=== PATIENT | male | born 1935 | race Caucasian/White ===

== ENCOUNTER → 2016-06-09 | Outpatient (CLI) | payer BC ==
[~2016-06-09] MED LIST: AMPI500C9 PO; ATOR-24 PO; CALC-20 PO; CEPH500C PO; CHOL1000 PO; CHOL100010 PO; CLC/300 PO; CMD/3 PO; COLC1TAB25 PO; COLCPOW6 PO; CYAN10005 PO; CYM/30 PO; CYM60 PO; DTR5 PO; DTRSR/2 PO; INSDGI SC; INSDGIPEN SC; INSUINJ14 SC; KFL500 PO; LISI40TA PO; MELA3CAP PO; MELATAB2 PO; NVLG SQ; NVLGI/PEN SC; TAMS0.4C38 PO; TRAZ100T29 PO; WARF2TAB8 PO; ZTHM250 PO
== END | disposition home or self-care (01) ==
LOC: C.LABSPEC 17:16
PROVIDERS: ATTEND Nurse Practitioner Family
DX: R35.0 Frequency of micturition (principal); R39.15 Urgency of urination

== ENCOUNTER → 2016-06-27 | Outpatient (CLI) | payer BC ==
[~2016-06-27] VITALS: Ht 182.9 cm; Wt 126.7 kg
[2016-06-27 15:36] VITALS: BP 103/65; PULSE 108; Ht 182.9 cm; Wt 126.7 kg
== END | disposition home or self-care (01) ==
LOC: C.NEUR 15:07
PROVIDERS: ATTEND Internal Medicine Pulmonary Disease
DX: G47.33 Obstructive sleep apnea (adult) (pediatric) (principal)

== ENCOUNTER 2016-08-01 13:57 | Inpatient (IN) | payer BC, OTHER ==
[~2016-08-01] VITALS: Ht 182.9 cm; Wt 123.8 kg
[~2016-08-01 13:57] MED LIST changes: -AMPI500C9 PO; -ATOR-24 PO; -CALC-20 PO; -CEPH500C PO; -CHOL1000 PO; -CLC/300 PO; -COLC1TAB25 PO; -COLCPOW6 PO; -CYAN10005 PO; -CYM/30 PO; -CYM60 PO; -DTR5 PO; -DTRSR/2 PO; -INSDGIPEN SC; -KFL500 PO; -LISI40TA PO; -MELATAB2 PO; -NVLG SQ; -NVLGI/PEN SC; -TAMS0.4C38 PO; -TRAZ100T29 PO; -WARF2TAB8 PO
[2016-08-01] MEDS ORDERED: WARF2TAB8 PO (14:14)
[2016-08-01] MEDS ORDERED: NVLGI/PEN SC (14:14)
[2016-08-01] MEDS ORDERED: CEPHALEXIN MONOHYDRATE 250 MG CAP PO ONE (14:15)
[2016-08-01] MEDS ORDERED: CEFTRIAXONE SOD INJ 1 GM ADDVIAL IV STA (14:15)
[2016-08-01 14:42] LABS: BASO % 0.4 %; BASO ABS # 0.03 K/uL (0-0.2); COMPLETE YES; EOS % 0.7 %; HEMATOCRIT 38.9 % (42-52); IG% 0.3 %; LYMPH % 31.1 %; LYMPH ABS # 2.09 K/uL (1.2-3.4); MEAN CELL VOLUME 91.7 fL (80-100); MEAN CORPUSCULAR HEMOGLOBIN 30.4 pg (25-34); MEAN CORPUSCULAR HGB CONC 33.2 g/dl (32-36); MONO % 6.8 %; NEUT % 60.7 %; PLATELET COUNT 214 K/uL (130-400); RED BLOOD COUNT 4.24 M/uL (4.7-6.1); WHITE BLOOD COUNT 6.72 K/uL (4.8-10.8)
--- NOTE | 2016-08-01 15:49 | DIAGNOSTIC IMAGING REPORT ---
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 Infection. COMPARISON: None. DISCUSSION: Soft tissue disruption oriented obliquely anterior to the proximal tibia and medial and somewhat inferior to the knee. Possible radiopaque packing material within the soft tissue wound. Clinical cortical defect of the anterior and medial proximal tibia. Possibility of a trace amount of periosteal reaction is seen laterally is considered. IMPRESSION: Soft tissue disruption and a potential cortical defect proximal tibia at the level of the metaphysis. 2. Either 3 phase bone scan or MRI of this region is suggested to exclude osteomyelitis Electronically signed by: Rakesh Mckenzie M.D. 08/01/2016 3:48 PM Dictated Date/Time: 08/01/2016 3:44 PM
[2016-08-01] MEDS ORDERED: CIPROFLOXACIN 400MG / 200ML D5W IV STA (17:03)
[2016-08-01] MEDS ORDERED: MAGNESIUM HYDROXIDE SUSP 30 ML UDC PO PRN (17:15)
[2016-08-01] MEDS ORDERED: ACETAMINOPHEN 325 MG TAB PO PRN (17:15)
[2016-08-01] MEDS ORDERED: ONDANSETRON INJ 2 MG/ML 2 ML VIAL IV PRN (17:15)
[2016-08-01] MEDS ORDERED: ALUMINUM/MAGNESIUM/SIMETH (MAALOX MAX) 30 ML UDC PO PRN (17:15)
[2016-08-01] MEDS ORDERED: ZOLPIDEM TARTRATE 5 MG TAB PO PRN (17:15)
[2016-08-01] MEDS ORDERED: POLYETHYLENE (MIRALAX) 17 GM PACK PO PRN (17:15)
[2016-08-01 17:26] LABS: BUN/CREATININE RATIO 17.3 (10-20); CALCIUM 9.2 mg/dl (8.5-10.1); CREATININE 1.5 mg/dl (0.60-1.40); POTASSIUM 4.2 mmol/L (3.5-5.1)
--- NOTE | 2016-08-01 17:34 | History and Physical ---
History & Physical Date of Service Aug 01, 2016. History & Physical left anterior below knee possible osteomyelitis [id number]
[2016-08-01 17:35] LABS: INR 1.8 (0.9-1.1); PROTHROMBIN TIME (PATIENT) 20.1 SECONDS (9.0-12.0)
[2016-08-01] MEDS ORDERED: GLUCOSE 10 TABS/TUBE PO PRN (17:45)
[2016-08-01] MEDS ORDERED: GLUCAGON FOR INJ 1 MG VIAL SQ PRN (17:45)
[2016-08-01] MEDS ORDERED: GLUCOSE 40% GEL 15 GM TUBE PO PRN (17:45)
[2016-08-01] MEDS ORDERED: DEXTROSE 50% 50 ML SYR IV PRN (17:45)
[2016-08-01 18:00] VITALS: BP 147/80; PULSE 62; TEMP 36.7; O2SAT 94; BMI 37.0
[2016-08-01 19:24] VITALS: O2SAT 94
[2016-08-01] MEDS: TRAZODONE HCL 100 MG TAB PO SCH (21:12)
[2016-08-01] MEDS: INSULIN ASPART 100 UNITS/ML 3 ML PEN SC SCH (21:16)
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
[2016-08-01 23:11] VITALS: BP 106/68; PULSE 73; TEMP 36.8; O2SAT 93
[2016-08-02 07:16] VITALS: BP 113/68; PULSE 68; TEMP 36.8; O2SAT 97
[2016-08-02 08:47] LABS: BASO % 0.9 %; BASO ABS # 0.06 K/uL (0-0.2); COMPLETE YES; EOS % 0.7 %; IG% 0.1 %; LYMPH % 39.4 %; LYMPH ABS # 2.67 K/uL (1.2-3.4); MEAN CELL VOLUME 93.5 fL (80-100); MEAN CORPUSCULAR HEMOGLOBIN 31.7 pg (25-34); MEAN CORPUSCULAR HGB CONC 33.8 g/dl (32-36); MEAN PLATELET VOLUME 10.2 fL (7.4-10.4); MONO % 6.6 %; NEUT % 52.3 %; PLATELET COUNT 205 K/uL (130-400); RED BLOOD COUNT 4.17 M/uL (4.7-6.1); WHITE BLOOD COUNT 6.77 K/uL (4.8-10.8)
[2016-08-02 08:54] LABS: INR 1.9 (0.9-1.1); PROTHROMBIN TIME (PATIENT) 20.7 SECONDS (9.0-12.0)
[2016-08-02] MEDS: CEFTRIAXONE SOD INJ 1 GM in DEXTROSE 5% ADD-VANTAGE 50ML 50 ML IV SCH (09:04)
[2016-08-02] MEDS: CALCIUM 600MG + VIT D 400 IU TAB PO SCH (09:04)
[2016-08-02] MEDS: DULOXETINE (CYMBALTA) 30 MG CAP PO SCH (09:05)
[2016-08-02] MEDS: ATORVASTATIN 40 MG TAB PO SCH (09:05)
[2016-08-02] MEDS: DULOXETINE HCL 60 MG CAP PO SCH (09:05)
[2016-08-02] MEDS: PANTOprazole SOD 40 MG TAB PO SCH (09:06)
[2016-08-02] MEDS: CYANOCOBALAMIN 500 MCG TAB (VIT B-12) PO SCH (09:06)
[2016-08-02] MEDS: LISINOPRIL 40 MG TAB PO SCH (09:07)
[2016-08-02] MEDS: INSULIN ASPART 100 UNITS/ML 3 ML PEN SC SCH ×4 (09:14→21:00)
[2016-08-02] MEDS: INSULIN GLARGINE SOLOSTAR 100 UNITS/ML 3 ML PEN SC SCH (09:16)
[2016-08-02 09:26] LABS: BUN/CREATININE RATIO 14.5 (10-20); CALCIUM 9.1 mg/dl (8.5-10.1); CREATININE 1.5 mg/dl (0.60-1.40); MAGNESIUM 2.1 mg/dl (1.8-2.4); POTASSIUM 4.1 mmol/L (3.5-5.1)
[2016-08-02 10:00] LABS: ESTIMATED AVERAGE GLUCOSE 192 mg/dl; HA1C FLAG Normal (Normal)
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
[2016-08-02 13:28] VITALS: Ht 182.9 cm; Wt 123.8 kg
[2016-08-02 15:26] VITALS: BP 111/74; PULSE 67; TEMP 36.9; O2SAT 96
[2016-08-02] MEDS ORDERED: WARFARIN SOD 2 MG TAB PO SCH (16:00)
--- NOTE | 2016-08-02 18:16 | DIAGNOSTIC IMAGING REPORT ---
3 phase limited bone scan BONE SCAN 3PHASE WHOLE BODY CLINICAL HISTORY: left anterior below knee possible osteomyelitis tibia infection TECHNIQUE: 3 phase bone scan following the administration of 26.3 mCi technetium 99m MDP. Vascular flow images show subtle increased hyperemia to the left knee as compared to the right. Stable static and delayed images show no significant abnormality. There is mild scattered degenerative activity of the knees bilaterally as well as the thoracolumbar spine and sternoclavicular joints. No well-defined increased activity is seen in inferior to the left knee. COMPARISON STUDY: Routine films dated 07/31/2016 FINDINGS: As above IMPRESSION: No evidence for osteomyelitis based on bone scan criteria. Scattered degenerative activity. Electronically signed by: Rakesh Mckenzie M.D. 08/02/2016 6:15 PM Dictated Date/Time: 08/02/2016 6:10 PM
[2016-08-02] MEDS ORDERED: PSYLLIUM 58.6% PWD PACK S\\F PO ONE (19:14)
[2016-08-02] MEDS: TRAZODONE HCL 100 MG TAB PO SCH (21:15)
[2016-08-02 23:09] VITALS: BP 103/66; PULSE 75; TEMP 36.8; O2SAT 95
[2016-08-03 08:12] VITALS: BP_SYST 100; BP_SYST 122; BP_DIAS 52; BP_DIAS 76; PULSE 60; PULSE 72; TEMP 36.4; TEMP 36.8; O2SAT 96; O2SAT 98
[2016-08-03] MEDS: CEFTRIAXONE SOD INJ 1 GM in DEXTROSE 5% ADD-VANTAGE 50ML 50 ML IV SCH (08:32)
[2016-08-03] MEDS: LISINOPRIL 40 MG TAB PO SCH (08:33)
[2016-08-03] MEDS: CALCIUM 600MG + VIT D 400 IU TAB PO SCH (08:33)
[2016-08-03] MEDS: CYANOCOBALAMIN 500 MCG TAB (VIT B-12) PO SCH (08:33)
[2016-08-03] MEDS: DULOXETINE HCL 60 MG CAP PO SCH (08:33)
[2016-08-03] MEDS: ATORVASTATIN 40 MG TAB PO SCH (08:34)
[2016-08-03] MEDS: DULOXETINE (CYMBALTA) 30 MG CAP PO SCH (08:34)
[2016-08-03] MEDS: PANTOprazole SOD 40 MG TAB PO SCH (08:45)
[2016-08-03] MEDS: INSULIN ASPART 100 UNITS/ML 3 ML PEN SC SCH ×2 (08:52→12:50)
[2016-08-03] MEDS: INSULIN GLARGINE SOLOSTAR 100 UNITS/ML 3 ML PEN SC SCH (08:53)
[2016-08-03] MEDS ORDERED: PSYLLIUM 58.6% PWD PACK S\\F PO SCH (09:00)
[2016-08-03 09:10] VITALS: BP 113/50; PULSE 82
[2016-08-03 10:46] VITALS: O2SAT 96
[2016-08-03] MEDS ORDERED: AMPI500C9 PO (11:07)
--- NOTE | 2016-08-03 11:08 | Discharge Instructions ---
Discharge Instructions Date of Service Aug 03, 2016. Admission Reason for Admission: Left Anterior Below Knee Possible Osteomyelitis Discharge Discharge Diagnosis / Problem: left leg cellulitis Discharge Goals Goal(s): Decrease discomfort, Improve function, Increase independence, Improve disease control, Diagnostic testing, Therapeutic intervention Activity Recommendations Activity Limitations: resume your previous activity Exercise/Sports Limitations: none Shower/Bathe: no limitations . Instructions / Follow-Up Instructions / Follow-Up Patient to be discharged home Please take antibiotic ampicillin 4 times a day for 7 days If worsening fevers, chills, fevers, pain or rash please report to ER Current Hospital Diet Patient's current hospital diet: Diabetes Type 2 Diet Discharge Diet Recommended Diet: Diabetes Type 2 Diet Pending Studies Studies pending at discharge: no Laboratory Results Hemoglobin A1c Test 08/02/16 08:31 Range/Units Estimated Average Glucose 192 mg/dl Hemoglobin A1c 8.3 H 4.5-5.6 % Medical Emergencies . Who to Call and When: Medical Emergencies: If at any time you feel your situation is an emergency, please call 911 immediately. . Non-Emergent Contact Non-Emergency issues call your: Primary Care Provider Call Non-Emergent contact if: you have a fever, your pain is worsening . . "Provider Documentation" section prepared by Rubio Brown. VTE Core Measure Inpt VTE Proph given/why not?: Warfarin (Coumadin)
[2016-08-03] MEDS ORDERED: AMPICILLIN 250 MG CAP PO SCH (12:00)
[2016-08-03] MEDS ORDERED: CLINDAMYCIN HCL 150 MG CAP PO SCH (12:00)
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
[2016-08-03] MEDS ORDERED: CEPHALEXIN MONOHYDRATE 500 MG CAP PO SCH (13:00)
[2016-08-03] MEDS ORDERED: KFL500 PO (13:21)
[2016-08-03] MEDS ORDERED: WARFARIN SOD 3 MG TAB PO SCH (16:00)
[2016-08-03 16:18] VITALS: BP 114/74; PULSE 65; TEMP 36.5; O2SAT 94
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
[2016-10-21] MEDS ORDERED: COLCPOW6 PO (08:23)
[2016-10-21] MEDS ORDERED: DTRSR/2 PO (08:23)
[2016-10-21] MEDS ORDERED: CYAN10005 PO (08:23)
[2016-10-21] MEDS ORDERED: TAMS0.4C38 PO (08:23)
[2016-12-02] MEDS ORDERED: CYM60 PO (04:44)
[2016-12-02] MEDS ORDERED: CHOL1000 PO (08:23)
[2016-12-02] MEDS ORDERED: MELATAB2 PO (08:23)
[2016-12-02] MEDS ORDERED: CEPH500C PO (09:03)
[2016-12-02] MEDS ORDERED: CYM/30 PO (14:14)
[2016-12-02] MEDS ORDERED: INSDGIPEN SC (14:14)
[2016-12-02] MEDS ORDERED: TRAZ100T29 PO (14:22)
[2016-12-02] MEDS ORDERED: CALC-20 PO (14:28)
[2017-02-01] MEDS ORDERED: CLC/300 PO (11:21)
[2017-02-15] MEDS ORDERED: CEPH500C PO (11:05)
== END 2016-08-03 16:35 | disposition home or self-care (01) | DRG 603 ==
LOC: ENRESERVTM → ENRESERVDT → C.EDB 13:58 → C.MSN 17:20 → EDBEDREQSVC 17:33 → OBSVTOIN 08-02 12:17
PROVIDERS: ADMIT Hospitalist; ATTEND Hospitalist
DX: L03.114 Cellulitis of left upper limb (principal); Z79.01 Long term (current) use of anticoagulants; Z86.718 Personal history of other venous thrombosis and embolism; E78.5 Hyperlipidemia, unspecified; C61 Malignant neoplasm of prostate; E11.9 Type 2 diabetes mellitus without complications; I10 Essential (primary) hypertension; Z79.4 Long term (current) use of insulin; Z87.891 Personal history of nicotine dependence; R35.0 Frequency of micturition; Z83.3 Family history of diabetes mellitus; Z80.9 Family history of malignant neoplasm, unspecified; Z82.49 Family history of ischemic heart disease and other diseases of the circulatory system; Z88.0 Allergy status to penicillin; Z88.2 Allergy status to sulfonamides

== ENCOUNTER → 2016-09-05 | Outpatient (CLI) | payer BC ==
[~2016-09-05] MED LIST changes: +ATOR-24 PO; +CALC-20 PO; +CEFT1INJ57 IV; +CEPH500C PO; +CHOL1000 PO; -CHOL100010 PO; +CLC/300 PO; +COLC1TAB25 PO; +COLCPOW6 PO; +CYAN10005 PO; +CYM/30 PO; +CYM60 PO; +DTR5 PO; +DTRSR/2 PO; -INSDGI SC; +INSDGIPEN SC; -INSUINJ14 SC; +KFL500 PO; +LISI40TA PO; -MELA3CAP PO; +MELATAB2 PO; +NVLG SQ; +NVLGI/PEN SC; +TAMS0.4C38 PO; +TRAZ100T29 PO; +WARF2TAB8 PO; -ZTHM250 PO
[2016-09-05 13:26] LABS: BASO % 0.4 %; BASO ABS # 0.03 K/uL (0-0.2); COMPLETE YES; HEMATOCRIT 38.4 % (42-52); IG% 0.1 %; LYMPH % 38.2 %; LYMPH ABS # 2.71 K/uL (1.2-3.4); MEAN CELL VOLUME 92.3 fL (80-100); MEAN CORPUSCULAR HEMOGLOBIN 30.8 pg (25-34); MEAN CORPUSCULAR HGB CONC 33.3 g/dl (32-36); MEAN PLATELET VOLUME 10.2 fL (7.4-10.4); MONO % 5.4 %; NEUT % 54.9 %; PLATELET COUNT 209 K/uL (130-400); RED BLOOD COUNT 4.16 M/uL (4.7-6.1)
[2016-09-05 14:23] LABS: URINE PROTIEN/CREAT RATIO 0.2 (0-0.2)
[2016-09-05 14:25] LABS: ESTIMATED AVERAGE GLUCOSE 186 mg/dl; HA1C FLAG Normal (Normal)
[2016-09-05 14:47] LABS: BLOOD UREA NITROGEN 19 mg/dl (7-18); BUN/CREATININE RATIO 13.9 (10-20); CALCIUM 9.2 mg/dl (8.5-10.1); CARBON DIOXIDE 25 mmol/L (21-32); CHLORIDE 110 mmol/L (98-107); GLUCOSE 139 mg/dl (70-99); POTASSIUM 3.9 mmol/L (3.5-5.1); SODIUM 144 mmol/L (136-145)
== END | disposition home or self-care (01) ==
LOC: C.LABBC 10:16
PROVIDERS: ATTEND Internal Medicine Geriatric Medicine
DX: I10 Essential (primary) hypertension (principal); E11.9 Type 2 diabetes mellitus without complications; E53.8 Deficiency of other specified B group vitamins; R53.83 Other fatigue; D64.9 Anemia, unspecified; M85.80 Other specified disorders of bone density and structure, unspecified site; E55.9 Vitamin D deficiency, unspecified; L03.90 Cellulitis, unspecified

== ENCOUNTER → 2016-10-14 | Outpatient (CLI) | payer BC ==
--- NOTE | 2016-10-14 11:44 | DIAGNOSTIC IMAGING REPORT ---
CT OF THE LEFT LOWER LEG CT DOSE: HISTORY: Infection. Pain. CELLULITIS L03.9 TECHNIQUE: Multiaxial CT images of the left lower leg were performed and reformatted in the sagittal and coronal plane without the use of contrast. COMPARISON: None. FINDINGS: Findings of superficial soft tissue ulceration with radiopaque material within the wound extending from a region medial to the proximal tibia and to a region medially adjacent to and involving the inferior tibial tubercles. Transaxial image 61 as well as sagittal image 26 suggest potential early cortical destructive change and minimal periosteal reaction inferior to the tibial tubercles. Early osteomyelitis is not excluded. There is no evidence for drainable abscess or collection. Mild generalized soft tissue edematous change is present. No additional lytic or blastic process is appreciated. IMPRESSION: 1. A soft tissue ulcer medial to the proximal tibia extending to a position immediately inferior to the tibial tubercles. 2. Possible early osteomyelitis proximal tibia 3. No evidence for drainable abscess or collection. Electronically signed by: Rakesh Mckenzie M.D. 10/14/2016 11:43 AM Dictated Date/Time: 10/14/2016 11:32 AM
== END | disposition home or self-care (01) ==
LOC: C.CTS 11:01
PROVIDERS: ATTEND Physician Assistant Medical
DX: L03.90 Cellulitis, unspecified (principal); L97.229 Non-pressure chronic ulcer of left calf with unspecified severity

== ENCOUNTER 2016-12-02 15:57 | Emergency (ER) | payer OTHER, BC ==
[~2016-12-02 15:57] MED LIST changes: -ATOR-24 PO; -CEFT1INJ57 IV; -CLC/300 PO; -COLC1TAB25 PO; -DTR5 PO; -KFL500 PO; -LISI40TA PO; -NVLG SQ
[2016-12-02] MEDS ORDERED: CYAN10005 PO (16:01)
[2016-12-02] MEDS ORDERED: ATOR-24 PO (16:15)
[2016-12-02] MEDS ORDERED: SODIUM CHLORIDE 0.9% 500ML 500 ML IV STA (16:22)
[2016-12-02] MEDS ORDERED: ACETAMINOPHEN 325 MG TAB PO STA (16:22)
[2016-12-02] MEDS ORDERED: OPTIRAY 320 IV PRN (16:30)
[2016-12-02 16:50] LABS: HEMATOCRIT 37.5 % (42-52); MEAN CELL VOLUME 91.9 fL (80-100); MEAN CORPUSCULAR HEMOGLOBIN 30.9 pg (25-34); MEAN CORPUSCULAR HGB CONC 33.6 g/dl (32-36); MEAN PLATELET VOLUME 9.8 fL (7.4-10.4); PLATELET COUNT 188 K/uL (130-400); RED BLOOD COUNT 4.08 M/uL (4.7-6.1); WHITE BLOOD COUNT 9.01 K/uL (4.8-10.8)
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
[2016-12-02] MEDS ORDERED: COLC1TAB25 PO (17:01)
[2016-12-02] MEDS ORDERED: NVLG SQ (17:01)
[2016-12-02] MEDS ORDERED: DTR5 PO (17:01)
[2016-12-02 17:05] LABS: INR 2.1 (0.9-1.1); PARTIAL THROMBOPLASTIN RATIO 1.2; PROTHROMBIN TIME (PATIENT) 23.4 SECONDS (9.0-12.0)
[2016-12-02 17:06] LABS: ALT/SGPT 23 U/L (12-78); AST/SGOT 22 U/L (15-37); BLOOD UREA NITROGEN 23 mg/dl (7-18); CALCIUM 9.3 mg/dl (8.5-10.1); CARBON DIOXIDE 28 mmol/L (21-32); CHLORIDE 110 mmol/L (98-107); GLUCOSE 60 mg/dl (70-99); POTASSIUM 4.1 mmol/L (3.5-5.1); SODIUM 144 mmol/L (136-145)
[2016-12-02 17:09] LABS: ALB/GLOB RATIO 0.8 (0.9-2); ALKALINE PHOSPHATASE 86 U/L (45-117)
[2016-12-02] MEDS ORDERED: DEXTROSE 50% 50 ML SYR IV ONE (17:15)
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
[2016-12-02 18:43] LABS: URINE APPEARANCE CLEAR (CLEAR); URINE BILIRUBIN NEG (NEG); URINE COLOR YELLOW; URINE NITRITE NEG (NEG); URINE PH 5.5 (4.5-7.5); URINE SPECIFIC GRAVITY 1.022 (1.000-1.030); UROBILINOGEN NEG (NEG)
[2016-12-02 18:50] LABS: MANUAL MICROSCOPIC REQUIRED? NO; REVIEW REQ? NO
[2016-12-02 19:26] VITALS: BP 135/80; PULSE 84; O2SAT 96
[2016-12-02] MEDS ORDERED: LISI40TA PO (19:33)
[2017-02-01] MEDS ORDERED: CLC/300 PO (11:21)
[2017-02-15] MEDS ORDERED: CEPH500C PO (11:05)
== END 2016-12-02 19:37 | disposition home or self-care (01) ==
LOC: EDBD 15:57 → C.EDA 15:58
DX: S20.219A Contusion of unspecified front wall of thorax, initial encounter (principal); V49.40XA Driver injured in collision with unspecified motor vehicles in traffic accident, initial encounter; Y92.488 Other paved roadways as the place of occurrence of the external cause; Z79.01 Long term (current) use of anticoagulants; R91.1 Solitary pulmonary nodule; E11.9 Type 2 diabetes mellitus without complications; E78.5 Hyperlipidemia, unspecified; I10 Essential (primary) hypertension; C61 Malignant neoplasm of prostate; Z86.718 Personal history of other venous thrombosis and embolism; Z86.711 Personal history of pulmonary embolism; Z87.891 Personal history of nicotine dependence; Z83.3 Family history of diabetes mellitus; Z82.49 Family history of ischemic heart disease and other diseases of the circulatory system; Z79.4 Long term (current) use of insulin

== ENCOUNTER 2016-12-10 16:37 | Emergency (ER) | payer BC, OTHER ==
[~2016-12-10] VITALS: Ht 182.9 cm; Wt 128.0 kg
[~2016-12-10 16:37] MED LIST changes: +ATOR-24 PO; +COLC1TAB25 PO; -COLCPOW6 PO; +DTR5 PO; -DTRSR/2 PO; +LISI40TA PO; +NVLG SQ; -NVLGI/PEN SC; -TAMS0.4C38 PO
[2016-12-10 16:44] VITALS: TEMP 36.5; Ht 182.9 cm; Wt 128.0 kg
[2016-12-10] MEDS ORDERED: FAMOTIDINE 20 MG TAB PO STA (17:03)
[2016-12-10] MEDS ORDERED: SUCRALFATE 1 GM TAB PO STA (17:03)
[2016-12-10] MEDS ORDERED: GI COCKTAIL PO STA (17:03)
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
--- NOTE | 2016-12-10 17:27 | DIAGNOSTIC IMAGING REPORT ---
CHEST ONE VIEW PORTABLE CLINICAL HISTORY: CHEST PAIN pain COMPARISON STUDY: 06/09/2014 FINDINGS: Stable cardiomegaly. Under clear. Minimal chronic atelectatic change left base. IMPRESSION: Stable cardiomegaly. The above report was generated using voice recognition software. It may contain grammatical, syntax or spelling errors. Electronically signed by: Rakesh Mckenzie M.D. 12/10/2016 5:25 PM Dictated Date/Time: 12/10/2016 5:25 PM
[2016-12-10 17:54] LABS: BASO % 0.4 %; BASO ABS # 0.03 K/uL (0-0.2); COMPLETE YES; EOS % 1.7 %; HEMATOCRIT 38.8 % (42-52); IG% 0.1 %; LYMPH % 38.2 %; LYMPH ABS # 2.69 K/uL (1.2-3.4); MEAN CELL VOLUME 94.2 fL (80-100); MEAN CORPUSCULAR HEMOGLOBIN 30.8 pg (25-34); MEAN CORPUSCULAR HGB CONC 32.7 g/dl (32-36); MEAN PLATELET VOLUME 9.8 fL (7.4-10.4); MONO % 6.7 %; NEUT % 52.9 %; PLATELET COUNT 209 K/uL (130-400); RED BLOOD COUNT 4.12 M/uL (4.7-6.1); WHITE BLOOD COUNT 7.04 K/uL (4.8-10.8)
[2016-12-10 17:59] LABS: ISTAT CREATININE 1.2 mg/dl (0.6-1.3); ISTAT HEMOGLOBIN 12.9 g/dl (14.0-18.0); ISTAT IONIZED CALCIUM 1.25 mmol/l (1.12-1.32)
[2016-12-10 18:13] LABS: ALT/SGPT 25 U/L (12-78); BLOOD UREA NITROGEN 22 mg/dl (7-18); BUN/CREATININE RATIO 15.6 (10-20); CALCIUM 9.3 mg/dl (8.5-10.1); CARBON DIOXIDE 29 mmol/L (21-32); CHLORIDE 109 mmol/L (98-107); GLUCOSE 84 mg/dl (70-99); POTASSIUM 4.5 mmol/L (3.5-5.1); SODIUM 143 mmol/L (136-145)
[2016-12-10] MEDS ORDERED: OPTIRAY 320 IV PRN (18:15)
[2016-12-10 18:18] LABS: ALKALINE PHOSPHATASE 84 U/L (45-117); AST/SGOT 20 U/L (15-37); CKMB/CK RATIO 1.5 (0-3.0)
[2016-12-10] MEDS ORDERED: LIDOCAINE HCL 2% VISC SOLN 20 ML UDC ONE (18:25)
[2016-12-10] MEDS ORDERED: ALUMINUM/MAGNESIUM SUSP 30 ML UDC ONE (18:25)
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
[2016-12-10 19:58] VITALS: BP 120/71; PULSE 62; O2SAT 94
== END 2016-12-10 20:10 | disposition home or self-care (01) ==
LOC: C.EDB 16:39
DX: R07.9 Chest pain, unspecified (principal); I45.10 Unspecified right bundle-branch block; E11.9 Type 2 diabetes mellitus without complications; E78.5 Hyperlipidemia, unspecified; I10 Essential (primary) hypertension; Z85.46 Personal history of malignant neoplasm of prostate; Z86.718 Personal history of other venous thrombosis and embolism; Z79.01 Long term (current) use of anticoagulants; Z79.4 Long term (current) use of insulin; Z79.899 Other long term (current) drug therapy; Z88.0 Allergy status to penicillin; Z88.2 Allergy status to sulfonamides; Z88.8 Allergy status to other drugs, medicaments and biological substances; Z83.3 Family history of diabetes mellitus; Z80.9 Family history of malignant neoplasm, unspecified; Z82.49 Family history of ischemic heart disease and other diseases of the circulatory system

== ENCOUNTER → 2017-04-05 | Outpatient (CLI) | payer BC ==
[~2017-04-05] MED LIST changes: +CEFT1INJ57 IV; -CEPH500C PO; -COLC1TAB25 PO
[2017-04-05 17:45] LABS: BASO % 0.6 %; BASO ABS # 0.04 K/uL (0-0.2); COMPLETE YES; EOS % 1.4 %; HEMATOCRIT 36.2 % (42-52); IG% 0.2 %; LYMPH % 41.1 %; LYMPH ABS # 2.57 K/uL (1.2-3.4); MEAN CORPUSCULAR HEMOGLOBIN 31.2 pg (25-34); MEAN CORPUSCULAR HGB CONC 32.9 g/dl (32-36); MEAN PLATELET VOLUME 10.6 fL (7.4-10.4); MONO % 6.4 %; NEUT % 50.3 %; PLATELET COUNT 184 K/uL (130-400); RED BLOOD COUNT 3.81 M/uL (4.7-6.1); WHITE BLOOD COUNT 6.25 K/uL (4.8-10.8)
[2017-04-05 17:53] LABS: ALT/SGPT 19 U/L (12-78); BLOOD UREA NITROGEN 20 mg/dl (7-18); BUN/CREATININE RATIO 15.2 (10-20); CALCIUM 8.7 mg/dl (8.5-10.1); CARBON DIOXIDE 29 mmol/L (21-32); CHLORIDE 110 mmol/L (98-107); CREATININE 1.34 mg/dl (0.60-1.40); GLUCOSE 189 mg/dl (70-99); SODIUM 144 mmol/L (136-145)
[2017-04-05 17:56] LABS: ALB/GLOB RATIO 0.8 (0.9-2); ALKALINE PHOSPHATASE 90 U/L (45-117); AST/SGOT 18 U/L (15-37)
== END | disposition home or self-care (01) ==
LOC: C.LABSPEC 17:21
PROVIDERS: ATTEND Internal Medicine Infectious Disease
DX: M86.9 Osteomyelitis, unspecified (principal)

== ENCOUNTER → 2017-04-11 | Outpatient (CLI) | payer BC ==
[~2017-04-11] MED LIST changes: +CEPH-571 PO
[2017-04-11 11:25] LABS: BASO % 0.9 %; BASO ABS # 0.06 K/uL (0-0.2); EOS % 2.1 %; EOS ABS # 0.15 K/uL (0-0.5); HEMATOCRIT 38.7 % (42-52); HEMOGLOBIN 12.7 g/dL (14.0-18.0); IG# 0.02 K/uL (0.00-0.02); LYMPH % 40.4 %; LYMPH ABS # 2.82 K/uL (1.2-3.4); MEAN CELL VOLUME 94.6 fL (80-100); MEAN CORPUSCULAR HEMOGLOBIN 31.1 pg (25-34); MEAN CORPUSCULAR HGB CONC 32.8 g/dl (32-36); MEAN PLATELET VOLUME 10.3 fL (7.4-10.4); MONO % 4.4 %; MONO ABS # 0.31 K/uL (0.11-0.59); NEUT % 51.9 %; NEUT ABS # 3.62 K/uL (1.4-6.5); PLATELET COUNT 204 K/uL (130-400); RED CELL DISTRIBUTION WIDTH CV 13.7 % (11.5-14.5); RED CELL DISTRIBUTION WIDTH SD 47.2 fL (36.4-46.3); WHITE BLOOD COUNT 6.98 K/uL (4.8-10.8)
[2017-04-11 11:33] LABS: ALBUMIN 3.3 gm/dl (3.4-5.0); ALT/SGPT 21 U/L (12-78); AST/SGOT 18 U/L (15-37); BLOOD UREA NITROGEN 24 mg/dl (7-18); CALCIUM 8.8 mg/dl (8.5-10.1); CARBON DIOXIDE 25 mmol/L (21-32); CREATININE 1.33 mg/dl (0.60-1.40); GLUCOSE 154 mg/dl (70-99); SODIUM 143 mmol/L (136-145)
[2017-04-11 11:36] LABS: ALKALINE PHOSPHATASE 100 U/L (45-117); TOTAL PROTEIN 7.3 gm/dl (6.4-8.2)
== END | disposition home or self-care (01) ==
LOC: C.LABSPEC 11:14
PROVIDERS: ATTEND Internal Medicine Infectious Disease
DX: M86.9 Osteomyelitis, unspecified (principal)

== ENCOUNTER → 2017-04-17 | Outpatient (CLI) | payer BC ==
[~2017-04-17] MED LIST changes: -CEPH-571 PO
--- NOTE | 2017-04-17 12:42 | DIAGNOSTIC IMAGING REPORT ---
(CHEST) THORAX WITHOUT CT DOSE: 949.49 mGy.cm HISTORY: R91.1 Pulmonary nodule F/U from ER on 12/02/[id number] TECHNIQUE: Multiaxial CT images of the chest were performed without contrast. A dose lowering technique was utilized adhering to the principles of ALARA. COMPARISON: Chest CTA 12/10/[address] 12/02/2016. FINDINGS: A 3.4 x 2.0 cm cystic focus within the right middle lobe has slightly increased in size. In addition, the nodular component along the posterior aspect of the cystic focus appears also slightly progressed. This measures 1 cm but demonstrates increased solid component. Calcified right hilar lymph node and a calcified granuloma within the right lower lobe. Mild emphysema. There is a new 3 mm nodule within the lingula on image 149. There is a new 3 mm subpleural nodule within the left lower lobe on image 141. A new 3 mm subpleural nodule within the right lung apex on image 52. No pneumothorax. The central airways are patent. No pleural effusions. Increase versus edema around favors a healing fracture. No suspicious lytic or blastic osseous lesions. The right PICC terminates in the SVC. The liver is unremarkable. A few calcified splenic granulomas. The heart is normal in size. No mediastinal or hilar lymphadenopathy. IMPRESSION: 1. Slight progression of the right middle lobe cystic lesion demonstrating a 10 mm solid nodule. A chronic infectious process could result in this appearance. However, neoplasm remains the diagnosis of exclusion given the slight progression. Additional [address] follow-up and/or bronchoscopy is recommended for further evaluation. 2. A few new subcentimeter indeterminate pulmonary nodules measuring up to 3 mm. These also bear watching on future examinations. 3. Healing manubrial fracture. Electronically signed by: Akhil Amaro M.D. 04/17/2017 12:41 PM Dictated Date/Time: 04/17/2017 12:29 PM
== END | disposition home or self-care (01) ==
LOC: C.CTS 11:25
PROVIDERS: ATTEND Internal Medicine Geriatric Medicine
DX: R91.8 Other nonspecific abnormal finding of lung field (principal); S22.21XD Fracture of manubrium, subsequent encounter for fracture with routine healing; X58.XXXD Exposure to other specified factors, subsequent encounter

== ENCOUNTER → 2017-04-18 | Outpatient (CLI) | payer BC ==
[~2017-04-18] MED LIST changes: +CEPH-571 PO
[2017-04-18 17:52] LABS: BASO % 0.6 %; BASO ABS # 0.04 K/uL (0-0.2); EOS % 1.2 %; EOS ABS # 0.08 K/uL (0-0.5); HEMATOCRIT 38.3 % (42-52); HEMOGLOBIN 12.3 g/dL (14.0-18.0); IG# 0.01 K/uL (0.00-0.02); LYMPH % 45.1 %; LYMPH ABS # 2.93 K/uL (1.2-3.4); MEAN CELL VOLUME 93.9 fL (80-100); MEAN CORPUSCULAR HEMOGLOBIN 30.1 pg (25-34); MEAN CORPUSCULAR HGB CONC 32.1 g/dl (32-36); MEAN PLATELET VOLUME 10.3 fL (7.4-10.4); MONO % 7.2 %; MONO ABS # 0.47 K/uL (0.11-0.59); NEUT % 45.7 %; NEUT ABS # 2.97 K/uL (1.4-6.5); PLATELET COUNT 197 K/uL (130-400); RED CELL DISTRIBUTION WIDTH CV 13.5 % (11.5-14.5); RED CELL DISTRIBUTION WIDTH SD 46.5 fL (36.4-46.3)
[2017-04-18 18:02] LABS: ALBUMIN 3.2 gm/dl (3.4-5.0); ALT/SGPT 20 U/L (12-78); BLOOD UREA NITROGEN 23 mg/dl (7-18); CALCIUM 8.9 mg/dl (8.5-10.1); CARBON DIOXIDE 27 mmol/L (21-32); CREATININE 1.15 mg/dl (0.60-1.40); GLUCOSE 112 mg/dl (70-99); SODIUM 142 mmol/L (136-145)
[2017-04-18 18:05] LABS: ALKALINE PHOSPHATASE 90 U/L (45-117); AST/SGOT 18 U/L (15-37); TOTAL PROTEIN 6.8 gm/dl (6.4-8.2)
== END | disposition home or self-care (01) ==
LOC: C.LABSPEC 17:15
PROVIDERS: ATTEND Internal Medicine Infectious Disease
DX: M86.9 Osteomyelitis, unspecified (principal)

== ENCOUNTER → 2017-04-25 | Outpatient (CLI) | payer BC, OTHER ==
[~2017-04-25] MED LIST changes: -CEPH-571 PO
[2017-04-25 16:35] LABS: BASO % 0.5 %; BASO ABS # 0.03 K/uL (0-0.2); COMPLETE YES; EOS % 1.1 %; HEMATOCRIT 35.7 % (42-52); LYMPH % 40.4 %; LYMPH ABS # 2.57 K/uL (1.2-3.4); MEAN CELL VOLUME 94.7 fL (80-100); MEAN CORPUSCULAR HEMOGLOBIN 30.8 pg (25-34); MEAN CORPUSCULAR HGB CONC 32.5 g/dl (32-36); MEAN PLATELET VOLUME 10.6 fL (7.4-10.4); MONO % 5.2 %; NEUT % 52.8 %; PLATELET COUNT 176 K/uL (130-400); RED BLOOD COUNT 3.77 M/uL (4.7-6.1); WHITE BLOOD COUNT 6.36 K/uL (4.8-10.8)
[2017-04-25 16:46] LABS: ALT/SGPT 23 U/L (12-78); AST/SGOT 18 U/L (15-37); BLOOD UREA NITROGEN 24 mg/dl (7-18); BUN/CREATININE RATIO 15.6 (10-20); CALCIUM 8.5 mg/dl (8.5-10.1); CARBON DIOXIDE 28 mmol/L (21-32); CHLORIDE 106 mmol/L (98-107); CREATININE 1.54 mg/dl (0.60-1.40); GLUCOSE 268 mg/dl (70-99); POTASSIUM 3.9 mmol/L (3.5-5.1); SODIUM 139 mmol/L (136-145)
[2017-04-25 16:48] LABS: ALB/GLOB RATIO 0.8 (0.9-2); ALKALINE PHOSPHATASE 99 U/L (45-117)
== END | disposition home or self-care (01) ==
LOC: C.LABSPEC 16:44
PROVIDERS: ATTEND Internal Medicine Infectious Disease
DX: M86.9 Osteomyelitis, unspecified (principal)

== ENCOUNTER → 2017-05-02 | Outpatient (CLI) | payer BC ==
[2017-05-02 12:05] LABS: BASO % 0.9 %; BASO ABS # 0.05 K/uL (0-0.2); COMPLETE YES; EOS % 2.9 %; HEMATOCRIT 36.4 % (42-52); IG% 0.2 %; LYMPH % 36.6 %; MEAN CORPUSCULAR HEMOGLOBIN 30.5 pg (25-34); MEAN CORPUSCULAR HGB CONC 32.1 g/dl (32-36); MEAN PLATELET VOLUME 10.4 fL (7.4-10.4); MONO % 5.3 %; NEUT % 54.1 %; PLATELET COUNT 170 K/uL (130-400); RED BLOOD COUNT 3.83 M/uL (4.7-6.1); WHITE BLOOD COUNT 5.46 K/uL (4.8-10.8)
[2017-05-02 12:13] LABS: ALT/SGPT 21 U/L (12-78); BLOOD UREA NITROGEN 20 mg/dl (7-18); BUN/CREATININE RATIO 15.7 (10-20); CALCIUM 8.5 mg/dl (8.5-10.1); CARBON DIOXIDE 27 mmol/L (21-32); CHLORIDE 108 mmol/L (98-107); CREATININE 1.25 mg/dl (0.60-1.40); GLUCOSE 180 mg/dl (70-99); POTASSIUM 3.9 mmol/L (3.5-5.1); SODIUM 142 mmol/L (136-145)
[2017-05-02 12:16] LABS: ALB/GLOB RATIO 0.8 (0.9-2); ALKALINE PHOSPHATASE 100 U/L (45-117); AST/SGOT 18 U/L (15-37)
== END | disposition home or self-care (01) ==
LOC: C.LABSPEC 11:50
PROVIDERS: ATTEND Internal Medicine Infectious Disease
DX: M86.9 Osteomyelitis, unspecified (principal)

== ENCOUNTER → 2017-05-05 | Outpatient (CLI) | payer BC ==
[2017-05-05 16:53] LABS: BASO % 0.6 %; BASO ABS # 0.04 K/uL (0-0.2); COMPLETE YES; EOS % 1.3 %; HEMATOCRIT 39.1 % (42-52); LYMPH % 38.9 %; LYMPH ABS # 2.44 K/uL (1.2-3.4); MEAN CORPUSCULAR HEMOGLOBIN 30.8 pg (25-34); MEAN CORPUSCULAR HGB CONC 32.7 g/dl (32-36); MEAN PLATELET VOLUME 10.6 fL (7.4-10.4); MONO % 5.6 %; NEUT % 53.6 %; PLATELET COUNT 207 K/uL (130-400); RED BLOOD COUNT 4.16 M/uL (4.7-6.1); WHITE BLOOD COUNT 6.28 K/uL (4.8-10.8)
[2017-05-05 16:54] LABS: PARTIAL THROMBOPLASTIN RATIO 1.3; PROTHROMBIN TIME (PATIENT) 20.9 SECONDS (9.0-12.0)
[2017-05-05 17:18] LABS: ALT/SGPT 24 U/L (12-78); AST/SGOT 19 U/L (15-37); BLOOD UREA NITROGEN 17 mg/dl (7-18); BUN/CREATININE RATIO 14.4 (10-20); CALCIUM 8.8 mg/dl (8.5-10.1); CARBON DIOXIDE 26 mmol/L (21-32); CHLORIDE 109 mmol/L (98-107); CREATININE 1.18 mg/dl (0.60-1.40); GLUCOSE 133 mg/dl (70-99); SODIUM 139 mmol/L (136-145)
[2017-05-05 17:21] LABS: ALB/GLOB RATIO 0.8 (0.9-2); ALKALINE PHOSPHATASE 99 U/L (45-117)
[2017-05-06 06:58] LABS: ESTIMATED AVERAGE GLUCOSE 183 mg/dl; HA1C FLAG Normal (Normal)
== END | disposition home or self-care (01) ==
LOC: C.LABBC 12:45
PROVIDERS: ATTEND Internal Medicine Geriatric Medicine
DX: R06.02 Shortness of breath (principal); R91.1 Solitary pulmonary nodule; I10 Essential (primary) hypertension; D64.9 Anemia, unspecified; E11.65 Type 2 diabetes mellitus with hyperglycemia

== ENCOUNTER 2017-05-11 07:28 | Day surgery (SDC) | payer BC ==
[2017-05-11] VITALS (13 sets, daily range): BP systolic 101–158; BP diastolic 58–90; PULSE 57–86; TEMP 36.5–37.2; O2SAT 91–99; Ht 182.9 cm; Wt 124.7 kg
[~2017-05-11] VITALS: Ht 182.9 cm; Wt 124.7 kg
[~2017-05-11 07:28] MED LIST changes: -CEFT1INJ57 IV
[2017-05-11] MEDS ORDERED: FENTANYL CITRATE INJ 50 MCG/1 ML 2 ML VIAL IV ONE ×2 (07:29→10:15)
[2017-05-11] MEDS ORDERED: LIDOCAINE HCL 2% LOCAL 50ML VIAL INFIL ONE (07:29)
[2017-05-11] MEDS ORDERED: LIDOCAINE 4% W/AFRIN NASAL SOLN 4ML ONE (07:29)
[2017-05-11] MEDS ORDERED: MIDAZOLAM HCL 5 MG/ML 1 ML VIAL IV ONE ×2 (07:29→10:15)
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
[2017-05-11 09:04] LABS: INR 1.1 (0.9-1.1); PROTHROMBIN TIME (PATIENT) 11.6 SECONDS (9.0-12.0)
--- NOTE | 2017-05-11 09:06 | History & Physical Bridge Note ---
H&P Re-Evaluation Bridge Note: I have examined the patient, reviewed the History & Physical and in the interval since the performance of the History & Physical I have noted the following changes of clinical significance: No changes noted
--- NOTE | 2017-05-11 09:07 | Procedure Note ---
Pre-Mod Sedation Assessment General Date of Moderate Sedation: May 11, 2017. Review Cardiovascular: regular rate, rhythm, no edema, no gallop, no JVD Abdomen: normal bowel sounds, non tender, soft, no organomegaly, no pulsatile mass Lungs: chest non-tender, lungs clear, normal breath sounds, no respiratory distress Airway Class: III Pre-Sedation Airway Assessment Oral Cavity: WNL Able to Visualize Vocal Cords: Yes Short Thick Neck: Yes Hx of Sleep Apnea: Yes Smoking Status: Former Smoker Mallampati Classification: Class III ASA Classification: Class II Procedure Planning Contraindications-for Mod Sed: None Yes Notes The planned sedation has been discussed with the patient and consent obtained. I have identified the patient, determined the appropriateness of sedation and have assessed the patient immediately prior to the procedure. All medicine(s) and interventions are by my order.
[2017-05-11] MEDS ORDERED: NURSING VERBAL MED ORDER ONE ×2 (09:15→10:15)
[2017-05-11] MEDS ORDERED: SODIUM CHLORIDE 0.9% 1000ML 1,000 ML IV SCH (09:30)
--- NOTE | 2017-05-11 10:06 | Bronchoscopy Procedure Note ---
Bronchoscopy Procedure Note Procedure: Bronchoscopy, conscious sedation, bronchial lavage right middle lobe Consent: Obtained through the patient placed into the chart Pre-procedural diagnosis: Chronic bronchitis with right middle lobe cyst Post-procedural diagnosis: Chronic bronchitis with right middle lobe cyst, chronic rhinitis Start time: 944 End time: 955 Total time: minutes Analgesia: 2% liquid lidocaine: Via nebulizer 4% gel lidocaine: Via right naris 2% liquid lidocaine: Via bronchoscopy Sedation: Versed IV: 2mg Fentanyl IV: 25g Procedure: The Olympus video bronchoscope was used for this procedure and passed down through the right naris Right naris/posterior naris/posterior oropharynx: Diffuse erythema along the posterior naris as well as cobblestoning and erythema in the oral pharyngeal region Glottis: Notable erythema along the glottic region suggestive of chronic rhinitis Vocal cords: Proper abduction and abduction, anatomically within normal limits Subglottis/trachea/Stacey: Anatomically within normal limits Right bronchial tree: Right mainstem bronchus: Anatomically within normal limits Right upper lobe: Anatomically within normal limits Bronchus intermedius: Anatomically within normal limits Right middle lobe: Anatomically within normal limits, minimal mucous plugging Right lower lobe: Anatomically within normal limits Findings: No significant findings noted Left bronchial tree: Left mainstem bronchus: Anatomically within normal limits Left upper lobe: Anatomically within normal limits, minimal mucous plugging Lingula: Anatomically within normal limits Left lower lobe: Anatomically within normal limits Findings: No significant findings noted Bronchial alveolar lavage: Right middle lobe EBL: None Complications: None Follow-up: ASU
--- NOTE | 2017-05-11 10:07 | Procedure Note ---
Post-Moderate Sedation Plan General Date of Moderate Sedation May 11, 2017. Vital Signs: Vital Signs Past 12 Hours Date Time Temp Pulse Resp B/P (MAP) Pulse Ox O2 Delivery O2 Flow Rate FiO2 05/11/17 09:18 37.1 86 20 131/60 94 Room Air 05/11/17 08:38 37.1 86 20 131/60 (83) 94 Room Air Review - Discharge Plan Post Moderate Sedation Plan: On clinical assessment, the patient appears to have tolerated the conscious sedation without complications. Patient is recovering as anticipated. Patient will continue to be monitored by nursing and may be discharged when conscious sedation discharge criteria are met.
--- NOTE | 2017-05-11 10:09 | Discharge Instructions ---
Discharge Instructions Date of Service May 11, 2017. Admission Reason for Admission: Pulmonary Nodule, Shortness Of Breath Discharge Discharge Diagnosis / Problem: chronic rhinitis with right middle lobe cyst Discharge Goals Goal(s): Diagnostic testing Activity Recommendations Activity Limitations: resume your previous activity . Instructions / Follow-Up Instructions / Follow-Up Follow-up with the [facility] pulmonary division Current Hospital Diet Patient's current hospital diet: Discharge Diet Recommended Diet: Regular Diet Procedures Procedures Performed: Bronchoscopy, conscious sedation was bronchial lavage of the right middle lobe Pending Studies Studies pending at discharge: no Laboratory Results Hemoglobin A1c Test 05/05/17 12:50 Range/Units Estimated Average Glucose 183 mg/dl Hemoglobin A1c 8.0 H 4.5-5.6 % Lipid Panel Test 03/29/17 14:34 Range/Units Triglycerides Level 162 H 0-150 mg/dl Cholesterol Level 157 0-200 mg/dl HDL Cholesterol 38 mg/dl Cholesterol/HDL Ratio 4.1 LDL Cholesterol, Calculated 87 mg/dl Medical Emergencies . Who to Call and When: Medical Emergencies: If at any time you feel your situation is an emergency, please call 911 immediately. . Non-Emergent Contact Non-Emergency issues call your: Host Coordinator . . "Provider Documentation" section prepared by Wyatt Tidwell. . VTE Core Measure Inpt VTE Proph given/why not?: Warfarin (Coumadin)
== END 2017-05-11 12:15 | disposition home or self-care (01) ==
LOC: C.ACU 07:28
PROVIDERS: ATTEND Internal Medicine Critical Care Medicine
DX: J98.4 Other disorders of lung (principal); R91.1 Solitary pulmonary nodule; R06.02 Shortness of breath; J31.0 Chronic rhinitis

== ENCOUNTER 2017-06-15 12:20 | Emergency (ER) | payer BC ==
[~2017-06-15] VITALS: Ht 182.9 cm; Wt 115.0 kg
[~2017-06-15 12:20] MED LIST changes: -CYM/30 PO; -WARF2TAB8 PO
[2017-06-15 12:30] VITALS: Ht 182.9 cm; Wt 115.0 kg
--- NOTE | 2017-06-15 13:37 | EMERGENCY ROOM VISIT NOTE ---
History First contact with patient: 13:08 Chief Complaint: GROIN PAIN Stated Complaint: PAIN IN R GROIN History of Present Illness The patient is a 81 year old male who presents to the Emergency Room via private vehicle with complaints of "pain and right groin". The patient states that for the past 10-14 days he has had a reddened, moist region in the right groin. He believes this is a yeast infection. He's been treating it with over- the-counter jock itch. It has been improving. In the same region just distally in the right medial thigh he also notes pain that is worse with movements. He notes it is in the muscle region. There was no recent trauma. He states that he has a hx of DVT in the same leg. There is not abd pain, Cp, sob, fevers or chills. Review of Systems A complete 10-point Review of Systems was discussed with the patient, with pertinent positives and negatives listed in the History of Present Illness. All remaining Review of Systems questions can be considered negative unless otherwise specified. Past Medical/Surgical History Medical Problems: (1) Diabetes (2) DVT (deep venous thrombosis) (3) Hyperlipidemia (4) Hypertension (5) left anterior below knee possible osteomyelitis (6) Prostate cancer (7) Urinary frequency Family History Diabetes mellitus FHx: cancer FHx: heart disease Hypertension Social History Smoking Status: Former Smoker Alcohol Use: none Drug Use: none Marital Status: Housing Status: lives with family, lives with significant other Occupation Status: retired Current/Historical Medications Scheduled Atorvastatin (Lipitor), 40 MG PO DAILY Calcium Carbonate-Vitamin D (Calcium 600 + D), 1 TAB PO DAILY Cholecalciferol (Vitamin D3), 1 TAB PO DAILY Cyanocobalamin (Vitamin B-12), 1,000 MCG PO DAILY Duloxetine HCl (Duloxetine HCl), 90 MG PO DAILY Insulin Aspart (Novolog), SQ ACHS Insulin Glargine (Lantus Solostar), 50 UNITS SC DAILY Lisinopril (Zestril), 40 MG PO DAILY Melatonin (Melatonin Maximum Strengt), 1 TAB PO HS Oxybutynin Chloride (Oxybutynin Chloride), 5 MG PO TID Trazodone Hcl (Trazodone), 100 MG PO HS Warfarin Sod (Warfarin Sodium), 3 MG PO DAILY Physical Exam Vital Signs Date Time Temp Pulse Resp B/P (MAP) Pulse Ox O2 Delivery O2 Flow Rate FiO2 06/15/17 15:58 36.8 68 19 132/73 96 06/15/17 12:30 36.8 69 18 130/69 94 Room Air Physical Exam VITAL SIGNS - Vital signs and nursing notes were reviewed. Stable. GENERAL - 81-year-old male appearing his stated age who is in no acute distress. Communicates well with provider and answers questions appropriately. SKIN - in the right groin there is a moistened region with slightly erythematous hue. This is consistent with that of a yeast infection. HEAD - NC/AT. ABDOMEN - Abdominal contour normal without pulsations or visible masses. BS normoactive all four quadrants. No tenderness, palpable masses, hepatosplenomegaly, or ascites noted. EXTREMITIES - No clubbing or peripheral cyanosis. No pretibial edema present. +5 /5 strength noted in UE/LE bilaterally. Minimal tenderness in the R proximal thigh. Medical Decision & Procedures ER Provider Diagnostic Interpretation: PELVIS ONE VIEW, RIGHT HIP 2 VIEWS HISTORY: R groin pain COMPARISON: None. FINDINGS: No fracture or dislocation within the pelvis or hips. The sacrum is intact. Multiple brachytherapy seeds are noted within the prostate. Mild cartilage space narrowing within the bilateral hips and mild degenerative changes within the bilateral sacroiliac joints. There are also degenerative changes within the lower lumbar spine. IMPRESSION: Mild osteoarthritis within the bilateral hips. No fracture or dislocation within the pelvis or hips. Electronically signed by: Akhil Amaro M.D. 06/15/2017 2:17 PM Dictated Date/Time: 06/15/2017 2:13 PM R VENOUS DOPP LOWER EXT UNILAT HISTORY: 81 years-old Male R groing/inner thigh pain. Hx DVT acute right groin and inner thigh pain. COMPARISON: None available TECHNIQUE: Multiple real-time sonographic images of the deep pelvic structures within the right lower extremity were obtained assessing grayscale appearance, color and spectral flow. FINDINGS: Booth's cyst is noted, 6.4 x 1.1 x 3.2 cm which appears minimally complex. The common femoral vein is patent and unremarkable. Nonocclusive somewhat linear appearing thrombus is noted within the superficial femoral and popliteal arteries without occlusive thrombus identified. Areas of intermittent diminished flow noted within the peroneal vein. The posterior tibial and anterior tibial veins appear patent. IMPRESSION: 1. Chronic appearing nonocclusive thrombus involves the superficial femoral, popliteal and peroneal veins. 2. 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 The above report was generated using voice recognition software. It may contain grammatical, syntax or spelling errors. Electronically signed by: Fredy Andersen M.D. 06/15/2017 2:58 PM Dictated Date/Time: 06/15/2017 2:52 PM Medical Decision Patient was seen and evaluated as above. He presents to us today with right groin/medial anterior thigh pain. He is nontoxic on exam. He has stable vital signs. He is hemodynamically stable. X-ray was obtained of the hip without acute fracture or dislocation noted. Ultrasound was obtained and reveals a chronic thrombus. He is currently anticoagulant. INR here is 2.3. I suspect this could be muscle related and he is already treating himself at home for the tinea cruris noted in the right inguinal region. This does not appear to be a hernia. The thigh pain is not really reproducible on exam but he pinpoints it to the muscle region. This could also be radicular. He is to follow-up with family doctor, as well as Dr. brooks, his back specialist. I believe he is appropriate for outpatient management. His medication list was reviewed. His blood pressure was found be elevated here today. He is to follow-up with his family doctor. He was also seen by the attending physician. He was educated upon management, educated upon worrisome symptoms in which to return, had questions answered prior to discharge, and was discharged home in good condition. In evaluation treatment this patient the following differential diagnoses were entertained: Fracture, dislocation, muscle strain, among others. Impression Primary Impression: Pain in right thigh Additional Impression: Tinea corporis Departure Information Dispostion Home / Self-Care Condition GOOD Referrals Chris Epps M.D. (PCP) Patient Instructions My [facility] [place] Additional Instructions You have been treated in the Emergency Department for Thigh Pain. For pain control, you can use the following [id number] medicines (if >12 yo): - Regular strength (325mg/tab) Tylenol (acetaminophen) 2 tabs every 4-6 hours as needed. Do not exceed 12 tablets in a 24 hour period. Avoid taking more than 3 grams (3000 mg) of Tylenol per day. This includes any other sources of acetaminophen you may take on a regular basis. If this is a recent injury (<24 hrs), ice can be applied to the area of pain for the first 3 days to help decrease pain and inflammation. Ice massages can be performed by freezing water in a paper cup, peeling back the cup to expose the ice and then massaging over the affected area. Please call your family doctor and Dr. brooks for follow up. Cream for the yeast Return to the Emergency Department if your current symptoms worsen despite treatment course outlined above. Problem Qualifiers
--- NOTE | 2017-06-15 14:18 | DIAGNOSTIC IMAGING REPORT ---
PELVIS ONE VIEW, RIGHT HIP 2 VIEWS HISTORY: R groin pain COMPARISON: None. FINDINGS: No fracture or dislocation within the pelvis or hips. The sacrum is intact. Multiple brachytherapy seeds are noted within the prostate. Mild cartilage space narrowing within the bilateral hips and mild degenerative changes within the bilateral sacroiliac joints. There are also degenerative changes within the lower lumbar spine. IMPRESSION: Mild osteoarthritis within the bilateral hips. No fracture or dislocation within the pelvis or hips. Electronically signed by: Akhil Amaro M.D. 06/15/2017 2:17 PM Dictated Date/Time: 06/15/2017 2:13 PM
--- NOTE | 2017-06-15 15:00 | DIAGNOSTIC IMAGING REPORT ---
R VENOUS DOPP LOWER EXT UNILAT HISTORY: 81 years-old Male R groing/inner thigh pain. Hx DVT acute right groin and inner thigh pain. COMPARISON: None available TECHNIQUE: Multiple real-time sonographic images of the deep pelvic structures within the right lower extremity were obtained assessing grayscale appearance, color and spectral flow. FINDINGS: Booth's cyst is noted, 6.4 x 1.1 x 3.2 cm which appears minimally complex. The common femoral vein is patent and unremarkable. Nonocclusive somewhat linear appearing thrombus is noted within the superficial femoral and popliteal arteries without occlusive thrombus identified. Areas of intermittent diminished flow noted within the peroneal vein. The posterior tibial and anterior tibial veins appear patent. IMPRESSION: 1. Chronic appearing nonocclusive thrombus involves the superficial femoral, popliteal and peroneal veins. 2. 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 The above report was generated using voice recognition software. It may contain grammatical, syntax or spelling errors. Electronically signed by: Fredy Andersen M.D. 06/15/2017 2:58 PM Dictated Date/Time: 06/15/2017 2:52 PM
--- NOTE | 2017-06-15 15:28 | EMERGENCY ROOM VISIT NOTE ---
ED Visit Note First contact with patient: 13:08 The patient was seen and examined with Matt Francisco. I agree with the history, physical and findings. Please see the note for disposition and details.
[2017-06-15 15:58] VITALS: BP 132/73; PULSE 68; TEMP 36.8; O2SAT 96
== END 2017-06-15 15:59 | disposition home or self-care (01) ==
LOC: C.EDB 12:22 → C.EDD 15:59
DX: M79.651 Pain in right thigh (principal); B35.4 Tinea corporis; Z86.718 Personal history of other venous thrombosis and embolism; E11.9 Type 2 diabetes mellitus without complications; E78.5 Hyperlipidemia, unspecified; I10 Essential (primary) hypertension; Z85.46 Personal history of malignant neoplasm of prostate; Z83.3 Family history of diabetes mellitus; Z80.9 Family history of malignant neoplasm, unspecified; Z82.49 Family history of ischemic heart disease and other diseases of the circulatory system; Z87.891 Personal history of nicotine dependence; Z79.4 Long term (current) use of insulin; Z79.01 Long term (current) use of anticoagulants; Z79.899 Other long term (current) drug therapy

== ENCOUNTER → 2017-06-28 | Outpatient (CLI) | payer BC ==
--- NOTE | 2017-06-28 07:46 | DIAGNOSTIC IMAGING REPORT ---
(CHEST) THORAX WITHOUT CLINICAL HISTORY: PULMONARY NODULE COMPARISON STUDY: 04/17/2017 CT DOSE: TECHNIQUE: CT of the thorax was performed from the thoracic inlet to the lung bases. Images are reviewed in the axial, sagittal, and coronal planes. IV contrast was not administered for this examination. A dose lowering technique was utilized adhering to the principles of ALARA. FINDINGS: Thyroid: There is a 6 mm right lobe thyroid nodule. Thoracic aorta: The thoracic aorta is normal in course and caliber, noting standard 3 vessel arch anatomy. Heart: There are coronary artery calcifications. Lungs and pleural spaces: There are no pleural effusions. There is no focal pulmonary consolidation. There is a 29 mm right middle lobe lung cyst, with a stable 9 mm nodular focus abutting its medial wall. There is a stable 2.5 mm right apical pulmonary nodule. There is a calcified granuloma within the right lower lobe. There is a punctate left lower lobe granuloma. Mediastinum: There is no mediastinal lymphadenopathy. Saritha: Calcified right hilar lymph nodes, likely postinflammatory remain stable. Axilla: There is no evidence of pathologic axillary lymphadenopathy Upper abdomen: There is a partially visualized upper pole left renal cyst Skeletal structures: There are no lytic or blastic osseous lesions. IMPRESSION: Stable 29 mm right middle lobe lung cyst abutting a 9 mm pulmonary nodule. Electronically signed by: Mundo Justice M.D. 06/28/2017 7:45 AM Dictated Date/Time: 06/28/2017 7:37 AM
== END | disposition home or self-care (01) ==
LOC: C.CTS 07:01
PROVIDERS: ATTEND Internal Medicine Critical Care Medicine
DX: R91.1 Solitary pulmonary nodule (principal); J98.4 Other disorders of lung

== ENCOUNTER → 2017-06-28 | Outpatient (CLI) | payer BC ==
--- NOTE | 2017-06-28 07:53 | DIAGNOSTIC IMAGING REPORT ---
LUMBAR SPINE WITHOUT CLINICAL HISTORY: 81 years-old Male presenting with COMPRESSION FRACTURE L1. TECHNIQUE: Multidetector CT of the lumbar spine was performed without the use of intravenous contrast. IV contrast: None. A dose lowering technique was used consistent with the principles of ALARA (as low as reasonably achievable). COMPARISON: CT abdomen and pelvis from 12/02/2016. CT DOSE (mGy.cm): The estimated cumulative dose is 3057.86 mGy.cm. FINDINGS: Snowmaker topogram: Unremarkable. Focal kyphotic deformity at L1 secondary to compression fracture. There is no retropulsion of fracture fragments into the spinal canal. Over 40% anterior vertebral body height loss noted. These findings are unchanged since prior CT. No new compression deformity. Extensive multilevel degenerative changes. The remainder of vertebral body heights are preserved. Extensive intervertebral disc height loss with vacuum disc phenomenon and prominent osteophytosis including posterior bony spurring most prominently at L1-2 as well as L3-4. This results in osseous spinal canal narrowing greatest at L1-2. Mild facet arthropathy also evident. Neural foraminal narrowing greatest at L4-5 and L5-S1. No acute fracture or subluxation. Paraspinal soft tissues within normal limits with the exception of atherosclerosis. IMPRESSION: 1. No acute osseous injury lumbar spine. 2. Unchanged compression deformity of L1 with 40% anterior vertebral body height loss. This appearance is identical to 12/02/2016. 3. Multilevel degenerative changes with osseous spinal canal greatest at L1-2 and neural foraminal narrowing greatest in the lower lumbar spine. Electronically signed by: Elijah Alonzo M.D. 06/28/2017 7:52 AM Dictated Date/Time: 06/28/2017 7:46 AM
== END | disposition home or self-care (01) ==
LOC: C.CTS 07:04
PROVIDERS: ATTEND Pain Medicine Interventional Pain Medicine
DX: S32.010D Wedge compression fracture of first lumbar vertebra, subsequent encounter for fracture with routine healing (principal); X58.XXXD Exposure to other specified factors, subsequent encounter; M89.8X8 Other specified disorders of bone, other site

== ENCOUNTER → 2017-07-11 | Outpatient (CLI) | payer BC ==
[2017-07-11 10:28] LABS: INR 1.2 (0.9-1.1)
== END | disposition home or self-care (01) ==
LOC: C.LAB 09:56
PROVIDERS: ATTEND Pain Medicine Interventional Pain Medicine
DX: Z79.01 Long term (current) use of anticoagulants (principal)

== ENCOUNTER → 2017-12-25 | Outpatient (CLI) | payer BC ==
[2017-12-25 09:22] LABS: INR 1.1 (0.9-1.1)
== END | disposition home or self-care (01) ==
LOC: C.LAB 08:56
PROVIDERS: ATTEND Pain Medicine Interventional Pain Medicine
DX: Z79.01 Long term (current) use of anticoagulants (principal)

== ENCOUNTER 2018-08-26 23:44 | Inpatient (IN) ==
[2018-08-27 00:42] LABS: Basophils # (auto) 0.05 K/uL (0-0.2); Basophils % (auto) 0.5 %; Eosinophils # (auto) 0.43 K/uL (0-0.5); Eosinophils % (auto) 4.2 %; Hematocrit (blood only) 40.4 % (42-52); Hemoglobin 13.7 g/dL (14.0-18.0); Immature Granulocytes # (auto) 0.02 K/uL (0.00-0.02); Immature Granulocytes % (auto) 0.2 %; Lymphocytes # (auto) 2.81 K/uL (1.2-3.4); Lymphocytes % (auto) 27.7 %; Mean Corpuscular Hgb Conc 33.9 g/dL (32-36); Mean Corpuscular Volume 93.5 fL (80-100); Mean Platelet Volume 10.2 fL (7.4-10.4); Monocytes # (auto) 0.45 K/uL (0.11-0.59); Monocytes % (auto) 4.4 %; Platelet Count 242 K/uL (130-400); RDW Coefficient of Variation 13.1 % (11.5-14.5); RDW Standard Deviation 44.9 fL (36.4-46.3); Red Blood Count 4.32 M/uL (4.7-6.1); White Blood Count 10.16 K/uL (4.8-10.8)
[2018-08-27 01:02] LABS: INR 1.8 (0.9-1.1); Prothrombin Time 17.5 Seconds (9.0-12.0)
[2018-08-27 01:14] LABS: Alanine Aminotransferase 19 U/L (12-78); Albumin Level 2.9 gm/dl (3.4-5.0); Aspartate Aminotransferase 14 U/L (15-37); BUN Creatinine Ratio 13.5 (10-20); Bilirubin Direct 0.2 mg/dl (0-0.2); Blood Urea Nitrogen 19 mg/dl (7-18); Calcium 9.1 mg/dl (8.5-10.1); Carbon Dioxide 27 mmol/L (21-32); Chloride 103 mmol/L (98-107); Creatinine Clr Calc Pharmacy 55.7 ml/min; Est GFR (African American) 54.7; Est GFR (Non-African American) 47.2; Glucose 263 mg/dl (70-99); Magnesium 1.9 mg/dl (1.8-2.4); Potassium 4.1 mmol/L (3.5-5.1); Sodium 141 mmol/L (136-145)
[2018-08-27 01:25] LABS: Alkaline Phosphatase 111 U/L (45-117); Bilirubin,Total 0.9 mg/dl (0.2-1); Total Protein 7.5 gm/dl (6.4-8.2); Troponin I < 0.015 ng/ml (0-0.045)
[2018-08-27 01:28] LABS: Appearance Urine Cloudy (Clear); Bacteria Urine Automated 4+ (Negative); Bilirubin Urine Negative (Negative); Blood Urine Trace (Negative); Color Urine Yellow; Epithelial Cell Urine Auto 0-5 /lpf (0-5); Glucose Urine UA 3+ (Negative); Ketones Urine Trace (Negative); Leukocyte Esterase Urine 1+ (Negative); Nitrite Urine Negative (Negative); Protein Urine Trace (Negative); Specific Gravity Urine 1.023 (1.000-1.030); Urobilinogen Urine Negative (Negative); WBC Urine Automated >30 /hpf (0-5)
[2018-08-27] MEDS ORDERED: cefTRIAXone SODIUM 1,000 MG/50 ML BAG IV STA (01:53)
[2018-08-27 01:59] LABS: Amphetamines+Metham, Urine Neg (Neg); Barbiturates, Urine Neg (Neg); Benzodiazepine, Urine Neg (Neg); Cocaine, Urine Neg (Neg); MDMA (Ecstacy), Urine Neg (Neg); Methadone, Urine Neg (Neg); Opiate, Urine Neg (Neg); Phencyclidine, Urine Neg (Neg)
--- NOTE | 2018-08-27 03:13 | Emergency Department Note ---
Entered by Jesus Agosto acting as a scribe for Giovany Woodruff MD ED Provider Note CC: Mental Health Evaluation HPI: 82 y/o male arrives for evaluation of his constant suicidal thoughts beginning three months ago via EMS. EMS states they were called out by the patient's because he was refusing to get out of bed. They report the patient cannot sleep and wants to hill himself. EMS notes he had chronic back and knee pain. They state he was 89 on room air and uses 2L of O2 at night. EMS reports his SOB worsens with exertion, and its chronic. They note he may have been thrashing around angrily and may have hit his knee before their arrival. The patient states for the last three month, he thought about killing himself. He reports he has never tried to hurt himself, and he has no idea how he would hurt himself. The patient notes he has been intermittently using alcohol and medical marijuana. He states the wound on his left knee has been there for two years, and he sees wound care. The patient reports he developed redness to his knee this evening, and he has been having swelling of his legs. He notes he has seen a psychiatrist a few years ago. ROS: See above HPI for pertinent positives & negatives. A total of 10 systems reviewed and were otherwise negative. Past Medical History: DM, HTN, HLD, DVT Past Surgical History: none Family History: non-contributory Social History: Medical Marijuana and alcohol Home Medications: atorvastatin, calcium, d3, duloxetine, insulin, lisinopril, marijuana, oxybutynin, trazodone, warfarin Allergies: Sulfa, Penicillins, Metformin, Simvastatin, Doxycycline Physical: Vitals: BP 140/108, Pulse 106, Resp 16, Temp 97.9, O2 Sat 94 - NC Exam: GENERAL: Patient is ornery and disheveled appearing and in no acute distress. EYES: No scleral icterus, unremarkable pupils. ENT: Mucous membranes moist, no nasal congestion. NECK: No masses appreciated, no meningismus, trachea is midline. RESPIRATORY: No dyspnea. Clear to auscultation and equal bilaterally. No wheeze, no rhonchi. CARDIOVASCULAR: Regular rate and rhythm. No murmurs, rubs, gallops appreciated. GASTROINTESTINAL: Abdomen soft, non-tender, no peritonitis. Bowel sounds positive. No masses appreciated. BACK: No midline tenderness, no CVA tenderness EXTREMITIES: Normal motion all extremities, no cyanosis, no edema. Redness/abrasion to the left patella. NEUROLOGIC: Alert and oriented, no acute motor or sensory deficits, no focal weakness, cranial nerves grossly intact. SKIN: No jaundice, no diaphoresis. Chronic ulcer of the skin to the left upper smith. ED Course: Prior Medical Record, Triage/Nursing Notes, Medications reviewed by Me Labs reviewed and remarkable for +UTI, mild WBC elevation Vital Signs reviewed and remarkable for wnl 2349: The patient was evaluated in room A07, and a complete history and physical examination were performed. 0007: The patient is becoming belligerent to staff. I was able to verbally deescalate him. 0101: The patient is sleeping. 0150: I reevaluated the patient. He is agreeable to inpatient treatment. He still thinks about hurting himself. 0231: I reviewed the patient's case with Dr. Basurto, [facility] Hospitalist. He will evaluate the patient for further management. Imaging: X ray results are stated below per my interpretation: Chest: 1 view: No infiltrate, no effusion, normal cardiac border. [facility] Radiologist interpretation reviewed by me: CT HEAD negative for acute findings EKG: Per My interpretation: NSR 91 bpm with pac no ischemia. RBBB. QTC 563 Consults: Dr Basurto evaluated patient and will bring in for further management Blood pressure: Elevated - Monitored by hospitalist Differentials: differential includes toxic ingestions, self-mutilation, suicidal ideation, suicide attempt, depression. Medical Decision Makin yr old male brought in for aggressive behavior at home and suicidal threats without plan. Labile mood here, initially cooperative, then aggressive with me and staff, then calmed and nice, cooperative no issues. Admits depression and suicidal thoughts at times. He has evidence of UTI which given straight cath could be contaminant but with labile mood, mental status change and fact 4+ bacteria and he is diabetic with mild wbc bump from baseline will treat as real. He will not be able to be medically cleared at this time. Given 1 gm IV rocephin. Will bring in to hospitalist service for further management. Patient happy, no distress and comfortable with plan at time of hospitalization. Impression: Urinary Tract Infection Depression Change in Mental Status Suicidal Thoughts Giovany Woodruff MD The scribe's documentation has been prepared under my direction and personally reviewed by me in its entirety. I confirm that the note above accurately reflects all work, treatment, procedures, and medical decision making performed by me. Impression & Plan Urinary tract infection, Depression, Change in mental status, Suicidal thoughts Past Med/Surg History Medical History Prostate cancer (Chronic) Urinary frequency (Chronic) Hypertension (Chronic) Hyperlipidemia (Chronic) Diabetes (Chronic) DVT (deep venous thrombosis) (Resolved) Back pain (Chronic) Chest pain (Chronic) Confusion (Chronic) Depression (Chronic) Diabetes (Chronic) Dysuria (Chronic) HTN (hypertension) (Chronic) Hyperlipidemia (Chronic) Insomnia (Chronic) Left leg cellulitis (Chronic) Osteomyelitis of left knee region (Chronic) Prostate cancer (Chronic) Urinary frequency (Chronic) Surgical History No pertinent past surgical history Family History Other Family history non-contributory Social History Preferred Language: Luxembourgish Feels Safe at Home: Yes Smoking Status: Former smoker Hx Alcohol Use: Yes Hx Substance Use: Yes Results & Data Vital Signs Vital Signs - 24 hr 08/26/18 23:58 08/27/18 01:17 Temperature 36.6 C Temperature Source Oral Sepsis Recent Fever Within 48 Hours No Sepsis New/Unexplained Change in Mental Status No Sepsis Action Taken by Nursing No Action Required Pulse Rate 106 H Pulse Rate [Finger] 95 H Respiratory Rate 16 18 Respiratory Effort / Characteristics Non-Labored Spontaneous Non-Labored Spontaneous Respiratory Depth Normal Normal Blood Pressure 140/108 H Blood Pressure [Right Arm] 143/95 H Blood Pressure Mean 118 Blood Pressure Mean [Right Arm] 111 Pulse Oximetry 94 95 Oxygen Delivery Method Nasal Cannula Nasal Cannula Oxygen Flow Rate 3 3 Home Medications Current Medication List: was personally reviewed by me Laboratory Data Attestation: I reviewed the patient's lab results. Result diagrams: 08/27/18 00:27 08/27/18 00:27 Lab Results 04/01/19 04/01/19 04/01/19 Range/Units 00:27 00:27 00:27 WBC 10.16 (4.8-10.8) K/uL RBC 4.32 L (4.7-6.1) M/uL Hgb 13.7 L (14.0-18.0) g/dL Hct 40.4 L (42-52) % MCV 93.5 (80-100) fL MCH 31.7 (25-34) pg MCHC 33.9 (32-36) g/dL RDW Std Deviation 44.9 (36.4-46.3) fL RDW Coeff of Dante 13.1 (11.5-14.5) % Plt Count 242 (130-400) K/uL MPV 10.2 (7.4-10.4) fL Immature Gran % (Auto) 0.2 % Neut % (Auto) 63.0 % Lymph % (Auto) 27.7 % Henderson % (Auto) 4.4 % Eos % (Auto) 4.2 % Baso % (Auto) 0.5 % Immature Gran # (Auto) 0.02 (0.00-0.02) K/uL Neut # (Auto) 6.40 (1.4-6.5) K/uL Lymph # (Auto) 2.81 (1.2-3.4) K/uL Henderson # (Auto) 0.45 (0.11-0.59) K/uL Eos # (Auto) 0.43 (0-0.5) K/uL Baso # (Auto) 0.05 (0-0.2) K/uL PT (9.0-12.0) Seconds INR (0.9-1.1) Sodium 141 (136-145) mmol/L Potassium 4.1 (3.5-5.1) mmol/L Chloride 103 (98-107) mmol/L Carbon Dioxide 27 (21-32) mmol/L Anion Gap 11.0 (3-11) BUN 19 H (7-18) mg/dl Creatinine 1.39 (0.6-1.4) mg/dl Est Cr Clr Drug Dosing 55.7 ml/min Est GFR ( Amer) 54.7 Est GFR (Non-Af Amer) 47.2 BUN/Creatinine Ratio 13.5 (10-20) Glucose 263 H (70-99) mg/dl Calcium 9.1 (8.5-10.1) mg/dl Magnesium 1.9 (1.8-2.4) mg/dl Total Bilirubin 0.9 (0.2-1) mg/dl Direct Bilirubin 0.2 (0-0.2) mg/dl AST 14 L (15-37) U/L ALT 19 (12-78) U/L Alkaline Phosphatase 111 (45-117) U/L Troponin I < 0.015 (0-0.045) ng/ml Total Protein 7.5 (6.4-8.2) gm/dl Albumin 2.9 L (3.4-5.0) gm/dl TSH 2.470 (0.300-4.500) uIu/ml Urine Color Urine Appearance (Clear) Urine pH (4.5-7.5) Ur Specific [place] (1.000-1.030) Urine Protein (Negative) Urine Glucose (UA) (Negative) Urine Ketones (Negative) Urine Blood (Negative) Urine Nitrite (Negative) Urine Bilirubin (Negative) Urine Urobilinogen (Negative) Ur Leukocyte Esterase (Negative) Urine WBC (Auto) (0-5) /hpf Urine RBC (Auto) (0-4) /hpf U Hyaline Cast (Auto) (0-5) /lpf U Epithel Cells (Auto) (0-5) /lpf Urine Bacteria (Auto) (Negative) Urine Opiates Screen (Neg) Ur Methadone, Qual (Neg) Urine Barbiturates (Neg) Ur Phencyclidine (PCP) (Neg) U Amphetamin/Meth Scrn (Neg) MDMA (Ecstasy) Screen (Neg) U Benzodiazepines Scrn (Neg) Ur Cocaine Metabolite (Neg) U Marijuana (THC) Screen (Neg) Ethyl Alcohol mg/dL < 3.0 (0-3) mg/dl 08/27/18 08/27/18 08/27/18 Range/Units 00:27 01:15 01:15 WBC (4.8-10.8) K/uL RBC (4.7-6.1) M/uL Hgb (14.0-18.0) g/dL Hct (42-52) % MCV (80-100) fL MCH (25-34) pg MCHC (32-36) g/dL RDW Std Deviation (36.4-46.3) fL RDW Coeff of Dante (11.5-14.5) % Plt Count (130-400) K/uL MPV (7.4-10.4) fL Immature Gran % (Auto) % Neut % (Auto) % Lymph % (Auto) % Henderson % (Auto) % Eos % (Auto) % Baso % (Auto) % Immature Gran # (Auto) (0.00-0.02) K/uL Neut # (Auto) (1.4-6.5) K/uL Lymph # (Auto) (1.2-3.4) K/uL [place] # (Auto) (0.11-0.59) K/uL Eos # (Auto) (0-0.5) K/uL Baso # (Auto) (0-0.2) K/uL PT 17.5 H (9.0-12.0) Seconds INR 1.8 H (0.9-1.1) Sodium (136-145) mmol/L Potassium (3.5-5.1) mmol/L Chloride (98-107) mmol/L Carbon Dioxide (21-32) mmol/L Anion Gap (3-11) BUN (7-18) mg/dl Creatinine (0.6-1.4) mg/dl Est Cr Clr Drug Dosing ml/min Est GFR ( Amer) Est GFR (Non-Af Amer) BUN/Creatinine Ratio (10-20) Glucose (70-99) mg/dl Calcium (8.5-10.1) mg/dl Magnesium (1.8-2.4) mg/dl Total Bilirubin (0.2-1) mg/dl Direct Bilirubin (0-0.2) mg/dl AST (15-37) U/L ALT (12-78) U/L Alkaline Phosphatase (45-117) U/L Troponin I (0-0.045) ng/ml Total Protein (6.4-8.2) gm/dl Albumin (3.4-5.0) gm/dl TSH (0.300-4.500) uIu/ml Urine Color Yellow Urine Appearance Cloudy H (Clear) Urine pH 5.0 (4.5-7.5) Ur Specific [place] 1.023 (1.000-1.030) Urine Protein Trace H (Negative) Urine Glucose (UA) 3+ H (Negative) Urine Ketones Trace H (Negative) Urine Blood Trace H (Negative) Urine Nitrite Negative (Negative) Urine Bilirubin Negative (Negative) Urine Urobilinogen Negative (Negative) Ur Leukocyte Esterase 1+ H (Negative) Urine WBC (Auto) >30 H (0-5) /hpf Urine RBC (Auto) 5-10 H (0-4) /hpf U Hyaline Cast (Auto) 1-5 (0-5) /lpf U Epithel Cells (Auto) 0-5 (0-5) /lpf Urine Bacteria (Auto) 4+ H (Negative) Urine Opiates Screen Neg (Neg) Ur Methadone, Qual Neg (Neg) Urine Barbiturates Neg (Neg) Ur Phencyclidine (PCP) Neg (Neg) U Amphetamin/Meth Scrn Neg (Neg) MDMA (Ecstasy) Screen Neg (Neg) U Benzodiazepines Scrn Neg (Neg) Ur Cocaine Metabolite Neg (Neg) U Marijuana (THC) Screen Pos H (Neg) Ethyl Alcohol mg/dL (0-3) mg/dl Administered Medications Discontinued Medications Ceftriaxone Sodium (Rocephin) 1,000 mg in 50 mls @ 100 mls/hr IV NOW STA Stop: 08/27/18 02:22 Last Infusion: 08/27/18 02:37 Dose: 0 mls/hr Documented by: [id number] Admin: 08/27/18 02:02 Dose: 100 mls/hr Documented by: [id number] Blood Pressure Blood Pressure Findings: Elevated blood pressure Blood Pressure Disposition: further management by hospitalist Discharge Plan Visit Data Chief Complaint: Mental Health Evaluation Stated Complaint: SUICIDAL ED Provider: Giovany Woodruff Discharge Problem: Urinary tract infection, Depression, Change in mental status, Suicidal thoughts Patient Disposition: Being Evaluated by Hospitalist Forms Stand Alone Forms: [facility] [employer] Prescriptions Prescriptions: No Action duloxetine 30 mg capsule,delayed release(DR/EC) 30 mg PO DAILY RF: 0 cholecalciferol (vitamin D3) [Vitamin D3] 2,000 unit Tablet 2,000 unit PO DAILY RF: 0 Medical Marijuana 1 dose Inhalation UD RF: 0 Referrals Referrals: Joanne Baptiste PA-C [Primary Care Provider] - Discharge Problem: Urinary tract infection Qualifiers: Urinary tract infection type: catheter-associated UTI Indwelling urinary catheter type: unspecified Encounter type: initial encounter Qualified Code(s): T83.511A - Infection and inflammatory reaction due to indwelling urethral catheter, initial encounter Depression Qualifiers: Depression Type: major depressive disorder Major depression recurrence: recurrent Active/Remission status: currently active Major depression episode severity: severe Psychotic features: without psychotic features Qualified Code(s): F33.2 - Major depressive disorder, recurrent severe without psychotic features Change in mental status Qualifiers: Altered mental status type: delirium Qualified Code(s): R41.0 - Disorientation, unspecified The scribe's documentation has been prepared under my direction and personally reviewed by me in its entirety. I confirm that the note above accurately reflects all work, treatment, procedures, and medical decision making performed by me.
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
[2018-08-27] MEDS ORDERED: ACETAMINOPHEN 325 MG TAB ONE (04:04)
[2018-08-27 05:31] LABS: Salicylate 1.9 mg/dl (2.8-20)
[2018-08-27] MEDS ORDERED: ACETAMINOPHEN 325 MG TAB PO PRN (06:01)
[2018-08-27] MEDS ORDERED: MAGNESIUM HYDROXIDE SUSP 30 ML UDC PO PRN (06:01)
[2018-08-27] MEDS ORDERED: ONDANSETRON INJ 2 MG/ML 2 ML VIAL IV PRN (06:01)
[2018-08-27] MEDS ORDERED: ALUMINUM/MAGNESIUM SUSP 30 ML UDC PO PRN (06:01)
[2018-08-27] MEDS ORDERED: POLYETHYLENE (MIRALAX) 17 GM PACK PO PRN (06:01)
[2018-08-27] MEDS ORDERED: GLUCOSE 10 TABS/TUBE PO PRN (06:45)
[2018-08-27] MEDS ORDERED: GLUCAGON FOR INJ 1 MG VIAL IM PRN (06:45)
[2018-08-27] MEDS ORDERED: GLUCOSE 40% GEL 15 GM TUBE PO PRN (06:45)
[2018-08-27] MEDS ORDERED: CARBOHYDRATES FOR HYPOGLYCEMIA PO PRN (06:45)
[2018-08-27] MEDS ORDERED: DEXTROSE 50% 50 ML SYRINGE IV PRN (06:45)
--- NOTE | 2018-08-27 07:06 | CT Scan Report ---
HEAD CT NONCONTRAST CT DOSE: 614.27 mGy.cm HISTORY: worsening depression TECHNIQUE: Multiaxial CT images of the head were performed without the use of intravenous contrast. A utomated exposure control was utilized for this study. A dose lowering technique was utilized adheri ng to the principles of ALARA. Comparison: None. Findings: Hypoplastic right maxillary sinus with mild mucosal thickening. The mastoid air cells are c lear. The calvarium and skull base are intact. There is no mass, hematoma, midline shift, acute infar ct. White matter hypodensity is nonspecific but suggestive of microvascular ischemic change. The vent ricles and sulci demonstrate mild age-related involutional changes. Impression: No significant change compared to the prior study. No acute intracranial abnormality. Electronically signed by: Akhil Amaro M.D. 08/27/2018 7:04 AM
--- NOTE | 2018-08-27 07:13 | XRay Report ---
XR chest 1V portable HISTORY: depression COMPARISON: Chest 12/10/2016. FINDINGS: There appears to be slight increased density associated with the patient's known right midd le lobe cystic focus. The left lung is clear. The heart is mildly enlarged. No pleural effusions. No pneumothorax. Calcified granuloma within the right lung base. IMPRESSION: Increased density associated with the patient's known right middle lobe cystic focus. Recommend dedic ated chest CT for further evaluation and to exclude the possibility of a pulmonary lesion. This findi ng was called/faxed to the referring physician following dictation. Electronically signed by: Akhil Amaro M.D. 08/27/2018 7:12 AM
--- NOTE | 2018-08-27 07:15 | XRay Report ---
LEFT KNEE 2 VIEWS HISTORY: left knee abrasion COMPARISON: None. FINDINGS: There is no fracture or dislocation. Mild anterior soft tissue swelling. Trace knee effusio n. Severe cartilage space narrowing within the lateral compartment of the knee with [id number] minerva culation. There is also moderate osteoarthritis at the patellofemoral joint and mild osteoarthritis o f the medial compartment of the knee. Linear band of consolidation along the anteromedial soft tissue s of the knee. No radiopaque foreign bodies. IMPRESSION: No fracture or dislocation within the left knee. Trace knee effusion. Degenerative changes as describ ed above. Electronically signed by: Akhil Amaro M.D. 08/27/2018 7:14 AM
[2018-08-27] MEDS: DULOXETINE HCL 30 MG CAP PO SCH (08:06)
[2018-08-27] MEDS: CHOLECALCIFEROL 1,000 UNITS TAB PO SCH (08:07)
[2018-08-27] MEDS: OXYBUTYNIN CHLORIDE 5 MG TAB PO SCH ×3 (08:07→21:10)
[2018-08-27] MEDS: LISINOPRIL 40 MG TAB PO SCH (08:07)
[2018-08-27] MEDS: ATORVASTATIN 40 MG TAB PO SCH (08:07)
[2018-08-27] MEDS: DULOXETINE HCL 60 MG CAP PO SCH (08:07)
[2018-08-27] MEDS: CALCIUM 600MG + VIT D 400 IU TAB PO SCH (08:08)
[2018-08-27] MEDS ORDERED: CAPSAICIN CR 0.075% 60 GM TUBE EXT PRN (08:18)
[2018-08-27] MEDS: INSULIN ASPART 100 UNITS/ML 3 ML PEN SC SCH ×4 (08:32→21:08)
[2018-08-27] MEDS ORDERED: OXYBUTYNIN CHLORIDE 5 MG TAB PO SCH (09:00)
[2018-08-27] MEDS ORDERED: LANTUS PER UNIT CHARGE SQ SCH (09:00)
[2018-08-27] MEDS ORDERED: DULOXETINE HCL 30 MG CAP PO SCH (09:00)
[2018-08-27] MEDS ORDERED: ATORVASTATIN 40 MG TAB PO SCH (09:00)
[2018-08-27] MEDS ORDERED: LISINOPRIL 40 MG TAB PO SCH (09:00)
[2018-08-27] MEDS ORDERED: INSULIN GLARGINE SOLOSTAR 100 UNITS/ML 3 ML PEN SQ SCH (09:00)
[2018-08-27] MEDS ORDERED: PHARMACY GLYCEMIC MGMT CONSULT PRN (09:12)
--- NOTE | 2018-08-27 09:43 | CT Scan Report ---
CT chest wo con CT DOSE: 864.60 mGy.cm CLINICAL HISTORY: 82 years-old Male with r/o pulm lesion seen on cxr. Follow-up study to assess a qu estioned right lung base pulmonary nodule described on chest radiograph of same day TECHNIQUE: Multiaxial CT images of the chest were performed without contrast. A dose lowering techni que was utilized adhering to the principles of ALARA. COMPARISON: Chest radiograph of same day, chest CT 11/27/2017 FINDINGS: Subcentimeter thyroid nodules are noted bilaterally. There is no adenopathy by CT size criteria. Calc ified mediastinal and hilar lymph nodes compatible with prior granulomatous disease. Heart is normal in size without pericardial effusion. Coronary arterial, aortic and mitral annular with left ventricu lar papillary muscle calcifications are noted. There is no thoracic aortic aneurysm. The unopacified pulmonary artery appears unremarkable. No pneumothorax or pleural effusion. Mild emphysema. Mild bibasilar atelectasis/scarring. Mild bilate ral bronchial wall thickening. Indeterminate 3 mm solid nodule noted about the left upper lobe on ehsan ge 67 series 4 is new from comparison. Calcified granuloma of the right lower lobe. 3 mm solid nodule noted on the right upper lobe on image 91 series 4, also appears new from comparison. Cystic lesion of the right middle lobe measures 2.8 x 2.2 x 2.6 cm. There is increased size of the mural nodularity about the cystic lesion with adjacent soft tissue lobular and irregular mass measuring up to 3.6 x 2 .4 x 2.6 cm on prior study from 11/27/2017, areas of mural nodularity were noted measuring up to approx imately 10 mm. Central airways appear patent. Calcified granulomata noted about the spleen. No acute process of the imaged upper abdomen. Hepatic s teatosis. Soft tissues are within normal limits. Degenerative changes of the shoulders and spine. IMPRESSION: 1. Mixed cystic and solid mass of the right middle lobe has increased in size from prior study, notab ly the solid portion of the mass has markedly increased in size from 11/27/2017 now measuring up to 3.6 cm compatible with neoplasm, primary differential consideration would be along the adenocarcinoma sp ectrum. 2. Indeterminate new 3 mm left upper lobe and right upper lobe pulmonary nodules. Attention at follow -up recommended. 3. No adenopathy. 4. Emphysema. 5. Additional findings as above. Electronically signed by: Fredy Andersen M.D. 08/27/2018 9:42 AM
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
[2018-08-27] MEDS ORDERED: INSULIN HUMAN REGULAR PER UNIT 10 UNITS in SYRINGE 9.9 ML IV SCH (12:15)
[2018-08-27] MEDS ORDERED: INSULIN GLARGINE SOLOSTAR 100 UNITS/ML 3 ML PEN SQ ONE (12:15)
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
[2018-08-27] MEDS ORDERED: CEFAZOLIN 1000MG 1,000 MG/7.5 ML SYR IV SCH (13:00)
--- NOTE | 2018-08-27 13:17 | Consultation Report ---
DATE OF CONSULTATION: 08/27/2018 CHIEF COMPLAINT: Left knee pain. HISTORY OF PRESENT ILLNESS: The patient has had an ulceration in the medial aspect of his left knee for over a year. He has been seen at [facility] in [place] and has been treating it with local dressing changes only. Most recently, he noticed an increase in pain and redness about the prepatellar region distant from this ulceration. PHYSICAL EXAMINATION: Examination reveals no prepatellar effusion, warmth and redness exists. ASSESSMENT: Septic prepatellar bursitis. PLAN: We will begin on Keflex 500 p.o. q.i.d. and follow up.
[2018-08-27] MEDS ORDERED: TRAMADOL HCL 50 MG TABLET PO PRN (14:17)
[2018-08-27] MEDS ORDERED: WARFARIN SOD 3 MG TAB PO SCH ×2 (16:00)
[2018-08-27] MEDS: cephALEXin 500 MG CAP PO SCH (21:07)
[2018-08-27] MEDS: INSULIN GLARGINE SOLOSTAR 100 UNITS/ML 3 ML PEN SQ SCH (21:09)
[2018-08-27] MEDS: TRAZODONE HCL 100 MG TAB PO SCH ×2 (21:11→21:17)
[2018-08-27] MEDS ORDERED: cefTRIAXone SODIUM 1,000 MG in DEXTROSE 5% 50 ML IV SCH (22:00)
--- NOTE | 2018-08-27 22:38 | Consultation Report ---
DATE OF CONSULTATION: 08/27/2018 REASON FOR CONSULTATION: Right middle lobe mass. HISTORY OF PRESENT ILLNESS: This is an 82-year-old male who has been for 60 years who has had a tremendous amount of life stresses. He has a prepatellar bursitis, which is causing pain in his left leg and also has had apparent sciatica in his right buttock and leg, which are "killing me." He is also exhausted. He states from taking care of his who suffered in a car accident and had an infected right total knee prosthesis, which has required months of hospitalization and rehab. The patient had some labile mood and he was admitted as there was a concern about him possibly harming himself; however, he was evaluated by psychiatry today and was not deemed to be a danger to himself or any other. He is scheduled to home with his . I saw him because he has a right middle lobe mass that was present last November, but has gotten larger and more solid. There certainly appears to be a malignancy. SOCIAL HISTORY: The patient smoked from the age of 16 until he was about 51 and smoked up to 2 packs a day. He has not smoked in over in 30 years. 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 Lives at home with his . PAST MEDICAL HISTORY: 1. Marked deconditioning. 2. Hypertension. 3. Hyperlipidemia. 4. Urinary retention. 5. History of deep vein thrombosis with pulmonary embolism in 2000. 6. Diabetes mellitus. 7. Chronic nonhealing wound. 8. Questionable suicidal ideation. 9. Right middle lobe mass. 10. History of cigarette smoking. 11. Chronic osteomyelitis of knee. 12. History of prostate carcinoma. 13. Gout. 14. Sleep apnea. PAST SURGICAL HISTORY: 1. Amputation of toe. 2. Multiple debridements. MEDICATIONS: 1. Atorvastatin. 2. Coumadin. 3. Trazodone. 4. Duloxetine. 5. Insulin. 6. Lisinopril. 7. Medical marijuana. 8. Oxybutynin. ALLERGIES: 1. DOXYCYCLINE. 2. SULFA. 3. PENICILLIN. 4. METFORMIN. 5. SIMVASTATIN. SOCIAL HISTORY: The patient is originally from [place] and attended [employer]. 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 He lives with his in their own home here in [place]. He smoked cigarettes from age 16 to a bit over 51. He occasionally has alcoholic beverage. He also occasionally will smoke marijuana for medicinal reasons. FAMILY MEDICAL HISTORY: Father at 52 from coronary artery disease and mother in her 90s. He has 2 children that are healthy. REVIEW OF SYSTEMS: Please see history of present illness. The patient denies any visual or auditory changes. He does have a medial left genicular wound which is chronic over a year of age. He has urinary retention and self-caths. He denies any GI symptoms. He has been depressed, has been hospitalized for this in the past. He denies any focal neurologic problems. He denies chest pain or palpitations. He is complaining of severe back pain in his right buttock radiating to his leg as well as left knee pain. The rest of his systems reviewed and were unremarkable. PHYSICAL EXAMINATION: GENERAL: This is a 6 feet, 245 pound male who is awake, alert and oriented. He has a higginbotham. HEENT: Extraocular movements are intact. Pupils are equally round and reactive. They are a bit small. He is awake, alert and oriented and conversive. His tongue is midline. He has normal mucosal lesions. NECK: Supple. I do not hear carotid bruits. He has no lymphadenopathy or neck vein distention. He is actually moving air quite well. I do not hear any wheezing. He has no rhonchi. HEART: He has regular rate and rhythm of his heart. ABDOMEN: Obese but soft, nontender. He has good bowel sounds. I can palpate dorsalis pedis pulses in both feet. He has surgical absence of a toe. He has no joint effusions. He does have a dressing on his left knee and you can see that there is some erythema there. NEUROLOGIC: He has no obvious focal deficits. He does have trouble straightening his right leg. DATA: I reviewed CT scan and this mass certainly does appear to be a malignancy. It is in his right lung, but I see no evidence of any lymphadenopathy. I am not too concerned about the 3 mm nodules and they are extremely small. Additionally, he has no adenopathy at all. ASSESSMENT AND PLAN: Right middle lobe mass, which was most assuredly a carcinoma. It is unclear to me whether he would tolerate a right middle lobectomy; however, I think that tissue diagnosis is in order and I will schedule electromagnetic navigational bronchoscopy with an endobronchial ultrasound in the near future. He is on Coumadin that will have to be held.
[2018-08-28] MEDS: INSULIN ASPART 100 UNITS/ML 3 ML PEN SC SCH ×6 (00:03→20:52)
[2018-08-28] MEDS: TRAMADOL HCL 50 MG TABLET PO PRN ×2 (00:05→11:31)
[2018-08-28 05:52] LABS: Hematocrit (blood only) 36.4 % (42-52); Hemoglobin 12.5 g/dL (14.0-18.0); Mean Corpuscular Hgb Conc 34.3 g/dL (32-36); Mean Corpuscular Volume 92.2 fL (80-100); Mean Platelet Volume 9.8 fL (7.4-10.4); Platelet Count 219 K/uL (130-400); RDW Coefficient of Variation 13.1 % (11.5-14.5); RDW Standard Deviation 44.3 fL (36.4-46.3); Red Blood Count 3.95 M/uL (4.7-6.1); White Blood Count 9.51 K/uL (4.8-10.8)
[2018-08-28 06:04] LABS: INR 1.5 (0.9-1.1); Prothrombin Time 14.5 Seconds (9.0-12.0)
[2018-08-28 06:23] LABS: BUN Creatinine Ratio 20.4 (10-20); Calcium 9.2 mg/dl (8.5-10.1); Creatinine Clr Calc Pharmacy 45.5 ml/min; Est GFR (African American) 44.5; Est GFR (Non-African American) 38.4; Potassium 3.6 mmol/L (3.5-5.1)
[2018-08-28 06:52] LABS: Estimated Average Glucose 309 mg/dl; Hemoglobin A1C 12.4 % (4.5-5.6)
[2018-08-28] MEDS ORDERED: SODIUM CHLORIDE 0.9% 1000ML 1,000 ML IV SCH (08:45)
[2018-08-28] MEDS: cephALEXin 500 MG CAP PO SCH ×2 (09:04→20:54)
[2018-08-28] MEDS: DULOXETINE HCL 60 MG CAP PO SCH (09:04)
[2018-08-28] MEDS: CHOLECALCIFEROL 1,000 UNITS TAB PO SCH (09:04)
[2018-08-28] MEDS: CALCIUM 600MG + VIT D 400 IU TAB PO SCH (09:05)
[2018-08-28] MEDS: ATORVASTATIN 40 MG TAB PO SCH (09:05)
[2018-08-28] MEDS: LISINOPRIL 40 MG TAB PO SCH (09:05)
[2018-08-28] MEDS: OXYBUTYNIN CHLORIDE 5 MG TAB PO SCH ×3 (09:05→20:54)
[2018-08-28] MEDS: INSULIN GLARGINE SOLOSTAR 100 UNITS/ML 3 ML PEN SQ SCH ×2 (09:07→20:53)
[2018-08-28] MEDS: DULOXETINE HCL 30 MG CAP PO SCH (09:07)
[2018-08-28] MEDS: ENOXAPARIN INJ 120 MG/0.8 ML SYR SQ SCH (09:16)
--- NOTE | 2018-08-28 13:10 | Hospitalist Progress Note ---
Date of Service August 28, 2018 Assessment & Plan (1) Suicidal thoughts: No further thoughts of self harm - appears to have made an off the cuff comment in the ED that he did not really mean. As far as the aggressive behavior, this has resolved. There was some concern for aggression at home and he may have kicked his . I spoke with his by phone and she said she is concerned for his safety if he has not improved as far as his aggressive behaviors. CM will place referral to [facility]. Per psych, the did say she had no problem with him coming home and they will also have the psych liason follow up with her. - agitation may be aggravated by marijuana use - per psych, does not meet criteria for inpatient psychiatric care (2) Type II diabetes mellitus: Hyperglycemic, A1c 12.4. Patient reported to nursing that he hasn't been taking his novolog at home but does take his lantus. Consult pharmacy for glycemic management. clinical staff educator saw him today (3) Depression: continue duloxetine (4) Left knee pain: Prepatellar bursitis - keflex per ortho rec. Not improved today, if still not improving tomorrow, may need to pick broader spectrum abx. Left toe is also warm and swollen, will send for foot Xray. (5) Mass of middle lobe of right lung: CT chest showing: Mixed cystic and solid mass of the right middle lobe has increased in size from prior study, notably the solid portion of the mass has markedly increased in size from 11/27/2017 now measuring up to 3.6 cm compatible with neoplasm, primary differential consideration would be along the adenocarcinoma spectrum. Indeterminate new 3 mm left upper lobe and right upper lobe pulmonary nodules. - consulted thoracic surgery - will biopsy in the near future. Coumadin held, given dose of enoxaparin, will hold the evening dose for possible procedure tomorrow. (6) DVT prophylaxis: Enoxaparin (7) Bacteriuria: UA is equivocal and more likely represents bacteruria due to self cath. He is receiving keflex for his knee which may cover this if it is E.Coli (8) Hypertension: cont Lisinopril, Lipitor (9) History of DVT (deep vein thrombosis): Coumadin held, enoxaparin given this morning but evening dose will be held for possible procedure tomorrow - INR 1.5, repeat tomorrow. Subjective Mr. Yap continues to have back pain with radiculopathy in his right leg that he has chronically. He appears calm and composed, no further agitation today. I did speak with his last evening and she very strongly feels that he marijuana is the reason for his personality changes. Review of Systems All systems reviewed & are unremarkable except as noted in HPI & below Physical Exam Vital Signs (Past 24 Hours): Last Vital Signs Temp 37.0 C 08/28/18 07:39 Pulse 81 08/28/18 07:39 Resp 18 08/28/18 07:39 BP 119/87 08/28/18 07:39 Pulse Ox 91 08/28/18 07:39 Physical Exam: General: no distress Eyes: normal inspection, PERLL Respiratory: chest non tender, clear to auscultation, normal breath sounds, no respiratory distress, no accessory muscle use Cardiac: regular rate and rhythm, no rub or gallop, no murmur, no edema, no jvd GI/: active bowel sounds, no abd pain or tenderness, soft, non distended Extremities: normal range of motion, normal strength, non tender Neuro/Psych: alert and oriented x 3, normal mood and affect Skin: normal color, dry, left knee erythematous and warm, left toe erythematous and warm Results & Data Laboratory Results Abnormal lab results 08/27/18 08/27/18 08/27/18 Range/Units 14:25 16:31 20:10 RBC (4.7-6.1) M/uL Hgb (14.0-18.0) g/dL Hct (42-52) % PT (9.0-12.0) Seconds INR (0.9-1.1) BUN (7-18) mg/dl Creatinine (0.6-1.4) mg/dl BUN/Creatinine Ratio (10-20) Glucose (70-99) mg/dl POC Glucose 223 H 182 H 313 H (70-99) Hemoglobin A1c (4.5-5.6) % 08/27/18 08/28/18 08/28/18 Range/Units 23:57 03:49 05:34 RBC (4.7-6.1) M/uL Hgb (14.0-18.0) g/dL Hct (42-52) % PT 14.5 H (9.0-12.0) Seconds INR 1.5 H (0.9-1.1) BUN (7-18) mg/dl Creatinine (0.6-1.4) mg/dl BUN/Creatinine Ratio (10-20) Glucose (70-99) mg/dl POC Glucose 258 H 162 H (70-99) Hemoglobin A1c (4.5-5.6) % 08/28/18 08/28/18 08/28/18 Range/Units 05:34 05:34 05:34 RBC 3.95 L (4.7-6.1) M/uL Hgb 12.5 L (14.0-18.0) g/dL Hct 36.4 L (42-52) % PT (9.0-12.0) Seconds INR (0.9-1.1) BUN 34 H D (7-18) mg/dl Creatinine 1.65 H (0.6-1.4) mg/dl BUN/Creatinine Ratio 20.4 H (10-20) Glucose 158 H (70-99) mg/dl POC Glucose (70-99) Hemoglobin A1c 12.4 H (4.5-5.6) % 08/28/18 Range/Units 11:39 RBC (4.7-6.1) M/uL Hgb (14.0-18.0) g/dL Hct (42-52) % PT (9.0-12.0) Seconds INR (0.9-1.1) BUN (7-18) mg/dl Creatinine (0.6-1.4) mg/dl BUN/Creatinine Ratio (10-20) Glucose (70-99) mg/dl POC Glucose 347 H (70-99) Hemoglobin A1c (4.5-5.6) % (1) Depression Active/Remission status: currently active Depression Type: major depressive disorder Major depression episode severity: severe Major depression recurrence: recurrent Psychotic features: without psychotic features Qualified Code(s): F33.2 - Major depressive disorder, recurrent severe without psychotic features
[2018-08-28] MEDS: ACETAMINOPHEN 500 MG TAB PO SCH ×2 (13:13→20:53)
--- NOTE | 2018-08-28 14:13 | XRay Report ---
XR foot LT min 3V routine CLINICAL HISTORY: 82 years-old Male presenting with edematous left toe. TECHNIQUE: Frontal, oblique, and lateral views of the left foot were obtained. COMPARISON: 11/18/2009. FINDINGS: Unchanged appearance of postsurgical changes of amputation of the second and third toes and amputatio n of the middle and distal phalanges of the fourth toe. 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 Underlying osteopenia. Allowing for osteopenia, no displaced fracture or acute-appearing malalignment. Additionally, osteopenia limits evaluation for o steolysis aerated allowing for this, no periosteal reaction or osseous erosion. Enthesophyte at the i nsertion of the Achilles tendon. Soft tissue calcification along the medial hindfoot may represent ph leboliths. Atherosclerosis also suspected. IMPRESSION: Allowing for osteopenia, no acute osseous injury or radiographic evidence of osteomyelitis. Chronic p ostsurgical changes and chronic deformities as above. Electronically signed by: Elijah Alonzo M.D. 08/28/2018 2:12 PM
--- NOTE | 2018-08-28 14:33 | Pharmacy Report ---
Pharmacy Glycemic Short Note 2 - Date of Service August 28, 2018 - Glycemic Short BSG Results (Last 24 hours): 08/27/18 08/27/18 08/27/18 14:25 16:31 20:10 Glucose POC Glucose 223 H 182 H 313 H 08/27/18 08/28/18 08/28/18 23:57 03:49 05:34 Glucose 158 H POC Glucose 258 H 162 H 08/28/18 11:39 Glucose POC Glucose 347 H OUTPATIENT ANTIDIABETIC REGIMEN: * Lantus 50 units daily * Was also supposed to be taking Novolog 8 units w/ meals but hasn't taken in quite some time * A1c = 9.3 % 07/2017 -> increased to 12.4% on 08/28/18 ASSESSMENT: 08/28 * Mr. Yap's BSGs improved significantly as of this AM (158 mg/dL) but have since increased again * He received 121 units of SQ insulin (in addition to 10 units IV) yesterday * His fasting has decreased from 391 -> 158 mg/dL; therefore, I initially backed off slightly on the basal dose. Anticipating basal needs anywhere between 50- 60 units/day. * Postprandial BSGs have been elevated; will tighten CF/CR to align with a basal of 50 units, slightly more aggressive for the time being since BSG has jumped to 347 mg/dL at lunch (although I wonder if this was more due to 94 gm CHO at breakfast and Novolog administration given after 9 am) 08/27 * Mr. Yap was admitted last evening for suicidal ideation and aggressive behavior, thought to be secondary to medical marijuana. His type 2 diabetes history consists of non-compliance for quite some time, mainly taking just his Lantus and not checking his BSGs. [facility] like his [facility] providers have suggested working with endo but he was previously not aggreeable to this. Upon interview with him, he confirmed he has only been taking his Lantus and knows he should be taking better care of his diabetes. He was extremely cooperative and was happy to hear that we could help with formulating a plan for discharge. * Pharmacy received the glycemic consult this AM for severe hyperglycemia (AG and bicarb WNL, trace ketones in the urine). He did not have any prandial coverage with breakfast so will add one starting with lunch. Insulin dosing will be based upon insulin calculator estimates, instead of outpatient dosing, since patient was noncompliant and not well controlled. PLAN FOR INPATIENT GLYCEMIC CONTROL: * Basal insulin - adjust scale upwards slightly, will address tomorrow's AM dose since patient may be going for procedure * Lantus BID per the following scale * 15 units for BSG < 110 * 25 units for BSG 110-180 * 30 units for BSG > 180 * Bolus insulin - tighten CF/CR * NovoLog per scale ACHS or Q6hrs while NPO * Goal Range: Low 110 mg/dL - High 150 mg/dL * Correction Factor: 13 mg/dL/unit * Nutritional / Prandial insulin per carb ratio of 1 unit per 4 grams CHO consumed PLAN FOR DISCHARGE: * CDE discussed discharge plan with patient and myself today. Patient is NOT willing to do insulin injections > 1 time/day. Plan for discharge will be to increase Lantus dose (to be determined closer to discharge) and attempt to reinstitute metformin as long as renal function stable. Patient has this listed as an "allergy" - reaction listed as diarrhea, but patient does not recall having issues w/ this in the past and willing to try again. * In addition, patient would benefit from f/u with endocrinology ([facility]). He would be an ideal candidate to use a once weekly GLP-1 agonist.
[2018-08-28] MEDS: TRAZODONE HCL 100 MG TAB PO SCH (20:54)
[2018-08-29 05:38] LABS: Hemoglobin 10.9 g/dL (14.0-18.0); Mean Corpuscular Volume 93.5 fL (80-100); Mean Platelet Volume 9.9 fL (7.4-10.4); Platelet Count 195 K/uL (130-400); RDW Coefficient of Variation 13.2 % (11.5-14.5); RDW Standard Deviation 44.6 fL (36.4-46.3); Red Blood Count 3.53 M/uL (4.7-6.1); White Blood Count 7.46 K/uL (4.8-10.8)
[2018-08-29] MEDS: ACETAMINOPHEN 500 MG TAB PO SCH ×3 (05:41→20:37)
[2018-08-29 05:54] LABS: BUN Creatinine Ratio 24.2 (10-20); Calcium 8.3 mg/dl (8.5-10.1); Creatinine Clr Calc Pharmacy 47.9 ml/min; Est GFR (African American) 46.8; Est GFR (Non-African American) 40.4
[2018-08-29 06:08] LABS: INR 1.3 (0.9-1.1)
[2018-08-29] MEDS: DULOXETINE HCL 30 MG CAP PO SCH (08:12)
[2018-08-29] MEDS: OXYBUTYNIN CHLORIDE 5 MG TAB PO SCH ×3 (08:12→20:37)
[2018-08-29] MEDS: DULOXETINE HCL 60 MG CAP PO SCH (08:12)
[2018-08-29] MEDS: CALCIUM 600MG + VIT D 400 IU TAB PO SCH (08:12)
[2018-08-29] MEDS: LISINOPRIL 40 MG TAB PO SCH (08:13)
[2018-08-29] MEDS: cephALEXin 500 MG CAP PO SCH (08:13)
[2018-08-29] MEDS: ATORVASTATIN 40 MG TAB PO SCH (08:13)
[2018-08-29] MEDS: CHOLECALCIFEROL 1,000 UNITS TAB PO SCH (08:13)
[2018-08-29] MEDS: INSULIN GLARGINE SOLOSTAR 100 UNITS/ML 3 ML PEN SQ SCH ×2 (08:15→20:39)
[2018-08-29] MEDS: INSULIN ASPART 100 UNITS/ML 3 ML PEN SC SCH ×4 (08:16→20:41)
--- NOTE | 2018-08-29 09:32 | Pharmacy Report ---
Pharmacy Glycemic Short Note 2 - Date of Service August 29, 2018 - Glycemic Short BSG Results (Last 24 hours): 08/28/18 08/28/18 08/28/18 11:39 16:26 20:03 Glucose POC Glucose 347 H 142 H 197 H 08/29/18 08/29/18 05:26 07:37 Glucose 180 H POC Glucose 170 H OUTPATIENT ANTIDIABETIC REGIMEN: * Lantus 50 units daily * Was also supposed to be taking Novolog 8 units w/ meals but hasn't taken in quite some time * A1c = 9.3 % 07/2017 -> increased to 12.4% on 08/28/18 ASSESSMENT: 08/29 * Mr. Yap received 119 units of insulin yesterday (55 of this was basal) * BSGs have improved from the outlier of 347 mg/dL at lunch yesterday but still remain elevated * Fasting = 170 mg/dL; will increase basal (no imminent plans for NPO status that I see) * Postprandials improved with tightening of parameters yesterday * Estimated TDD ~ 130-140 units/day 08/28 * Mr. Yap's BSGs improved significantly as of this AM (158 mg/dL) but have since increased again * He received 121 units of SQ insulin (in addition to 10 units IV) yesterday * His fasting has decreased from 391 -> 158 mg/dL; therefore, I initially backed off slightly on the basal dose. Anticipating basal needs anywhere between 50- 60 units/day. * Postprandial BSGs have been elevated; will tighten CF/CR to align with a basal of 50 units, slightly more aggressive for the time being since BSG has jumped to 347 mg/dL at lunch (although I wonder if this was more due to 94 gm CHO at breakfast and Novolog administration given after 9 am) 08/27 * Mr. Yap was admitted last evening for suicidal ideation and aggressive behavior, thought to be secondary to medical marijuana. His type 2 diabetes history consists of non-compliance for quite some time, mainly taking just his Lantus and not checking his BSGs. [facility] and looks like his outpatient providers have suggested working with endo but he was previously not aggreeable to this. Upon interview with him, he confirmed he has only been taking his Lantus and knows he should be taking better care of his diabetes. He was extremely cooperative and was happy to hear that we could help with formulating a plan for discharge. * Pharmacy received the glycemic consult this AM for severe hyperglycemia (AG and bicarb WNL, trace ketones in the urine). He did not have any prandial coverage with breakfast so will add one starting with lunch. Insulin dosing will be based upon insulin calculator estimates, instead of outpatient dosing, since patient was noncompliant and not well controlled. PLAN FOR INPATIENT GLYCEMIC CONTROL: * Basal insulin - adjust scale upwards slightly again * Lantus BID per the following scale * 25 units for BSG < 110 * 30 units for BSG 110-180 * 35 units for BSG > 180 * Bolus insulin - no change * NovoLog per scale ACHS or Q6hrs while NPO * Goal Range: Low 110 mg/dL - High 150 mg/dL * Correction Factor: 13 mg/dL/unit * Nutritional / Prandial insulin per carb ratio of 1 unit per 4 grams CHO consumed PLAN FOR DISCHARGE: * CDE discussed discharge plan with patient and myself today. Patient is NOT w illing to do insulin injections > 1 time/day. Plan for discharge will be to increase Lantus dose (to be determined closer to discharge) and attempt to reinstitute metformin as long as renal function stable. Patient has this listed as an "allergy" - reaction listed as diarrhea, but patient does not recall having issues w/ this in the past and willing to try again. * In addition, patient would benefit from f/u with endocrinology (currently follows w/ the [facility]). He would be an ideal candidate to use a once weekly GLP-1 agonist.
[2018-08-29] MEDS: LACTATED RINGER'S 1,000 ML IV SCH ×2 (10:07→20:35)
[2018-08-29] MEDS: LIDOCAINE 5% 1 PATCH TD SCH (11:21)
[2018-08-29] MEDS: TRAMADOL HCL 50 MG TABLET PO PRN ×2 (13:38→21:13)
--- NOTE | 2018-08-29 15:22 | Hospitalist Progress Note ---
Date of Service August 29, 2018 Assessment & Plan (1) Suicidal thoughts: No further thoughts of self harm - appears to have made an off the cuff comment in the ED that he did not really mean. As far as the aggressive behavior, this has resolved. There was some concern for aggression at home and he may have kicked his . I spoke with his by phone and she said she is concerned for his safety if he has not improved as far as his aggressive behaviors. CM will place referral to [facility]. Per psych, the did say she had no problem with him coming home and they will also have the psych liason follow up with her. - agitation may be aggravated by marijuana use - per psych, does not meet criteria for inpatient psychiatric care (2) Type II diabetes mellitus: Hyperglycemic, A1c 12.4. Patient reported to nursing that he hasn't been taking his novolog at home but does take his lantus. Consult pharmacy for glycemic management. cosmetology educator consult (3) Depression: continue duloxetine (4) Left knee pain: Prepatellar bursitis - will change antibiotic from Keflex to Dapto as below. (5) Mass of middle lobe of right lung: CT chest showing: Mixed cystic and solid mass of the right middle lobe has increased in size from prior study, notably the solid portion of the mass has markedly increased in siz e from 11/27/2017 now measuring up to 3.6 cm compatible with neoplasm, primary differential consideration would be along the adenocarcinoma spectrum. Indeterminate new 3 mm left upper lobe and right upper lobe pulmonary nodules. - consulted thoracic surgery - will biopsy in the near future. Coumadin held, given dose of enoxaparin, will hold the evening dose for possible procedure tomorrow. (6) Ingrown toenail of left foot: Not improving with Keflex - dc keflex and start IV daptomycin for MRSA coverage as patient is allergic to both sulfa and doxycycline. Hold statin while receiving dapto. Foot xray without osteo or fracture Consult podiatry (7) DVT prophylaxis: Enoxaparin (8) Bacteriuria: UA is equivocal and more likely represents bacteruria due to self cath. His culture did grow out E.Coli but given his lack of symptoms, will hold off on treating specifically (9) Hypertension: cont Lisinopril, Lipitor (10) Chronic back pain: with radiation to right leg. Patient has had work up for this in the past and was told he is not a surgical candidate. He had been using marijuana for this pain both inhaled and topical. Will give tramadol prn, scheduled tylenol and lidocaine patches. PT/OT. (11) History of DVT (deep vein thrombosis): Coumadin held, enoxaparin given this morning but evening dose will be held for possible procedure tomorrow - INR 1.5, repeat tomorrow. Subjective Mr. Yap reports that his right great toe continues to be very painful. Right knee, back pain and right leg pain have improved. Review of Systems All systems reviewed & are unremarkable except as noted in HPI & below Physical Exam Vital Signs (Past 24 Hours): Last Vital Signs Temp 36.8 C 08/29/18 07:20 Pulse 87 08/29/18 07:20 Resp 16 08/29/18 07:20 BP 136/84 08/29/18 07:20 Pulse Ox 93 08/29/18 07:20 Physical Exam: General: no distress Eyes: normal inspection, PERLL Respiratory: chest non tender, clear to auscultation, normal breath sounds, no respiratory distress, no accessory muscle use Cardiac: regular rate and rhythm, no rub or gallop, no murmur, no edema, no jvd GI/: active bowel sounds, no abd pain or tenderness, soft, non distended Extremities: normal range of motion, normal strength, non tender Neuro/Psych: alert and oriented x 3, normal mood and affect Skin: normal color, dry, left knee erythema improving, left great toe edematous and erythematous Results & Data Laboratory Results Abnormal lab results 08/27/18 08/28/18 08/28/18 Range/Units 01:15 16:26 20:03 RBC (4.7-6.1) M/uL Hgb (14.0-18.0) g/dL Hct (42-52) % PT (9.0-12.0) Seconds INR (0.9-1.1) BUN (7-18) mg/dl Creatinine (0.6-1.4) mg/dl BUN/Creatinine Ratio (10-20) Glucose (70-99) mg/dl POC Glucose 142 H 197 H (70-99) Calcium (8.5-10.1) mg/dl U Marijuana THC Carboxy 38 A (CUTOFF=5) NG/ML 08/29/18 08/29/18 08/29/18 Range/Units 05:26 05:26 05:26 RBC 3.53 L (4.7-6.1) M/uL Hgb 10.9 L (14.0-18.0) g/dL Hct 33.0 L (42-52) % PT 13.0 H (9.0-12.0) Seconds INR 1.3 H (0.9-1.1) BUN 38 H (7-18) mg/dl Creatinine 1.58 H (0.6-1.4) mg/dl BUN/Creatinine Ratio 24.2 H (10-20) Glucose 180 H (70-99) mg/dl POC Glucose (70-99) Calcium 8.3 L (8.5-10.1) mg/dl U Marijuana THC Carboxy (CUTOFF=5) NG/ML 08/29/18 08/29/18 Range/Units 07:37 11:26 RBC (4.7-6.1) M/uL Hgb (14.0-18.0) g/dL Hct (42-52) % PT (9.0-12.0) Seconds INR (0.9-1.1) BUN (7-18) mg/dl Creatinine (0.6-1.4) mg/dl BUN/Creatinine Ratio (10-20) Glucose (70-99) mg/dl POC Glucose 170 H 178 H (70-99) Calcium (8.5-10.1) mg/dl U Marijuana THC Carboxy (CUTOFF=5) NG/ML (1) Depression Active/Remission status: currently active Depression Type: major depressive disorder Major depression episode severity: severe Major depression recurrence: recurrent Psychotic features: without psychotic features Qualified Code(s): F33.2 - Major depressive disorder, recurrent severe without psychotic features
[2018-08-29] MEDS ORDERED: DAPTOmycin 300 MG in SYRINGE 0 ML IV SCH (16:00)
--- NOTE | 2018-08-29 19:19 | Progress Note ---
DATE: 08/29/2018 I am unable to get Mr. Yap on the schedule this week for an endobronchial ultrasound and navigational bronchoscopy. We are going to get this set up in the future. I have spoken to Kiki Epps who is following him from a hospitalist standpoint. We are going to resume his Coumadin and allow him to be discharged. I will see him back in the office and we will get this set up in the near future. I had a long discussion with the patient. His lungs do not sound bad. He is not really complaining of any breathing problems, but he still has some erythema around his left knee. He has a chronic nonhealing wound and also is complaining of sciatic type pain in the right buttock and leg.
[2018-08-29] MEDS: TRAZODONE HCL 100 MG TAB PO SCH (20:37)
[2018-08-29] MEDS: ENOXAPARIN INJ 120 MG/0.8 ML SYR SQ SCH (20:38)
[2018-08-30] MEDS: ACETAMINOPHEN 500 MG TAB PO SCH ×3 (05:58→21:21)
[2018-08-30 06:10] LABS: Hematocrit (blood only) 32.8 % (42-52); Hemoglobin 10.8 g/dL (14.0-18.0); Mean Corpuscular Hgb Conc 32.9 g/dL (32-36); Mean Corpuscular Volume 93.4 fL (80-100); Mean Platelet Volume 9.7 fL (7.4-10.4); Platelet Count 193 K/uL (130-400); RDW Coefficient of Variation 13.4 % (11.5-14.5); RDW Standard Deviation 45.9 fL (36.4-46.3); Red Blood Count 3.51 M/uL (4.7-6.1); White Blood Count 7.69 K/uL (4.8-10.8)
[2018-08-30 06:19] LABS: INR 1.1 (0.9-1.1); Prothrombin Time 11.6 Seconds (9.0-12.0)
[2018-08-30 06:26] LABS: BUN Creatinine Ratio 22.2 (10-20); Calcium 8.9 mg/dl (8.5-10.1); Est GFR (African American) 54.2; Est GFR (Non-African American) 46.8; Potassium 4.1 mmol/L (3.5-5.1)
[2018-08-30] MEDS: LACTATED RINGER'S 1,000 ML IV SCH ×2 (06:26→15:59)
[2018-08-30] MEDS: INSULIN GLARGINE SOLOSTAR 100 UNITS/ML 3 ML PEN SQ SCH ×2 (09:01→21:24)
[2018-08-30] MEDS: INSULIN ASPART 100 UNITS/ML 3 ML PEN SC SCH ×4 (09:02→21:25)
[2018-08-30] MEDS: OXYBUTYNIN CHLORIDE 5 MG TAB PO SCH ×3 (09:06→21:22)
[2018-08-30] MEDS: CHOLECALCIFEROL 1,000 UNITS TAB PO SCH (09:06)
[2018-08-30] MEDS: CALCIUM 600MG + VIT D 400 IU TAB PO SCH (09:06)
[2018-08-30] MEDS: DULOXETINE HCL 30 MG CAP PO SCH (09:06)
[2018-08-30] MEDS: DULOXETINE HCL 60 MG CAP PO SCH (09:07)
[2018-08-30] MEDS: LIDOCAINE 5% 1 PATCH TD SCH (09:07)
[2018-08-30] MEDS: ENOXAPARIN INJ 120 MG/0.8 ML SYR SQ SCH ×2 (09:09→21:20)
--- NOTE | 2018-08-30 09:17 | Pharmacy Report ---
Pharmacy Glycemic Short Note 2 - Date of Service August 30, 2018 - Glycemic Short BSG Results (Last 24 hours): 08/29/18 08/29/18 08/29/18 11:26 16:50 20:13 Glucose POC Glucose 178 H 140 H 223 H 08/30/18 08/30/18 05:56 07:19 Glucose 112 H POC Glucose 118 H OUTPATIENT ANTIDIABETIC REGIMEN: * Lantus 50 units daily * Was also supposed to be taking Novolog 8 units w/ meals but hasn't taken in quite some time * A1c = 9.3 % 07/2017 -> increased to 12.4% on 08/28/18 ASSESSMENT: 08/30 * Mr. Yap received 122 units of insulin yesterday (65 of this was basal) * Other than a single outlier (223 mg/dL at HS last night), BSGs are significantly improved * SCr improving daily. Keflex has been changed to daptomycin. Otherwise, no significant changes to affect glucose control. * Looks like patient's TDD ~ 120 units daily so I will continue basal scale to provide 30 units BID when in goal range 08/29 * Mr. Yap received 119 units of insulin yesterday (55 of this was basal) * BSGs have improved from the outlier of 347 mg/dL at lunch yesterday but still remain elevated * Fasting = 170 mg/dL; will increase basal (no imminent plans for NPO status that I see) * Postprandials improved with tightening of parameters yesterday * Estimated TDD ~ 130-140 units/day 08/28 * Mr. Yap's BSGs improved significantly as of this AM (158 mg/dL) but have since increased again * He received 121 units of SQ insulin (in addition to 10 units IV) yesterday * His fasting has decreased from 391 -> 158 mg/dL; therefore, I initially backed off slightly on the basal dose. Anticipating basal needs anywhere between 50- 60 units/day. * Postprandial BSGs have been elevated; will tighten CF/CR to align with a basal of 50 units, slightly more aggressive for the time being since BSG has jumped to 347 mg/dL at lunch (although I wonder if this was more due to 94 gm CHO at breakfast and Novolog administration given after 9 am) 08/27 * Mr. Yap was admitted last evening for suicidal ideation and aggressive behavior, thought to be secondary to medical marijuana. His type 2 diabetes history consists of non-compliance for quite some time, mainly taking just his Lantus and not checking his BSGs. [facility] looks like his [facility] providers have suggested working with endo but he was previously not aggreeable to this. Upon interview with him, he confirmed he has only been taking his Lantus and knows he should be taking better care of his diabetes. He was extremely cooperative and was happy to hear that we could help with formulating a plan for discharge. * Pharmacy received the glycemic consult this AM for severe hyperglycemia (AG and bicarb WNL, trace ketones in the urine). He did not have any prandial coverage with breakfast so will add one starting with lunch. Insulin dosing will be based upon insulin calculator estimates, instead of outpatient dosing, since patient was noncompliant and not well controlled. PLAN FOR INPATIENT GLYCEMIC CONTROL: * Basal insulin - no change * Lantus BID per the following scale * 25 units for BSG < 110 * 30 units for BSG 110-180 * 35 units for BSG > 180 * Bolus insulin - no change * NovoLog per scale ACHS or Q6hrs while NPO * Goal Range: Low 110 mg/dL - High 150 mg/dL * Correction Factor: 13 mg/dL/unit * Nutritional / Prandial insulin per carb ratio of 1 unit per 4 grams CHO consumed * Consider initiating metformin closer to discharge (as long as patient meets criteria) to aid in transition of care PLAN FOR DISCHARGE: * CDE discussed discharge plan with patient and myself today. Patient is NOT willing to do insulin injections > 1 time/day and prefers to use vials as this is what he's comfortable with. Plan for discharge will be to increase Lantus dose (to be determined closer to discharge) and attempt to reinstitute metformin as long as renal function stable. Patient has this listed as an "allergy" - reaction listed as diarrhea, but patient does not recall having issues w/ this in the past and willing to try again. * In addition, patient would benefit from f/u with endocrinology ([facility] He would be an ideal candidate to use a once weekly GLP-1 agonist. * Updated discharge recs based upon current insulin requirements: * Lantus VIAL 75 units daily * Metformin ER 500 mg daily (then titrated upwards as tolerated, per outpatient provider) * If metformin will NOT be initiated on discharge: * Lantus VIAL 120 units daily (give 1/2 of dose if po intake less than 50%)
[2018-08-30] MEDS ORDERED: PSYLLIUM 58.6% POWDER PACKET PO SCH (11:00)
[2018-08-30] MEDS ORDERED: LOVENOX TEACHING KIT ONE (12:53)
--- NOTE | 2018-08-30 13:02 | Podiatry Consultation ---
Date of Consultation August 30, 2018 Patient seen at bedside today, he is stating that he is having knee pain and foot pain - patient stated he has a history of gout Patient stated he has wanted his toenail removed for a long time, stating that thinks it is thick and causing discomfort Patient also has a knee with erythema and swelling at the lateral aspect - con cern for acute gout Patient presented to ED due to suicidal thoughts, also was having knee and foot pain at that time, upon presentation WBC was 10 and since that time it has decreased to 7 while on keflex that was then changed to dapto, unsure if cultures were obtained, patient is a somewhat good historian and stated that he was electrocuted about 50 years ago - the hallux toenail is painful with palpation and patient - concern about patient's knee and possible gout - recommend consult for [facility] for knee aspiration - stat order for uric acid placed History of Present Illness Attending Physician: Wyatt Corral MD Allergies Allergy/AdvReac Type Severity Reaction Status Date / Time doxycycline Allergy Intermediate hives Verified 08/27/18 02:34 Sulfa (Sulfonamide Allergy Intermediate lip Verified 08/27/18 02:34 Antibiotics) swelling Penicillins Allergy Unknown HIVES Verified 08/27/18 02:34 metformin AdvReac Intermediate diarrhea Verified 08/27/18 02:34 simvastatin AdvReac Intermediate myalgia Verified 08/27/18 02:34 Home Medications Home Medications Medication Instructions Recorded Confirmed Type atorvastatin 40 mg tablet 40 mg PO DAILY 01/24/18 08/27/18 History calcium carbonate 600 mg (1,500 1 tab PO DAILY 01/24/18 08/27/18 History mg)-vitamin D3 200 unit tablet duloxetine 60 mg capsule,delayed 60 mg PO DAILY cap 01/24/18 08/27/18 History release insulin glargine (U- 100) 100 50 units SQ DAILY ml 01/24/18 08/27/18 History unit/mL subcutaneous solution lisinopril 40 mg tablet 40 mg PO DAILY 01/24/18 08/27/18 History oxybutynin chloride 5 mg tablet 5 mg PO TID 01/24/18 08/27/18 History trazodone 100 mg tablet 25 mg PO .q hs tab 01/24/18 08/27/18 History warfarin 3 mg tablet 3 mg PO DAILY 01/24/18 08/27/18 History Medical Marijuana 1 dose INHALATION UD 08/27/18 08/27/18 History cholecalciferol (vitamin D3) 2,000 unit PO DAILY 08/27/18 08/27/18 History [Vitamin D3] duloxetine 30 mg PO DAILY 08/27/18 08/27/18 History enoxaparin [Lovenox] 120 mg SUBCUT Q12 #14 ml 08/30/18 Rx Patient History Medical History Prostate cancer (Chronic) Urinary frequency (Chronic) Hypertension (Chronic) Hyperlipidemia (Chronic) Diabetes (Chronic) DVT (deep venous thrombosis) (Resolved) Back pain (Chronic) Chest pain (Chronic) Confusion (Chronic) Depression (Chronic) Diabetes (Chronic) Dysuria (Chronic) HTN (hypertension) (Chronic) Hyperlipidemia (Chronic) Insomnia (Chronic) Left leg cellulitis (Chronic) Osteomyelitis of left knee region (Chronic) Prostate cancer (Chronic) Urinary frequency (Chronic) Surgical History No pertinent past surgical history Family History Other Family history non-contributory Social History Communication Ability: Effective Beliefs That Will Affect Care: None Current Living Situation: Spouse Feels Safe at Home: Yes Safety Concerns: Feels Safe At This Time Smoking Status: Former smoker Hx Alcohol Use: No Hx Substance Use: No Physical Exam Vital Signs (Past 24 Hours): Last Vital Signs Temp 36.9 C 08/30/18 07:30 Pulse 88 08/30/18 09:27 Resp 18 08/30/18 07:30 BP 102/65 08/30/18 09:27 Pulse Ox 94 08/30/18 09:49 Skin: left hallux toenail pain with incurvation noted along the medial and lateral nail border no acute inflammation - tenderness is noted with direct palpation swelling and erythema noted proximal to toenail possibly related to gout
[2018-08-30] MEDS ORDERED: VANCOMYCIN CONSULT ACTIVE PRN (15:06)
--- NOTE | 2018-08-30 15:19 | Pharmacy Report ---
Pharmacy Abx Initial Consult - Date of Service August 30, 2018 - Pharmacy Dosing Scope Date of Consult: 08/30 Consultation requested by: Yelitza Epps Pharmacy is consulted to initiate vancomycin IV dosing therapy, order appropriate labs and adjust drug dose/frequency. - Subjective The patient is a 82 year old M admitted on 08/28/18 13:10. - Objective Height: 6 ft Weight: 114.4 kg Vital Signs (Past 12hrs): Vital Signs Temp Pulse Pulse Resp BP BP Pulse Ox 08/30/18 14:12 36.6 C 78 20 106/63 97 08/30/18 09:49 08/30/18 09:27 88 102/65 08/30/18 07:30 36.9 C 76 18 83/59 L 94 Pulse Ox Pulse Ox 08/30/18 14:12 08/30/18 09:49 94 94 08/30/18 09:27 08/30/18 07:30 Lab Results (24hrs): Laboratory Tests (24 Hours) 08/30/18 08/30/18 05:56 05:56 WBC 7.69 Creatinine 1.40 Est Cr Clr Drug Dosing 54.0 Micro Results: 08/27/18 01:15 Urine Culture - Final Urine,Clean Catch Escherichia coli - Assessment & Plan Assessment 82 year old M admitted on 08/27 for suicidal ideation. Was initiated on Keflex for ingrown toenail on left foot, not improving after a few days of antibiotics and now with left knee pain for which he is being treated for prepatellar bursitis. Keflex was switched to daptomycin last evening for worsening infection and concern for MRSA. Of note, patient has allergies to doxycycline and sulfa. After discussion on rounds today, daptomycin is now being switched to vancomycin in light of improved kidney function and not necessitating an ID consult. SCr has improved over the past few days and is nearing baseline (appears to be ~1.3) but will still need to be cautious with vancomycin dosing, especially in light of obesity. Plan Vancomycin IV * Estimated PK Parameters: Vd 0.61 L/kg, Hector 0.049 hr-1, t1/2 14 hr * Loading dose: 2750 mg (24 mg/kg) - to start at 1800 tonight (when next dose of daptomycin would have been due) * Maintenance dose: 1500 mg IV (13 mg/kg) every 16 hours * Goal trough level : ~15 mcg/mL * Trough level ordered for 09/01/18 prior to the 3rd dose. NOTE: this is prior to steady state but want to follow closely in light of above risk factors for accumulation * A less than traditional dose has been selected due to likelihood of drug accumulation in obese patient Pharmacy will continue to follow and will adjust dose/frequency as necessary. Dena goetz.
--- NOTE | 2018-08-30 15:56 | Hospitalist Progress Note ---
Date of Service August 30, 2018 Assessment & Plan (1) Suicidal thoughts: No further thoughts of self harm - appears to have made an off the cuff comment in the ED that he did not really mean. As far as the aggressive behavior, this has resolved. There was some concern for aggression at home and he may have kicked his . I spoke with his by phone and she said she is concerned for his safety if he has not improved as far as his aggressive behaviors. CM will place referral to [facility]. Per psych, the did say she had no problem with him coming home and they will also have the psych liason follow up with her. - agitation may be aggravated by marijuana use - per psych, does not meet criteria for inpatient psychiatric care (2) Type II diabetes mellitus: Hyperglycemic, A1c 12.4. Patient reported to nursing that he hasn't been taking his novolog at home but does take his lantus. Consult pharmacy for glycemic management. planning assistant consult. - patient agreed to try metformin in addition to Lantus for home. He does not want to do novolog (3) Depression: continue duloxetine (4) Left knee pain: Prepatellar bursitis - will change dapto to vanco as kidney function as improved. Concern for gout per podiatry - will give cholchicine 1.2 mg x 1 and then 0.6 mg one hour following uric acid normal (5) Mass of middle lobe of right lung: CT chest showing: Mixed cystic and solid mass of the right middle lobe has increased in size from prior study, notably the solid portion of the mass has markedly increased in size from 11/27/2017 now measuring up to 3.6 cm compatible with neoplasm, primary differential consideration would be along the adenocarcinoma spectrum. Indeterminate new 3 mm left upper lobe and right upper lobe pulmonary nodules. - consulted thoracic surgery - will biopsy in the near future outpatient. Coumadin held, continue enoxaparin (6) Ingrown toenail of left foot: Not improving with Keflex - dc keflex and start IV vannc for MRSA coverage as patient is allergic to both sulfa and doxycycline. Foot xray without osteo or fracture Consulted podiatry - Concern for gout - will give cholchicine 1.2 mg x 1 and then 0.6 mg one hour following uric acid normal (7) DVT prophylaxis: Enoxaparin (8) Bacteriuria: UA is equivocal and more likely represents bacteruria due to self cath. His culture did grow out E.Coli but given his lack of symptoms, will hold off on treating specifically (9) Hypertension: cont Lisinopril, Lipitor (10) Chronic back pain: with radiation to right leg. Patient has had work up for this in the past and was told he is not a surgical candidate. He had been using marijuana for this pain both inhaled and topical. Will give tramadol prn, scheduled tylenol and lidocaine patches. PT/OT. (11) History of DVT (deep vein thrombosis): Coumadin held, given enoxaparin Subjective Mr. Yap continues to have erythema around knee and left toe which is painful. Review of Systems All systems reviewed & are unremarkable except as noted in HPI & below Physical Exam Vital Signs (Past 24 Hours): Last Vital Signs Temp 36.6 C 08/30/18 14:12 Pulse 78 08/30/18 14:12 Resp 20 08/30/18 14:12 BP 106/63 08/30/18 14:12 Pulse Ox 97 08/30/18 14:12 Physical Exam: General: no distress Eyes: normal inspection, PERLL Respiratory: chest non tender, clear to auscultation, normal breath sounds, no respiratory distress, no accessory muscle use Cardiac: regular rate and rhythm, no rub or gallop, systolic murmur, no edema, no jvd GI/: active bowel sounds, no abd pain or tenderness, soft, non distended Extremities: normal range of motion, normal strength, non tender Neuro/Psych: alert and oriented x 3, normal mood and affect Skin: normal color, dry, right knee erythema, right great toe erythema Results & Data Laboratory Results Abnormal lab results 08/29/18 08/29/18 08/30/18 Range/Units 16:50 20:13 05:56 RBC 3.51 L (4.7-6.1) M/uL Hgb 10.8 L (14.0-18.0) g/dL Hct 32.8 L (42-52) % Chloride (98-107) mmol/L BUN (7-18) mg/dl BUN/Creatinine Ratio (10-20) Glucose (70-99) mg/dl POC Glucose 140 H 223 H (70-99) 08/30/18 08/30/18 08/30/18 Range/Units 05:56 07:19 11:29 RBC (4.7-6.1) M/uL Hgb (14.0-18.0) g/dL Hct (42-52) % Chloride 111 H (98-107) mmol/L BUN 31 H (7-18) mg/dl BUN/Creatinine Ratio 22.2 H (10-20) Glucose 112 H (70-99) mg/dl POC Glucose 118 H 287 H (70-99) (1) Depression Active/Remission status: currently active Depression Type: major depressive disorder Major depression episode severity: severe Major depression recurrence: recurrent Psychotic features: without psychotic features Qualified Code(s): F33.2 - Major depressive disorder, recurrent severe without psychotic features
[2018-08-30] MEDS ORDERED: WARFARIN SOD 5 MG TAB PO ONE (16:00)
[2018-08-30] MEDS ORDERED: COLCHICINE 0.6 MG TAB PO ONE ×2 (17:45→18:45)
[2018-08-30] MEDS ORDERED: VANCOMYCIN HCL 2,750 MG in SODIUM CHLORIDE 0.9% 500 ML IV ONE (18:00)
[2018-08-30] MEDS: PSYLLIUM 58.6% POWDER PACKET PO SCH (21:20)
[2018-08-30] MEDS: TRAZODONE HCL 100 MG TAB PO SCH (21:22)
[2018-08-30] MEDS: TRAMADOL HCL 50 MG TABLET PO PRN (21:31)
[2018-08-31] MEDS: ACETAMINOPHEN 500 MG TAB PO SCH ×3 (05:38→20:45)
[2018-08-31 06:10] LABS: Hematocrit (blood only) 33.5 % (42-52); Mean Corpuscular Hgb Conc 32.8 g/dL (32-36); Mean Corpuscular Volume 93.8 fL (80-100); Mean Platelet Volume 9.9 fL (7.4-10.4); Platelet Count 191 K/uL (130-400); RDW Coefficient of Variation 13.6 % (11.5-14.5); RDW Standard Deviation 46.7 fL (36.4-46.3); Red Blood Count 3.57 M/uL (4.7-6.1); White Blood Count 8.59 K/uL (4.8-10.8)
[2018-08-31 06:44] LABS: Calcium 8.2 mg/dl (8.5-10.1); Est GFR (African American) 61.6; Est GFR (Non-African American) 53.1; Potassium 4.3 mmol/L (3.5-5.1)
[2018-08-31] MEDS: INSULIN ASPART 100 UNITS/ML 3 ML PEN SC SCH ×4 (09:02→20:47)
[2018-08-31] MEDS: INSULIN GLARGINE SOLOSTAR 100 UNITS/ML 3 ML PEN SQ SCH ×2 (09:03→20:48)
[2018-08-31] MEDS: CHOLECALCIFEROL 1,000 UNITS TAB PO SCH (09:04)
[2018-08-31] MEDS: CALCIUM 600MG + VIT D 400 IU TAB PO SCH (09:04)
[2018-08-31] MEDS: DULOXETINE HCL 30 MG CAP PO SCH (09:05)
[2018-08-31] MEDS: DULOXETINE HCL 60 MG CAP PO SCH (09:05)
[2018-08-31] MEDS: OXYBUTYNIN CHLORIDE 5 MG TAB PO SCH ×3 (09:05→20:45)
[2018-08-31] MEDS: ENOXAPARIN INJ 120 MG/0.8 ML SYR SQ SCH ×2 (09:06→20:46)
[2018-08-31] MEDS: LIDOCAINE 5% 1 PATCH TD SCH (09:10)
[2018-08-31] MEDS: LISINOPRIL 40 MG TAB PO SCH (09:10)
[2018-08-31] MEDS: VANCOMYCIN HCL 1,500 MG in SODIUM CHLORIDE 0.9% 500 ML IV SCH (10:26)
[2018-08-31] MEDS: ATORVASTATIN 40 MG TAB PO SCH (10:28)
[2018-08-31] MEDS ORDERED: ETHYL CHLORIDE AER SPR 100 ML CAN EXT ONE (13:28)
--- NOTE | 2018-08-31 13:45 | XRay Report ---
XR chest 2V routine HISTORY: 82 years-old Male sob acute shortness of breath COMPARISON: Chest CT an chest radiograph 08/27/2018 TECHNIQUE: PA and lateral views of the chest FINDINGS: Cardiac silhouette is enlarged, unchanged. No overt pulmonary edema, pneumothorax or pleural effusion . Subsegmental bibasilar opacities have slightly progressed from comparison. Mixed cystic and solid m ass of the right middle lobe redemonstrated measuring up to 4.1 x 3.3 cm. Calcified hilar lymph nodes with calcified right lung base granuloma. Emphysema. Degenerative changes of the shoulders and spine . IMPRESSION: 1. Cardiomegaly without overt pulmonary edema. 2. Mild subsegmental bibasilar opacities suggest atelectasis versus pneumonitis. 3. Cystic and solid mass of the right middle lobe redemonstrated. Please refer to chest CT 08/27/2018 f or further details. 4. Emphysema. The above report was generated using voice recognition software. It may contain grammatical, syntax o r spelling errors. Electronically signed by: Fredy Andersen M.D. 08/31/2018 1:44 PM
--- NOTE | 2018-08-31 14:02 | Pharmacy Report ---
Pharmacy Glycemic Short Note 2 - Date of Service August 31, 2018 - Glycemic Short BSG Results (Last 24 hours): 08/30/18 08/30/18 08/31/18 17:05 20:27 05:56 Glucose 153 H POC Glucose 105 H 120 H 08/31/18 08/31/18 07:39 11:40 Glucose POC Glucose 136 H 194 H OUTPATIENT ANTIDIABETIC REGIMEN: * Lantus 50 units daily * Was also supposed to be taking Novolog 8 units w/ meals but hasn't taken in quite some time * A1c = 9.3 % 07/2017 -> increased to 12.4% on 08/28/18 ASSESSMENT: 08/31 * Pt received 124 units of insulin yesterday. BSGs look good today: 239-320-937ms/dL. Lunchtime 194 likely attributable to carb-heavy breakfast. Renal fxn continues to improve. Vanco continues. Minimal other risk factors that could affect his insulin resistance. 08/30 * Mr. Yap received 122 units of insulin yesterday (65 of this was basal) * Other than a single outlier (223 mg/dL at HS last night), BSGs are significantly improved * SCr improving daily. Keflex has been changed to daptomycin. Otherwise, no significant changes to affect glucose control. * Looks like patient's TDD ~ 120 units daily so I will continue basal scale to provide 30 units BID when in goal range 08/29 * Mr. Yap received 119 units of insulin yesterday (55 of this was basal) * BSGs have improved from the outlier of 347 mg/dL at lunch yesterday but still remain elevated * Fasting = 170 mg/dL; will increase basal (no imminent plans for NPO status that I see) * Postprandials improved with tightening of parameters yesterday * Estimated TDD ~ 130-140 units/day 08/28 * Mr. Yap's BSGs improved significantly as of this AM (158 mg/dL) but have since increased again * He received 121 units of SQ insulin (in addition to 10 units IV) yesterday * His fasting has decreased from 391 -> 158 mg/dL; therefore, I initially backed off slightly on the basal dose. Anticipating basal needs anywhere between 50- 60 units/day. * Postprandial BSGs have been elevated; will tighten CF/CR to align with a basal of 50 units, slightly more aggressive for the time being since BSG has jumped to 347 mg/dL at lunch (although I wonder if this was more due to 94 gm CHO at breakfast and Novolog administration given after 9 am) 08/27 * Mr. Yap was admitted last evening for suicidal ideation and aggressive behavior, thought to be secondary to medical marijuana. His type 2 diabetes history consists of non-compliance for quite some time, mainly taking just his Lantus and not checking his BSGs. [facility] looks like his outpatient providers have suggested working with endo but he was previously not aggreeable to this. Upon interview with him, he confirmed he has only been taking his Lantus and knows he should be taking better care of his diabetes. He was extremely cooperative and was happy to hear that we could help with formulating a plan for discharge. * Pharmacy received the glycemic consult this AM for severe hyperglycemia (AG and bicarb WNL, trace ketones in the urine). He did not have any prandial coverage with breakfast so will add one starting with lunch. Insulin dosing will be based upon insulin calculator estimates, instead of outpatient dosing, since patient was noncompliant and not well controlled. PLAN FOR INPATIENT GLYCEMIC CONTROL: * Basal insulin - no change * Lantus BID per the following scale * 25 units for BSG < 110 * 30 units for BSG 110-180 * 35 units for BSG > 180 * Bolus insulin - no change * NovoLog per scale ACHS or Q6hrs while NPO * Goal Range: Low 110 mg/dL - High 150 mg/dL * Correction Factor: 13 mg/dL/unit * Nutritional / Prandial insulin per carb ratio of 1 unit per 4 grams CHO consumed * Consider initiating metformin closer to discharge (as long as patient meets criteria) to aid in transition of care PLAN FOR DISCHARGE: * CDE discussed discharge plan with patient and myself today. Patient is NOT willing to do insulin injections > 1 time/day and prefers to use vials as this is what he's comfortable with. Plan for discharge will be to increase Lantus dose (to be determined closer to discharge) and attempt to reinstitute metformin as long as renal function stable. Patient has this listed as an "allergy" - reaction listed as diarrhea, but patient does not recall having issues w/ this in the past and willing to try again. * In addition, patient would benefit from f/u with endocrinology (currently follows w/ the [place]). He would be an ideal candidate to use a once weekly GLP-1 agonist. * Updated discharge recs based upon current insulin requirements: * Lantus VIAL 75 units daily * Metformin ER 500 mg daily (then titrated upwards as tolerated, per outpatient provider) * If metformin will NOT be initiated on discharge: * Lantus VIAL 120 units daily (give 1/2 of dose if po intake less than 50%)
--- NOTE | 2018-08-31 14:34 | Hospitalist Progress Note ---
Date of Service August 31, 2018 Assessment & Plan (1) Suicidal thoughts: No further thoughts of self harm - appears to have made an off the cuff comment in the ED that he did not really mean. As far as the aggressive behavior, this has resolved. There was some concern for aggression at home and he may have kicked his . I spoke with his by phone and she said she is concerned for his safety if he has not improved as far as his aggressive behaviors. CM will place referral to [facility]. Per psych, the did say she had no problem with him coming home and they will also have the psych liason follow up with her. - agitation may be aggravated by marijuana use - per psych, does not meet criteria for inpatient psychiatric care (2) Type II diabetes mellitus: Hyperglycemic, A1c 12.4. Patient reported to nursing that he hasn't been taking his novolog at home but does take his lantus. Consult pharmacy for glycemic management. groundsman consult. - patient agreed to try metformin in addition to Lantus for home. He does not want to do novolog (3) Depression: continue duloxetine (4) Left knee pain: Prepatellar bursitis - worsening - will ask ortho to see patient again for possible tap for culture. Will also add coverage for gram negatives with cefepime Concern for gout per podiatry - cholchicine 1.2 mg x 1 and then 0.6 mg 4/5 - some improvement in pain but not in erythema uric acid normal (5) Mass of middle lobe of right lung: CT chest showing: Mixed cystic and solid mass of the right middle lobe has increased in size from prior study, notably the solid portion of the mass has markedly increased in size from 11/27/2017 now measuring up to 3.6 cm compatible with neoplasm, primary differential consideration would be along the adenocarcinoma spectrum. Indeterminate new 3 mm left upper lobe and right upper lobe pulmonary nodules. - consulted thoracic surgery - will biopsy in the near future outpatient. Coumadin held, continue enoxaparin -repeated CXR for sob - atelectasis vs pneumonitis - encourage I.S. (6) Ingrown toenail of left foot: Not improving IV vanc. Foot xray without osteo or fracture Consulted podiatry - Concern for gout - gave cholchicine 1.2 mg x 1 and then 0.6 mg one hour following 4/4 - some improvement in pain - toes still very warm and erythematous uric acid normal (7) DVT prophylaxis: Enoxaparin (8) Bacteriuria: UA is equivocal and more likely represents bacteruria due to self cath. His culture did grow out E.Coli but given his lack of symptoms, will hold off on treating specifically (9) Hypertension: cont Lisinopril, Lipitor (10) Chronic back pain: with radiation to right leg. Patient has had work up for this in the past and was told he is not a surgical candidate. He had been using marijuana for this pain both inhaled and topical. Continue tramadol prn, scheduled tylenol and lidocaine patches. PT/OT. (11) History of DVT (deep vein thrombosis): Coumadin held, given enoxaparin Subjective Mr. Yap feels his pain is somewhat better today however the redness around his knee has worsened. He generally feels very worn out, unwell, and sob. Physical Exam Vital Signs (Past 24 Hours): Last Vital Signs Temp 37 C 08/31/18 13:11 Pulse 76 08/31/18 13:11 Resp 20 08/31/18 07:11 BP 106/69 08/31/18 13:11 Pulse Ox 96 08/31/18 13:11 (1) Depression Active/Remission status: currently active Depression Type: major depressive disorder Major depression episode severity: severe Major depression recurrence: recurrent Psychotic features: without psychotic features Qualified Code(s): F33.2 - Major depressive disorder, recurrent severe without psychotic features
[2018-08-31] MEDS ORDERED: CEFEPIME CONSULT ACTIVE PRN (14:48)
[2018-08-31] MEDS: TRAMADOL HCL 50 MG TABLET PO PRN (15:37)
--- NOTE | 2018-08-31 17:22 | Podiatry Consultation ---
Date of Consultation August 31, 2018 patient seen at bedside today for left hallux total nail avulsion consent obtained and in chart for hallux toenail avulsion toe was cleaned with betadine, 6 cc of 1% lidocaine plain was injected into the toe, toenail was removed and sent to pathology for specimen, c and s obtained from nail bed, dressings applied consisting of adaptic gauze and bandaid - leave in place for one day then remove and apply bandaid over toe daily - patient will need follow up with me in office in 1-2 weeks after is d/c - uric acid was 6 likley swelling and erythema of toe related to gout vs infection, patient on colchicine - patient stated he felt better having toenail removed - patient tolerated procedure well History of Present Illness Attending Physician: Wyatt Corral MD Allergies Allergy/AdvReac Type Severity Reaction Status Date / Time doxycycline Allergy Intermediate hives Verified 08/27/18 02:34 Sulfa (Sulfonamide Allergy Intermediate lip Verified 08/27/18 02:34 Antibiotics) swelling Penicillins Allergy Unknown HIVES Verified 08/27/18 02:34 metformin AdvReac Intermediate diarrhea Verified 08/27/18 02:34 simvastatin AdvReac Intermediate myalgia Verified 08/27/18 02:34 Home Medications Home Medications Medication Instructions Recorded Confirmed Type atorvastatin 40 mg tablet 40 mg PO DAILY 01/24/18 08/27/18 History calcium carbonate 600 mg (1,500 1 tab PO DAILY 01/24/18 08/27/18 History mg)-vitamin D3 200 unit tablet duloxetine 60 mg capsule,delayed 60 mg PO DAILY cap 01/24/18 08/27/18 History release insulin glargine (U- 100) 100 50 units SQ DAILY ml 01/24/18 08/27/18 History unit/mL subcutaneous solution lisinopril 40 mg tablet 40 mg PO DAILY 01/24/18 08/27/18 History oxybutynin chloride 5 mg tablet 5 mg PO TID 01/24/18 08/27/18 History trazodone 100 mg tablet 25 mg PO .q hs tab 01/24/18 08/27/18 History warfarin 3 mg tablet 3 mg PO DAILY 01/24/18 08/27/18 History Medical Marijuana 1 dose INHALATION UD 08/27/18 08/27/18 History cholecalciferol (vitamin D3) 2,000 unit PO DAILY 08/27/18 08/27/18 History [Vitamin D3] duloxetine 30 mg PO DAILY 08/27/18 08/27/18 History enoxaparin [Lovenox] 120 mg SUBCUT Q12 #14 ml 08/30/18 Rx Patient History Medical History Prostate cancer (Chronic) Urinary frequency (Chronic) Hypertension (Chronic) Hyperlipidemia (Chronic) Diabetes (Chronic) DVT (deep venous thrombosis) (Resolved) Back pain (Chronic) Chest pain (Chronic) Confusion (Chronic) Depression (Chronic) Diabetes (Chronic) Dysuria (Chronic) HTN (hypertension) (Chronic) Hyperlipidemia (Chronic) Insomnia (Chronic) Left leg cellulitis (Chronic) Osteomyelitis of left knee region (Chronic) Prostate cancer (Chronic) Urinary frequency (Chronic) Surgical History No pertinent past surgical history Family History Other Family history non-contributory Social History Communication Ability: Effective Beliefs That Will Affect Care: None Current Living Situation: Spouse Feels Safe at Home: Yes Smoking Status: Former smoker Hx Alcohol Use: No Hx Substance Use: No Physical Exam Vital Signs (Past 24 Hours): Last Vital Signs Temp 36.7 C 08/31/18 14:46 Pulse 69 08/31/18 14:46 Resp 18 08/31/18 14:46 BP 121/69 08/31/18 14:46 Pulse Ox 97 08/31/18 14:46 Physical Exam: left hallux toenail with incurvation medially and laterally, nail removed with freer elevator and hemostat, underlying nail bed intact without cellulitis - c and s obtained - toenail sent for pathology
[2018-08-31] MEDS: CEFEPIME 2,000 MG in SYRINGE 7.5 ML IV SCH (18:04)
[2018-08-31] MEDS: TRAZODONE HCL 100 MG TAB PO SCH ×2 (20:45→20:55)
[2018-08-31] MEDS: PSYLLIUM 58.6% POWDER PACKET PO SCH (20:46)
--- NOTE | 2018-08-31 23:11 | Progress Note ---
DATE: 08/31/2018 Mr. Yap is an 82-year-old male who was admitted for multiple reasons, but has a longstanding mass in his right chest, which was large. This is probably a malignancy. I have offered him an endobronchial ultrasound and navigational bronchoscopy to get a diagnosis. He is agreeable. However, the schedule would not permit me to do it this week. I discussed this with the hospitalist service and stated I would put him back on his Coumadin until we can get this done. I assumed he was going to be discharged; however, he is still in the hospital. If he stays through this weekend, and I will try to get him on the schedule Monday. I will check on him tomorrow to see how things look with this pending discharge. SAY
[2018-09-01] MEDS ORDERED: VANCOMYCIN TROUGH ONE (01:30)
[2018-09-01] MEDS: VANCOMYCIN HCL 1,500 MG in SODIUM CHLORIDE 0.9% 500 ML IV SCH ×2 (01:38→18:05)
[2018-09-01] MEDS: TRAMADOL HCL 50 MG TABLET PO PRN ×3 (04:35→20:06)
[2018-09-01] MEDS: ACETAMINOPHEN 500 MG TAB PO SCH ×3 (05:45→21:41)
[2018-09-01] MEDS: CEFEPIME 2,000 MG in SYRINGE 7.5 ML IV SCH ×2 (05:45→17:59)
[2018-09-01 06:32] LABS: BUN Creatinine Ratio 16.7 (10-20); Calcium 8.5 mg/dl (8.5-10.1); Creatinine Clr Calc Pharmacy 66.4 ml/min; Est GFR (African American) 69.5; Potassium 3.8 mmol/L (3.5-5.1)
[2018-09-01] MEDS: CALCIUM 600MG + VIT D 400 IU TAB PO SCH (08:25)
[2018-09-01] MEDS: CHOLECALCIFEROL 1,000 UNITS TAB PO SCH (08:25)
[2018-09-01] MEDS: DULOXETINE HCL 60 MG CAP PO SCH (08:26)
[2018-09-01] MEDS: ATORVASTATIN 40 MG TAB PO SCH (08:26)
[2018-09-01] MEDS: DULOXETINE HCL 30 MG CAP PO SCH (08:26)
[2018-09-01] MEDS: LISINOPRIL 40 MG TAB PO SCH (08:26)
[2018-09-01] MEDS: OXYBUTYNIN CHLORIDE 5 MG TAB PO SCH ×3 (08:26→20:54)
[2018-09-01] MEDS: LIDOCAINE 5% 1 PATCH TD SCH (08:26)
[2018-09-01] MEDS: ENOXAPARIN INJ 120 MG/0.8 ML SYR SQ SCH ×2 (08:27→20:51)
[2018-09-01] MEDS: INSULIN GLARGINE SOLOSTAR 100 UNITS/ML 3 ML PEN SQ SCH ×2 (08:40→20:51)
--- NOTE | 2018-09-01 08:41 | Pharmacy Report ---
Pharmacy Abx Dose Short Note - Date of Service September 01, 2018 - Assessment & Plan Assessment 82 year old M receiving Vancomycin 1500mg IV Q16H for treatment of worsening ingrown toenail infection. Day # 3 of antimicrobial therapy. Podiatry removed the toenail yesterday and sent for pathology and cultures. Negative to date. Cefepime added for gram- coverage yesterday. Pt may possibly be discharged today or tomorrow depending on surgery schedule. Laboratory Tests 09/01/18 01:25 Vancomycin Trough 13.7 Plan Vancomycin * Trough level of 13.7 mcg/mL is therapeutic for SSTI, however this level was drawn prior to steady state to rule out drug accumulation in the setting of obesity. * Continue dose of 1500 mg IV every 16 hours * Goal trough level ~15 mcg/mL * Trough level ordered for: 09/02/18 before 1000 dose. Pharmacy will continue to follow and will adjust dose/frequency as necessary. Thank you.
[2018-09-01] MEDS: INSULIN ASPART 100 UNITS/ML 3 ML PEN SC SCH ×4 (08:42→20:51)
[2018-09-01 08:50] LABS: Basophils # (auto) 0.02 K/uL (0-0.2); Basophils % (auto) 0.3 %; Eosinophils # (auto) 0.34 K/uL (0-0.5); Eosinophils % (auto) 5.2 %; Immature Granulocytes # (auto) 0.03 K/uL (0.00-0.02); Immature Granulocytes % (auto) 0.5 %; Lymphocytes # (auto) 1.59 K/uL (1.2-3.4); Lymphocytes % (auto) 24.4 %; Mean Corpuscular Hgb Conc 32.3 g/dL (32-36); Mean Corpuscular Volume 94.5 fL (80-100); Mean Platelet Volume 10.2 fL (7.4-10.4); Monocytes # (auto) 0.38 K/uL (0.11-0.59); Monocytes % (auto) 5.8 %; Neutrophils # (auto) 4.15 K/uL (1.4-6.5); Neutrophils % (auto) 63.8 %; Platelet Count 214 K/uL (130-400); RDW Coefficient of Variation 13.9 % (11.5-14.5); RDW Standard Deviation 48.2 fL (36.4-46.3); Red Blood Count 3.28 M/uL (4.7-6.1); White Blood Count 6.51 K/uL (4.8-10.8)
--- NOTE | 2018-09-01 11:32 | Pharmacy Report ---
Glycemic Control Progress Note - Date of Service September 01, 2018 - Scope Glycemic Pharmacist consulted for glycemic control to write orders per [facility] inpatient glycemic control protocol. - Objective Accuchecks BSG(last 24 hours):: 08/31/18 08/31/18 08/31/18 11:40 16:30 20:22 Glucose POC Glucose 194 H 74 158 H 09/01/18 09/01/18 09/01/18 05:31 06:36 07:23 Glucose 69 L POC Glucose 75 77 HbA1c:: Hemoglobin A1c 12.4 % (4.5-5.6) H 08/28/18 05:34 - Recent Pertinent Medications The patient is currently receiving: * Basal insulin: Lantus 25-35 units every 12 hours (typically 30 units twice daily) * Correctional Insulin: Novolog Correction per scale ACHS Goal Range: Low 110 mg/dL - High 150 mg/dL Correction Factor: 13 mg/dL/unit * Prandial insulin: Per carb ratio of 1 unit per 4 grams CHO consumed - Outpatient Anti-Diabetic Meds Lantus 50 units daily plus Novolog with meals (not taking Novolog) - Assessment & Plan ASSESSMENT: * See progress note from 08/27/18 for more background info, in short: * Pt receiving SQ basal bolus insulin regimen for hyperglycemia secondary to baseline DM (outpatient regimen on hold),stress/infection (on vancomycin and Zosyn). * Patient is currently receiving an average of 103 units of insulin per day * 60 units of basal insulin * 43 units of prandial/correctional insulin * BSGs ranging 74 - 158 mg/dl over the past 24hrs * Changes needed to insulin regimen: * AM Fasting BSG = 77 mg/dl. This is below goal range for patient based on inpatient targets and co-morbidities. Therefore Basal insulin will be reduced. Adjusted scale slightly to produce decrease of about 10 units/day or 20%. * Post-prandial BSGs are in range therefore no changes needed to CF/CR. * Total daily dose = ~100 units. Readjusting insulin regimen so that patient is not as basal heavy as previously. PLAN FOR INPATIENT GLYCEMIC CONTROL: * Decreasing Lantus to 20-30 units SQ BID * Lantus 20 units if BSG less than 110 mg/dL * Lantus 25 units if BSG 110-180 mg/dL * Lantus 30 units if BSG over 180 mg/dL * Continuing correction factor of 13 mg/dl/unit * Continuing carb ratio of 1 unit per 4 grams CHO consumed * Continuing goal range of Low 110 mg/dL - High 140 mg/dL RECOMMENDATIONS FOR DISCHARGE: * Patient's HbA1C indicates very uncontrolled T2DM. [facility]. * Please note that the plan above was derived based on current level of insulin resistance and hospital stress. These recommendations are appropriate for inpatient admission only. Plan of care upon discharge will need to be reassessed to avoid potential outpatient hypo/hyperglycemia. Thank you.
--- NOTE | 2018-09-01 11:57 | Progress Note ---
DATE: 09/01/2018 The patient is seen today. He is on room air. He looks quite good today, actually is in very good spirits. He still has multiple complaints. I had a very long discussion with him today. His lungs sound pretty good. He still has redness in his left knee. This was a nonhealing wound. He is still complaining of sciatica, but he has a regular rate and rhythm of his heart. He has no lymphadenopathy. He has no focal deficits. We had a long talk about this mass and about an endobronchial ultrasound with a navigational bronchoscopy. I have also discussed this with Kiki Epps, who is following him from the hospitalist standpoint. I am going to offer him an endobronchial ultrasound with biopsy and a navigational bronchoscopy on 09/03/2018. He is off of his Coumadin, so we should hold that until Monday. We discussed risks and benefits including pneumothorax, bleeding, etc. He understands. We will proceed on Monday.
--- NOTE | 2018-09-01 13:42 | Consultation Report ---
DATE OF CONSULTATION: 09/01/2018 CONSULT AND PROCEDURE NOTE HISTORY OF PRESENT ILLNESS: This 82-year-old gentleman seen in followup after yesterday's visit regarding his left knee prepatellar bursa and his great toe. He had been on IV antibiotics and has had some slight improvement in the symptoms; however, he continued to have redness, swelling and pain over the anterolateral aspect of the left knee prepatellar bursal region. PHYSICAL EXAMINATION: Left knee demonstrates approximately 3.5 cm diameter area of induration, swelling and fluctuance over the prepatellar bursal region, left knee. There is no proximal or distal phlebitis or cellulitis noted. There is a well-circumscribed area of fluctuance. Dorsalis pedis and posterior pulses are 2/4. Great toe irritation is noted previously, it is consistent; however, slightly improved compared to prior exam. Scant hair growth, bilateral lower extremities. No irritability with flexion, extension of the left knee, both passive or active with the exception of slight discomfort at the anterolateral aspect of the left knee. He has a chronic lesion of the proximal medial tibia, stable, unchanged compared to previous examination. IMPRESSION: Prepatellar bursal fluid collection with surrounding erythema, left knee. RECOMMENDATION: Aspiration of the prepatellar bursa with aerobic, anaerobic, Gram stain analysis and continue IV antibiotics. Weightbearing as tolerated. Regarding the toe, continue ambulation as tolerated. Continue IV antibiotics, nonoperative care for the foot at this time. PROCEDURE NOTE: After obtaining verbal consent from the patient, the left anterior prepatellar bursal region was then sterilely prepped with Betadine and alcohol and allowed to dry. Next, an 18-gauge needle was inserted into the area of fluctuance, anterolateral aspect of the left knee after spraying with ethyl chloride for local pain control. Approximately 1 mL of purulent thickened white material was aspirated from the left anterior knee. There is also appearance of possible crystals within the sample. This decompressed the area of fluctuance without difficulty. The specimen was then sent for aerobic, anaerobic, Gram stain analysis to the laboratory. A sterile Band-Aid was applied over the site. The patient tolerated the procedure well. Will follow with you. Thank you for the opportunity to consult in the care of this patient.
--- NOTE | 2018-09-01 14:34 | Hospitalist Progress Note ---
Date of Service September 01, 2018 Assessment & Plan (1) Suicidal thoughts: No further thoughts of self harm - appears to have made an off the cuff comment in the ED that he did not really mean. As far as the aggressive behavior, this has resolved. There was some concern for aggression at home and he may have kicked his . I spoke with his by phone and she said she is concerned for his safety if he has not improved as far as his aggressive behaviors. CM will place referral to [facility]. Per psych, the did say she had no problem with him coming home and they will also have the psych liason follow up with her. - agitation may be aggravated by marijuana use - per psych, does not meet criteria for inpatient psychiatric care (2) Type II diabetes mellitus: Hyperglycemic, A1c 12.4. Patient reported to nursing that he hasn't been taking his novolog at home but does take his lantus. Consult pharmacy for glycemic management. clinical trial educator consult. - patient agreed to try metformin in addition to Lantus for home. He does not want to do novolog (3) Depression: continue duloxetine (4) Left knee pain: Prepatellar bursitis - still quite erythematous with edema over the patella. Aspirated by ortho 09/01, cultures and gram stain pending. Started cefepime 08/31 and patient's overall condition significantly improved. BC pending Concern for gout per podiatry - cholchicine 1.2 mg x 1 and then 0.6 mg 4/5 - some improvement in pain but not in erythema uric acid normal (5) Mass of middle lobe of right lung: CT chest showing: Mixed cystic and solid mass of the right middle lobe has increased in size from prior study, notably the solid portion of the mass has markedly increased in size from 11/27/2017 now measuring up to 3.6 cm compatible with neoplasm, primary differential consideration would be along the adenocarcinoma spectrum. Indeterminate new 3 mm left upper lobe and right upper lobe pulmonary nodules. - consulted thoracic surgery - will biopsy Monday. Coumadin held, continue enoxaparin -repeated CXR for sob - atelectasis vs pneumonitis - encourage I.S. (6) Ingrown toenail of left foot: Not improving on IV vanc. Foot xray without osteo or fracture Consulted podiatry - Concern for gout - gave cholchicine 1.2 mg x 1 and then 0.6 mg one hour following 08/30 - some improvement in pain - toes still very warm and erythematous uric acid normal Podiatry removed ingrown toenail 08/31, wound culture pending (7) DVT prophylaxis: Enoxaparin (8) Bacteriuria: UA is equivocal and more likely represents bacteruria due to self cath. His culture did grow out E.Coli but given his lack of symptoms, will hold off on treating specifically (9) Hypertension: cont Lisinopril, Lipitor (10) Chronic back pain: with radiation to right leg. Patient has had work up for this in the past and was told he is not a surgical candidate. He had been using marijuana for this pain both inhaled and topical. Continue tramadol prn, scheduled tylenol and lidocaine patches. PT/OT. (11) History of DVT (deep vein thrombosis): Coumadin held, continue enoxaparin Subjective Mr. Yap is feeling much better today than yesterday. He continues to feel a bit sob. His pain is better controlled Review of Systems All systems reviewed & are unremarkable except as noted in HPI & below Physical Exam Vital Signs (Past 24 Hours): Last Vital Signs Temp 36.6 C 09/01/18 11:25 Pulse 64 09/01/18 11:25 Resp 19 09/01/18 11:25 BP 120/74 09/01/18 11:25 Pulse Ox 96 09/01/18 11:25 Physical Exam: General: no distress Eyes: normal inspection, PERLL Respiratory: chest non tender, clear to auscultation, normal breath sounds, no respiratory distress, no accessory muscle use Cardiac: regular rate and rhythm, no rub or gallop, no murmur, no edema, no jvd GI/: active bowel sounds, no abd pain or tenderness, soft, non distended Extremities: normal range of motion, normal strength, non tender Neuro/Psych: alert and oriented x 3, normal mood and affect Skin: normal color, dry, left knee erythema, bloody drainage left toe Results & Data Laboratory Results Abnormal lab results 08/31/18 09/01/18 09/01/18 Range/Units 20:22 05:31 05:35 RBC 3.28 L (4.7-6.1) M/uL Hgb 10.0 L (14.0-18.0) g/dL Hct 31.0 L (42-52) % RDW Std Deviation 48.2 H (36.4-46.3) fL Immature Gran # (Auto) 0.03 H (0.00-0.02) K/uL Chloride 112 H (98-107) mmol/L BUN 19 H (7-18) mg/dl Glucose 69 L (70-99) mg/dl POC Glucose 158 H (70-99) 09/01/18 Range/Units 11:48 RBC (4.7-6.1) M/uL Hgb (14.0-18.0) g/dL Hct (42-52) % RDW Std Deviation (36.4-46.3) fL Immature Gran # (Auto) (0.00-0.02) K/uL Chloride (98-107) mmol/L BUN (7-18) mg/dl Glucose (70-99) mg/dl POC Glucose 159 H (70-99) (1) Depression Active/Remission status: currently active Depression Type: major depressive disorder Major depression episode severity: severe Major depression recurrence: recurrent Psychotic features: without psychotic features Qualified Code(s): F33.2 - Major depressive disorder, recurrent severe without psychotic features
[2018-09-01] MEDS: TRAZODONE HCL 100 MG TAB PO SCH (20:52)
[2018-09-01] MEDS: PSYLLIUM 58.6% POWDER PACKET PO SCH (20:54)
[2018-09-02] MEDS: TRAMADOL HCL 50 MG TABLET PO PRN ×3 (03:18→22:56)
[2018-09-02] MEDS: CEFEPIME 2,000 MG in SYRINGE 7.5 ML IV SCH ×2 (05:13→18:12)
[2018-09-02] MEDS: ACETAMINOPHEN 500 MG TAB PO SCH ×3 (05:13→21:20)
[2018-09-02 06:28] LABS: BUN Creatinine Ratio 14.6 (10-20); Calcium 8.6 mg/dl (8.5-10.1); Creatinine Clr Calc Pharmacy 59.6 ml/min; Est GFR (Non-African American) 52.6
[2018-09-02 07:01] LABS: INR 1.1 (0.9-1.1); Prothrombin Time 11.4 Seconds (9.0-12.0)
[2018-09-02] MEDS: ATORVASTATIN 40 MG TAB PO SCH (08:00)
[2018-09-02] MEDS: CHOLECALCIFEROL 1,000 UNITS TAB PO SCH (08:00)
[2018-09-02] MEDS: DULOXETINE HCL 60 MG CAP PO SCH (08:01)
[2018-09-02] MEDS: DULOXETINE HCL 30 MG CAP PO SCH (08:01)
[2018-09-02] MEDS: CALCIUM 600MG + VIT D 400 IU TAB PO SCH (08:01)
[2018-09-02] MEDS: ENOXAPARIN INJ 120 MG/0.8 ML SYR SQ SCH ×2 (08:02→21:19)
[2018-09-02] MEDS: LIDOCAINE 5% 1 PATCH TD SCH (08:02)
[2018-09-02] MEDS: OXYBUTYNIN CHLORIDE 5 MG TAB PO SCH ×3 (08:03→21:16)
[2018-09-02] MEDS: LISINOPRIL 40 MG TAB PO SCH (08:03)
[2018-09-02] MEDS: INSULIN ASPART 100 UNITS/ML 3 ML PEN SC SCH ×4 (09:12→21:17)
[2018-09-02] MEDS: INSULIN GLARGINE SOLOSTAR 100 UNITS/ML 3 ML PEN SQ SCH ×2 (09:13→21:19)
--- NOTE | 2018-09-02 09:26 | Pharmacy Report ---
Glycemic Control Progress Note - Date of Service September 02, 2018 - Scope Glycemic Pharmacist consulted for glycemic control to write orders per [facility] inpatient glycemic control protocol. - Objective Accuchecks BSG(last 24 hours):: 09/01/18 09/01/18 09/01/18 11:48 16:52 20:16 Glucose POC Glucose 159 H 152 H 167 H 09/02/18 09/02/18 05:38 07:57 Glucose 97 POC Glucose 110 H HbA1c:: Hemoglobin A1c 12.4 % (4.5-5.6) H 08/28/18 05:34 - Recent Pertinent Medications The patient is currently receiving: * Basal insulin: Lantus 20-30 units every 12 hours * Correctional Insulin: Novolog Correction per scale ACHS Goal Range: Low 110 mg/dL - High 150 mg/dL Correction Factor: 13 mg/dL/unit * Prandial insulin: Per carb ratio of 1 unit per 4 grams CHO consumed * Oral Agents: - Outpatient Anti-Diabetic Meds Lantus 50 units daily - Assessment & Plan ASSESSMENT: * See progress note from 08/27/18 for more background info, in short: * Pt receiving SQ basal bolus insulin regimen for hyperglycemia secondary to baseline DM (outpatient regimen on hold) and possible infection (currently on cefepime and vancomycin) * Patient is currently receiving an average of 86 units of insulin per day * 45 units of basal insulin * 41 units of prandial/correctional insulin * BSGs ranging 77 - 167 mg/dl over the past 24hrs * Changes needed to insulin regimen: * AM Fasting BSG = 110 mg/dl. This is in goal range for patient based on inpatient targets and co-morbidities. Therefore Basal insulin will be continued. Scheduled 22 units of Lantus twice daily instead of scale. * Post-prandial BSGs are in range therefore no changes needed to CF/CR. Will start metformin XR now since patient may go home at some point. He is agreeable to this per notes. * Total daily dose = ~80-90 units. PLAN FOR INPATIENT GLYCEMIC CONTROL: * Start Lantus 22 units SQ BID * Continuing correction factor of 13 mg/dl/unit * Continuing carb ratio of 1 unit per 4 grams CHO consumed * Continuing goal range of Low 110 mg/dL - High 140 mg/dL RECOMMENDATIONS FOR DISCHARGE: * Patient's HbA1C indicates very uncontrolled T2DM. [facility]. Thank you.
[2018-09-02] MEDS ORDERED: VANCOMYCIN TROUGH ONE (09:30)
[2018-09-02] MEDS: VANCOMYCIN HCL 1,500 MG in SODIUM CHLORIDE 0.9% 500 ML IV SCH (11:10)
--- NOTE | 2018-09-02 12:01 | Pharmacy Report ---
Pharmacy Abx Dose Short Note - Date of Service September 02, 2018 - Assessment & Plan Assessment 82 year old M receiving Vancomycin 1500mg q18 IV for treatment of SSTI of left toe, and possible knee joint infection. Day # 4 of antimicrobial therapy. Culture from removed toenail growing Coag negative staph. Culture pending for synovial fluid from knee - no growth as of 1130 09/02. Can hopefully de-escalate therapy in next 1-2 days if culture remains negative? Laboratory Tests 09/02/18 09:34 Vancomycin Trough 18.9 Plan Vancomycin * Trough level of 18.9 mcg/mL is therapeutic - however, given patient's last trough was 13.7 only two doses prior and patient's BMI is ~34, it is possible there is some drug accumulation. Do not need to be as aggressive given source and no compelling risk factors for MRSA. * Change to 1500 mg IV every 18 hours * Goal trough level : 10 to 15 mcg/mL * Trough or random level ordered for: 09/04/18 before 1600 dose. Pharmacy will continue to follow and will adjust dose/frequency as necessary. Thank you.
--- NOTE | 2018-09-02 13:53 | Hospitalist Progress Note ---
Date of Service September 02, 2018 Assessment & Plan (1) Suicidal thoughts: No further thoughts of self harm - appears to have made an off the cuff comment in the ED that he did not really mean. As far as the aggressive behavior, this has resolved. There was some concern for aggression at home and he may have kicked his . I spoke with his by phone and she said she is concerned for his safety if he has not improved as far as his aggressive behaviors. CM will place referral to [facility]. Per psych, the did say she had no problem with him coming home and they will also have the psych liason follow up with her. - agitation may be aggravated by marijuana use - per psych, does not meet criteria for inpatient psychiatric care (2) Type II diabetes mellitus: Hyperglycemic, A1c 12.4. Patient reported to nursing that he hasn't been taking his novolog at home but does take his lantus. Consult pharmacy for glycemic management. inclusion paraeducator consult. - patient agreed to try metformin in addition to Lantus for home. He does not want to do novolog (3) Depression: continue duloxetine (4) Left knee pain: Prepatellar bursitis - still quite erythematous with edema over the patella. Aspirated by ortho 09/01, cultures and gram stain pending. Started cefepime /5 and patient's overall condition improved. BC pending Concern for gout per podiatry - cholchicine 1.2 mg x 1 and then 0.6 mg 4/5 - some improvement in pain but not in erythema uric acid normal (5) Mass of middle lobe of right lung: CT chest showing: Mixed cystic and solid mass of the right middle lobe has increased in size from prior study, notably the solid portion of the mass has markedly increased in size from 11/27/2017 now measuring up to 3.6 cm compatible with neoplasm, primary differential consideration would be along the adenocarcinoma spectrum. Indeterminate new 3 mm left upper lobe and right upper lobe pulmonary nodules. - consulted thoracic surgery - will biopsy Monday. Coumadin held, continue enoxaparin but hold Monday morning per thoracic surgery -repeated CXR for sob - atelectasis vs pneumonitis - encourage I.S. (6) Ingrown toenail of left foot: On vancomycin and cefepime as above. Foot xray without osteo or fracture Consulted podiatry - Concern for gout - gave cholchicine 1.2 mg x 1 and then 0.6 mg one hour following 08/30 - some improvement in pain - toes still very warm and erythematous uric acid normal Podiatry removed ingrown toenail 08/31, wound culture growing coag neg staph (7) DVT prophylaxis: Enoxaparin (8) Bacteriuria: UA is equivocal and more likely represents bacteruria due to self cath. His culture did grow out E.Coli but given his lack of symptoms, will hold off on treating specifically (9) Hypertension: cont Lisinopril, Lipitor (10) Chronic back pain: with radiation to right leg. Patient has had work up for this in the past and was told he is not a surgical candidate. He had been using marijuana for this pain both inhaled and topical. Continue tramadol prn, scheduled tylenol and lidocaine patches. PT/OT. (11) History of DVT (deep vein thrombosis): Coumadin held, continue enoxaparin Subjective Mr. Yap is feeling run down again today. Pain in his left leg is bothering him. His right knee is improving. Review of Systems All systems reviewed & are unremarkable except as noted in HPI & below Physical Exam Vital Signs (Past 24 Hours): Last Vital Signs Temp 36.5 C 09/02/18 11:04 Pulse 99 H 09/02/18 11:04 Resp 20 09/02/18 11:04 BP 157/89 H 09/02/18 11:04 Pulse Ox 95 09/02/18 11:04 Physical Exam: General: no distress Eyes: normal inspection, PERLL Respiratory: chest non tender, clear to auscultation, normal breath sounds, no respiratory distress, no accessory muscle use Cardiac: regular rate and rhythm, no rub or gallop, no murmur, no edema, no jvd GI/: active bowel sounds, no abd pain or tenderness, soft, non distended Extremities: normal range of motion, normal strength, non tender Neuro/Psych: alert and oriented x 3, normal mood and affect Skin: normal color, dry, left knee erythema improving, raised non erythematous lesion behind ear. Results & Data Laboratory Results Abnormal lab results 09/01/18 09/01/18 09/02/18 Range/Units 16:52 20:16 05:38 Chloride 109 H (98-107) mmol/L BUN 19 H (7-18) mg/dl POC Glucose 152 H 167 H (70-99) 09/02/18 09/02/18 Range/Units 07:57 11:40 Chloride (98-107) mmol/L BUN (7-18) mg/dl POC Glucose 110 H 185 H (70-99) (1) Depression Active/Remission status: currently active Depression Type: major depressive disorder Major depression episode severity: severe Major depression recurrence: recurrent Psychotic features: without psychotic features Qualified Code(s): F33.2 - Major depressive disorder, recurrent severe without psychotic features
[2018-09-02] MEDS: METFORMIN HCL ER 500 MG TABCR PO SCH (18:04)
[2018-09-02] MEDS: TRAZODONE HCL 100 MG TAB PO SCH (21:17)
[2018-09-02] MEDS: DOCUSATE SODIUM 100 MG CAP PO SCH (21:18)
[2018-09-02] MEDS: PSYLLIUM 58.6% POWDER PACKET PO SCH (21:20)
--- NOTE | 2018-09-02 21:23 | Consultation Report ---
DATE OF CONSULTATION: 09/02/2018 HISTORY OF PRESENT ILLNESS: The patient is seen and examined today in his hospital room bed. No new complaints. Left knee and left great toe feeling similar to yesterday, certainly no worse, possibly slightly somewhat better. No fevers or chills. Examination of the left knee demonstrates Band-Aid present from aspiration of prepatellar bursal fluid. Band-Aid was removed. Local circumscribed area of erythema present, unchanged. Slightly less tender to palpation. No discharge or drainage. No proximal or distal extension or erythema proximal or distal. Great toe unchanged compared to prior. Local redness and swelling. No tracking. The range of motion is unchanged compared to prior. Dorsalis pedis and posterior tibial pulses are palpable. No calf tenderness. Neurosensory exam is unchanged compared to prior. Gram stain negative. Aerobic and anaerobic cultures no growth to date. Sodium urate crystal analysis was not entered, however, will be entered today. IMPRESSION: Left knee prepatellar bursitis, status post aspiration on 09/01/2018. Left great toe presumable gouty inflammation. Local infection. Stabilized with IV antibiotics. Somewhat improved. RECOMMENDATIONS: Nonoperative care to continue at this time with IV antibiotics. We will follow with you for final culture analysis. Will recommend sodium urate crystal analysis from the specimen I obtained yesterday; however, the order apparently did not get entered yesterday. Will enter today. Discussed case and care with Dr. Corral. Thank you for the opportunity to consult in the care of this patient.
[2018-09-03] MEDS: VANCOMYCIN HCL 1,500 MG in SODIUM CHLORIDE 0.9% 500 ML IV SCH (01:57)
[2018-09-03] MEDS: ACETAMINOPHEN 500 MG TAB PO SCH ×3 (05:58→21:06)
[2018-09-03] MEDS: CEFEPIME 2,000 MG in SYRINGE 7.5 ML IV SCH (05:58)
[2018-09-03 06:43] LABS: Creatinine Clr Calc Pharmacy 68.2 ml/min; Est GFR (African American) 71.8; Est GFR (Non-African American) 61.9
[2018-09-03] MEDS: TRAMADOL HCL 50 MG TABLET PO PRN ×3 (06:53→21:05)
--- NOTE | 2018-09-03 07:46 | Anesthesiology Consultation ---
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 History Surgery Operation Date: 09/03/18 14:00 Proposed Procedures p Endobronchial Ultrasound - Eleuterio Toro MD, FACS s Navigayional Bronchoscopy - Eleuterio Toro MD, FACS Height/Weight Height: 6 ft Weight: 119 kg Allergies Allergy/AdvReac Type Severity Reaction Status Date / Time doxycycline Allergy Intermediate hives Verified 08/27/18 02:34 Sulfa (Sulfonamide Allergy Intermediate lip Verified 08/27/18 02:34 Antibiotics) swelling Penicillins Allergy Unknown HIVES Verified 08/27/18 02:34 metformin AdvReac Intermediate diarrhea Verified 08/27/18 02:34 simvastatin AdvReac Intermediate myalgia Verified 08/27/18 02:34 Medications Home Medications Medication Instructions Recorded Confirmed Last Taken atorvastatin 40 mg tablet 40 mg PO DAILY 01/24/18 08/27/18 08/26/18 calcium carbonate 600 mg (1,500 1 tab PO DAILY 01/24/18 08/27/18 08/26/18 mg)-vitamin D3 200 unit tablet duloxetine 60 mg capsule,delayed 60 mg PO DAILY cap 01/24/18 08/27/18 08/26/18 release insulin glargine (U- 100) 100 50 units SQ DAILY ml 01/24/18 08/27/18 08/26/18 unit/mL subcutaneous solution lisinopril 40 mg tablet 40 mg PO DAILY 01/24/18 08/27/18 08/26/18 oxybutynin chloride 5 mg tablet 5 mg PO TID 01/24/18 08/27/18 08/26/18 trazodone 100 mg tablet 25 mg PO .q hs tab 01/24/18 08/27/18 08/26/18 warfarin 3 mg tablet 3 mg PO DAILY 01/24/18 08/27/18 08/26/18 Medical Marijuana 1 dose INHALATION UD 08/27/18 08/27/18 Unknown cholecalciferol (vitamin D3) 2,000 unit PO DAILY 08/27/18 08/27/18 08/26/18 [Vitamin D3] duloxetine 30 mg PO DAILY 08/27/18 08/27/18 08/26/18 enoxaparin [Lovenox] 120 mg SUBCUT Q12 #14 ml 08/30/18 Unknown Active Medications Generic Name Dose Route Start Last Admin Trade Name Kelsey PRN Reason Stop Dose Admin Acetaminophen 1,000 mg 08/28/18 12:00 09/03/18 05:58 Tylenol PO 09/27/18 11:59 Not Given Q8 ELBA Atorvastatin Calcium 40 mg 08/27/18 09:00 09/03/18 08:15 Lipitor PO 09/26/18 08:59 40 mg QAM ELBA Administration Docusate Sodium 100 mg 09/02/18 21:00 09/03/18 08:15 Colace PO 10/02/18 20:59 100 mg BID ELBA Administration Duloxetine HCl 60 mg 08/27/18 09:00 09/03/18 08:15 Cymbalta PO 09/26/18 08:59 60 mg QAM ELBA Administration Duloxetine HCl 30 mg 08/27/18 09:00 09/03/18 08:15 Cymbalta PO 09/26/18 08:59 30 mg QAM ELBA Administration Enoxaparin Sodium 111 mg 08/28/18 09:00 09/02/18 21:19 Lovenox SQ 09/27/18 08:59 111 mg Q12 ELBA Administration Insulin Aspart 0 units 08/27/18 07:30 09/03/18 12:31 Novolog Flexpen SC 09/26/18 07:29 Not Given ACHS [facility] Protocol Insulin Glargine 22 units 09/02/18 09:00 09/02/18 21:19 Lantus Solostar Pen SQ 10/02/18 08:59 22 units BID [facility] Administration Protocol Lidocaine 1 patch 08/29/18 10:00 09/03/18 08:16 Lidoderm 5% TD 09/28/18 09:59 1 patch QAM [facility] Administration Lisinopril 40 mg 08/27/18 09:00 09/03/18 08:15 Zestril PO 09/26/18 08:59 40 mg QAM ELBA Administration Metformin HCl 500 mg 09/02/18 17:00 09/03/18 08:15 Glucophage Er PO 10/02/18 16:59 500 mg BIDM [facility] Administration Miscellaneous 1 ea 08/29/18 21:00 09/02/18 21:17 Remove Lidoderm Patch N/A 09/28/18 20:59 1 ea DAILY@2100 ELBA Administration Multivitamins/Minerals 1 tab 08/27/18 09:00 09/03/18 08:15 Caltrate Plus PO 09/26/18 08:59 1 tab DAILY ELBA Administration Oxybutynin Chloride 5 mg 08/27/18 09:00 09/03/18 08:15 Ditropan PO 09/26/18 08:59 5 mg TID ELBA Administration Psyllium Hydrophilic Mucilloid 1 pkt 08/30/18 21:00 09/02/18 21:20 Metamucil PO 09/29/18 20:59 1 pkt HS ELBA Administration Tramadol HCl 50 mg 09/01/18 13:01 09/03/18 12:35 Ultram PO 09/26/18 21:56 50 mg Q6H PRN Administration Pain Trazodone HCl 100 mg 08/27/18 21:00 09/02/18 21:17 Desyrel PO 09/26/18 20:59 50 mg HS ELBA Administration Vitamin D 2,000 units 08/27/18 09:00 09/03/18 08:15 Vitamin D3 PO 09/26/18 08:59 2,000 units DAILY ELBA Administration Past Medical History Medical History Prostate cancer (Chronic) Urinary frequency (Chronic) Hypertension (Chronic) Hyperlipidemia (Chronic) Diabetes (Chronic) DVT (deep venous thrombosis) (Resolved) Back pain (Chronic) Chest pain (Chronic) Confusion (Chronic) Depression (Chronic) Diabetes (Chronic) Dysuria (Chronic) HTN (hypertension) (Chronic) Hyperlipidemia (Chronic) Insomnia (Chronic) Left leg cellulitis (Chronic) Osteomyelitis of left knee region (Chronic) Prostate cancer (Chronic) Urinary frequency (Chronic) Past Family History Family History Other Family history non-contributory Past Surgical History Surgical History No pertinent past surgical history Social History Smoking Status: Former smoker Hx Alcohol Use: No Hx Substance Use: No Physical Exam Vital Signs Last Vital Signs Temp 97.5 F L 09/03/18 10:59 Pulse 84 09/03/18 10:59 Resp 20 09/03/18 10:59 BP 147/74 H 09/03/18 10:59 Pulse Ox 93 09/03/18 10:59 Testing Electrocardiogram Date: 08/27/18 Sinus rhythm with Premature atrial complexes, rate 91 bpm Right bundle branch block Laboratory Results 09/01/18 05:35 09/03/18 05:47 PT 11.4 Seconds (9.0-12.0) 09/02/18 05:38 INR 1.1 (0.9-1.1) 09/02/18 05:38 Hemoglobin A1c 12.4 % (4.5-5.6) H 08/28/18 05:34 Urine Color Yellow 08/27/18 01:15 Urine Appearance Cloudy (Clear) H 08/27/18 01:15 Urine pH 5.0 (4.5-7.5) 08/27/18 01:15 Ur Specific [place] 1.023 (1.000-1.030) 08/27/18 01:15 Urine Protein Trace (Negative) H 08/27/18 01:15 Urine Glucose (UA) 3+ (Negative) H 08/27/18 01:15 Urine Ketones Trace (Negative) H 08/27/18 01:15 Urine Nitrite Negative (Negative) 08/27/18 01:15 Ur Leukocyte Esterase 1+ (Negative) H 08/27/18 01:15 Urine WBC (Auto) >30 /hpf (0-5) H 08/27/18 01:15 Urine RBC (Auto) 5-10 /hpf (0-4) H 08/27/18 01:15 U Hyaline Cast (Auto) 1-5 /lpf (0-5) 08/27/18 01:15 U Epithel Cells (Auto) 0-5 /lpf (0-5) 08/27/18 01:15 Urine Bacteria (Auto) 4+ (Negative) H 08/27/18 01:15 09/01/18 13:10 Gram Stain - Final Joint Fluid,Knee Aerobic and Anaerobic Culture - Preliminary No growth to date. 08/31/18 Unknown Gram Stain - Final Toe,Left Great Aerobic and Anaerobic Culture - Preliminary Coag negative Staphylococcus 08/31/18 12:15 Blood Culture - Preliminary Blood No growth to date. 08/31/18 12:09 Blood Culture - Preliminary Blood No growth to date. 08/27/18 01:15 Urine Culture - Final Urine,Clean Catch Escherichia coli 09/03/18 09/03/18 11:29 07:41 POC Glucose 105 H 93
[2018-09-03] MEDS: DULOXETINE HCL 60 MG CAP PO SCH (08:15)
[2018-09-03] MEDS: CHOLECALCIFEROL 1,000 UNITS TAB PO SCH (08:15)
[2018-09-03] MEDS: ATORVASTATIN 40 MG TAB PO SCH (08:15)
[2018-09-03] MEDS: DULOXETINE HCL 30 MG CAP PO SCH (08:15)
[2018-09-03] MEDS: LISINOPRIL 40 MG TAB PO SCH (08:15)
[2018-09-03] MEDS: CALCIUM 600MG + VIT D 400 IU TAB PO SCH (08:15)
[2018-09-03] MEDS: OXYBUTYNIN CHLORIDE 5 MG TAB PO SCH ×3 (08:15→21:07)
[2018-09-03] MEDS: DOCUSATE SODIUM 100 MG CAP PO SCH ×2 (08:15→21:07)
[2018-09-03] MEDS: METFORMIN HCL ER 500 MG TABCR PO SCH ×2 (08:15→17:00)
[2018-09-03] MEDS: LIDOCAINE 5% 1 PATCH TD SCH (08:16)
[2018-09-03] MEDS: INSULIN ASPART 100 UNITS/ML 3 ML PEN SC SCH ×4 (08:16→21:09)
[2018-09-03] MEDS ORDERED: INSULIN GLARGINE SOLOSTAR 100 UNITS/ML 3 ML PEN SQ ONE (09:00)
--- NOTE | 2018-09-03 10:49 | Pharmacy Report ---
Pharmacy Glycemic Short Note 2 - Date of Service September 03, 2018 - Glycemic Short BSG Results (Last 24 hours): 09/02/18 09/02/18 09/02/18 11:40 16:45 20:20 POC Glucose 185 H 108 H 147 H 09/03/18 07:41 POC Glucose 93 OUTPATIENT ANTIDIABETIC REGIMEN: * Lantus 50 units daily * Was also supposed to be taking Novolog 8 units w/ meals but hasn't taken in quite some time * A1c = 12.4% on 08/28/18 ASSESSMENT: * Mikel received 57 units of insulin yesterday * 44 units basal insulin * 13 units of bolus insulin * BSGs ranged from 97-180 mg/dL * Daily insulin needs have decreased over the past 4 days; 124 units, 103 units, 86 units, 57 units * Metformin was added to regimen yesterday at dinnertime * Fasting BSG of 93 mg/dL is at goal. Patient is NPO for endobronchial ultrasound and biopsy, therefore AM Lantus dose was decreased 30%. Will attempt to transition to once daily Lantus dosing over the next 2 days. * Post prandial BSGs are at goal. I will loosen Novolog parameters since metform in has been added and daily insulin dose is trending downward. PLAN FOR INPATIENT GLYCEMIC CONTROL: * Metformin ER 500 mg PO BIDM * Basal insulin - decrease * Lantus 15 units this AM for NPO status, then per scale: * 15 units for NPO status or BSG < 140 mg/dL * 22 units for BSG 140 mg/dL or more * Bolus insulin - loosen * NovoLog per scale ACHS or Q6hrs while NPO * Goal Range: Low 110 mg/dL - High 150 mg/dL * Correction Factor: 15 mg/dL/unit * Nutritional / Prandial insulin per carb ratio of 1 unit per 5 grams CHO consumed PLAN FOR DISCHARGE: From 08/28/18: * CDE discussed discharge plan with patient and myself today. Patient is NOT willing to do insulin injections > 1 time/day and prefers to use vials as this is what he's comfortable with. Plan for discharge will be to increase Lantus dose (to be determined closer to discharge) and attempt to reinstitute metformin as long as renal function stable. Patient has this listed as an "allergy" - reaction listed as diarrhea, but patient does not recall having issues w/ this in the past and willing to try again. * In addition, patient would benefit from f/u with [facility]inology ([facility] He would be an ideal candidate to use a once weekly GLP-1 agonist. Updated discharge recs based upon current insulin requirements: * Lantus VIAL 60 units SQ once daily * Metformin ER 500 mg twice daily with meals (then titrated upwards as tolerated, per outpatient provider) * F/u with [facility] - consider addition of once weekly GLP-1 agonist Thank you.
[2018-09-03] MEDS: cephALEXin 500 MG CAP PO SCH ×3 (13:59→21:06)
[2018-09-03] MEDS ORDERED: fentaNYL citrate 100 MCG/2 ML VIAL ONE (15:02)
[2018-09-03] MEDS ORDERED: PROPOFOL IV EMULSION 10 MG/ML 20 ML VIAL IV ONE (15:02)
[2018-09-03] MEDS ORDERED: ROCURONIUM BROMIDE 10 MG/ML 5 ML VIAL ONE (15:02)
[2018-09-03] MEDS ORDERED: DEXAMETHASONE SOD INJ 4 MG/ML VIAL ONE (15:02)
[2018-09-03] MEDS ORDERED: LIDOCAINE HCL 2% 2 ML VIAL/AMP(20MG/ML) INFIL ONE (15:02)
[2018-09-03] MEDS ORDERED: ONDANSETRON INJ 2 MG/ML 2 ML VIAL ONE (15:02)
[2018-09-03] MEDS ORDERED: ONDANSETRON INJ 2 MG/ML 2 ML VIAL IV PRN ×2 (15:31→16:29)
[2018-09-03] MEDS ORDERED: ATROPINE SULFATE 0.1 MG/ML 10ML SYR IV PRN ×2 (15:31→16:29)
[2018-09-03] MEDS ORDERED: ePHEDrine sulfate 50 MG/ML AMP IV PRN ×2 (15:31→16:29)
[2018-09-03] MEDS ORDERED: fentaNYL citrate 100 MCG/2 ML VIAL IV PRN ×2 (15:31→16:29)
--- NOTE | 2018-09-03 15:39 | History & Physical Bridge Note ---
Date of Service September 03, 2018 History & Physical Bridge Note I have examined the patient, reviewed the History & Physical and in the interval since the performance of the History & Physical I have noted the following changes of clinical significance: no changes noted
[2018-09-03] MEDS ORDERED: CLINDAMYCIN 900 MG in DEXTROSE 5% 100 ML IV SCH (16:00)
[2018-09-03] MEDS ORDERED: PHENYLEPHRINE 100MCG/ML 5ML SYR IV PRN (16:29)
[2018-09-03] MEDS ORDERED: HYDROmorphone INJ 1 MG/ML SYRINGE IV PRN (16:29)
[2018-09-03] MEDS ORDERED: PHENYLEPHRINE HCL 10 MG/ML VIAL ONE (16:35)
[2018-09-03] MEDS ORDERED: ePHEDrine sulfate 50 MG/ML AMP ONE (16:35)
[2018-09-03] MEDS ORDERED: GLYCOPYRROLATE 0.2 MG/ML VIAL ONE (16:47)
[2018-09-03] MEDS ORDERED: NEOSTIGMINE METHYLSULFATE 5 MG/5 ML SYR ONE (16:47)
--- NOTE | 2018-09-03 17:02 | Post Operative Brief Note ---
Immediate Post Op Note v1 Date of Surgery September 03, 2018 Pre & Post Diagnosis Operation Date: 09/03/18 14:00 Pre-Op Diagnosis: Lung mass, right lower lobe Post-Op Diagnosis: Lung mass, right lower lobe Procedure Operation Date: 09/03/18 14:00 Actual Procedures p Endobronchial Ultrasound with biopsies(Right) - Eleuterio Toro MD, FACS s Navigational Bronchoscopy with biopsies(Right) - Eleuterio Toro MD, FACS Surgeon Eleuterio Toro MD, FACS Chemical Plant Operator Supervisor Manisha Estimated Blood Loss 5 Findings Consistent with Post-Op Diagnosis
--- NOTE | 2018-09-03 17:20 | Hospitalist Progress Note ---
Date of Service September 03, 2018 Assessment & Plan (1) History of DVT (deep vein thrombosis): Coumadin held, continue enoxaparin (2) Suicidal thoughts: No further thoughts of self harm appears to have made an off the cuff comment in the ED that he did not really mean. As far as the aggressive behavior, this has resolved. There was some concern for aggression at home and he may have kicked his . Dr. Wiley spoke with his by phone and she said she is concerned for his safety if he has not improved as far as his aggressive behaviors. CM will place referral to [facility]. Per psych, the did say she had no problem with him coming home and they will also have the psych liason follow up with her. agitation may be aggravated by marijuana use , resolved , not currently active per psych, does not meet criteria for inpatient psychiatric care (3) Left knee pain: Prepatellar bursitis was erythematous with edema over the patella. Has significantly improved, Aspirated by ortho 09/01, cultures and gram stain pending. has been Started cefepime 4/5 and patient's overall condition improved. Blood culture has no close, Change to Keflex after discussed with pharmacist Concern for gout per podiatry, cholchicine 1.2 mg x 1 and then 0.6 mg /5 , improvement in pain uric acid normal (4) Mass of middle lobe of right lung: Today we will have bronchoscope and biopsy per chest surgeon CT chest showing: Mixed cystic and solid mass of the right middle lobe has increased in size from prior study, notably the solid portion of the mass has markedly increased in size from 11/27/2017 now measuring up to 3.6 cm compatible with neoplasm, primary differential consideration would be along the adenocarcinoma spectrum. Indeterminate new 3 mm left upper lobe and right upper lobe pulmonary nodules. Coumadin held, continue enoxaparin but hold Monday morning per thoracic surgery Restart Coumadin with bridging as soon as possible if agreeable by chest surgeon (5) Ingrown toenail of left foot: Was on vancomycin and cefepime as above. Foot xray without osteo or fracture Consulted podiatry - Concern for gout - gave cholchicine 1.2 mg x 1 and then 0.6 mg one hour following 4/ Today's exam, local toenail no obvious drainage, no red no pain, No culture is changed per instruction from podiatry, will follow up with podiatry as instructed, Podiatry removed ingrown toenail 4/5, wound culture growing coag neg staph , Change Antibiotic to Kfelx (6) Type II diabetes mellitus: Uncontrolled diabetic with hyperglycemic, A1c 12.4. Patient reported to nursing that he hasn't been taking his novolog at home but does take his lantus. Consult pharmacy for glycemic management. consumer educator consult. patient agreed to try metformin in addition to Lantus for home. He does not want to do novolog (7) Depression: continue duloxetine (8) DVT prophylaxis: Enoxaparin (9) Bacteriuria: UA is equivocal and more likely represents bacteruria due to self cath. His culture did grow out E.Coli but given his lack of symptoms, Is covered by Keflex (10) Hypertension: cont Lisinopril, Lipitor (11) Chronic back pain: with radiation to right leg. Patient has had work up for this in the past and was told he is not a surgical candidate. He had been using marijuana for this pain both inhaled and topical. Continue tramadol prn, scheduled tylenol and lidocaine patches. PT/OT. pack worker for discharge plan Subjective Generally doing good, has been having good rest, no complaint, denies fever and chills, Review of Systems Constitutional: Positive weakness, or fatigue Respiratory: no cough, sputum, wheezing, or dyspnea on exertion Cardiac: No chest pain, No orthopnea, Abdomen: No pain, No nausea, No vomiting, No diarrhea, Musculoskeletal: No joint pain, No muscle pain, No swelling, : No dysuria, No urinary frequency, No incontinence, No hematuria Neurologic: No paralysis, No weakness, No numbness/tingling, Psychiatric: No depression symptoms, Heme: No abnormal bleeding/bruising, No clotting problems, Skin: No rash, No itch, No new/changing skin lesions, No color change, No bleeding Physical Exam Vital Signs (Past 24 Hours): Last Vital Signs Temp 36.8 C 09/03/18 15:25 Pulse 73 09/03/18 15:25 Resp 18 09/03/18 15:25 BP 136/68 09/03/18 15:25 Pulse Ox 93 09/03/18 15:25 Physical Exam: General: Awake alert orientated, obesity, no distress Eyes: normal inspection, PERLL Respiratory: chest non tender, decreased breath sounds, no respiratory distress, no accessory muscle use Cardiac: regular rate and rhythm, no rub or gallop, no murmur, no edema, no jvd GI/: active bowel sounds, no abd pain or tenderness, soft, non distended Extremities: normal range of motion, normal strength, non tender Neuro/Psych: alert and oriented x 3, normal mood and affect Skin: normal color, dry, left knee erythema, bloody drainage left toe Results & Data Laboratory Results Laboratory Results - last 24 hr 09/01/18 09/02/18 09/03/18 13:10 20:20 05:47 Creatinine 1.11 Est Cr Clr Drug Dosing 68.2 Est GFR ( Amer) 71.8 Est GFR (Non-Af Amer) 61.9 POC Glucose 147 H Fluid Crystals 09/03/18 09/03/18 09/03/18 07:41 11:29 14:20 Creatinine Est Cr Clr Drug Dosing Est GFR ( Amer) Est GFR (Non-Af Amer) POC Glucose 93 105 H 117 H Fluid Crystals 09/03/18 09/03/18 15:25 17:21 Creatinine Est Cr Clr Drug Dosing Est GFR ( Amer) Est GFR (Non-Af Amer) POC Glucose 122 H 114 H Fluid Crystals (1) Depression Active/Remission status: currently active Depression Type: major depressive disorder Major depression episode severity: severe Major depression recurrence: recurrent Psychotic features: without psychotic features Qualified Code(s): F33.2 - Major depressive disorder, recurrent severe without psychotic features
--- NOTE | 2018-09-03 17:25 | XRay Report ---
SINGLE VIEW CHEST CLINICAL HISTORY: Status post bronchoscopy. FINDINGS: An AP, portable, upright chest radiograph is compared to study dated 08/31/2018 and correlate d with chest CT dated 08/27/2018. The examination is degraded by portable technique and patient rotatio n. The heart is enlarged and there is atherosclerotic calcification of the thoracic aorta. There is mild pulmonary vascular congestion. There are low lung lungs with bibasilar atelectasis. A mass lesio n is again seen in the right middle lobe. There is increased opacities are evident mass lesion, likel y representing post procedure hemorrhage. No pneumothorax is identified. The skeletal structures are osteopenic. The bony thorax is grossly intact. IMPRESSION: 1. No pneumothorax is identified post procedure. 2. A right middle lobe mass lesion is again noted. There is increased surrounding consolidation, like ly representing post procedure hemorrhage. 3. Cardiomegaly with mild pulmonary vascular congestion Electronically signed by: Hayden Arreola M.D. 09/03/2018 5:24 PM
--- NOTE | 2018-09-03 17:27 | Fluoroscopy Report ---
INTRAOPERATIVE RADIOGRAPH CLINICAL HISTORY: Navigational bronchoscopy. Right middle lobe mass. Fluoroscopy time: 2 minutes. FINDINGS: A single spot fluoroscopic view of the lower chest is presented. [facility]. The bronchoscope projects over the right middle lobe and a mass lesion is not ed. IMPRESSION: Intraoperative bronchoscopic image as above. See operative report for detailed findings. Electronically signed by: Hayden Arreola M.D. 09/03/2018 5:25 PM
--- NOTE | 2018-09-03 17:27 | Fluoroscopy Report ---
INTRAOPERATIVE RADIOGRAPH CLINICAL HISTORY: Navigational bronchoscopy. Right middle lobe mass. Fluoroscopy time: 2 minutes. FINDINGS: A single spot fluoroscopic view of the lower chest is presented. Correlation is made [facility] dated 08/27/2018. The bronchoscope projects over the right middle lobe and a mass lesion is not ed. IMPRESSION: Intraoperative bronchoscopic image as above. See operative report for detailed findings. Electronically signed by: Hayden Arreola M.D. 09/03/2018 5:25 PM
--- NOTE | 2018-09-03 17:52 | Anesthesiology Progress Note ---
Date of Service September 03, 2018 Anesthesia Post Procedure Vital Signs Vital Signs: Temp Pulse Pulse Pulse Resp BP BP 09/03/18 17:45 75 21 121/60 09/03/18 17:35 74 19 117/62 09/03/18 17:25 78 20 136/65 09/03/18 17:18 36.1 C L 90 15 121/70 09/03/18 15:25 36.8 C 73 18 136/68 09/03/18 10:59 36.4 C L 84 20 147/74 H 09/03/18 07:14 36.8 C 65 18 129/73 09/03/18 03:12 36.8 C 76 18 115/72 09/02/18 23:52 36.6 C 84 20 135/74 09/02/18 19:42 36.7 C 80 18 117/71 Pulse Ox 09/03/18 17:45 100 09/03/18 17:35 92 09/03/18 17:25 93 09/03/18 17:18 92 09/03/18 15:25 93 09/03/18 10:59 93 09/03/18 07:14 96 09/03/18 03:12 93 09/02/18 23:52 95 09/02/18 19:42 92 Pain Intensity Left Knee: Pain Intensity: 4 Right Lower Buttock: Pain Intensity: 4 Notes Mental Status: alert / awake / arousable and participated in evaluation Patient Amnestic to Procedure: Yes Nausea / Vomiting: adequately controlled Pain: adequately controlled Airway Patency, RR, SpO2: stable & adequate BP & HR: stable & adequate Hydration State: stable & adequate Anesthetic Complications: no major complications apparent and Pt Satisfied with anesthetic care Notes: Doing well. Will keep pt on O2 via NC with continuous pulse ox.
[2018-09-03] MEDS ORDERED: INSULIN GLARGINE SOLOSTAR 100 UNITS/ML 3 ML PEN SQ SCH (21:00)
[2018-09-03] MEDS: TRAZODONE HCL 100 MG TAB PO SCH (21:07)
[2018-09-03] MEDS: PSYLLIUM 58.6% POWDER PACKET PO SCH (21:11)
--- NOTE | 2018-09-04 01:04 | Operative Report ---
DATE OF OPERATION: 09/03/2018 PREOPERATIVE DIAGNOSIS: Right middle lobe mass. POSTOPERATIVE DIAGNOSIS: Same. PROCEDURE: 1. Endobronchial ultrasound with biopsy. 2. Navigational bronchoscopy. SURGEON: Eleuterio Toro MD OPEN SOURCE DEVELOPER: Brody Dyer. ANESTHESIA: General anesthesia with endotracheal intubation. INDICATION FOR PROCEDURE AND FINDINGS: Mr. Yap is an 82-year-old male with a history of cigarette smoking, who was found to have a mass in his right middle lobe which continues to grow. It is cystic. He is not sick from this at all. CT scan does not show much in the way of mediastinal adenopathy; however, I offered him an endobronchial ultrasound with biopsy as well as a navigational bronchoscopy in an attempt to not only stage his lymph nodes, but also to attempt to get a diagnosis. On 09/03/2018, the patient was brought to the operating room and underwent an uncomplicated endobronchial ultrasound with multiple biopsies of 5 different lymph node stations. We got lymph node tissue in each. In addition, we did a navigational bronchoscopy and with a radial ultrasound probe found we were right in the middle of this mass. We did brushings, fine needle aspirations, forceps biopsies with touch preps, and washings. He tolerated it well. DESCRIPTION O FPROCEDURE: The patient was brought to the operating room and laid in the supine position. General anesthesia induced and endotracheal intubation was performed. After appropriate timeout had been called and prophylactic antibiotics given, the endobronchial ultrasound probe was inserted through the endotracheal tube through an adapter. There was a scant amount of yellowish sputum which was suctioned out quite quickly. He had no endobronchial lesions. Starting off on the left side, I biopsied the left level 10, left level 4, level 7, right level 10, and right level 4. We got lymph nodes back on each and really did not see any evidence of metastatic disease. We did multiple biopsies. It should be noted we did fine needle biopsies instead of fine needle aspirations. We had plenty of tissue on these. We had gotten very little in the way of bleeding as we used a 25-gauge needle. We then switched the scope over to a fiberoptic scope and suctioned out both airways and closely inspected each. Really did not see any abnormalities. He was in the superdimensional navigational bronchoscopy system and went out to the right middle lobe which took us directly to this mass which was rather large. Radial ultrasound probe showed we were in the middle of this. I then did brushings, fine needle aspirations, forceps with touch preps and washings. We did multiple sampling with each one of these modalities. We had very little in the way of any bleeding. Rapid onsite evaluation showed there to be plenty of tissue. I did not see evidence of cancer. We also sent this off for cultures, particularly fungal. We irrigated out the airways. Did not see any further bleeding. The scope was then slowly removed from the patient's endotracheal tube and he was awakened in the operating room and transported to the postanesthesia care unit in stable condition. I attest to the content of the Intraoperative Record and any orders documented therein. Any exception s are noted below.
[2018-09-04] MEDS ORDERED: CLINDAMYCIN PHOS 300 MG/2 ML VIAL IV SCH (06:00)
[2018-09-04] MEDS: ACETAMINOPHEN 500 MG TAB PO SCH ×3 (06:05→21:22)
[2018-09-04 08:12] LABS: INR 1.1 (0.9-1.1); Prothrombin Time 11.2 Seconds (9.0-12.0)
[2018-09-04] MEDS: CHOLECALCIFEROL 1,000 UNITS TAB PO SCH (08:21)
[2018-09-04] MEDS: DULOXETINE HCL 30 MG CAP PO SCH (08:21)
[2018-09-04] MEDS: OXYBUTYNIN CHLORIDE 5 MG TAB PO SCH ×3 (08:21→21:25)
[2018-09-04] MEDS: DULOXETINE HCL 60 MG CAP PO SCH (08:21)
[2018-09-04] MEDS: CALCIUM 600MG + VIT D 400 IU TAB PO SCH (08:21)
[2018-09-04] MEDS: METFORMIN HCL ER 500 MG TABCR PO SCH ×2 (08:21→17:45)
[2018-09-04] MEDS: ATORVASTATIN 40 MG TAB PO SCH (08:21)
[2018-09-04] MEDS: DOCUSATE SODIUM 100 MG CAP PO SCH ×2 (08:21→21:24)
[2018-09-04] MEDS: LISINOPRIL 40 MG TAB PO SCH (08:21)
[2018-09-04] MEDS: LIDOCAINE 5% 1 PATCH TD SCH (08:22)
[2018-09-04] MEDS: cephALEXin 500 MG CAP PO SCH ×4 (08:22→21:23)
[2018-09-04] MEDS: INSULIN ASPART 100 UNITS/ML 3 ML PEN SC SCH ×4 (08:43→21:14)
[2018-09-04] MEDS ORDERED: INSULIN GLARGINE SOLOSTAR 100 UNITS/ML 3 ML PEN SQ ONE (09:00)
[2018-09-04 09:27] LABS: Creatinine Clr Calc Pharmacy 65.8 ml/min; Est GFR (African American) 67.4; Est GFR (Non-African American) 58.1
[2018-09-04] MEDS ORDERED: WARFARIN SOD 5 MG TAB PO ONE (09:30)
--- NOTE | 2018-09-04 09:32 | Pharmacy Report ---
Pharmacy Glycemic Short Note 2 - Date of Service September 04, 2018 - Glycemic Short BSG Results (Last 24 hours): 09/03/18 09/03/18 09/03/18 11:29 14:20 15:25 POC Glucose 105 H 117 H 122 H 09/03/18 09/03/18 09/04/18 17:21 20:27 07:31 POC Glucose 114 H 133 H 122 H OUTPATIENT ANTIDIABETIC REGIMEN: * Lantus 50 units daily * Was also supposed to be taking Novolog 8 units w/ meals but hasn't taken in quite some time * A1c = 12.4% on 08/28/18 ASSESSMENT: * Mikel received 30 units of insulin yesterday (NPO during this time) * 30 units basal insulin * 0 units of bolus insulin * BSGs ranged from 93 - 114 mg/dL * Fasting BSG of 122 mg/dL is at goal. Patient has resumed an oral diet. I will start transitioning his Lantus dose from BID to once daily. * Post prandial BSGs are at goal. Novolog parameters were loosened yesterday - effect of change not seen at this time since patient was NPO yesterday. PLAN FOR INPATIENT GLYCEMIC CONTROL: * Metformin ER 500 mg PO BIDM * Basal insulin * 09/04: Lantus 8 units SQ this AM, Lantus 22-25 units SQ with dinner * 09/05: Full 24 hour dose will be given with dinner (dose to be determined) * Bolus insulin * NovoLog per scale ACHS or Q6hrs while NPO * Goal Range: Low 110 mg/dL - High 150 mg/dL * Correction Factor: 15 mg/dL/unit * Nutritional / Prandial insulin per carb ratio of 1 unit per 5 grams CHO consumed PLAN FOR DISCHARGE: From 08/28/18: * CDE discussed discharge plan with patient and myself today. Patient is NOT willing to do insulin injections > 1 time/day and prefers to use vials as this is what he's comfortable with. Plan for discharge will be to increase Lantus dose (to be determined closer to discharge) and attempt to reinstitute metformin as long as renal function stable. Patient has this listed as an "allergy" - reaction listed as diarrhea, but patient does not recall having issues w/ this in the past and willing to try again. * In addition, patient would benefit from f/u with [facility] ([facility] He would be an ideal candidate to use a once weekly GLP-1 agonist. Updated discharge recs based upon current insulin requirements: * Lantus VIAL 60 units SQ once daily * Metformin ER 500 mg twice daily with meals (then titrated upwards as tolerated, per outpatient provider) * F/u with [facility] -> consider addition of once weekly GLP-1 agonist Thank you.
[2018-09-04] MEDS: ENOXAPARIN INJ 120 MG/0.8 ML SYR SC SCH ×2 (10:11→21:23)
[2018-09-04] MEDS: TRAMADOL HCL 50 MG TABLET PO PRN ×2 (14:44→21:55)
[2018-09-04] MEDS ORDERED: VANCOMYCIN TROUGH ONE (15:30)
[2018-09-04] MEDS ORDERED: INSULIN GLARGINE SOLOSTAR 100 UNITS/ML 3 ML PEN SQ SCH (16:30)
--- NOTE | 2018-09-04 17:43 | Hospitalist Progress Note ---
Date of Service September 04, 2018 Assessment & Plan (1) History of DVT (deep vein thrombosis): Has restarted Coumadin with Lovenox to bridge (2) Suicidal thoughts: No further thoughts of self harm appears to have made an off the cuff comment in the ED that he did not really mean. As far as the aggressive behavior, this has resolved. There was some concern for aggression at home and he may have kicked his . Dr. Wiley spoke with his by phone and she said she is concerned for his safety if he has not improved as far as his aggressive behaviors. CM will place referral to [facility]. Per psych, the did say she had no problem with him coming home and they will also have the psych liason follow up with her. agitation may be aggravated by marijuana use , resolved , not currently active per psych, does not meet criteria for inpatient psychiatric care (3) Left knee pain: Prepatellar bursitis likely from gout, because fluid aspiration which shows" MONOSODIUM URATE CRYSTALS IDENTIFIED." was erythematous with edema over the patella. Has significantly improved, Medial side of left anterior knee has chronic wound has some drainage, has advised patient to follow-up with PCP Aspirated by ortho 09/01, neg has been Started cefepime 4/5 and patient's overall condition improved. Blood culture has no close, Change to Keflex after discussed with pharmacist Concern for gout per podiatry, cholchicine 1.2 mg x 1 and then 0.6 mg /5 , improvement in pain uric acid normal (4) Mass of middle lobe of right lung: had bronchoscope and biopsy per chest surgeon yesterday CT chest showing: Mixed cystic and solid mass of the right middle lobe has increased in size from prior study, notably the solid portion of the mass has markedly increased in size from 11/27/2017 now measuring up to 3.6 cm compatible with neoplasm, primary differential consideration would be along the adenocarcinoma spectrum. Indeterminate new 3 mm left upper lobe and right upper lobe pulmonary nodules. Patient has chest surgeon to follow-up (5) Ingrown toenail of left foot: Was on vancomycin and cefepime as above. Foot xray without osteo or fracture Consulted podiatry - Concern for gout - gave cholchicine 1.2 mg x 1 and then 0.6 mg one hour following 4/4 local toenail no obvious drainage, no red no pain, No culture is changed per instruction from podiatry, will follow up with podiatry as instructed, Podiatry removed ingrown toenail /5, wound culture growing coag neg staph , Change Antibiotic to Klexx (6) Type II diabetes mellitus: Uncontrolled diabetic with hyperglycemic, A1c 12.4. Patient reported to nursing that he hasn't been taking his novolog at home but does take his lantus. Consult pharmacy for glycemic management. school vocational educator consult. patient agreed to try metformin in addition to Lantus for home. He does not want to do novolog (7) Depression: continue duloxetine (8) DVT prophylaxis: Enoxaparin (9) Bacteriuria: UA is equivocal and more likely represents bacteruria due to self cath. His culture did grow out E.Coli but given his lack of symptoms, Is covered by Keflex (10) Hypertension: cont Lisinopril, Lipitor (11) Chronic back pain: with radiation to right leg. Patient has had work up for this in the past and was told he is not a surgical candidate. He had been using marijuana for this pain both inhaled and topical. Continue tramadol prn, scheduled tylenol and lidocaine patches. PT/OT. set up worker for discharge plan Discharge plan will be need to have Lovenox bridging for Coumadin arranged, co- pay for Lovenox for 1 week will be $50, and need to have follow-up with PCP for skin tag, especially no one in post left posterior ear , encourage patient out of bed, possible can be discharged tomorrow Subjective Generally doing good, has bronc and biopsy yesterday, no complaint, denies fever and chills, Review of Systems Constitutional: Positive weakness, or fatigue Respiratory: no cough, sputum, wheezing, or dyspnea on exertion Cardiac: No chest pain, No orthopnea, Abdomen: No pain, No nausea, No vomiting, No diarrhea, Musculoskeletal: No joint pain, No muscle pain, No swelling, : No dysuria, No urinary frequency, No incontinence, No hematuria Neurologic: No paralysis, No weakness, No numbness/tingling, Psychiatric: No depression symptoms, Heme: No abnormal bleeding/bruising, No clotting problems, Skin: No rash, No itch, No color change, No bleeding Physical Exam Vital Signs (Past 24 Hours): Last Vital Signs Temp 36.6 C 09/04/18 15:37 Pulse 72 09/04/18 15:37 Resp 18 09/04/18 15:37 BP 109/71 09/04/18 15:37 Pulse Ox 91 09/04/18 15:37 Physical Exam: General: Awake alert orientated, obesity, no distress Eyes: normal inspection, PERLL Respiratory: chest non tender, decreased breath sounds, no respiratory distress, no accessory muscle use Cardiac: regular rate and rhythm, no rub or gallop, no murmur, no edema, no jvd GI/: active bowel sounds, no abd pain or tenderness, soft, non distended Extremities: normal range of motion, normal strength, non tender Neuro/Psych: alert and oriented x 3, normal mood and affect Skin: Multiple skin tag and skin lesions, likely [place], the 1 in left posterior ear, there was no obvious pigmentation or irregularities in the border, normal color, dry, left knee erythema, bloody drainage left toe Results & Data Laboratory Results Laboratory Results - last 24 hr 09/03/18 09/04/18 09/04/18 20:27 07:31 07:42 PT 11.2 INR 1.1 Creatinine Est Cr Clr Drug Dosing Est GFR ( Amer) Est GFR (Non-Af Amer) POC Glucose 133 H 122 H 09/04/18 09/04/18 09/04/18 07:42 11:56 16:40 PT INR Creatinine 1.17 Est Cr Clr Drug Dosing 65.8 Est GFR ( Amer) 67.4 Est GFR (Non-Af Amer) 58.1 POC Glucose 143 H 114 H Microbiology 09/03/18 Unknown Lung,Right Middle Lobe Gram Stain - Final 09/03/18 Unknown Lung,Right Middle Lobe Aerobic and Anaerobic Culture - Preliminary No growth to date. 09/03/18 Unknown Lymph Node Gram Stain - Final 09/03/18 Unknown Lymph Node Aerobic and Anaerobic Culture - Preliminary No growth to date. 09/03/18 Unknown Bronch Wash,Right Middle Lobe Gram Stain - Final 09/03/18 Unknown Bronch Wash,Right Middle Lobe Bronchoalveolar Lavage Culture - Preliminary No growth 09/03/18 Unknown Bronch [place],Right Middle Lobe Gram Stain - Final 09/03/18 Unknown Bronch [place],Right Middle Lobe Bronchoalveolar Lavage Culture - Preliminary No growth 09/01/18 13:10 Joint Fluid,Knee Gram Stain - Final 09/01/18 13:10 Joint Fluid,Knee Aerobic and Anaerobic Culture - Preliminary No growth to date. 08/31/18 Unknown Toe,Left Great Gram Stain - Final 08/31/18 Unknown Toe,Left Great Aerobic and Anaerobic Culture - Preliminary Coag negative Staphylococcus 09/03/18 Unknown Bronch [place],Right Middle Lobe Fungal Smear - Final 09/03/18 Unknown Lymph Node Fungal Smear - Final 09/03/18 Unknown Lung,Right Middle Lobe Fungal Smear - Final 09/03/18 Unknown Bronch Wash,Right Middle Lobe Fungal Smear - Final (1) Depression Active/Remission status: currently active Depression Type: major depressive disorder Major depression episode severity: severe Major depression recurrence: recurrent Psychotic features: without psychotic features Qualified Code(s): F33.2 - Major depressive disorder, recurrent severe without psychotic features
--- NOTE | 2018-09-04 18:51 | Progress Note ---
DATE: 09/04/2018 Mr. Yap was seen today on 09/04/2018. I performed an endobronchial ultrasound and navigational bronchoscopy on him yesterday. We had good lymph node samples with no evidence of malignancy. However, I discussed this with pathology and apparently there is evidence of possible malignancy in his cell wash. We will see what that turns up when the permanent slides are out.
[2018-09-04] MEDS: PSYLLIUM 58.6% POWDER PACKET PO SCH (21:22)
[2018-09-04] MEDS: TRAZODONE HCL 100 MG TAB PO SCH (21:25)
[2018-09-05] MEDS: ACETAMINOPHEN 500 MG TAB PO SCH (05:22)
[2018-09-05] MEDS: TRAMADOL HCL 50 MG TABLET PO PRN (05:26)
[2018-09-05 05:44] LABS: Hematocrit (blood only) 34.3 % (42-52); Hemoglobin 11.1 g/dL (14.0-18.0); Mean Corpuscular Hgb Conc 32.4 g/dL (32-36); Mean Corpuscular Volume 96.9 fL (80-100); Mean Platelet Volume 9.6 fL (7.4-10.4); Platelet Count 238 K/uL (130-400); RDW Coefficient of Variation 13.8 % (11.5-14.5); RDW Standard Deviation 48.5 fL (36.4-46.3); Red Blood Count 3.54 M/uL (4.7-6.1); White Blood Count 10.13 K/uL (4.8-10.8)
[2018-09-05 05:59] LABS: Creatinine Clr Calc Pharmacy 62.1 ml/min; Est GFR (African American) 62.8; Est GFR (Non-African American) 54.2
[2018-09-05 06:16] LABS: INR 1.2 (0.9-1.1); Prothrombin Time 12.3 Seconds (9.0-12.0)
[2018-09-05] MEDS: CALCIUM 600MG + VIT D 400 IU TAB PO SCH (08:38)
[2018-09-05] MEDS: LIDOCAINE 5% 1 PATCH TD SCH (08:38)
[2018-09-05] MEDS: CHOLECALCIFEROL 1,000 UNITS TAB PO SCH (08:38)
[2018-09-05] MEDS: ATORVASTATIN 40 MG TAB PO SCH (08:38)
[2018-09-05] MEDS: cephALEXin 500 MG CAP PO SCH (08:38)
[2018-09-05] MEDS: DULOXETINE HCL 30 MG CAP PO SCH (08:39)
[2018-09-05] MEDS: LISINOPRIL 40 MG TAB PO SCH (08:39)
[2018-09-05] MEDS: METFORMIN HCL ER 500 MG TABCR PO SCH (08:39)
[2018-09-05] MEDS: DULOXETINE HCL 60 MG CAP PO SCH (08:39)
[2018-09-05] MEDS: ENOXAPARIN INJ 120 MG/0.8 ML SYR SC SCH (08:39)
[2018-09-05] MEDS: OXYBUTYNIN CHLORIDE 5 MG TAB PO SCH (08:40)
[2018-09-05] MEDS: DOCUSATE SODIUM 100 MG CAP PO SCH (08:40)
[2018-09-05] MEDS: INSULIN ASPART 100 UNITS/ML 3 ML PEN SC SCH (08:41)
--- NOTE | 2018-09-05 10:51 | Pharmacy Report ---
Pharmacy Glycemic Short Note 2 - Date of Service September 05, 2018 - Glycemic Short BSG Results (Last 24 hours): 09/04/18 09/04/18 09/04/18 11:56 16:40 19:50 POC Glucose 143 H 114 H 117 H 09/05/18 08:17 POC Glucose 135 H OUTPATIENT ANTIDIABETIC REGIMEN: * Lantus 50 units daily * Was also supposed to be taking Novolog 8 units w/ meals but hasn't taken in quite some time * A1c = 12.4% on 08/28/18 ASSESSMENT: * Mikel received 56 units of insulin yesterday with excellent glycemic control * 30 units basal insulin * 26 units of bolus insulin * BSGs ranged from 89-122mg/dL * Fasting BSG of 135 mg/dL is near goal. Lantus dosing is being transitioned to once daily. Suspect patient to need between 35 - 45 units per day. * Post prandial BSGs are at goal. No changes to Novolog today. PLAN FOR INPATIENT GLYCEMIC CONTROL: * Metformin ER 500 mg PO BIDM * Basal insulin * 09/05: Lantus 37 units SQ - give at dinnertime * 09/06: Lantus 37 units SQ - give at HS * Bolus insulin * NovoLog per scale ACHS or Q6hrs while NPO * Goal Range: Low 110 mg/dL - High 150 mg/dL * Correction Factor: 15 mg/dL/unit * Nutritional / Prandial insulin per carb ratio of 1 unit per 5 grams CHO consumed PLAN FOR DISCHARGE: From 08/28/18: * CDE discussed discharge plan with patient and myself today. Patient is NOT willing to do insulin injections > 1 time/day and prefers to use vials as this is what he's comfortable with. Plan for discharge will be to increase Lantus dose (to be determined closer to discharge) and attempt to reinstitute metformin as long as renal function stable. Patient has this listed as an "allergy" - reaction listed as diarrhea, but patient does not recall having issues w/ this in the past and willing to try again. * In addition, patient would benefit from f/u with [facility]inology ([facility] He would be an ideal candidate to use a once weekly GLP-1 agonist. Updated discharge recs based upon current insulin requirements: * Lantus VIAL 50 units SQ once daily * Metformin ER 500 mg twice daily with meals (then titrated upwards as tolerated, per outpatient provider) * [facility]u [facility] -> consider addition of once weekly GLP-1 agonist since patient is not agreeable to short acting insulin Thank you.
--- NOTE | 2018-09-05 14:39 | Progress Note ---
DATE: 09/05/2018 Mr. Yap was seen today. I went over his slides with Dr. Kiki Tobin from pathology. 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 However, we had good samples from his mediastinal lymph nodes and we see no evidence of metastatic disease. We are going to check pulmonary function studies as well as a PET scan; however, I believe that Mr. Yap is a candidate for a minimally invasive right middle lobectomy. I do not believe this is going to affect his breathing very much. It is a fairly small lobe. We will see what his pulmonary function studies show but I told him today as he was leaving that I am leaning towards offering him a right middle lobectomy. He understands and seemed a bit heartened by that. SAY
[2018-09-05] MEDS ORDERED: WARFARIN SOD 3 MG TAB PO SCH (16:00)
[2018-09-05] MEDS ORDERED: INSULIN GLARGINE SOLOSTAR 100 UNITS/ML 3 ML PEN SQ SCH (16:30)
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
== END 2018-09-05 12:50 | disposition home or self-care (01) | DRG 876 ==
LOC: ED 23:44 → 4E 23:44 → SUATTDRO 08-27 03:26 → 4E 08-27 04:05 → SUATTDRO 08-28 13:10

== ENCOUNTER 2018-09-12 14:20 | Inpatient (IN) ==
[2018-09-12] MEDS ORDERED: ONDANSETRON INJ 2 MG/ML 2 ML VIAL IV STA (15:45)
[2018-09-12] MEDS ORDERED: HYDROmorphone INJ 0.5 MG/0.5 ML SYR IV STA (15:45)
[2018-09-12 16:44] LABS: Basophils # (auto) 0.01 K/uL (0-0.2); Basophils % (auto) 0.1 %; Eosinophils # (auto) 0.02 K/uL (0-0.5); Eosinophils % (auto) 0.1 %; Hematocrit (blood only) 34.2 % (42-52); Hemoglobin 11.1 g/dL (14.0-18.0); Immature Granulocytes # (auto) 0.06 K/uL (0.00-0.02); Immature Granulocytes % (auto) 0.4 %; Lymphocytes # (auto) 2.03 K/uL (1.2-3.4); Lymphocytes % (auto) 12.6 %; Mean Corpuscular Hgb Conc 32.5 g/dL (32-36); Mean Corpuscular Volume 96.6 fL (80-100); Mean Platelet Volume 9.9 fL (7.4-10.4); Monocytes # (auto) 0.67 K/uL (0.11-0.59); Monocytes % (auto) 4.2 %; Neutrophils # (auto) 13.35 K/uL (1.4-6.5); Neutrophils % (auto) 82.6 %; Platelet Count 329 K/uL (130-400); RDW Standard Deviation 49.3 fL (36.4-46.3); Red Blood Count 3.54 M/uL (4.7-6.1); White Blood Count 16.14 K/uL (4.8-10.8)
--- NOTE | 2018-09-12 16:55 | XRay Report ---
XR lumbar spine 2-3V CLINICAL HISTORY: fall eval for injury COMPARISON STUDY: No previous studies for comparison. FINDINGS: Severe degenerative change at the entire lumbar region. No evidence for an acute compressio n deformity. Slight wedge deformity L1 considerable old. Considerable reactive osteophytic change thr oughout. IMPRESSION: No acute process. Significant degenerative change. The above report was generated using voice recognition software. It may contain grammatical, syntax or spelling errors. Electronically signed by: Rakesh Mckenzie M.D. 09/12/2018 4:54 PM
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
[2018-09-12 16:59] LABS: Albumin Level 2.5 gm/dl (3.4-5.0); BUN Creatinine Ratio 21.2 (10-20); Calcium 8.5 mg/dl (8.5-10.1); Creatinine Clr Calc Pharmacy 64.6 ml/min; Est GFR (African American) 66.7; Est GFR (Non-African American) 57.5; Potassium 4.2 mmol/L (3.5-5.1)
[2018-09-12 17:01] LABS: Albumin Globulin Ratio 0.6 (0.9-2); Bilirubin,Total 0.2 mg/dl (0.2-1); Globulin 4.1 gm/dl (2.5-4.0); Total Protein 6.6 gm/dl (6.4-8.2)
[2018-09-12 17:39] LABS: INR 1.3 (0.9-1.1); Partial Thromboplastin Ratio 0.9; Partial Thromboplastin Time 23.7 Seconds (21.0-31.0); Prothrombin Time 13.1 Seconds (9.0-12.0)
--- NOTE | 2018-09-12 18:01 | History & Physical Report ---
Date of Service September 12, 2018 Assessment & Plan (1) Back pain: Patient's back pain is oncological he related. The patient will be on parenteral hydromorphone, oral oxycodone, scheduled Tylenol we may consider topical pain treatment. Will avoid nonsteroidals with his anticoagulation unless we absolutely cannot. We will have consultation with radiation therapy and oncology (2) Cancer, metastatic to bone: Patient unfortunately his pain is related to large bony metastasis seen on PET scan further CT imaging of his pelvis and sacrum be undertaken to delineate if there is any concern for structural instability (3) Anticoagulated on Coumadin: Patient was sent out on Lovenox and warfarin due to his history of DVT PE and recent cancer diagnosis. The patient's INR subtherapeutic on presentation and he will be put on Lovenox therapy until we evaluate his bony metastasis further in case a procedure would be required (4) Type II diabetes mellitus: On basal bolus insulin really high insulin requirements, last hemoglobin A1c earlier in August was 12.4 (5) Depression: Patient will continue duloxetine 90 mg a day History of Present Illness Primary Care Provider: Joanne Baptiste PA-C Patient was recently discharged from our facility on 05 September. At that time was known he had a focal right middle lobe adenocarcinoma. He did fine for 1 day and then he developed significant discomfort in his right buttocks with associated numbness. As part of the workup for his adenocarcinoma he had an outpatient PET scan to shows multiple areas of metastasis but does also have confirming 5 cm sacral bony destructive lesion as well as intra-abdominal adrenal and muscular metastasis in the arm as well as a contralateral lung suspicious mass. Patient's primary here for oncological pain control and numbness in his buttocks area Allergies Allergy/AdvReac Type Severity Reaction Status Date / Time doxycycline Allergy Intermediate hives Verified 08/27/18 02:34 Sulfa (Sulfonamide Allergy Intermediate lip Verified 08/27/18 02:34 Antibiotics) swelling Penicillins Allergy Unknown HIVES Verified 08/27/18 02:34 metformin AdvReac Intermediate diarrhea Verified 08/27/18 02:34 simvastatin AdvReac Intermediate myalgia Verified 08/27/18 02:34 Home Medications Home Medications Medication Instructions Recorded Confirmed Type atorvastatin 40 mg tablet 40 mg PO QAM 01/24/18 09/12/18 History calcium carbonate 600 mg (1,500 1 tab PO QAM 01/24/18 09/12/18 History mg)-vitamin D3 200 unit tablet duloxetine 60 mg capsule,delayed 60 mg PO DAILY cap 01/24/18 09/12/18 History release lisinopril 40 mg tablet 40 mg PO QAM 01/24/18 09/12/18 History oxybutynin chloride 5 mg tablet 5 mg PO TID 01/24/18 09/12/18 History trazodone 100 mg tablet 25 - 50 mg PO HS tab 01/24/18 09/12/18 History warfarin 3 mg tablet 3 mg PO QAM 01/24/18 09/12/18 History duloxetine 30 mg PO QAM 08/27/18 09/12/18 History colchicine 0.6 mg PO BID PRN 09/12/18 09/12/18 History fentanyl 12 mcg TOPICAL [id number] 09/12/18 09/12/18 History hydrocodone-acetaminophen [[place]] 1 tab PO Q4H PRN 09/12/18 09/12/18 History insulin aspart U-100 [Novolog See Rx Instructions .ROUTE .COMPLEX 09/12/18 09/12/18 History U-100 Insulin aspart] insulin glargine [Lantus U-100 30 units SUBCUT QPM 09/12/18 09/12/18 History Insulin] insulin glargine [Lantus U-100 35 units SUBCUT QAM 09/12/18 09/12/18 History Insulin] methyl salicylate-menthol 1 patch TOPICAL Q12H 09/12/18 09/12/18 History [Salonpas] Past Med/Surg History Medical History Prostate cancer (Chronic) Urinary frequency (Chronic) Hyperlipidemia (Chronic) Diabetes (Chronic) DVT (deep venous thrombosis) (Resolved) Back pain (Chronic) Chest pain (Chronic) Confusion (Chronic) Depression (Chronic) Diabetes (Chronic) Dysuria (Chronic) HTN (hypertension) (Chronic) Hyperlipidemia (Chronic) Insomnia (Chronic) Left leg cellulitis (Chronic) Osteomyelitis of left knee region (Chronic) Prostate cancer (Chronic) Urinary frequency (Chronic) Surgical History No pertinent past surgical history Family History Other Family history non-contributory Social History Preferred Language: [place] Citizen Communication Ability: Effective Beliefs That Will Affect Care: None Current Living Situation: Spouse Feels Safe at Home: Yes Smoking Status: Former smoker Tobacco Type: cigarettes Cigarettes Per Day: 40 Second Hand Exposure: No Hx Alcohol Use: No Hx Substance Use: No Review of Systems Review of Systems: ROS: well nourished well developed. Slightly obese No double vision blurry vision No problems with speech or swallowing No palpitations, chest pain or pressure Baseline breathing and wheezing issues No abdominal pain nausea vomiting diarrhea changes in appetite or weight Patient has typical urinary retention and self caths Patient is mostly buttocks pain No skin rashes or oral lesions No unusual bruising or bleeding Focused right buttocks pain with numbness in his buttocks no radicular symptoms No changes in memory or confusion Physical Exam Vital Signs (Past 24 Hours): Last Vital Signs Temp 36.5 C 09/12/18 14:31 Pulse 70 09/12/18 16:38 Resp 20 09/12/18 16:38 BP 129/75 09/12/18 16:38 Pulse Ox 95 09/12/18 16:38 The patient appeared well nourished and normally developed. Vital signs as documented. Head exam is unremarkable. normocephalic, atraumatic Neck is without jugular venous distension, thyromegaly, or lymphademopathy Lungs are clear poor air movement no wheezes Cardiac exam reveals Rhythm is regular. Systolic ejection murmur first and second heart sounds normal. Abdominal exam reveals protuberant and distended normal bowel sounds, no masses, no organomegaly Extremities are mildly edematous and both pedal pulses are present he is missing toes on the right foot the exception of the fourth and fifth in his left great toe is partially amputated with a recently removed nail Neurologic exam is A&Ox3, no reflexes at the patella bilaterally sensation intact grossly bilaterally lower extremities strength in the right side is limited by pain in his buttocks area where he can barely lift his leg off the bed left is able to be moved which much more ease. He does have good dorsi plantar flexion bilaterally Psychologically seems neither anxious or depressed Skin is warm Dry without bruises or lesions Results & Data Diagnostic Findings Pt scan done 09/11/19 ----1. Findings are consistent with multifocal metastatic disease. 2. There is approximately 5.5 cm mass lesion seen in the right middle lobe with a cystic component and a small satellite nodule. 3. There is a 9 mm nodule at the anterior left apex which is FDG avid and has increased in size from 08/27/2018. 4. There are least 2 peritoneal metastases identified. 5. Left adrenal metastasis. 5. There is a large, measures approximately 5 cm, destructive metastatic focus centered in the right sacrum. 6. Suspect an intramuscular metastasis within the right upper extremity, and possibly a smaller one deep to the right scapula. 7. Emphysema. 8. Advanced colonic diverticulosis without CT evidence of acute diverticulitis. (1) Back pain Back pain laterality: right Back pain location: low back pain Chronicity: acute Sciatica laterality: sciatica of right side Sciatica presence: with sciatica Qualified Code(s): M54.41 - Lumbago with sciatica, right side (2) Depression Active/Remission status: currently active Depression Type: major depressive disorder Major depression episode severity: severe Major depression recurrence: recurrent Psychotic features: without psychotic features Qualified Code(s): F33.2 - Major depressive disorder, recurrent severe without psychotic features
[2018-09-12] MEDS ORDERED: ONDANSETRON INJ 2 MG/ML 2 ML VIAL IV PRN (19:32)
[2018-09-12] MEDS ORDERED: GLUCOSE 40% GEL 15 GM TUBE PO PRN (19:32)
[2018-09-12] MEDS ORDERED: GLUCOSE 10 TABS/TUBE PO PRN (19:32)
[2018-09-12] MEDS ORDERED: DEXTROSE 50% 50 ML SYRINGE IV PRN (19:32)
[2018-09-12] MEDS ORDERED: GLUCAGON FOR INJ 1 MG VIAL SQ PRN (19:32)
[2018-09-12] MEDS ORDERED: CARBOHYDRATES FOR HYPOGLYCEMIA PO PRN (19:32)
[2018-09-12] MEDS ORDERED: ENOXAPARIN INJ 120 MG/0.8 ML SYR SQ SCH (21:00)
[2018-09-12] MEDS: ACETAMINOPHEN 500 MG TAB PO SCH (21:19)
[2018-09-12] MEDS: INSULIN ASPART 100 UNITS/ML 3 ML PEN SC SCH (21:23)
[2018-09-12] MEDS: INSULIN GLARGINE SOLOSTAR 100 UNITS/ML 3 ML PEN SC SCH (21:23)
[2018-09-12] MEDS: DEXAMETHASONE SOD PHOSPHATE 4 MG in SYRINGE 0 ML IV SCH (22:32)
[2018-09-13] MEDS: CHECK FENTANYL PATCH PLACEMENT SCH ×3 (00:13→16:39)
[2018-09-13] MEDS: DEXAMETHASONE SOD PHOSPHATE 4 MG in SYRINGE 0 ML IV SCH ×3 (05:43→21:37)
[2018-09-13 06:45] LABS: BUN Creatinine Ratio 23.2 (10-20); Creatinine Clr Calc Pharmacy 71.2 ml/min; Est GFR (African American) 75.1; Est GFR (Non-African American) 64.8; Potassium 4.7 mmol/L (3.5-5.1)
[2018-09-13 06:53] LABS: INR 1.4 (0.9-1.1); Prothrombin Time 13.8 Seconds (9.0-12.0)
[2018-09-13] MEDS: DULOXETINE HCL 30 MG CAP PO SCH (08:45)
[2018-09-13] MEDS: ACETAMINOPHEN 500 MG TAB PO SCH ×3 (08:45→20:55)
--- NOTE | 2018-09-13 08:51 | Radiation OncologyConsultation ---
Date of Consultation September 13, 2018 Assessment & Plan (1) Cancer, metastatic to bone: Assessment: Mr. 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 The patient recently had a PET/CT scan completed on 09/10/2018 which revealed metastatic disease involving the right sacrum. The patient was admitted to the hospital for pain control. We have been asked to evaluate the patient for consideration of radiation therapy. Of note, I have spoken with Dr. Chaves from medical oncology who is recommended a biopsy of the right sacral mass to determine whether the patient has metastatic disease from prostate cancer or lung. Recommendation: 1. Completion of the staging workup including a biopsy of the right sacral metastasis to determine whether metastatic disease is from lung cancer or prostate cancer. 2. Radiation Therapy Plan: After a tissue biopsy has been obtained, palliative external beam radiation therapy to the right sacral metastasis. My current plan is to utilize IMRT/IGRT given the fact that there is a high likelihood of significant overlap from his previous course of radiation therapy where his pelvic lymph nodes were also treated as well. If there is no significant or minimal overlap after reviewing the previous radiation therapy dosimetry, a complex or 3DCRT radiation therapy plan may be more appropriate. We will attempt to treat him in 10 fractions at 300 cGy per fraction unless the overlap so significant to the bowel that we may need to reduce the dose per fraction to reduce potential late side effects of radiation therapy. Plan: 1. CT simulation today for treatment planning for radiation therapy. 2. Patient will obtain CT-guided biopsy of right sacral metastasis. 3. Medical oncology consultation recommendations will be appreciated. 4. Continue pain medication management as per primary team. 5. Recommend primary team obtain PSA. Rationale/Explanation of Treatment: We did explain the indications, alternatives, benefits, risks and side effects of external beam radiation therapy. We did explain the most common side effects including, but not limited to, skin erythema, skin breakdown, hyperpigmentation, telangiectasia, wound complications, perianal fistula development, fistula formation, bowel obstruction, bowel perforation, dysuria, increased urinary frequency, urgency, diarrhea, constipation, melena, hematochezia, hematuria, radiation cystitis, radiation proctitis, fatigue, decreased blood counts, wound complications from surgery, rectal incontinence, secondary malignancy development. We did explain the procedures and daily process of radiation therapy. The patient understands and would be willing to consent to treatment. We have explained to the patient that there is an increased risk of overlap from the previous course of radiation therapy and the current course of radiation therapy which can increase the risk of all acute and late side effects of radiation therapy. The patient had multiple questions which were answered to their full satisfaction. Thank you for allowing us to participate in the care of this patient. This chart was completed in part utilizing [employer]. Attempts were made to minimize the grammatical errors, random word insertions, pronoun errors and incomplete sentences. Any formal questions or concerns about the content, text or information contained within the body of this dictation should be directly addressed to the provider for clarification. Zeb Chowdary MD Department of Radiation Oncology [facility] Present on Admission?: Yes History of Present Illness Reason for Consultation: Metastasis to Sacrum History of Present Illness 12/19/2006. Prostate LDR brachytherapy, cesium 131 for high risk prostate cancer. [address] Padilla. Patient also received androgen deprivation. 11/06/2006 to 03/20/2007. Pelvic external beam radiation therapy for high risk prostate cancer. [address] Padilla. Patient also received androgen deprivation. 08/27/2018. CT Chest. IMPRESSION: 1. Mixed cystic and solid mass of the right middle lobe has increased in size from prior study, notably the solid portion of the mass has markedly increased in size from 11/27/2017 now measuring up to 3.6 cm compatible with neoplasm, primary differential consideration would be along the adenocarcinoma spectrum. 2. Indeterminate new 3 mm left upper lobe and right upper lobe pulmonary nodules. Attention at follow-up recommended. 3. No adenopathy. 4. Emphysema. 5. Additional findings as above. 09/03/2018. Bronchoscopy by Dr. Toro with multiple biopsies including right lung mass, LN stations 4R, 7, 10L, 11R, 10R. Pathology Results: All biopsies were negative. RML washings positive for adenocarcinoma. 09/06/2018. IMPRESSION: 1. There is no evidence of fracture or malalignment involving the lumbar spine. 2. Osteopenia with multilevel spondylosis and multilevel acquired compromise of the central canal. This is similar in appearance to the 06/28/2017 examination. 3. There is a 3.0 cm left adrenal nodule which is new from 06/28/2017. This does not meet criteria for a benign adenoma and is highly concerning for metastatic disease. Correlation with the patient's clinical and oncological history will be required. 4. Question a right sacral metastasis. 09/10/2018. PET/CT. IMPRESSION: 1. Findings are consistent with multifocal metastatic disease. 2. There is approximately 5.5 cm mass lesion seen in the right middle lobe with a cystic component and a small satellite nodule. 3. There is a 9 mm nodule at the anterior left apex which is FDG avid and has increased in size from 08/27/2018. 4. There are least 2 peritoneal metastases identified. 5. Left adrenal metastasis. 5. There is a large destructive metastatic focus centered in the right sacrum. 6. Suspect an intramuscular metastasis within the right upper extremity, and possibly a smaller one deep to the right scapula. 7. Emphysema. 8. Advanced colonic diverticulosis without CT evidence of acute diverticulitis. 9. Additional findings as above. 09/12/2018. Patient admitted to hospital for further workup due to significant pain involving the right buttock with associated numbness in the right buttock. Currently, the patient's pain has been more well controlled since he was started on pain medications including oxycodone and Dilaudid. Allergies Allergy/AdvReac Type Severity Reaction Status Date / Time doxycycline Allergy Intermediate hives Verified 08/27/18 02:34 Sulfa (Sulfonamide Allergy Intermediate lip Verified 08/27/18 02:34 Antibiotics) swelling Penicillins Allergy Unknown HIVES Verified 08/27/18 02:34 metformin AdvReac Intermediate diarrhea Verified 08/27/18 02:34 simvastatin AdvReac Intermediate myalgia Verified 08/27/18 02:34 Home Medications Home Medications Medication Instructions Recorded Confirmed Type atorvastatin 40 mg tablet 40 mg PO QAM 01/24/18 09/12/18 History calcium carbonate 600 mg (1,500 1 tab PO QAM 01/24/18 09/12/18 History mg)-vitamin D3 200 unit tablet duloxetine 60 mg capsule,delayed 60 mg PO DAILY cap 01/24/18 09/12/18 History release lisinopril 40 mg tablet 40 mg PO QAM 01/24/18 09/12/18 History oxybutynin chloride 5 mg tablet 5 mg PO TID 01/24/18 09/12/18 History trazodone 100 mg tablet 25 - 50 mg PO HS tab 01/24/18 09/12/18 History warfarin 3 mg tablet 3 mg PO QAM 01/24/18 09/12/18 History duloxetine 30 mg PO QAM 08/27/18 09/12/18 History colchicine 0.6 mg PO BID PRN 09/12/18 09/12/18 History fentanyl 12 mcg TOPICAL [id number] 09/12/18 09/12/18 History hydrocodone-acetaminophen [[place]] 1 tab PO Q4H PRN 09/12/18 09/12/18 History insulin aspart U-100 [Novolog See Rx Instructions .ROUTE .COMPLEX 09/12/18 09/12/18 History U-100 Insulin aspart] insulin glargine [Lantus U-100 30 units SUBCUT QPM 09/12/18 09/12/18 History Insulin] insulin glargine [Lantus U-100 35 units SUBCUT QAM 09/12/18 09/12/18 History Insulin] methyl salicylate-menthol 1 patch TOPICAL Q12H 09/12/18 09/12/18 History [Salonpas] Patient History Medical History Prostate cancer (Chronic) Urinary frequency (Chronic) Hyperlipidemia (Chronic) Diabetes (Chronic) DVT (deep venous thrombosis) (Resolved) Back pain (Chronic) Chest pain (Chronic) Confusion (Chronic) Depression (Chronic) Diabetes (Chronic) Dysuria (Chronic) HTN (hypertension) (Chronic) Hyperlipidemia (Chronic) Insomnia (Chronic) Left leg cellulitis (Chronic) Osteomyelitis of left knee region (Chronic) Prostate cancer (Chronic) Urinary frequency (Chronic) Surgical History No pertinent past surgical history Family History Other Family history non-contributory Social History Preferred Language: Swedish Communication Ability: Effective Database Manager Required: No Beliefs That Will Affect Care: None Current Living Situation: Spouse Other Information That Helps Us Care for You: No Feels Safe at Home: Yes Safety Concerns: Feels Safe At This Time Smoking Status: Former smoker Tobacco Type: cigarettes Cigarettes Per Day: 40 Do You Dip or Chew Tobacco: No Smoking End Date: 1983 Second Hand Exposure: No Tobacco Cessation Education Requested by Patient: No Hx Alcohol Use: No Hx Substance Use: No Physical Exam Vital Signs (Past 24 Hours): Last Vital Signs Temp 36.7 C 09/13/18 08:06 Pulse 68 09/13/18 08:06 Resp 18 09/13/18 08:06 BP 169/90 H 09/13/18 08:06 Pulse Ox 97 09/13/18 08:06 Constitutional: WD/WN, vitals as above well developed and well nourished Eyes: PERRL, conjunctivae normal, anicteric sclerae ENMT: external ear and nose normal, oropharynx normal Neck: trachea midline, no thyromegaly Respiratory: normal respiratory effort, lungs clear to auscultation Cardiovascular: RRR, no murmur, no edema Gastrointestinal (Abdomen): normal bowel sounds, soft, nontender, no hepatosplenomegaly Musculoskeletal: no cyanosis or clubbing, extremities motor strength 5/5 Skin: no rashes, warm and dry Neurologic: patellar DTR's 2+ bilat, sensation intact and PERRL, EOMI, accommodation nl, no face palsy, no dysarthria Psychiatric: A+Ox3, euthymic affect Results Additional Studies 09/12/18 15:45 XR lumbar spine 2-3V Stat XR pelvis 1-2V routine Stat Time Spent Attending I spent 40 minutes for this consultation, which included obtaining clinical i nformation, performing a physical exam, recommending a plan of action and answering questions. Greater than 50% of the time spent was direct face to face interaction with the patient.
[2018-09-13] MEDS: INSULIN ASPART 100 UNITS/ML 3 ML PEN SC SCH ×4 (08:55→20:54)
[2018-09-13] MEDS: INSULIN GLARGINE SOLOSTAR 100 UNITS/ML 3 ML PEN SC SCH ×2 (08:57→20:53)
--- NOTE | 2018-09-13 08:58 | Orthopedic Consultation ---
Date of Consultation September 13, 2018 Assessment & Plan (1) Central spinal stenosis: Patient has lumbar spine did demonstrate severe multilevel spondylosis with spinal stenosis. I do not appreciate a fracture. There is some concern regarding metastatic lesion in the sacrum. It is difficult for me to comment. Unfortunately he is not able to have an MRI of the lumbar spine and sacrum. He has an ear implant prohibiting from having an MRI. I discussed these findings with the patient. We both agree there is no surgical indication at this point. Pain medications seem to be adequate at this time. Present on Admission?: Yes History of Present Illness Reason for Consultation: Right buttocks and leg pain Attending Physician: Wyatt Corral MD History of Present Illness This is a very pleasant 82-year-old male that unfortunately is at the hospital today with evidence of metastatic adenocarcinoma and new onset of right buttock and leg pain. Patient states she has had a history of bilateral leg pain and numbness and has been managed on outpatient basis with epidural injections. The last injection was not effective. He states over the past week he has noted worsening symptoms involving the right buttock posterior thigh with extension down the leg. He states at this time with pain management pain is not limiting in nature. He states that if he would have would be up and ambulating for any length of time his symptoms would worsen. He does have a history of what sounds like peripheral neuropathy with numbness in the bilateral feet. Allergies Allergy/AdvReac Type Severity Reaction Status Date / Time doxycycline Allergy Intermediate hives Verified 08/27/18 02:34 Sulfa (Sulfonamide Allergy Intermediate lip Verified 08/27/18 02:34 Antibiotics) swelling Penicillins Allergy Unknown HIVES Verified 08/27/18 02:34 metformin AdvReac Intermediate diarrhea Verified 08/27/18 02:34 simvastatin AdvReac Intermediate myalgia Verified 08/27/18 02:34 Home Medications Home Medications Medication Instructions Recorded Confirmed Type atorvastatin 40 mg tablet 40 mg PO QAM 01/24/18 09/12/18 History calcium carbonate 600 mg (1,500 1 tab PO QAM 01/24/18 09/12/18 History mg)-vitamin D3 200 unit tablet duloxetine 60 mg capsule,delayed 60 mg PO DAILY cap 01/24/18 09/12/18 History release lisinopril 40 mg tablet 40 mg PO QAM 01/24/18 09/12/18 History oxybutynin chloride 5 mg tablet 5 mg PO TID 01/24/18 09/12/18 History trazodone 100 mg tablet 25 - 50 mg PO HS tab 01/24/18 09/12/18 History warfarin 3 mg tablet 3 mg PO QAM 01/24/18 09/12/18 History duloxetine 30 mg PO QAM 08/27/18 09/12/18 History colchicine 0.6 mg PO BID PRN 09/12/18 09/12/18 History fentanyl 12 mcg TOPICAL [id number] 09/12/18 09/12/18 History hydrocodone-acetaminophen [[place]] 1 tab PO Q4H PRN 09/12/18 09/12/18 History insulin aspart U-100 [Novolog See Rx Instructions .ROUTE .COMPLEX 09/12/18 09/12/18 History U-100 Insulin aspart] insulin glargine [Lantus U-100 30 units SUBCUT QPM 09/12/18 09/12/18 History Insulin] insulin glargine [Lantus U-100 35 units SUBCUT QAM 09/12/18 09/12/18 History Insulin] methyl salicylate-menthol 1 patch TOPICAL Q12H 09/12/18 09/12/18 History [Salonpas] Patient History Medical History Prostate cancer (Chronic) Urinary frequency (Chronic) Hyperlipidemia (Chronic) Diabetes (Chronic) DVT (deep venous thrombosis) (Resolved) Back pain (Chronic) Chest pain (Chronic) Confusion (Chronic) Depression (Chronic) Diabetes (Chronic) Dysuria (Chronic) HTN (hypertension) (Chronic) Hyperlipidemia (Chronic) Insomnia (Chronic) Left leg cellulitis (Chronic) Osteomyelitis of left knee region (Chronic) Prostate cancer (Chronic) Urinary frequency (Chronic) Surgical History No pertinent past surgical history Family History Other Family history non-contributory Social History Preferred Language: Albanian Communication Ability: Effective Tax Compliance Agent Required: No Beliefs That Will Affect Care: None Current Living Situation: Spouse Other Information That Helps Us Care for You: No Feels Safe at Home: Yes Safety Concerns: Feels Safe At This Time Smoking Status: Former smoker Tobacco Type: cigarettes Cigarettes Per Day: 40 Do You Dip or Chew Tobacco: No Smoking End Date: 1983 Second Hand Exposure: No Tobacco Cessation Education Requested by Patient: No Hx Alcohol Use: No Hx Substance Use: No Physical Exam Physical Exam: On exam patient is sitting up at the bedside. He is eating breakfast. Appears comfortable. He has no tension signs with straight leg raising regional strength testing. Negative logroll. No abnormal skin markings to inspection of the lumbar spine. Results & Data Vital Signs (Past 12 Hours) Vital Signs Temp Pulse Resp BP Pulse Ox 09/13/18 08:06 36.7 C 68 18 169/90 H 97 09/13/18 03:39 36.5 C 57 L 18 134/77 96 09/12/18 23:28 36.7 C 62 16 124/63 91
--- NOTE | 2018-09-13 09:33 | Emergency Department Note ---
Entered by Monica Neal acting as a scribe for History of Present Illness General Chief complaint: Pain (Generalized) Stated complaint: SEVERE PAIN IN BACK AND DOWN LEGS Source: patient and family History of Present Illness Provider complaint: back pain Onset (ago): week(s) 1 Location: back Pain Consistency: + constant Maximum Pain Intensity: 10 Quality: + other (pain) Associated symptoms: + other (numbness in buttocks); no fever/chills The patient is an 82 year old male who presents to the Emergency Room with complaints of constant worsening back pain beginning 1 week ago. He rates his pain at a 10/10. The patient states that he has spinal stenosis and reports that he has had pain in his back and numbness in his right leg for years. The patient states that he recently had a PET scan which showed metastatic cancer. He also reports having numbness in his buttocks. He denies falling. Per family, the patient has a Fentanyl patch and Hydrocodone. He states that he is unsure where the primary source of the cancer is and is unsure if he will be getting chemotherapy. His family states that the patient started to develop severe pain and was referred for IV pain medication by his PCPs office. The patient denies being febrile. He denies any chest pain, shortness of breath or abdominal pain. Home Medications Home Medications Medication Instructions Recorded Confirmed Type atorvastatin 40 mg tablet 40 mg PO QAM 01/24/18 09/12/18 History calcium carbonate 600 mg (1,500 1 tab PO QAM 01/24/18 09/12/18 History mg)-vitamin D3 200 unit tablet duloxetine 60 mg capsule,delayed 60 mg PO DAILY cap 01/24/18 09/12/18 History release lisinopril 40 mg tablet 40 mg PO QAM 01/24/18 09/12/18 History oxybutynin chloride 5 mg tablet 5 mg PO TID 01/24/18 09/12/18 History trazodone 100 mg tablet 25 - 50 mg PO HS tab 01/24/18 09/12/18 History warfarin 3 mg tablet 3 mg PO QAM 01/24/18 09/12/18 History duloxetine 30 mg PO QAM 08/27/18 09/12/18 History colchicine 0.6 mg PO BID PRN 09/12/18 09/12/18 History fentanyl 12 mcg TOPICAL [id number] 09/12/18 09/12/18 History hydrocodone-acetaminophen [[place]] 1 tab PO Q4H PRN 09/12/18 09/12/18 History insulin aspart U-100 [Novolog See Rx Instructions .ROUTE .COMPLEX 09/12/18 09/12/18 History U-100 Insulin aspart] insulin glargine [Lantus U-100 30 units SUBCUT QPM 09/12/18 09/12/18 History Insulin] insulin glargine [Lantus U-100 35 units SUBCUT QAM 09/12/18 09/12/18 History Insulin] methyl salicylate-menthol 1 patch TOPICAL Q12H 09/12/18 09/12/18 History [Salonpas] Allergies Allergy/AdvReac Type Severity Reaction Status Date / Time doxycycline Allergy Intermediate hives Verified 08/27/18 02:34 Sulfa (Sulfonamide Allergy Intermediate lip Verified 08/27/18 02:34 Antibiotics) swelling Penicillins Allergy Unknown HIVES Verified 08/27/18 02:34 metformin AdvReac Intermediate diarrhea Verified 08/27/18 02:34 simvastatin AdvReac Intermediate myalgia Verified 08/27/18 02:34 Past Med/Surg History Medical History Prostate cancer (Chronic) Urinary frequency (Chronic) Hyperlipidemia (Chronic) Diabetes (Chronic) DVT (deep venous thrombosis) (Resolved) Back pain (Chronic) Chest pain (Chronic) Confusion (Chronic) Depression (Chronic) Diabetes (Chronic) Dysuria (Chronic) HTN (hypertension) (Chronic) Hyperlipidemia (Chronic) Insomnia (Chronic) Left leg cellulitis (Chronic) Osteomyelitis of left knee region (Chronic) Prostate cancer (Chronic) Urinary frequency (Chronic) Surgical History No pertinent past surgical history Family History Other Family history non-contributory Social History Preferred Language: [place]anian Communication Ability: Effective Operating Room Orderly Required: No Beliefs That Will Affect Care: None Current Living Situation: Spouse Other Information That Helps Us Care for You: No Feels Safe at Home: Yes Safety Concerns: Feels Safe At This Time Smoking Status: Former smoker Tobacco Type: cigarettes Cigarettes Per Day: 40 Do You Dip or Chew Tobacco: No Smoking End Date: 1983 Second Hand Exposure: No Tobacco Cessation Education Requested by Patient: No Hx Alcohol Use: No Hx Substance Use: No Review of Systems See HPI for pertinent positives & negatives. and A total of 10 systems reviewed and were otherwise negative Physical Exam Vital Signs Vital Signs - 24 hr 09/12/18 14:31 09/12/18 16:34 09/12/18 16:38 Temperature 36.5 C Temperature Source Oral Sepsis Recent Fever Within 48 Hours No Sepsis New/Unexplained Change in Mental Status No Sepsis Action Taken by Nursing No Action Required Pulse Rate 103 H 64 Pulse Rate [Right Finger] 70 Pulse Rate from SpO2 Sensor Respiratory Rate 20 18 20 Respiratory Effort / Characteristics Blood Pressure 117/80 129/75 Blood Pressure [Left Arm] 129/75 Blood Pressure [Right Arm] Blood Pressure Mean 92 93 Blood Pressure Mean [Left Arm] 93 Blood Pressure Mean [Right Arm] Blood Pressure Position [Right Arm] Pulse Oximetry 92 95 Oxygen Delivery Method Room Air Room Air 09/12/18 18:05 09/12/18 18:31 09/12/18 19:01 Temperature Temperature Source Sepsis Recent Fever Within 48 Hours Sepsis New/Unexplained Change in Mental Status Sepsis Action Taken by Nursing Pulse Rate 63 68 65 Pulse Rate [Right Finger] Pulse Rate from SpO2 Sensor 65 67 Respiratory Rate 17 19 15 Respiratory Effort / Characteristics Blood Pressure 116/80 158/77 H 152/71 H Blood Pressure [Left Arm] Blood Pressure [Right Arm] Blood Pressure Mean 92 104 98 Blood Pressure Mean [Left Arm] Blood Pressure Mean [Right Arm] Blood Pressure Position [Right Arm] Pulse Oximetry 96 94 92 Oxygen Delivery Method Room Air 09/12/18 19:25 09/12/18 19:40 09/12/18 20:51 Temperature 36.5 C Temperature Source Oral Sepsis Recent Fever Within 48 Hours Sepsis New/Unexplained Change in Mental Status Sepsis Action Taken by Nursing Pulse Rate Pulse Rate [Right Finger] 77 Pulse Rate from SpO2 Sensor Respiratory Rate 24 Respiratory Effort / Characteristics SOB on Exertion SOB on Exertion Blood Pressure Blood Pressure [Left Arm] Blood Pressure [Right Arm] 140/73 Blood Pressure Mean Blood Pressure Mean [Left Arm] Blood Pressure Mean [Right Arm] 95 Blood Pressure Position [Right Arm] Pulse Oximetry 94 Oxygen Delivery Method Room Air Room Air 09/12/18 23:28 09/13/18 01:46 09/13/18 03:39 Temperature 36.7 C 36.5 C Temperature Source Oral Oral Sepsis Recent Fever Within 48 Hours Sepsis New/Unexplained Change in Mental Status Sepsis Action Taken by Nursing Pulse Rate Pulse Rate [Right Finger] 62 57 L Pulse Rate from SpO2 Sensor Respiratory Rate 16 18 Respiratory Effort / Characteristics Non-Labored Spontaneous Blood Pressure Blood Pressure [Left Arm] Blood Pressure [Right Arm] 124/63 134/77 Blood Pressure Mean Blood Pressure Mean [Left Arm] Blood Pressure Mean [Right Arm] 83 96 Blood Pressure Position [Right Arm] Lying Lying Pulse Oximetry 91 96 Oxygen Delivery Method Room Air Room Air Room Air 09/13/18 08:06 Temperature 36.7 C Temperature Source Oral Sepsis Recent Fever Within 48 Hours Sepsis New/Unexplained Change in Mental Status Sepsis Action Taken by Nursing Pulse Rate Pulse Rate [Right Finger] 68 Pulse Rate from SpO2 Sensor Respiratory Rate 18 Respiratory Effort / Characteristics Blood Pressure Blood Pressure [Left Arm] Blood Pressure [Right Arm] 169/90 H Blood Pressure Mean Blood Pressure Mean [Left Arm] Blood Pressure Mean [Right Arm] 116 Blood Pressure Position [Right Arm] Lying Pulse Oximetry 97 Oxygen Delivery Method Room Air Constitutional: Vital signs reviewed. Eyes: Pupils are equal round reactive to light. Conjunctiva are noninjected. ENT: Pharynx is clear without erythema or exudate. Mucous membranes are moist. Neck supple without meningeal signs. Respiratory: Clear to auscultation bilaterally. Breath sounds are equal bilaterally. Cardiovascular: Regular rate and rhythm. No rubs or gallops. GI: Soft, nondistended and nontender. Bowel sounds are present. Musculoskeletal: No peripheral edema. No lower extremity tenderness. Integumentary: No cyanosis. Neurological: The patient is awake and alert. No focal deficits. Motor and sensation intact throughout the lower extremities. Psychiatric: Normal affect. Course 1537: The patient was evaluated in room A4, and a complete history and physical examination were performed. 1705: I updated the patient. He states that he just finished a Prednisone prescription. He denies having any fevers. He verbalized agreement and understanding of the treatment plan. 1711: I discussed the patient's case with Dr. Demetria Haro who will evaluate the patient for further management. Consultations Consultation #1: Dr. Demetria Haro Time: 17:11 Administered Medications Acetaminophen (Tylenol) 1,000 mg PO TID [facility] Stop: 10/12/18 20:59 Last Admin: 09/13/18 08:45 Dose: 1,000 mg Documented by: [id number] Admin: 09/12/18 21:19 Dose: 1,000 mg Documented by: [id number] Duloxetine HCl (Cymbalta) 90 mg PO QAM [facility] Stop: 10/13/18 08:59 Last Admin: 09/13/18 08:45 Dose: 90 mg Documented by: [id number] Enoxaparin Sodium (Lovenox) 120 mg SQ Q24H [facility] Stop: 10/12/18 20:59 Last Admin: 09/12/18 21:19 Dose: 120 mg Documented by: [id number] Dexamethasone Sodium Phosphate (4 mg/ Syringe) 1 mls @ 1 mls/min IV Q8 [facility] Stop: 10/12/18 21:59 Last Admin: 09/13/18 05:43 Dose: 1 mls/min Documented by: [id number] Admin: 09/12/18 22:32 Dose: 1 mls/min Documented by: [id number] Insulin Aspart (Novolog Flexpen) 0 units SC ACHS [facility] Stop: 10/12/18 20:59 Last Admin: 09/13/18 08:55 Dose: 10 units Documented by: [id number] Cosigned by: [id number] Admin: 09/12/18 21:23 Dose: 5 units Documented by: [id number] Cosigned by: [id number] Insulin Glargine (Lantus Solostar Pen) 30 units SC PM [facility] Stop: 10/12/18 20:59 Last Admin: 09/12/18 21:23 Dose: 30 units Documented by: [id number] Cosigned by: [id number] Insulin Glargine (Lantus Solostar Pen) 35 units SC QAM [facility] Stop: 10/13/18 08:59 Last Admin: 09/13/18 08:57 Dose: 35 units Documented by: [id number] Cosigned by: [id number] Miscellaneous (Fentanyl Patch Check Placement) 1 ea N/A QS [facility] Stop: 10/13/18 00:00 Last Admin: 09/13/18 08:45 Dose: 1 ea Documented by: [id number] Admin: 09/13/18 00:13 Dose: 1 ea Documented by: [id number] Miscellaneous (Order Awaiting Action) 1 ea N/A QS [facility] Stop: 10/13/18 00:00 Last Admin: 09/13/18 07:35 Dose: Not Given Documented by: [id number] Admin: 09/13/18 00:13 Dose: Not Given Documented by: [id number] Discontinued Medications Hydromorphone HCl (Dilaudid) 0.5 mg IV NOW STA Stop: 09/12/18 15:46 Last Admin: 09/12/18 16:25 Dose: 0.5 mg Documented by: [id number] Ondansetron HCl (Zofran) 4 mg IV NOW STA Stop: 09/12/18 15:46 Last Admin: 09/12/18 16:25 Dose: 4 mg Documented by: [id number] Medical Decision Making Differential Diagnosis The patient is an 82 year old male who presents to the ED with back pain. Differential diagnosis includes pathologic fracture, metastatic bone disease, spinal stenosis, compression fracture, and intracranial pain. Medical Records Attestation: I reviewed the patient's medical records. I did perform a limited focused review of portions of the patient's old chart on the electronic medical record. The patient had a PET scan on 09/08 which showed multifocal metastatic disease including destructive mets in the right sacrum. He had a CT of the lumbar spine which showed central canal stenosis. Home Medications Current Medication List: was personally reviewed by me Laboratory Data Attestation: I reviewed the patient's lab results. Result diagrams: 09/12/18 16:18 09/13/18 05:48 Lab Results 09/12/18 09/12/18 09/12/18 Range/Units 16:18 16:18 17:14 WBC 16.14 H (4.8-10.8) K/uL RBC 3.54 L (4.7-6.1) M/uL Hgb 11.1 L (14.0-18.0) g/dL Hct 34.2 L (42-52) % MCV 96.6 (80-100) fL MCH 31.4 (25-34) pg MCHC 32.5 (32-36) g/dL RDW Std Deviation 49.3 H (36.4-46.3) fL RDW Coeff of Dante 14.0 (11.5-14.5) % Plt Count 329 (130-400) K/uL MPV 9.9 (7.4-10.4) fL Immature Gran % (Auto) 0.4 % Neut % (Auto) 82.6 % Lymph % (Auto) 12.6 % [place] % (Auto) 4.2 % Eos % (Auto) 0.1 % Baso % (Auto) 0.1 % Immature Gran # (Auto) 0.06 H (0.00-0.02) K/uL Neut # (Auto) 13.35 H (1.4-6.5) K/uL Lymph # (Auto) 2.03 (1.2-3.4) K/uL [place] # (Auto) 0.67 H (0.11-0.59) K/uL Eos # (Auto) 0.02 (0-0.5) K/uL Baso # (Auto) 0.01 (0-0.2) K/uL PT 13.1 H (9.0-12.0) Seconds INR 1.3 H (0.9-1.1) APTT 23.7 (21.0-31.0) Seconds PTT Ratio 0.9 Sodium 140 (136-145) mmol/L Potassium 4.2 (3.5-5.1) mmol/L Chloride 111 H (98-107) mmol/L Carbon Dioxide 27 (21-32) mmol/L Anion Gap 2.0 L (3-11) BUN 25 H (7-18) mg/dl Creatinine 1.18 (0.6-1.4) mg/dl Est Cr Clr Drug Dosing 64.6 ml/min Est GFR ( Amer) 66.7 Est GFR (Non-Af Amer) 57.5 BUN/Creatinine Ratio 21.2 H (10-20) Glucose 170 H (70-99) mg/dl POC Glucose (70-99) Calcium 8.5 (8.5-10.1) mg/dl Total Bilirubin 0.2 (0.2-1) mg/dl AST 20 (15-37) U/L ALT 48 (12-78) U/L Alkaline Phosphatase 93 (45-117) U/L Total Protein 6.6 (6.4-8.2) gm/dl Albumin 2.5 L (3.4-5.0) gm/dl Globulin 4.1 H (2.5-4.0) gm/dl Albumin/Globulin Ratio 0.6 L (0.9-2) 09/12/18 09/13/18 09/13/18 Range/Units 20:27 05:48 05:48 WBC (4.8-10.8) K/uL RBC (4.7-6.1) M/uL Hgb (14.0-18.0) g/dL Hct (42-52) % MCV (80-100) fL MCH (25-34) pg MCHC (32-36) g/dL RDW Std Deviation (36.4-46.3) fL RDW Coeff of Dante (11.5-14.5) % Plt Count (130-400) K/uL MPV (7.4-10.4) fL Immature Gran % (Auto) % Neut % (Auto) % Lymph % (Auto) % [place] % (Auto) % Eos % (Auto) % Baso % (Auto) % Immature Gran # (Auto) (0.00-0.02) K/uL Neut # (Auto) (1.4-6.5) K/uL Lymph # (Auto) (1.2-3.4) K/uL [place] # (Auto) (0.11-0.59) K/uL Eos # (Auto) (0-0.5) K/uL Baso # (Auto) (0-0.2) K/uL PT 13.8 H (9.0-12.0) Seconds INR 1.4 H (0.9-1.1) APTT (21.0-31.0) Seconds PTT Ratio Sodium 142 (136-145) mmol/L Potassium 4.7 (3.5-5.1) mmol/L Chloride 109 H (98-107) mmol/L Carbon Dioxide 29 (21-32) mmol/L Anion Gap 5.0 (3-11) BUN 25 H (7-18) mg/dl Creatinine 1.07 (0.6-1.4) mg/dl Est Cr Clr Drug Dosing 71.2 ml/min Est GFR ( Amer) 75.1 Est GFR (Non-Af Amer) 64.8 BUN/Creatinine Ratio 23.2 H (10-20) Glucose 165 H (70-99) mg/dl POC Glucose 132 H (70-99) Calcium 9.0 (8.5-10.1) mg/dl Total Bilirubin (0.2-1) mg/dl AST (15-37) U/L ALT (12-78) U/L Alkaline Phosphatase (45-117) U/L Total Protein (6.4-8.2) gm/dl Albumin (3.4-5.0) gm/dl Globulin (2.5-4.0) gm/dl Albumin/Globulin Ratio (0.9-2) 09/13/18 Range/Units 07:51 WBC (4.8-10.8) K/uL RBC (4.7-6.1) M/uL Hgb (14.0-18.0) g/dL Hct (42-52) % MCV (80-100) fL MCH (25-34) pg MCHC (32-36) g/dL RDW Std Deviation (36.4-46.3) fL RDW Coeff of Dante (11.5-14.5) % Plt Count (130-400) K/uL MPV (7.4-10.4) fL Immature Gran % (Auto) % Neut % (Auto) % Lymph % (Auto) % [place] % (Auto) % Eos % (Auto) % Baso % (Auto) % Immature Gran # (Auto) (0.00-0.02) K/uL Neut # (Auto) (1.4-6.5) K/uL Lymph # (Auto) (1.2-3.4) K/uL [place] # (Auto) (0.11-0.59) K/uL Eos # (Auto) (0-0.5) K/uL Baso # (Auto) (0-0.2) K/uL PT (9.0-12.0) Seconds INR (0.9-1.1) APTT (21.0-31.0) Seconds PTT Ratio Sodium (136-145) mmol/L Potassium (3.5-5.1) mmol/L Chloride (98-107) mmol/L Carbon Dioxide (21-32) mmol/L Anion Gap (3-11) BUN (7-18) mg/dl Creatinine (0.6-1.4) mg/dl Est Cr Clr Drug Dosing ml/min Est GFR ( Amer) Est GFR (Non-Af Amer) BUN/Creatinine Ratio (10-20) Glucose (70-99) mg/dl POC Glucose 197 H (70-99) Calcium (8.5-10.1) mg/dl Total Bilirubin (0.2-1) mg/dl AST (15-37) U/L ALT (12-78) U/L Alkaline Phosphatase (45-117) U/L Total Protein (6.4-8.2) gm/dl Albumin (3.4-5.0) gm/dl Globulin (2.5-4.0) gm/dl Albumin/Globulin Ratio (0.9-2) Imaging Data Radiologist's Impression: Radiology results as stated below per my review and the radiologist's interpretation: XR pelvis 1-2V routine CLINICAL HISTORY: pain eval for fx trauma. Pain. COMPARISON: 06/15/2017 DISCUSSION: Severe degenerative change lower lumbar spine. Prosthetic radioactive seeds are in position. Heart mild degenerative change of all remaining bony structures. No acute process. There is no evidence for soft tissue swelling. IMPRESSION: Degenerative change. No acute process. The above report was generated using voice recognition software. It may contain grammatical, syntax or spelling errors. Electronically signed by: Rakesh Mckenzie M.D. 09/12/2018 4:55 PM XR lumbar spine 2-3V CLINICAL HISTORY: fall eval for injury COMPARISON STUDY: No previous studies for comparison. FINDINGS: Severe degenerative change at the entire lumbar region. No evidence for an acute compression deformity. Slight wedge deformity L1 considerable old. Considerable reactive osteophytic change throughout. IMPRESSION: No acute process. Significant degenerative change. The above report was generated using voice recognition software. It may contain grammatical, syntax or spelling errors. Electronically signed by: Rakesh Mckenzie M.D. 09/12/2018 4:54 PM Blood Pressure Blood Pressure Findings: Normal blood pressure MDM Narrative I did evaluate the patient as noted above. The patient has a history of spinal stenosis with chronic back pain but it has been exacerbated over the past week with movement into his right buttock. He did have a PET scan recently which shows a destructive metastatic lesion in the sacrum which is likely causing the increased pain and radiation to a new location. He is on a fentanyl patch as well as hydrocodone and cannot control his pain at home. IV access was established. The patient was placed on a continuous registered nurse cardiac. I did treat the patient with IV Dilaudid and Zofran. I did order and personally reviewed the images of the patient's pelvis and lumbar spine x-rays as described above. There is no evidence of acute fracture or dislocation. I did order and review the patient's blood work as noted in the electronic medical record. The patient has a elevated white count at 16,000 but he just finished a course of prednisone for his back pain. He is anemic. INR is subtherapeutic. I did reas sess the patient. He states that he did not have any significant relief of his pain. He was given additional Dilaudid IV. On reassessment he is still having pain. I did therefore recommend hospitalization for further management. I did discuss the case with the hospitalist and case operator. Impression & Plan Cancer, metastatic to bone, Intractable back pain, Subtherapeutic international normalized ratio (INR) Discharge Plan Visit Data *Final* Discharge Date/Time: 09/12/18 18:50 Chief Complaint: Pain (Generalized) Stated Complaint: SEVERE PAIN IN BACK AND DOWN LEGS ED Provider: Wyatt Valadez Discharge Problem: Cancer, metastatic to bone, Intractable back pain, Subtherapeutic international normalized ratio (INR) Patient Disposition: Admitted As Inpatient Discharge Instructions Interventions: ED Discharge Assessment Last Done: 09/12/18 18:50 The lillieibe's documentation has been prepared under my direction and personally reviewed by me in its entirety. I confirm that the note above accurately reflects all work, treatment, procedures, and medical decision making performed by me.
[2018-09-13] MEDS ORDERED: POLYETHYLENE (MIRALAX) 17 GM PACK ONE (14:45)
--- NOTE | 2018-09-13 18:21 | Hospitalist Progress Note ---
Date of Service September 13, 2018 Assessment & Plan (1) Back pain: Patient's back pain is oncological he related. The patient is maintained on on parenteral hydromorphone, oral oxycodone, scheduled Tylenol with good pain control will avoid nonsteroidals with his anticoagulation unless we absolutely cannot. Radiation therapy will simulate him oncology requesting additional tissue samples to determine if the adenocarcinoma could be prostate in origin. We are holding his Lovenox therapy at this time and scheduling a CT-guided biopsy of his sacral mass (2) Cancer, metastatic to bone: Patient unfortunately his pain is related to large bony metastasis seen on PET scan further CT imaging of his pelvis and sacrum be undertaken to delineate if there is any concern for structural instability (3) Anticoagulated on Coumadin: Patient was sent out on Lovenox and warfarin due to his history of DVT PE and recent cancer diagnosis. The patient's INR subtherapeutic on presentation he was initially put on Lovenox is held until we get a repeat biopsy (4) Type II diabetes mellitus: Remains on basal bolus insulin really high insulin requirements, last hemoglobin A1c earlier in August was 12.4 (5) Depression: Patient will continue duloxetine 90 mg a day Subjective Patient states his pain is improved he had a reasonable night sleep he is wearing parenteral opiate therapy. After orthopedic evaluation no surgical intervention is planned Review of Systems Review of Systems: ROS: This is chronically ill No double vision blurry vision No problems with speech or swallowing No palpitations, chest pain or pressure No Wheezing or breathing issues No abdominal pain nausea vomiting diarrhea No burning urine urine frequency or changes in color Continue mild right buttock pain No skin rashes or oral lesions No unusual bruising or bleeding The numbness to his buttocks No changes in memory or confusion Physical Exam Physical Exam: The patient appeared chronically ill and mildly debilitated Vital signs as documented. Head exam is unremarkable. normocephalic, atraumatic Neck is without jugular venous distension, thyromegaly, or lymphademopathy Lungs are clear decreased air movement bilaterally Cardiac exam reveals Rhythm is regular. Systolic ejection murmur first and second heart sounds normal. Abdominal exam reveals normal bowel sounds, no masses, no organomegaly Extremities are mildly edematous and both pedal pulses are present Neurologic exam is A&Ox3, subjective paresthesias or amnesia to his right buttocks Psychologically seems depressed Skin is warm Dry Results & Data Vital Signs (Past 12 Hours) Vital Signs Temp Pulse Resp BP Pulse Ox 09/13/18 11:09 36.9 C 69 20 151/79 H 94 09/13/18 08:06 36.7 C 68 18 169/90 H 97 (1) Back pain Back pain laterality: right Back pain location: low back pain Chronicity: acute Sciatica laterality: sciatica of right side Sciatica presence: with sciatica Qualified Code(s): M54.41 - Lumbago with sciatica, right side (2) Depression Active/Remission status: currently active Depression Type: major depressive disorder Major depression episode severity: severe Major depression recurrence: recurrent Psychotic features: without psychotic features Qualified Code(s): F33.2 - Major depressive disorder, recurrent severe without psychotic features
[2018-09-13] MEDS: HYDROmorphone INJ 0.5 MG/0.5 ML SYR IV PRN (20:51)
[2018-09-13] MEDS ORDERED: POLYETHYLENE (MIRALAX) 17 GM PACK PO PRN (21:00)
[2018-09-13] MEDS: PSYLLIUM 58.6% POWDER PACKET PO SCH (21:49)
[2018-09-14] MEDS: CHECK FENTANYL PATCH PLACEMENT SCH ×3 (01:09→17:18)
[2018-09-14] MEDS: DEXAMETHASONE SOD PHOSPHATE 4 MG in SYRINGE 0 ML IV SCH ×3 (05:31→22:02)
[2018-09-14 07:43] LABS: Hemoglobin 12.2 g/dL (14.0-18.0); Mean Corpuscular Volume 95.4 fL (80-100); Mean Platelet Volume 10.3 fL (7.4-10.4); Platelet Count 322 K/uL (130-400); RDW Coefficient of Variation 14.4 % (11.5-14.5); RDW Standard Deviation 49.6 fL (36.4-46.3); Red Blood Count 3.88 M/uL (4.7-6.1); White Blood Count 19.08 K/uL (4.8-10.8)
[2018-09-14 07:52] LABS: INR 1.2 (0.9-1.1); Prothrombin Time 12.1 Seconds (9.0-12.0)
[2018-09-14] MEDS: OXYCODONE HCL IR 5 MG TAB (IMMEDIATE RELEASE) PO PRN ×2 (08:02→18:13)
[2018-09-14 08:11] LABS: BUN Creatinine Ratio 27.9 (10-20); Calcium 9.4 mg/dl (8.5-10.1); Creatinine Clr Calc Pharmacy 72.5 ml/min; Est GFR (African American) 76.8; Est GFR (Non-African American) 66.3; Potassium 4.6 mmol/L (3.5-5.1)
--- NOTE | 2018-09-14 08:14 | Oncology Consultation ---
Date of Consultation September 14, 2018 Assessment & Plan (1) Cancer, metastatic to bone: Mr. Yap's scans are obviously very concerning for a metastatic malignancy. His lung biopsy did reveal an adenocarcinoma, but without sufficient tissue to order additional necessary studies. Also, given his history of high- risk prostate cancer 10 years ago, we need to consider the possibility of recurrent prostate cancer. Radiation oncology have been consulted for palliative RT and I think that is appropriate. However, his sacral mass is probably the easiest site of disease to biopsy. I spoke with Dr. Duran from radiology and he thinks he could get a CT-guided biopsy tomorrow. We need to hold his evening dose of Lovenox. Once we have the biopsy, he can proceed with RT. The management of his disease will depend upon the findings on the biopsy. Present on Admission?: Yes History of Present Illness Reason for Consultation: New consult for lung, bone, and liver masses Attending Physician: Wyatt Corral MD History of Present Illness Mr. Yap is an 82 year old man with a history of DM, DVTs, depression, and prostate cancer. The prostate cancer was diagnosed in 2006. It was stage [id number] and his pre-treatment PSA was 5.99. His highest [place] stage was 4+4=8. He was treated with IMRT and brachytherapy along with 1 year of adjuvant ADT. His PSA nadired at undetectable and remained there the last time his level was checked, though that was a few years ago. He is a former smoker with a ~30 pk-yr history, though he quit in the 1980s. He has had a right middle lobe lung nodule since November of [address] Toro was observing. It had grown considerably by scans earlier this year, so Dr. Toro was planning a diagnostic procedure. In the meantime, he presented to the ER in early August with suicidal ideation and worsening right hip/buttock pain. He has been feeling generally, though vaguely, unwell for about 1-2 months, losing around 20 lb in that time. He had slowly worsening pain in his right buttock area that suddenly got worse. He underwent bronchoscopy with EBUS on 09/03/18. Numerous biopsies were negative, but one transbronchial aspirate was positive for adenocarcinoma. He returns on this admission due to sudden worsening of his hip pain. Scans reveal a large, destructive lesion in his right sacrum. He also has evidence of a peritoneal nodule and possible adrenal metastases. His pain is better today on more optimal pain control. He denies any pain elsewhere. He denies any cough, shortness of breath, hemoptysis, headaches, nausea, diarrhea, hematuria, or urinary obstructive symptoms. Allergies Allergy/AdvReac Type Severity Reaction Status Date / Time doxycycline Allergy Intermediate hives Verified 08/27/18 02:34 Sulfa (Sulfonamide Allergy Intermediate lip Verified 08/27/18 02:34 Antibiotics) swelling Penicillins Allergy Unknown HIVES Verified 08/27/18 02:34 metformin AdvReac Intermediate diarrhea Verified 08/27/18 02:34 simvastatin AdvReac Intermediate myalgia Verified 08/27/18 02:34 Home Medications Home Medications Medication Instructions Recorded Confirmed Type atorvastatin 40 mg tablet 40 mg PO QAM 01/24/18 09/12/18 History calcium carbonate 600 mg (1,500 1 tab PO QAM 01/24/18 09/12/18 History mg)-vitamin D3 200 unit tablet duloxetine 60 mg capsule,delayed 60 mg PO DAILY cap 01/24/18 09/12/18 History release lisinopril 40 mg tablet 40 mg PO QAM 01/24/18 09/12/18 History oxybutynin chloride 5 mg tablet 5 mg PO TID 01/24/18 09/12/18 History trazodone 100 mg tablet 25 - 50 mg PO HS tab 01/24/18 09/12/18 History warfarin 3 mg tablet 3 mg PO QAM 01/24/18 09/12/18 History duloxetine 30 mg PO QAM 08/27/18 09/12/18 History colchicine 0.6 mg PO BID PRN 09/12/18 09/12/18 History fentanyl 12 mcg TOPICAL [id number] 09/12/18 09/12/18 History hydrocodone-acetaminophen [[place]] 1 tab PO Q4H PRN 09/12/18 09/12/18 History insulin aspart U-100 [Novolog See Rx Instructions .ROUTE .COMPLEX 09/12/18 09/12/18 History U-100 Insulin aspart] insulin glargine [Lantus U-100 30 units SUBCUT QPM 09/12/18 09/12/18 History Insulin] insulin glargine [Lantus U-100 35 units SUBCUT QAM 09/12/18 09/12/18 History Insulin] methyl salicylate-menthol 1 patch TOPICAL Q12H 09/12/18 09/12/18 History [Salonpas] Patient History Medical History Prostate cancer (Chronic) Urinary frequency (Chronic) Hyperlipidemia (Chronic) Diabetes (Chronic) DVT (deep venous thrombosis) (Resolved) Back pain (Chronic) Chest pain (Chronic) Confusion (Chronic) Depression (Chronic) Diabetes (Chronic) Dysuria (Chronic) HTN (hypertension) (Chronic) Hyperlipidemia (Chronic) Insomnia (Chronic) Left leg cellulitis (Chronic) Osteomyelitis of left knee region (Chronic) Prostate cancer (Chronic) Urinary frequency (Chronic) Surgical History No pertinent past surgical history Family History Other Family history non-contributory Social History Preferred Language: German Communication Ability: Effective Beliefs That Will Affect Care: None Current Living Situation: Spouse Feels Safe at Home: Yes Smoking Status: Former smoker Tobacco Type: cigarettes Cigarettes Per Day: 40 Second Hand Exposure: No Hx Alcohol Use: No Hx Substance Use: No Review of Systems Constitutional: + fatigue, + malaise and + weight loss; no fever Eyes: no worsening vision Respiratory: no cough, no dyspnea and no hemoptysis Cardiovascular: no chest pain and no edema Gastrointestinal: no abdominal pain, no nausea and no diarrhea/loose stools Genitourinary: no dysuria and no difficulty urinating Musculoskeletal: as per Subjective / HPI Neurologic: no localized weakness and no headache(s) Hematologic / Lymphatic: no easy bleeding and no lymphadenopathy Physical Exam Constitutional: + obese and comfortable; no acute distress Eyes: + anicteric sclerae and EOM intact bilaterally Respiratory: normal respiratory effort, lungs clear to auscultation Cardiovascular: RRR, no murmur, no edema Gastrointestinal (Abdomen): normal bowel sounds, soft, nontender, no hepatosplenomegaly Psychiatric: A+Ox3, euthymic affect Lymphatic: no cervical or axillary lymphadenopathy Results & Data Vital Signs (Past 12 Hours) Vital Signs Temp Pulse Resp BP Pulse Ox 09/14/18 07:23 36.6 C 76 18 170/79 H 96 09/14/18 04:14 36.4 C L 52 L 18 122/68 95 09/13/18 23:36 36.5 C 72 16 119/69 95 Laboratory Results Abnormal lab results 09/12/18 09/13/18 09/13/18 Range/Units 20:27 07:51 11:33 WBC (4.8-10.8) K/uL RBC (4.7-6.1) M/uL Hgb (14.0-18.0) g/dL Hct (42-52) % RDW Std Deviation (36.4-46.3) fL PT (9.0-12.0) Seconds INR (0.9-1.1) BUN (7-18) mg/dl BUN/Creatinine Ratio (10-20) Glucose (70-99) mg/dl POC Glucose 132 H 197 H 249 H (70-99) 09/13/18 09/13/18 09/13/18 Range/Units 16:43 20:30 20:31 WBC (4.8-10.8) K/uL RBC (4.7-6.1) M/uL Hgb (14.0-18.0) g/dL Hct (42-52) % RDW Std Deviation (36.4-46.3) fL PT (9.0-12.0) Seconds INR (0.9-1.1) BUN (7-18) mg/dl BUN/Creatinine Ratio (10-20) Glucose (70-99) mg/dl POC Glucose 198 H 432 H* 385 H* (70-99) 09/14/18 09/14/18 09/14/18 Range/Units 02:02 07:06 07:06 WBC 19.08 H (4.8-10.8) K/uL RBC 3.88 L (4.7-6.1) M/uL Hgb 12.2 L (14.0-18.0) g/dL Hct 37.0 L (42-52) % RDW Std Deviation 49.6 H (36.4-46.3) fL PT 12.1 H (9.0-12.0) Seconds INR 1.2 H (0.9-1.1) BUN (7-18) mg/dl BUN/Creatinine Ratio (10-20) Glucose (70-99) mg/dl POC Glucose 113 H (70-99) 09/14/18 09/14/18 Range/Units 07:06 07:42 WBC (4.8-10.8) K/uL RBC (4.7-6.1) M/uL Hgb (14.0-18.0) g/dL Hct (42-52) % RDW Std Deviation (36.4-46.3) fL PT (9.0-12.0) Seconds INR (0.9-1.1) BUN 29 H (7-18) mg/dl BUN/Creatinine Ratio 27.9 H (10-20) Glucose 156 H (70-99) mg/dl POC Glucose 170 H (70-99)
[2018-09-14] MEDS: DULOXETINE HCL 30 MG CAP PO SCH (08:21)
[2018-09-14] MEDS: INSULIN ASPART 100 UNITS/ML 3 ML PEN SC SCH ×4 (08:23→21:15)
[2018-09-14] MEDS: INSULIN GLARGINE SOLOSTAR 100 UNITS/ML 3 ML PEN SC SCH ×2 (08:23→21:14)
[2018-09-14] MEDS: ACETAMINOPHEN 500 MG TAB PO SCH ×3 (08:28→21:08)
--- NOTE | 2018-09-14 10:53 | CT Scan Report ---
CT-GUIDED CORE BIOPSY AND FINE-NEEDLE ASPIRATION OF RIGHT SACRAL LESION CLINICAL HISTORY: Sacral mass. COMPARISON STUDY: PET/CT September 10, 2018. PROCEDURE: The procedure, risks and benefits were discussed with the patient in the risk of bleeding, infection and injury to adjacent structures. The patient agreed to the procedure and informed writte n consent was obtained. The procedure was performed by Dr. Duran following a timeout. Axial unenh anced images through the pelvis and sacrum were obtained in the prone position. The right sacral mass was targeted. Skin was prepped and draped in sterile fashion and local anesthesia was achieved with 1% lidocaine. Under intermittent CT guidance, 2 22-gauge fine needle aspirations were performed. No m alignant cells were noted. Therefore, 2 18-gauge core biopsy samples were obtained which demonstrated malignant cells. These core samples were deemed preliminarily adequate. The patient tolerated the pr ocedure well and no immediate complications were evident. IMPRESSION: Successful CT-guided core biopsy and fine needle aspiration of a right sacral lesion. Electronically signed by: Checo Duran M.D. 09/14/2018 10:51 AM
[2018-09-14] MEDS ORDERED: fentaNYL 12 MCG/HR TDSY TD SCH (17:00)
--- NOTE | 2018-09-14 17:16 | Hospitalist Progress Note ---
Date of Service September 14, 2018 Assessment & Plan (1) Back pain: Patient's back pain is oncological related. Patient is controlled with parenteral hydromorphone, oral oxycodone, scheduled Tylenol will avoid nonsteroidals with his anticoagulation unless we absolutely cannot. Radiation therapy will simulate him oncology requesting additional tissue samples to determine if the adenocarcinoma could be prostate in origin. We are holding his Lovenox therapy at this time and scheduling a CT-guided biopsy of his sacral mass Surgery does not feel surgical intervention would help his pain or symptoms (2) Cancer, metastatic to bone: Patient unfortunately his pain is related to large bony metastasis seen on PET scan Oncology service request further tissue diagnosis to determine if this could be prostatic in origin (3) Anticoagulated on Coumadin: Patient was sent out on Lovenox and warfarin due to his history of DVT PE and recent cancer diagnosis. The patient's INR subtherapeutic on presentation he was initially put on Lovenox will resume Lovenox in the morning of 09/15 (4) Type II diabetes mellitus: Controlled with basal bolus insulin really high insulin requirements, last hemoglobin A1c earlier in August was 12.4 (5) Depression: Patient will continue duloxetine 90 mg a day Subjective Patient is a has good improvement of his pain symptoms however his pain is somewhat flared up after his CT scan. Appreciate input from specialty services Review of Systems Review of Systems: ROS: Patient is weak and tired No double vision blurry vision No problems with speech or swallowing No palpitations, chest pain or pressure No Wheezing or breathing issues No abdominal pain nausea vomiting diarrhea No burning urine urine frequency focal focal back and buttocks pain No skin rashes or oral lesions Left knee has healing lesion No focused back pain or numbness or loss of strength No changes in memory or confusion Physical Exam Physical Exam: The patient appeared chronically ill Vital signs as documented. Head exam is unremarkable. normocephalic, atraumatic Neck is without jugular venous distension, thyromegaly, or lymphademopathy Lungs are clear to the bases but no focal air loss or wheeze Cardiac exam reveals Rhythm is regular. First and second heart sounds normal. Abdominal exam reveals normal bowel sounds, no masses, no organomegaly Extremities are nonedematous there is a healing open area of his left knee where he had prepatellar bursitis last admission Neurologic exam is A&Ox3, no focal deficits, strength is equal bilateral Psychologically seems to be less anxious Skin is warm Dry Results & Data Vital Signs (Past 12 Hours) Vital Signs Temp Pulse Resp BP Pulse Ox 09/14/18 14:58 36.7 C 69 18 143/73 H 94 09/14/18 11:54 36.7 C 84 18 135/79 09/14/18 07:23 36.6 C 76 18 170/79 H 96 (1) Back pain Back pain laterality: right Back pain location: low back pain Chronicity: acute Sciatica laterality: sciatica of right side Sciatica presence: with sciatica Qualified Code(s): M54.41 - Lumbago with sciatica, right side (2) Depression Active/Remission status: currently active Depression Type: major depressive disorder Major depression episode severity: severe Major depression recurrence: recurrent Psychotic features: without psychotic features Qualified Code(s): F33.2 - Major depressive disorder, recurrent severe without psychotic features
[2018-09-14] MEDS: PSYLLIUM 58.6% POWDER PACKET PO SCH (21:07)
[2018-09-15] MEDS: CHECK FENTANYL PATCH PLACEMENT SCH ×3 (00:55→15:32)
[2018-09-15] MEDS: OXYCODONE HCL IR 5 MG TAB (IMMEDIATE RELEASE) PO PRN (03:58)
[2018-09-15] MEDS: DEXAMETHASONE SOD PHOSPHATE 4 MG in SYRINGE 0 ML IV SCH ×3 (05:44→21:16)
[2018-09-15] MEDS: INSULIN ASPART 100 UNITS/ML 3 ML PEN SC SCH ×4 (08:20→21:14)
[2018-09-15] MEDS: ACETAMINOPHEN 500 MG TAB PO SCH ×3 (08:42→21:15)
[2018-09-15] MEDS: INSULIN GLARGINE SOLOSTAR 100 UNITS/ML 3 ML PEN SC SCH ×2 (08:51→21:12)
[2018-09-15] MEDS: DULOXETINE HCL 30 MG CAP PO SCH (08:59)
[2018-09-15] MEDS: ENOXAPARIN INJ 120 MG/0.8 ML SYR SQ SCH ×2 (09:04→21:13)
[2018-09-15 09:05] LABS: INR 1.1 (0.9-1.1); Prothrombin Time 11.3 Seconds (9.0-12.0)
[2018-09-15 09:14] LABS: BUN Creatinine Ratio 27.1 (10-20); Blood Urea Nitrogen 29 mg/dl (7-18); Calcium 8.9 mg/dl (8.5-10.1); Carbon Dioxide 28 mmol/L (21-32); Chloride 105 mmol/L (98-107); Creatinine Clr Calc Pharmacy 71.5 ml/min; Est GFR (African American) 75.1; Est GFR (Non-African American) 64.8; Glucose 215 mg/dl (70-99); Potassium 4.4 mmol/L (3.5-5.1); Sodium 138 mmol/L (136-145)
[2018-09-15 09:18] LABS: Prostate Specific Antigen < 0.010 ng/ml (0-4)
[2018-09-15] MEDS: HYDROmorphone INJ 0.5 MG/0.5 ML SYR IV PRN (09:37)
--- NOTE | 2018-09-15 15:47 | Hospitalist Progress Note ---
Date of Service September 15, 2018 Assessment & Plan (1) Back pain: Patient's back pain is oncological related. Patient is controlled with parenteral hydromorphone, will add scheduled OxyContin continue oral immediate release oxycodone, scheduled Tylenol will avoid nonsteroidals with his anticoagulation unless we absolutely cannot. Radiation therapy will simulate him oncology requesting additional tissue samples to determine if the adenocarcinoma could be prostate in origin. Resume Lovenox therapy at this time Surgery does not feel surgical intervention would help his pain or symptoms (2) Cancer, metastatic to bone: Patient unfortunately his pain is related to large bony metastasis seen on PET scan Oncology service request further tissue diagnosis to determine if this could be prostatic in origin (3) Anticoagulated on Coumadin: Patient was sent out on Lovenox and warfarin due to his history of DVT PE and recent cancer diagnosis. The patient's INR subtherapeutic on presentation he was initially put on Lovenox will resume Lovenox 09/15 (4) Type II diabetes mellitus: Controlled with basal bolus insulin really high insulin requirements, last hemoglobin A1c earlier in August was 12.4 (5) Depression: Patient will continue duloxetine 90 mg a day Subjective Patient said his pain is well controlled but he still using parenteral hydromorphone he did tolerate biopsy of his sacral mass without much discomfort. The overall game plan is being held up slightly by additional tissue typing as requested by oncology. He is going to be proceed with radiation treatment as we know the base of cell types adenocarcinoma his constipation has been resolved Review of Systems Review of Systems: ROS: Patient appears chronically ill No double vision blurry vision No problems with speech or swallowing No palpitations, chest pain or pressure No Wheezing or breathing issues No abdominal pain nausea vomiting diarrhea No burning urine urine frequency or changes in color Persistent right hip and back pain No skin rashes or oral lesions No unusual bruising or bleeding Is focused right back pain radiates to his gluteus area but not distally to down his leg No changes in memory or confusion Physical Exam Physical Exam: The patient appeared chronically ill Vital signs as documented. Head exam is unremarkable. normocephalic, atraumatic Neck is without jugular venous distension, thyromegaly, or lymphademopathy Lungs are clear to auscultation and percussion. Cardiac exam reveals Rhythm is regular. First and second heart sounds normal. Abdominal exam reveals normal bowel sounds, no masses, no organomegaly Extremities are mildly edematous and both pedal pulses are present Neurologic exam is A&Ox3, he does limit his right leg due to his back discomfort Psychologically seems neither anxious or depressed Skin is warm Dry Results & Data Vital Signs (Past 12 Hours) Vital Signs Temp Pulse Pulse Resp BP Pulse Ox 09/15/18 15:21 36.6 C 65 14 138/80 94 09/15/18 12:07 36.6 C 75 14 138/86 96 09/15/18 07:54 36.4 C L 59 L 14 140/82 99 09/15/18 04:09 36.5 C 60 18 143/73 H 95 (1) Back pain Back pain laterality: right Back pain location: low back pain Chronicity: acute Sciatica laterality: sciatica of right side Sciatica presence: with sciatica Qualified Code(s): M54.41 - Lumbago with sciatica, right side (2) Depression Active/Remission status: currently active Depression Type: major depressive disorder Major depression episode severity: severe Major depression recurrence: recurrent Psychotic features: without psychotic features Qualified Code(s): F33.2 - Major depressive disorder, recurrent severe without psychotic features
[2018-09-15] MEDS: ALUMINUM/MAGNESIUM SUSP 30 ML UDC PO PRN (17:28)
[2018-09-15] MEDS: PSYLLIUM 58.6% POWDER PACKET PO SCH (21:13)
[2018-09-15] MEDS: OXYCODONE HCL 15 MG TABCR (OXYCONTIN) PO SCH (21:17)
[2018-09-16 05:45] LABS: Hemoglobin 11.8 g/dL (14.0-18.0); Mean Corpuscular Hgb Conc 32.8 g/dL (32-36); Mean Corpuscular Volume 95.2 fL (80-100); Mean Platelet Volume 10.3 fL (7.4-10.4); Platelet Count 315 K/uL (130-400); RDW Coefficient of Variation 14.3 % (11.5-14.5); RDW Standard Deviation 48.7 fL (36.4-46.3); Red Blood Count 3.78 M/uL (4.7-6.1)
[2018-09-16] MEDS: DEXAMETHASONE SOD PHOSPHATE 4 MG in SYRINGE 0 ML IV SCH ×3 (05:50→20:31)
[2018-09-16 06:11] LABS: BUN Creatinine Ratio 28.9 (10-20); Calcium 8.6 mg/dl (8.5-10.1); Est GFR (African American) 68.1; Est GFR (Non-African American) 58.7; Potassium 4.6 mmol/L (3.5-5.1)
[2018-09-16] MEDS: ACETAMINOPHEN 500 MG TAB PO SCH ×3 (07:54→20:30)
[2018-09-16] MEDS: POLYETHYLENE (MIRALAX) 17 GM PACK PO SCH (07:54)
[2018-09-16] MEDS: ENOXAPARIN INJ 120 MG/0.8 ML SYR SQ SCH ×2 (07:55→20:30)
[2018-09-16] MEDS: DULOXETINE HCL 30 MG CAP PO SCH (07:55)
[2018-09-16] MEDS: INSULIN ASPART 100 UNITS/ML 3 ML PEN SC SCH ×4 (08:51→20:32)
[2018-09-16] MEDS: INSULIN GLARGINE SOLOSTAR 100 UNITS/ML 3 ML PEN SC SCH ×2 (08:52→20:31)
[2018-09-16] MEDS: OXYCODONE HCL 15 MG TABCR (OXYCONTIN) PO SCH ×2 (08:55→20:29)
[2018-09-16] MEDS: ALUMINUM/MAGNESIUM SUSP 30 ML UDC PO PRN (09:54)
--- NOTE | 2018-09-16 16:05 | Hospitalist Progress Note ---
Date of Service September 16, 2018 Assessment & Plan (1) Back pain: back pain is likely from possible prostate cancer metastatic to the bone, Pain is much better controlled, and mild 1-2 out of 10 for now, Pain medicine include controlled with parenteral hydromorphone really need, atrial medication for the pain control is scheduled OxyContin continue oral immediate release oxycodone, avoid nonsteroidals with his anticoagulation unless we absolutely cannot. Bx was done 2 days ago per IR on September 14, 2018, pend bx, Radiation therapy will simulate him oncology requesting additional tissue samples to determine if the adenocarcinoma could be prostate in origin. Resume Lovenox therapy at this time pain has been better, Surgery does not feel surgical intervention would help his pain or symptoms possible could restart coumadin, with Lovenox bridging (2) Cancer, metastatic to bone: large bony metastasis seen on PET scan Oncology service request further tissue diagnosis to determine if this could be prostatic in origin (3) Anticoagulated on Coumadin: Patient was sent out on Lovenox and warfarin due to his history of DVT PE and recent cancer diagnosis. The patient's INR subtherapeutic on presentation he was initially put on Lovenox will resume Lovenox 09/15 We will continue Lovenox for bridging, restarted home dose of Coumadin today (4) Type II diabetes mellitus: Controlled with basal bolus insulin really high insulin requirements, last hemoglobin A1c earlier in August was 12.4, which indicate uncontrolled diabetic (5) Depression: Patient will continue duloxetine 90 mg a day Results & Data Vital Signs (Past 12 Hours) Vital Signs Temp Pulse Pulse Resp BP BP Pulse Ox 09/16/18 15:20 36.5 C 57 L 18 148/86 H 93 09/16/18 11:41 36.5 C 62 16 124/75 96 09/16/18 07:24 36.5 C 67 18 125/62 96 09/16/18 04:12 36.6 C 68 18 142/82 H 96 (1) Back pain Back pain laterality: right Back pain location: low back pain Chronicity: acute Sciatica laterality: sciatica of right side Sciatica presence: with sciatica Qualified Code(s): M54.41 - Lumbago with sciatica, right side (2) Depression Active/Remission status: currently active Depression Type: major depressive disorder Major depression episode severity: severe Major depression recurrence: recurrent Psychotic features: without psychotic features Qualified Code(s): F33.2 - Major depressive disorder, recurrent severe without psychotic features
[2018-09-16] MEDS ORDERED: WARFARIN SOD 5 MG TAB PO ONE (16:13)
[2018-09-16] MEDS: PSYLLIUM 58.6% POWDER PACKET PO SCH (20:28)
[2018-09-17] MEDS: DEXAMETHASONE SOD PHOSPHATE 4 MG in SYRINGE 0 ML IV SCH (05:51)
[2018-09-17 06:29] LABS: INR 1.1 (0.9-1.1); Prothrombin Time 11.4 Seconds (9.0-12.0)
[2018-09-17] MEDS: ALUMINUM/MAGNESIUM SUSP 30 ML UDC PO PRN (06:32)
[2018-09-17] MEDS: DULOXETINE HCL 30 MG CAP PO SCH (07:30)
[2018-09-17] MEDS: ENOXAPARIN INJ 120 MG/0.8 ML SYR SQ SCH ×2 (07:30→20:08)
[2018-09-17] MEDS: ACETAMINOPHEN 500 MG TAB PO SCH ×3 (07:30→20:07)
[2018-09-17] MEDS: POLYETHYLENE (MIRALAX) 17 GM PACK PO SCH (07:31)
[2018-09-17] MEDS: INSULIN ASPART 100 UNITS/ML 3 ML PEN SC SCH ×4 (09:09→21:23)
[2018-09-17] MEDS: INSULIN GLARGINE SOLOSTAR 100 UNITS/ML 3 ML PEN SC SCH ×2 (09:10→21:22)
[2018-09-17] MEDS: OXYCODONE HCL 15 MG TABCR (OXYCONTIN) PO SCH ×2 (09:17→21:20)
[2018-09-17] MEDS ORDERED: ALUMINUM/MAGNESIUM SUSP 30 ML UDC PO PRN (09:37)
[2018-09-17] MEDS: dexAMETHasone 4 MG TAB PO SCH ×2 (14:42→22:16)
[2018-09-17] MEDS ORDERED: WARFARIN SOD 10 MG TAB PO SCH (16:00)
[2018-09-17] MEDS ORDERED: WARFARIN SOD 5 MG TAB PO SCH (16:00)
--- NOTE | 2018-09-17 17:37 | Hospitalist Progress Note ---
Date of Service September 17, 2018 Assessment & Plan (1) Back pain: back pain is likely from possible prostate cancer metastatic to the bone, september 14 BX of BONE, SACRUM, "SACRUM CORE BIOPSY" (BIOPSY): results in below 1. METASTATIC ADENOCARCINOMA CONSISTENT WITH A METASTATIC ADENOCARCINOMA OF PULMONARY ORIGIN IS SEEN. We will talk to oncologist about the next step and if need to have radiation oncology consult Pain is continue much better controlled, and mild 1-2 out of 10 for now, has been out of bed to the chair, Has been not need IV pain medication, oral immediate release oxycodone is sufficient for the pain control, will continue Radiation therapy will simulate him oncology requesting additional tissue samples to determine if the adenocarcinoma could be prostate in origin. Resume Lovenox therapy at this time We will increase the Coumadin dose to 10 mg because patient is peak size, and continue Lovenox bridging (2) Cancer, metastatic to bone: large bony metastasis seen on PET scan Oncology service request further tissue diagnosis to determine if this could be prostatic in origin Also seen the above (3) Anticoagulated on Coumadin: Patient was sent out on Lovenox and warfarin due to his history of DVT PE and recent cancer diagnosis. The patient's INR subtherapeutic on presentation he was initially put on Lovenox will resume Lovenox 09/15 We will continue Lovenox for bridging, restarted Coumadin yesterday, will continue (4) Type II diabetes mellitus: Uncontrolled diabetic with hemoglobin A1c was 12.4, Blood glucose range was from 135 to 275, Increase both a.m. and p.m. Lantus dose, and insulin sliding scale (5) Depression: Stable, continue duloxetine 90 mg a day Subjective Doing well, out of bed to the chair, pain fairly good control, no complaint, Review of Systems Review of Systems: All systems reviewed & are unremarkable except as noted in HPI & below Physical Exam Physical Exam: General Appearance: Obesity, pleasant, decreased hearing, WD/WN, no apparent distress, Eyes: normal inspection, PERRL, EOMI, sclerae normal ENT: normal ENT inspection, hearing grossly normal, pharynx normal Neck: supple, no adenopathy, thyroid normal, no JVD, no carotid bruits, trachea midline Respiratory/Chest: chest non-tender, normal breath sounds, no respiratory distress, no accessory muscle use, breath sounds, rales, wheezing Cardiovascular: regular rate, rhythm, no JVD, no murmur Abdomen: normal bowel sounds, non tender, soft, no organomegaly, Extremities: normal range of motion, non-tender, normal inspection, Trace pedal edema, no calf tenderness, normal capillary refill, pelvis stable, joint has no limited range of motion, capillary refill is normal, Neurologic/Psychiatric: final inspector and tester II-XII nml as tested, no motor/sensory deficits, alert, normal mood/affect, oriented x 3 Skin: normal color, warm/dry, no rash Results & Data Vital Signs (Past 12 Hours) Vital Signs Temp Pulse Resp BP BP Pulse Ox 09/17/18 14:51 36.7 C 71 18 157/79 H 96 09/17/18 11:56 36.5 C 91 H 20 164/75 H 97 09/17/18 07:15 36.5 C 66 18 137/80 99 Laboratory Results - last 24 hr 09/16/18 09/17/18 09/17/18 20:17 05:54 07:39 PT 11.4 INR 1.1 POC Glucose 255 H 135 H 09/17/18 09/17/18 11:47 16:38 PT INR POC Glucose 262 H 275 H (1) Back pain Back pain laterality: right Back pain location: low back pain Chronicity: acute Sciatica laterality: sciatica of right side Sciatica presence: with sciatica Qualified Code(s): M54.41 - Lumbago with sciatica, right side (2) Depression Active/Remission status: currently active Depression Type: major depressive disorder Major depression episode severity: severe Major depression recurrence: recurrent Psychotic features: without psychotic features Qualified Code(s): F33.2 - Major depressive disorder, recurrent severe without psychotic features
[2018-09-17] MEDS: OXYCODONE HCL IR 5 MG TAB (IMMEDIATE RELEASE) PO PRN (20:04)
[2018-09-17] MEDS: PSYLLIUM 58.6% POWDER PACKET PO SCH (20:08)
[2018-09-18] MEDS: OXYCODONE HCL IR 5 MG TAB (IMMEDIATE RELEASE) PO PRN ×2 (04:24→10:43)
[2018-09-18] MEDS: dexAMETHasone 4 MG TAB PO SCH ×3 (05:45→21:59)
[2018-09-18 07:48] LABS: Hematocrit (blood only) 37.2 % (42-52); Hemoglobin 12.2 g/dL (14.0-18.0); Mean Corpuscular Hgb Conc 32.8 g/dL (32-36); Mean Corpuscular Volume 95.9 fL (80-100); Mean Platelet Volume 10.1 fL (7.4-10.4); Platelet Count 288 K/uL (130-400); RDW Coefficient of Variation 14.5 % (11.5-14.5); RDW Standard Deviation 50.2 fL (36.4-46.3); Red Blood Count 3.88 M/uL (4.7-6.1); White Blood Count 20.71 K/uL (4.8-10.8)
[2018-09-18 07:59] LABS: INR 1.7 (0.9-1.1); Prothrombin Time 16.7 Seconds (9.0-12.0)
[2018-09-18] MEDS: DULOXETINE HCL 30 MG CAP PO SCH (08:15)
[2018-09-18] MEDS: ACETAMINOPHEN 500 MG TAB PO SCH ×3 (08:15→20:29)
[2018-09-18] MEDS: ENOXAPARIN INJ 120 MG/0.8 ML SYR SQ SCH ×2 (08:16→20:29)
[2018-09-18] MEDS: POLYETHYLENE (MIRALAX) 17 GM PACK PO SCH (08:16)
[2018-09-18] MEDS: OXYCODONE HCL 15 MG TABCR (OXYCONTIN) PO SCH ×2 (08:20→20:30)
[2018-09-18] MEDS: INSULIN GLARGINE SOLOSTAR 100 UNITS/ML 3 ML PEN SC SCH ×2 (08:22→20:28)
[2018-09-18] MEDS: INSULIN ASPART 100 UNITS/ML 3 ML PEN SC SCH ×4 (08:23→20:29)
--- NOTE | 2018-09-18 10:14 | Progress Note ---
DATE: 09/18/2018 MEDICAL ONCOLOGY PROGRESS NOTE DIAGNOSES: 1. Metastatic carcinoma, primary unknown. 2. Intractable pain, attributable to bony metastatic disease. 3. Type 2 diabetes mellitus. 4. Chronic anticoagulation. SUBJECTIVE: Mr. Yap is a very pleasant 82-year-old gentleman who was originally seen in consultation by Dr. Chaves with suspected metastatic carcinoma of unknown primary. He recently underwent a biopsy of the sacrum which resulted out as adenocarcinoma of pulmonary origin. Biomarkers are pending at the time of today's note. Radiation oncology has visited with Mr. Yap to initiate palliative radiation therapy. His pain control is vastly improved. He continues to maintain his appetite and offers no specific complaints. I believe he is heading closer to discharge. Came up today to inform him of the diagnosis and will make arrangements for him to visit with Dr. Chaves for specifics regarding therapeutics moving forward OBJECTIVE: GENERAL: Very pleasant 82-year-old gentleman in no acute distress. VITAL SIGNS: Temperature 36.5, pulse 67, respiratory rate 20, blood pressure 133/74. SKIN: Without rash or lesion. Oral mucosa without erythema or ulceration. NECK: Supple. Trachea is midline. HEART: Regular rate and rhythm. LUNGS: Clear to auscultation bilaterally. ABDOMEN: Soft, nontender, nondistended. EXTREMITIES: No clubbing, cyanosis or edema. NEUROLOGIC: Grossly intact. LABORATORY DATA: WBC count 20,710, hemoglobin 12.2, platelet count 288,000. PT 16.7 seconds, INR 1.7. IMPRESSION: 1. Metastatic nonsmall cell lung cancer. 2. Chronic anticoagulation. 3. Intractable skeletal pain. 4. Type 2 diabetes mellitus. PLAN: I came up this morning after Dr. Chaves was informed of this gentleman's pathologic diagnosis. Informed Mr. Yap of the diagnosis, he is confirmed to suffer from metastatic nonsmall cell lung cancer. Biomarkers are pending and therefore withheld specifics regarding therapeutics moving forward. Dr. Chaves will see Mr. Yap upon discharge and outline the therapeutic plan at that time. Agree with palliative radiation and aggressive pain management otherwise. Ultimately, he will require bisphosphonate therapy again which will be initiated by Dr. Chaves. I did advise him current statistics are not terribly good with this diagnosis, with no treatment his survival is measured in months, perhaps 4-6, and with treatment, sometimes survival can extend a year and beyond with the newer targeted therapies. Goal of therapy moving forward is to maintain life quality and extend his life as much as possible. I answered multitude of questions for Mr. Yap, but again Dr. Chaves will fill in the gaps moving forward. I will officially sign off as I anticipate he will be released in the next day or two. We will ensure of expedient followup at [facility]. Thank you very much for allowing us to participate in his care. SAY
[2018-09-18] MEDS ORDERED: WARFARIN SOD 5 MG TAB PO SCH (16:00)
--- NOTE | 2018-09-18 17:57 | Hospitalist Progress Note ---
Date of Service September 18, 2018 Assessment & Plan (1) Back pain: back pain is likely from possible prostate cancer metastatic to the bone, september 14 BX of BONE, SACRUM, "SACRUM CORE BIOPSY" (BIOPSY): results in below 1. METASTATIC ADENOCARCINOMA CONSISTENT WITH A METASTATIC ADENOCARCINOMA OF PULMONARY ORIGIN IS SEEN. We will talk to oncologist about the next step and if need to have radiation oncology consult Pain is continue much better controlled, and mild 3-4 out of 10 today , has been out of bed to the chair, Has been not need IV pain medication, oral immediate release oxycodone is sufficient for the pain control, will continue Radiation onco therapy is starting 1 treatment today (2) Cancer, metastatic to bone: large bony metastasis seen on PET scan Oncology and radio onco input appreciated (3) Anticoagulated on Coumadin: Patient was sent out on Lovenox and warfarin due to his history of DVT PE and recent cancer diagnosis. The patient's INR subtherapeutic on presentation he was initially put on Lovenox will resume Lovenox 09/15 has been on Lovenox for bridging, decreased Coumadin dose from 10 to 5 to because INR increased fast, and continue Lovenox bridging (4) Type II diabetes mellitus: Uncontrolled diabetic with hemoglobin A1c was 12.4, Blood glucose range was from 135 to 275, Increase both a.m. and p.m. Lantus dose, and insulin sliding scale, is better (5) Depression: Stable, continue duloxetine 90 mg a day Planning discharge home tomorrow, after setting up arrangement for transportation to radiation treatment with radiation oncology Results & Data Vital Signs (Past 12 Hours) Vital Signs Temp Pulse Pulse Resp BP BP Pulse Ox 09/18/18 15:52 36.5 C 55 L 20 144/70 H 97 09/18/18 11:41 36.8 C 65 18 121/72 96 09/18/18 07:23 36.5 C 67 20 133/74 99 (1) Back pain Back pain laterality: right Back pain location: low back pain Chronicity: acute Sciatica laterality: sciatica of right side Sciatica presence: with sciatica Qualified Code(s): M54.41 - Lumbago with sciatica, right side (2) Depression Active/Remission status: currently active Depression Type: major depressive disorder Major depression episode severity: severe Major depression recurrence: recurrent Psychotic features: without psychotic features Qualified Code(s): F33.2 - Major depressive disorder, recurrent severe without psychotic features
[2018-09-18] MEDS: PSYLLIUM 58.6% POWDER PACKET PO SCH (20:29)
[2018-09-19] MEDS: dexAMETHasone 4 MG TAB PO SCH ×2 (05:25→07:56)
[2018-09-19 06:09] LABS: Prothrombin Time 36.2 Seconds (9.0-12.0)
[2018-09-19 06:19] LABS: Creatinine Clr Calc Pharmacy 69.2 ml/min; Est GFR (African American) 72.6; Est GFR (Non-African American) 62.6
[2018-09-19 06:23] LABS: INR 3.9 (0.9-1.1)
[2018-09-19] MEDS: ACETAMINOPHEN 500 MG TAB PO SCH ×2 (07:56→15:21)
[2018-09-19] MEDS: DULOXETINE HCL 30 MG CAP PO SCH (07:56)
[2018-09-19] MEDS: POLYETHYLENE (MIRALAX) 17 GM PACK PO SCH (07:58)
[2018-09-19] MEDS: OXYCODONE HCL 15 MG TABCR (OXYCONTIN) PO SCH (08:02)
[2018-09-19] MEDS: INSULIN GLARGINE SOLOSTAR 100 UNITS/ML 3 ML PEN SC SCH (08:47)
[2018-09-19] MEDS: INSULIN ASPART 100 UNITS/ML 3 ML PEN SC SCH ×2 (08:47→12:45)
--- NOTE | 2018-09-19 16:56 | Discharge Summary ---
Date of Service September 19, 2018 Admission HPI Per Admitting Provider Patient was recently discharged from our facility on 05 September. At that time was known he had a focal right middle lobe adenocarcinoma. He did fine for 1 day and then he developed significant discomfort in his right buttocks with associated numbness. As part of the workup for his adenocarcinoma he had an outpatient PET scan to shows multiple areas of metastasis but does also have confirming 5 cm sacral bony destructive lesion as well as intra-abdominal adrenal and muscular metastasis in the arm as well as a contralateral lung suspicious mass. Patient's primary here for oncological pain control and numbness in his buttocks area Principal Diagnosis no Discharge Data Allergies Allergy/AdvReac Type Severity Reaction Status Date / Time doxycycline Allergy Intermediate hives Verified 08/27/18 02:34 Sulfa (Sulfonamide Allergy Intermediate lip Verified 08/27/18 02:34 Antibiotics) swelling Penicillins Allergy Unknown HIVES Verified 08/27/18 02:34 metformin AdvReac Intermediate diarrhea Verified 08/27/18 02:34 simvastatin AdvReac Intermediate myalgia Verified 08/27/18 02:34 Consultations 09/12/18 17:13 ED Decision to Admit Stat 09/12/18 19:32 Consult Case Management - Discharge Planning Routine Consult Hematology Routine Consult Radiation Oncology Stat 09/13/18 06:28 Consult Orthopedic Surgery Routine Ordered Studies 09/14/18 10:08 CT biopsy bone deep Routine 09/14/18 10:24 CT limited or localized study Routine 09/14/18 10:25 CT guided FNA 1st lesion Routine CT guided needle placement Routine Hospital Course (1) Back pain: back pain is likely from cancer metastatic to the bone, likely from Metastatic nonsmall cell lung cancer per note from oncologist september 14 BX of BONE, SACRUM, "SACRUM CORE BIOPSY" (BIOPSY): results in below 1. METASTATIC ADENOCARCINOMA CONSISTENT WITH A METASTATIC ADENOCARCINOMA OF PULMONARY ORIGIN IS SEEN. We will talk to oncologist about the next step and if need to have radiation oncology consult Pain is continue much better controlled, and mild 1-2 out of 10 today , has been out of bed to the chair, Has been no need IV pain medication, oral immediate release oxycodone is sufficient for the pain control, will continue Radiation onco therapy continue treatment 2 today (2) Cancer, metastatic to bone: large bony metastasis seen on PET scan Oncology and radio onco input appreciated (3) Anticoagulated on Coumadin: Patient was sent out on Lovenox and warfarin due to his history of DVT PE and recent cancer diagnosis. The patient's INR subtherapeutic on presentation he was initially put on Lovenox will resume Lovenox 09/15 has been on Lovenox for bridging, decreased Coumadin dose from 10 to 5 to because INR increased fast, and continue Lovenox bridging, today's INR is 3.9, hold tonight's Coumadin, patient has Coumadin clinic follow-up tomorrow 11 AM, suggest possible Coumadin dose will be 4 mg daily from tomorrow however we will see what the input from Coumadin clinic (4) Type II diabetes mellitus: Uncontrolled diabetic with hemoglobin A1c was 12.4, Blood glucose range was from 135 to 275, improved to 122 201 after increasing both a.m. and p.m. Lantus dose, and cont insulin sliding scale (5) Depression: Stable, continue duloxetine 90 mg a day Planning discharge home tomorrow, after setting up arrangement for transportation to radiation treatment with radiation oncology Total Time Total Time Spent Total Time Spent (In Minutes): 35 Total Time Includes: Examination of the Patient, Discharge Planning, Medication Reconciliation and Communication With Other Providers Discharge Plan Discharge Items Patient Disposition: Home - Self-Care Reason For Visit: INTRACTABLE CANCER RELATED PAIN Discharge Diagnosis: cancer metastasis to sacral bone Condition: Fair Discharge Goals: Decrease discomfort, Diagnostic testing, Improve disease control, Improve function, Increase independence, Improve nutritional status, Learn about illness and Prevent disease Activity: Resume your previous activity Non-emergency contact: Primary Care Provider and Oncologist Call non-emergency contact if: you have any medication questions Follow-up/Referrals: [facility] [Provider Group] - 09/20/18 10:45 am (Please, follow up at [facility] TOMORROW, September 20 at 11:00 am (arrive 10:45 am). *The clinic is located in the rear of this hospital. Park behind the hospital in [address] and enter via [facility]. If you need to reschedule this appointment, call the ) Joanne Baptiste PA-C [Primary Care Provider] - 09/25/18 11:00 am (Please, follow up with Joanne Baptiste PA-C on MondaySeptember 25 at 11:00 am. *If you need to change this appointment, call the office at [phone].) Hernando Chaves [Physician] - 09/28/18 2:15 pm (Please, follow up at [facility] with Dr. Hernando Chaves on MondaySeptember 28 at 2:30 pm (arrive 2:15 pm). *The clinic is located in the rear of this hospital. Park behind the hospital in [address] and enter via [facility]. If you need to change this appointment, call the office at [phone].) Diet: Carb Consistent or DM2 Addtl Provider Instructions: you have back pain is likely from cancer metastatic to the bone, you need to continue Radiation onco therapy as schedulled you need to be seen by Oncologist Dr. Wyatt as instructed in 7-10 days you are on Dexamethason 4 mg every 12 hr now, this medicine need to be adjusted by Dr. Wyatt in 5-7 days you are on Coumadin due to his history of DVT PE and recent cancer diagnosis., you can hold coumadin today because INR is 3.9, then can follow up with coumadin clinic for the new dose of coumadin tomorrow you have coumadin clinic schedulled on tomorrow 11am, please keep the appointment you have Type II diabetes mellitus: your insulin dose has been adjusted Prescriptions: New warfarin [Coumadin] 5 mg Tablet 4 mg PO Q24H 30 Days Qty: 24 RF: 0 oxycodone 5 mg Tablet 10 mg PO Q6H PRN (Reason: pain) 7 Days Qty: 28 RF: 0 oxycodone [OxyContin] 15 mg Tablet,Oral Only,Ext.Rel.12 Hr 15 mg PO BID 7 Days Qty: 14 RF: 0 dexamethasone 4 mg Tablet 4 mg PO Q12 10 Days Qty: 20 RF: 0 Continued duloxetine 30 mg capsule,delayed release(DR/EC) 30 mg PO QAM RF: 0 Novolog U-100 Insulin aspart 100 unit/mL solution See Rx Instructions .ROUTE .COMPLEX RF: 0 colchicine 0.6 mg tablet 0.6 mg PO BID PRN (Reason: Gout Flare) RF: 0 fentanyl 12 mcg/hr patch 72 hour 12 mcg topical [id number] RF: 0 Salonpas 10-3 % Adhesive Patch,Medicated 1 patch TOPICAL Q12H RF: 0 Changed Lantus U-100 Insulin 100 unit/mL solution 36 unit subcut QAM Qty: 0 RF: 0 Lantus U-100 Insulin 100 unit/mL solution 32 unit subcut QPM Qty: 0 RF: 0 Discontinued hydrocodone-acetaminophen [[place]] 5-325 mg tablet 1 tab PO Q4H PRN (Reason: pain) RF: 0 Stand-Alone Forms: [facility] Discharge Orders: Discharge Order (Routine); Ordered 09/19/18 Ordered By: Giovany Saez Admission Data Admit Date/Time: 09/12/18 17:59 Attending Provider: Giovany Saez Admit Provider: Wyatt Corral Primary Care Provider: Joanne Baptiste Other Providers: Omid Schneider ; Zeb Chowdary ; Colby Larson V ; Tim Ramirez ; Wyatt Corral Service: Oncology Other Interventions: Discharge Summary Assessment (RN) Last Done: 09/19/18 11:09
[2018-09-19] MEDS ORDERED: dexAMETHasone 4 MG TAB PO SCH (21:00)
== END 2018-09-19 16:00 | disposition home or self-care (01) | DRG 478 ==
LOC: ED 14:20 → 4E 17:59 → SUATTDRO 17:59 → 4E 18:50

== ENCOUNTER 2018-09-26 09:51 | Inpatient (IN) ==
[2018-09-26 10:21] LABS: Hematocrit (blood only) 42.1 % (42-52); Hemoglobin 13.6 g/dL (14.0-18.0); Mean Corpuscular Hgb Conc 32.3 g/dL (32-36); Mean Corpuscular Volume 96.8 fL (80-100); Mean Platelet Volume 10.3 fL (7.4-10.4); Platelet Count 233 K/uL (130-400); RDW Coefficient of Variation 14.9 % (11.5-14.5); RDW Standard Deviation 52.8 fL (36.4-46.3); Red Blood Count 4.35 M/uL (4.7-6.1); White Blood Count 26.15 K/uL (4.8-10.8)
--- NOTE | 2018-09-26 10:36 | Emergency Department Note ---
Entered by Monica Neal acting as a scribe for History of Present Illness General Chief complaint: Weakness Time Seen by Provider: 09/26/18 10:03 Source: patient History of Present Illness Provider complaint: weakness Onset (ago): week(s) (over the last several weeks) Location: left and right Quality: + other (weakness) Associated symptoms: + shortness of breath; no chest pain The patient is an 82 year old male who presents to the Emergency Department with complaints of weakness over the last several weeks. He reports feeling short of breath but denies having chest pain. The patient states that laying flat does not exacerbate his shortness of breath. He reports a history of a PE 10-15 years ago. The patient states that he is supposed to be getting radiation for cancer. He states that he is still on Coumadin and states that he wears Oxygen at night. Home Medications Home Medications Medication Instructions Recorded Confirmed Type atorvastatin 40 mg tablet 40 mg PO QAM 01/24/18 09/26/18 History duloxetine 60 mg capsule,delayed 60 mg PO QAM cap 01/24/18 09/26/18 History release lisinopril 40 mg tablet 40 mg PO QAM 01/24/18 09/26/18 History oxybutynin chloride 5 mg tablet 5 mg PO TID 01/24/18 09/26/18 History duloxetine 30 mg PO QAM 08/27/18 09/26/18 History Novolog U-100 Insulin aspart See Rx Instructions .ROUTE .COMPLEX 09/12/18 09/26/18 History colchicine 0.6 mg PO BID PRN 09/12/18 09/26/18 History fentanyl 12 mcg TOPICAL [id number] 09/12/18 09/26/18 History Lantus U-100 Insulin 32 unit SUBCUT QPM #0 ml 09/19/18 09/26/18 Rx Lantus U-100 Insulin 36 unit SUBCUT QAM #0 ml 09/19/18 09/26/18 Rx dexamethasone 4 mg PO Q12 10 Days #20 tab 09/19/18 09/26/18 Rx oxycodone 5 mg PO Q6 PRN 09/26/18 09/26/18 History oxycodone [OxyContin] 15 mg PO BID 09/26/18 09/26/18 History warfarin 4 mg PO QAM 09/26/18 09/26/18 History Allergies Allergy/AdvReac Type Severity Reaction Status Date / Time doxycycline Allergy Intermediate hives Verified 09/26/18 11:12 Sulfa (Sulfonamide Allergy Intermediate lip Verified 09/26/18 11:12 Antibiotics) swelling Penicillins Allergy Unknown HIVES Verified 09/26/18 11:12 metformin AdvReac Intermediate diarrhea Verified 09/26/18 11:12 simvastatin AdvReac Intermediate myalgia Verified 09/26/18 11:12 Past Med/Surg History Family History Other Family history non-contributory Social History Preferred Language: Croatian Communication Ability: Effective Communication Ability Comment: [facility] Temperer Required: No Beliefs That Will Affect Care: None Current Living Situation: Spouse Current Living Situation Comment: with spouse Other Information That Helps Us Care for You: No Feels Safe at Home: Yes Safety Concerns: Feels Safe At This Time Smoking Status: Former smoker Tobacco Type: cigarettes Cigarettes Per Day: 40 Second Hand Exposure: No Hx Alcohol Use: No Hx Substance Use: No Review of Systems See HPI for pertinent positives & negatives. and A total of 10 systems reviewed and were otherwise negative Physical Exam Vital Signs Vital Signs - 24 hr 09/26/18 10:01 09/26/18 10:05 09/26/18 10:08 Temperature 37 C Temperature Source Oral Sepsis Recent Fever Within 48 Hours No Sepsis New/Unexplained Change in Mental Status No Sepsis Action Taken by Nursing No Action Required Pulse Rate 112 H 121 H 128 H Pulse Rate [Right Radial] Pulse Rate from SpO2 Sensor 105 H 101 H Respiratory Rate 16 17 20 Respiratory Effort / Characteristics Respiratory Depth Respiratory Pattern Blood Pressure 140/90 140/90 Blood Pressure [Left Arm] Blood Pressure Mean 106 106 Blood Pressure Mean [Left Arm] Blood Pressure Position [Left Arm] Pulse Oximetry 97 96 96 Oxygen Delivery Method Room Air Oxygen Flow Rate 09/26/18 10:10 09/26/18 10:12 09/26/18 10:20 Temperature Temperature Source Sepsis Recent Fever Within 48 Hours Sepsis New/Unexplained Change in Mental Status Sepsis Action Taken by Nursing Pulse Rate 103 H 107 H Pulse Rate [Right Radial] Pulse Rate from SpO2 Sensor 93 H 106 H Respiratory Rate 16 22 Respiratory Effort / Characteristics Respiratory Depth Respiratory Pattern Blood Pressure Blood Pressure [Left Arm] Blood Pressure Mean Blood Pressure Mean [Left Arm] Blood Pressure Position [Left Arm] Pulse Oximetry 98 96 95 Oxygen Delivery Method Room Air Oxygen Flow Rate 09/26/18 10:30 09/26/18 10:40 09/26/18 10:50 Temperature Temperature Source Sepsis Recent Fever Within 48 Hours Sepsis New/Unexplained Change in Mental Status Sepsis Action Taken by Nursing Pulse Rate 107 H 111 H 121 H Pulse Rate [Right Radial] Pulse Rate from SpO2 Sensor 91 H 103 H 101 H Respiratory Rate 26 H 20 19 Respiratory Effort / Characteristics Respiratory Depth Respiratory Pattern Blood Pressure Blood Pressure [Left Arm] Blood Pressure Mean Blood Pressure Mean [Left Arm] Blood Pressure Position [Left Arm] Pulse Oximetry 97 95 96 Oxygen Delivery Method Oxygen Flow Rate 09/26/18 10:54 09/26/18 11:00 09/26/18 11:01 Temperature Temperature Source Sepsis Recent Fever Within 48 Hours Sepsis New/Unexplained Change in Mental Status Sepsis Action Taken by Nursing Pulse Rate 101 H 94 H 127 H Pulse Rate [Right Radial] Pulse Rate from SpO2 Sensor 104 H 113 H 101 H Respiratory Rate 24 25 H 15 Respiratory Effort / Characteristics Respiratory Depth Respiratory Pattern Blood Pressure 113/64 82/62 L Blood Pressure [Left Arm] Blood Pressure Mean 80 68 Blood Pressure Mean [Left Arm] Blood Pressure Position [Left Arm] Pulse Oximetry 95 92 94 Oxygen Delivery Method Oxygen Flow Rate 09/26/18 11:10 09/26/18 11:34 09/26/18 11:35 Temperature Temperature Source Sepsis Recent Fever Within 48 Hours Sepsis New/Unexplained Change in Mental Status Sepsis Action Taken by Nursing Pulse Rate 101 H 88 91 H Pulse Rate [Right Radial] Pulse Rate from SpO2 Sensor 102 H 89 Respiratory Rate 20 15 14 Respiratory Effort / Characteristics Respiratory Depth Respiratory Pattern Blood Pressure 120/66 Blood Pressure [Left Arm] Blood Pressure Mean 84 Blood Pressure Mean [Left Arm] Blood Pressure Position [Left Arm] Pulse Oximetry 93 98 Oxygen Delivery Method Oxygen Flow Rate 09/26/18 11:40 09/26/18 11:50 09/26/18 12:00 Temperature Temperature Source Sepsis Recent Fever Within 48 Hours Sepsis New/Unexplained Change in Mental Status Sepsis Action Taken by Nursing Pulse Rate 83 98 H 90 Pulse Rate [Right Radial] Pulse Rate from SpO2 Sensor 83 91 H 91 H Respiratory Rate 18 19 19 Respiratory Effort / Characteristics Respiratory Depth Respiratory Pattern Blood Pressure Blood Pressure [Left Arm] Blood Pressure Mean Blood Pressure Mean [Left Arm] Blood Pressure Position [Left Arm] Pulse Oximetry 98 97 98 Oxygen Delivery Method Oxygen Flow Rate 09/26/18 12:01 09/26/18 12:10 09/26/18 12:20 Temperature Temperature Source Sepsis Recent Fever Within 48 Hours Sepsis New/Unexplained Change in Mental Status Sepsis Action Taken by Nursing Pulse Rate 88 94 H 90 Pulse Rate [Right Radial] Pulse Rate from SpO2 Sensor 92 H 100 H 98 H Respiratory Rate 23 17 19 Respiratory Effort / Characteristics Respiratory Depth Respiratory Pattern Blood Pressure 133/73 Blood Pressure [Left Arm] Blood Pressure Mean 93 Blood Pressure Mean [Left Arm] Blood Pressure Position [Left Arm] Pulse Oximetry 98 97 98 Oxygen Delivery Method Oxygen Flow Rate 09/26/18 12:30 09/26/18 12:31 09/26/18 12:40 Temperature Temperature Source Sepsis Recent Fever Within 48 Hours Sepsis New/Unexplained Change in Mental Status Sepsis Action Taken by Nursing Pulse Rate 92 H 95 H 85 Pulse Rate [Right Radial] Pulse Rate from SpO2 Sensor 87 84 91 H Respiratory Rate 16 22 22 Respiratory Effort / Characteristics Respiratory Depth Respiratory Pattern Blood Pressure 121/78 Blood Pressure [Left Arm] Blood Pressure Mean 92 Blood Pressure Mean [Left Arm] Blood Pressure Position [Left Arm] Pulse Oximetry 97 97 97 Oxygen Delivery Method Oxygen Flow Rate 09/26/18 12:50 09/26/18 13:00 09/26/18 13:01 Temperature Temperature Source Sepsis Recent Fever Within 48 Hours Sepsis New/Unexplained Change in Mental Status Sepsis Action Taken by Nursing Pulse Rate 91 H 85 84 Pulse Rate [Right Radial] Pulse Rate from SpO2 Sensor 87 84 83 Respiratory Rate 17 21 19 Respiratory Effort / Characteristics Respiratory Depth Respiratory Pattern Blood Pressure 134/76 Blood Pressure [Left Arm] Blood Pressure Mean 95 Blood Pressure Mean [Left Arm] Blood Pressure Position [Left Arm] Pulse Oximetry 98 98 97 Oxygen Delivery Method Oxygen Flow Rate 09/26/18 13:02 09/26/18 13:10 09/26/18 13:20 Temperature Temperature Source Sepsis Recent Fever Within 48 Hours Sepsis New/Unexplained Change in Mental Status Sepsis Action Taken by Nursing Pulse Rate 89 87 79 Pulse Rate [Right Radial] Pulse Rate from SpO2 Sensor 86 90 82 Respiratory Rate 19 19 18 Respiratory Effort / Characteristics Respiratory Depth Respiratory Pattern Blood Pressure Blood Pressure [Left Arm] Blood Pressure Mean Blood Pressure Mean [Left Arm] Blood Pressure Position [Left Arm] Pulse Oximetry 96 97 97 Oxygen Delivery Method Oxygen Flow Rate 09/26/18 13:30 09/26/18 13:31 09/26/18 13:40 Temperature Temperature Source Sepsis Recent Fever Within 48 Hours Sepsis New/Unexplained Change in Mental Status Sepsis Action Taken by Nursing Pulse Rate 80 84 82 Pulse Rate [Right Radial] Pulse Rate from SpO2 Sensor 88 91 H 89 Respiratory Rate 21 24 24 Respiratory Effort / Characteristics Respiratory Depth Respiratory Pattern Blood Pressure 137/88 Blood Pressure [Left Arm] Blood Pressure Mean 104 Blood Pressure Mean [Left Arm] Blood Pressure Position [Left Arm] Pulse Oximetry 96 94 97 Oxygen Delivery Method Oxygen Flow Rate 09/26/18 13:50 09/26/18 14:00 09/26/18 14:01 Temperature Temperature Source Sepsis Recent Fever Within 48 Hours Sepsis New/Unexplained Change in Mental Status Sepsis Action Taken by Nursing Pulse Rate 77 83 80 Pulse Rate [Right Radial] Pulse Rate from SpO2 Sensor 78 85 76 Respiratory Rate 18 17 18 Respiratory Effort / Characteristics Respiratory Depth Respiratory Pattern Blood Pressure 130/70 Blood Pressure [Left Arm] Blood Pressure Mean 90 Blood Pressure Mean [Left Arm] Blood Pressure Position [Left Arm] Pulse Oximetry 96 96 97 Oxygen Delivery Method Oxygen Flow Rate 09/26/18 14:31 09/26/18 15:01 09/26/18 15:31 Temperature Temperature Source Sepsis Recent Fever Within 48 Hours Sepsis New/Unexplained Change in Mental Status Sepsis Action Taken by Nursing Pulse Rate 89 86 96 H Pulse Rate [Right Radial] Pulse Rate from SpO2 Sensor 92 H 89 87 Respiratory Rate 16 24 16 Respiratory Effort / Characteristics Respiratory Depth Respiratory Pattern Blood Pressure 125/73 144/84 H 127/97 Blood Pressure [Left Arm] Blood Pressure Mean 90 104 107 Blood Pressure Mean [Left Arm] Blood Pressure Position [Left Arm] Pulse Oximetry 97 98 98 Oxygen Delivery Method Oxygen Flow Rate 09/26/18 16:01 09/26/18 16:31 09/26/18 18:00 Temperature 36.6 C Temperature Source Oral Sepsis Recent Fever Within 48 Hours Sepsis New/Unexplained Change in Mental Status Sepsis Action Taken by Nursing Pulse Rate 94 H 85 Pulse Rate [Right Radial] 100 H Pulse Rate from SpO2 Sensor 94 H 88 Respiratory Rate 23 14 20 Respiratory Effort / Characteristics Non-Labored Short of Breath SOB on Exertion Respiratory Depth Normal Respiratory Pattern Blood Pressure 153/108 H 145/78 H Blood Pressure [Left Arm] 137/79 Blood Pressure Mean 123 100 Blood Pressure Mean [Left Arm] 98 Blood Pressure Position [Left Arm] Semi-fowlers Pulse Oximetry 96 96 Oxygen Delivery Method Nasal Cannula Oxygen Flow Rate 2 09/26/18 19:00 09/26/18 23:06 09/26/18 23:57 Temperature 36.9 C 37.2 C Temperature Source Oral Oral Sepsis Recent Fever Within 48 Hours Sepsis New/Unexplained Change in Mental Status Sepsis Action Taken by Nursing Pulse Rate Pulse Rate [Right Radial] 89 101 H Pulse Rate from SpO2 Sensor Respiratory Rate 20 19 Respiratory Effort / Characteristics Non-Labored Respiratory Depth Normal Respiratory Pattern Regular Blood Pressure Blood Pressure [Left Arm] 124/77 118/76 Blood Pressure Mean Blood Pressure Mean [Left Arm] 92 90 Blood Pressure Position [Left Arm] Lying Pulse Oximetry 96 96 Oxygen Delivery Method Nasal Cannula Nasal Cannula Oxygen Flow Rate 2 2 GENERAL: The patient is awake and alert. He is very anxious appearing and appears to be having difficulty breathing. EYES: The conjunctivae are clear. The pupils are round and reactive. EARS, NOSE, MOUTH AND THROAT: The nose is without any evidence of any deformity. Mucous membranes are moist tongue is midline NECK: The neck is nontender and supple. RESPIRATORY: Shallow respirations were noted. There are diminished breath sounds in the left lung field. Mild conversational dyspnea was appreciated. CARDIOVASCULAR: Tachycardic rate with regular rhythm was noted. There was no definite murmur. GASTROINTESTINAL: The abdomen is soft. Bowel sounds are present in all quadrants. Abdomen is nontender MUSCULOSKELETAL/EXTREMITIES: There is no evidence of gross deformity full range of motion is noted in the hips and shoulders SKIN: There is no obvious evidence of any rash. Pedal edema was noted bilaterally. NEUROLOGIC: Patient is awake alert and oriented x3. Course 1008: The patient was evaluated in room B7. A history and physical were performed. 1352: I updated the patient who verbalized agreement and understanding of the treatment plan. 1358: I discussed the patient's case with Dr. David Haro who will evaluate the patient for further management. Consultations Consultation #1: Dr. David Haro Time: 13:58 Administered Medications Acetaminophen (Tylenol) 650 mg PO Q4H PRN PRN Reason: pain/fever Stop: 10/26/18 18:00 Last Admin: 09/26/18 21:24 Dose: 650 mg Documented by: [id number] Dexamethasone (Decadron) 4 mg PO Q12 ELAB Stop: 10/26/18 20:59 Last Admin: 09/26/18 21:22 Dose: 4 mg Documented by: [id number] Insulin Aspart (Novolog Flexpen) 0 units SC ACHS ELBA Stop: 10/26/18 18:00 Last Admin: 09/26/18 21:25 Dose: 12 units Documented by: [id number] Cosigned by: [id number] Admin: 09/26/18 19:08 Dose: 5 units Documented by: [id number] Cosigned by: [id number] Insulin Glargine (Lantus Solostar Pen) 32 units SC QPM ELBA Stop: 10/26/18 20:59 Last Admin: 09/26/18 21:25 Dose: 32 units Documented by: [id number] Cosigned by: [id number] Oxycodone HCl (Roxicodone Immediate Rel) 5 mg PO Q6 PRN PRN Reason: Pain Stop: 10/10/18 18:00 Last Admin: 09/27/18 06:09 Dose: 5 mg Documented by: [id number] Oxycodone HCl (Oxycontin) 15 mg PO BID ELBA Stop: 10/10/18 20:59 Last Admin: 09/26/18 21:21 Dose: 15 mg Documented by: [id number] Discontinued Medications Sodium Chloride (Nss 1000ml) 500 mls @ 999 mls/hr IV .Q31M ONE Stop: 09/26/18 11:35 Last Infusion: 09/26/18 14:07 Dose: 0 mls/hr Documented by: [id number] Admin: 09/26/18 11:45 Dose: 999 mls/hr Documented by: [id number] Phytonadione 5 mg/ Sodium (Chloride) 50.5 mls @ 101 mls/hr IV TODAY@1815 ONE Stop: 09/26/18 18:44 Last Infusion: 09/26/18 19:36 Dose: 0 mls/hr Documented by: [id number] Admin: 09/26/18 18:53 Dose: 101 mls/hr Documented by: [id number] Ioversol (Optiray 320 125ml) 120 ml IV ONCE PRN PRN Reason: Interaction Checking Stop: 09/30/18 11:32 Last Admin: 09/26/18 11:33 Dose: 120 ml Documented by: [id number] Medical Decision Making Differential Diagnosis Differential includes acute coronary syndrome, myocardial infarction, CVA, TIA, anemia, infection, pneumonia, UTI, pyelonephritis, poor nutrition, dehydration, electrolyte disturbance,hypoglycemia. Medical Records Attestation: I reviewed the patient's medical records. Home Medications Current Medication List: was personally reviewed by me Laboratory Data Attestation: I reviewed the patient's lab results. Result diagrams: 09/26/18 10:08 09/26/18 10:08 Lab Results 09/26/18 09/26/18 09/26/18 Range/Units 10:08 10:08 10:08 WBC 26.15 H (4.8-10.8) K/uL RBC 4.35 L (4.7-6.1) M/uL Hgb 13.6 L (14.0-18.0) g/dL Hct 42.1 (42-52) % MCV 96.8 (80-100) fL MCH 31.3 (25-34) pg MCHC 32.3 (32-36) g/dL RDW Std Deviation 52.8 H (36.4-46.3) fL RDW Coeff of Dante 14.9 H (11.5-14.5) % Plt Count 233 (130-400) K/uL MPV 10.3 (7.4-10.4) fL Immature Gran % (Auto) 0.8 % Neut % (Auto) 86.5 % Lymph % (Auto) 8.3 % [place] % (Auto) 4.1 % Eos % (Auto) 0.3 % Baso % (Auto) 0.0 % Immature Gran # (Auto) 0.21 H (0.00-0.02) K/uL Neut # (Auto) 22.62 H (1.4-6.5) K/uL Lymph # (Auto) 2.18 (1.2-3.4) K/uL [place] # (Auto) 1.06 H (0.11-0.59) K/uL Eos # (Auto) 0.07 (0-0.5) K/uL Baso # (Auto) 0.01 (0-0.2) K/uL PT > 90.0 H (9.0-12.0) Seconds INR > 10.4 H* (0.9-1.1) APTT 38.4 H (21.0-31.0) Seconds PTT Ratio 1.4 Sodium 144 (136-145) mmol/L Potassium 4.0 (3.5-5.1) mmol/L Chloride 110 H (98-107) mmol/L Carbon Dioxide 21 (21-32) mmol/L Anion Gap 14.0 H (3-11) BUN 51 H (7-18) mg/dl Creatinine 1.88 H (0.6-1.4) mg/dl Est Cr Clr Drug Dosing 39.6 ml/min Est GFR ( Amer) 38.0 Est GFR (Non-Af Amer) 32.8 BUN/Creatinine Ratio 27.2 H (10-20) Glucose 162 H (70-99) mg/dl POC Glucose (70-99) Calcium 9.4 (8.5-10.1) mg/dl Magnesium 2.4 (1.8-2.4) mg/dl Total Bilirubin 0.6 (0.2-1) mg/dl AST 12 L (15-37) U/L ALT 49 (12-78) U/L Alkaline Phosphatase 124 H (45-117) U/L Troponin I 0.022 (0-0.045) ng/ml Total Protein 7.2 (6.4-8.2) gm/dl Albumin 2.7 L (3.4-5.0) gm/dl Globulin 4.5 H (2.5-4.0) gm/dl Albumin/Globulin Ratio 0.6 L (0.9-2) Lipase 107 (73-393) U/L 09/26/18 09/26/18 09/26/18 Range/Units 18:12 19:55 19:57 WBC (4.8-10.8) K/uL RBC (4.7-6.1) M/uL Hgb (14.0-18.0) g/dL Hct (42-52) % MCV (80-100) fL MCH (25-34) pg MCHC (32-36) g/dL RDW Std Deviation (36.4-46.3) fL RDW Coeff of Dante (11.5-14.5) % Plt Count (130-400) K/uL MPV (7.4-10.4) fL Immature Gran % (Auto) % Neut % (Auto) % Lymph % (Auto) % [place] % (Auto) % Eos % (Auto) % Baso % (Auto) % Immature Gran # (Auto) (0.00-0.02) K/uL Neut # (Auto) (1.4-6.5) K/uL Lymph # (Auto) (1.2-3.4) K/uL [place] # (Auto) (0.11-0.59) K/uL Eos # (Auto) (0-0.5) K/uL Baso # (Auto) (0-0.2) K/uL PT (9.0-12.0) Seconds INR (0.9-1.1) APTT (21.0-31.0) Seconds PTT Ratio Sodium (136-145) mmol/L Potassium (3.5-5.1) mmol/L Chloride (98-107) mmol/L Carbon Dioxide (21-32) mmol/L Anion Gap (3-11) BUN (7-18) mg/dl Creatinine (0.6-1.4) mg/dl Est Cr Clr Drug Dosing ml/min Est GFR ( Amer) Est GFR (Non-Af Amer) BUN/Creatinine Ratio (10-20) Glucose (70-99) mg/dl POC Glucose 236 H 340 H* 350 H* (70-99) Calcium (8.5-10.1) mg/dl Magnesium (1.8-2.4) mg/dl Total Bilirubin (0.2-1) mg/dl AST (15-37) U/L ALT (12-78) U/L Alkaline Phosphatase (45-117) U/L Troponin I (0-0.045) ng/ml Total Protein (6.4-8.2) gm/dl Albumin (3.4-5.0) gm/dl Globulin (2.5-4.0) gm/dl Albumin/Globulin Ratio (0.9-2) Lipase (73-393) U/L 09/26/18 09/27/18 Range/Units 21:01 05:53 WBC (4.8-10.8) K/uL RBC (4.7-6.1) M/uL Hgb (14.0-18.0) g/dL Hct (42-52) % MCV (80-100) fL MCH (25-34) pg MCHC (32-36) g/dL RDW Std Deviation (36.4-46.3) fL RDW Coeff of Dante (11.5-14.5) % Plt Count (130-400) K/uL MPV (7.4-10.4) fL Immature Gran % (Auto) % Neut % (Auto) % Lymph % (Auto) % [place] % (Auto) % Eos % (Auto) % Baso % (Auto) % Immature Gran # (Auto) (0.00-0.02) K/uL Neut # (Auto) (1.4-6.5) K/uL Lymph # (Auto) (1.2-3.4) K/uL [place] # (Auto) (0.11-0.59) K/uL Eos # (Auto) (0-0.5) K/uL Baso # (Auto) (0-0.2) K/uL PT 16.3 H (9.0-12.0) Seconds INR 1.6 H (0.9-1.1) APTT (21.0-31.0) Seconds PTT Ratio Sodium (136-145) mmol/L Potassium (3.5-5.1) mmol/L Chloride (98-107) mmol/L Carbon Dioxide (21-32) mmol/L Anion Gap (3-11) BUN (7-18) mg/dl Creatinine (0.6-1.4) mg/dl Est Cr Clr Drug Dosing ml/min Est GFR ( Amer) Est GFR (Non-Af Amer) BUN/Creatinine Ratio (10-20) Glucose (70-99) mg/dl POC Glucose 261 H (70-99) Calcium (8.5-10.1) mg/dl Magnesium (1.8-2.4) mg/dl Total Bilirubin (0.2-1) mg/dl AST (15-37) U/L ALT (12-78) U/L Alkaline Phosphatase (45-117) U/L Troponin I (0-0.045) ng/ml Total Protein (6.4-8.2) gm/dl Albumin (3.4-5.0) gm/dl Globulin (2.5-4.0) gm/dl Albumin/Globulin Ratio (0.9-2) Lipase (73-393) U/L Imaging Data Radiologist's Impression: Radiology results as stated below per my review and th e radiologist's interpretation: XR chest 1V portable CLINICAL HISTORY: Chest pain. COMPARISON STUDY: Chest radiograph September 03, 2018. FINDINGS: There is no pneumothorax or pleural effusion. A 3.7 cm right middle lobe mass is better depicted on the chest CT of August 27, 2018. Cardiomediastinal silhouette is unchanged. There is no evidence for pulmonary edema. Mild left basilar opacity favors atelectasis. IMPRESSION: 1. No acute cardiopulmonary findings. 2. No significant change in the 3.6 cm right middle lobe mass, better depicted on prior chest CT to Electronically signed by: Checo Duran M.D. 09/26/2018 10:45 AM CHEST CTA for PULMONARY ARTERIES CT DOSE: 556.96 mGycm HISTORY: Short of breath. Pulmonary embolus. TECHNIQUE: Multiaxial CT images of the chest were performed following the intravenous administration of contrast to evaluate the pulmonary arteries. Maximal intensity projection images were also obtained. A dose lowering technique was utilized adhering to the principles of ALARA. COMPARISON STUDY: Chest CT 08/27/2018. FINDINGS: The visualized liver and spleen are unremarkable. Partially visualized left adrenal gland metastatic lesion. A 1 cm right thyroid nodule. No mediastinal or hilar lymphadenopathy. The heart is normal in size. Normal esophagus. No suspicious lytic or blastic osseous lesions. Normal caliber thoracic aorta with no evidence for dissection. Small linear nonocclusive filling defects seen within the right lower lobe are pulmonary artery and in a segmental pulmonary artery of the right lower lobe on image 147. This favors a small nonocclusive chronic embolus. No additional pulmonary emboli identified to suggest acute pulmonary embolus. Increase in size in the 5 mm nodule within the upper lobe on image 218. Stable 4 mm nodule within the left lower lobe. Increase in size in a 6 mm right upper lobe nodule on image 196. Increase in size in a 4 mm right upper lobe nodule on image 160. Redemonstration of the solid and cystic right middle lobe mass measuring 5.5 cm. This is slightly increased in thickness compared to the prior study. This currently measures 3.2 cm in thickness, previous measuring 2.8 cm. IMPRESSION: 1. Nonocclusive linear filling defect seen within the right lower lobe as described above consistent with chronic embolus. No acute bone of identified. 2. Slight progression of the pulmonary metastatic disease and slight increase in size in the right middle lobe mass. 3. Partially visualized left adrenal gland metastasis is again noted. Electronically signed by: Akhil Amaro M.D. 09/26/2018 12:54 PM ECG Data Attestation: I personally reviewed and interpreted this ECG as follows: Indication: weakness Rate (beats per minute): 102 Rhythm: sinus tachycardia Findings: + RBBB; no PVC Comparison ECG Date: from (08/27/18) Change: no significant change Blood Pressure Blood Pressure Findings: Normal blood pressure MDM Narrative The patient is an 82-year-old male who presented to the emergency department with shortness of breath. The patient describes difficulty breathing that he has had over the last few days. 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 The patient's currently taking Coumadin and his INR was found to be very high. He was also found to have a very elevated white blood cell count. The patient has been admitted to our facility multiple times for these complaints. He was only discharged about a week ago. I discussed the patient's laboratory and radiographic studies with him. I also discussed his case with the on-call [facility] hospitalist. They have agreed to evaluate the patient in the emergency department for further management and disposition. It is difficult to ascertain if this represents an infectious process. I would prefer to hold antibiotics at this time until the patient is evaluated by admitting team. Impression & Plan SOB (shortness of breath), Elevated INR, Lung mass, JOHN (dyspnea on exertion), Elevated WBC count, TIANA (acute kidney injury) Discharge Plan Visit Data *Final* Discharge Date/Time: 09/26/18 15:52 Chief Complaint: Weakness ED Provider: Ariel Tran Discharge Problem: SOB (shortness of breath), Elevated INR, Lung mass, JOHN (dyspnea on exertion), Elevated WBC count, TIANA (acute kidney injury) Patient Disposition: Admitted As Inpatient Discharge Instructions Interventions: ED Discharge Assessment Last Done: 09/26/18 15:52 Discharge Problem: Elevated WBC count Qualifiers: Leukocytosis type: unspecified Qualified Code(s): D72.829 - Elevated white blood cell count, unspecified The scribe's documentation has been prepared under my direction and personally reviewed by me in its entirety. I confirm that the note above accurately reflects all work, treatment, procedures, and medical decision making performed by me.
[2018-09-26 10:39] LABS: Albumin Level 2.7 gm/dl (3.4-5.0); BUN Creatinine Ratio 27.2 (10-20); Calcium 9.4 mg/dl (8.5-10.1); Creatinine Clr Calc Pharmacy 39.6 ml/min; Est GFR (Non-African American) 32.8; Magnesium 2.4 mg/dl (1.8-2.4); Partial Thromboplastin Ratio 1.4; Partial Thromboplastin Time 38.4 Seconds (21.0-31.0); Prothrombin Time > 90.0 Seconds (9.0-12.0)
[2018-09-26 10:42] LABS: INR > 10.4 (0.9-1.1)
[2018-09-26 10:44] LABS: Albumin Globulin Ratio 0.6 (0.9-2); Bilirubin,Total 0.6 mg/dl (0.2-1); Globulin 4.5 gm/dl (2.5-4.0); Total Protein 7.2 gm/dl (6.4-8.2); Troponin I 0.022 ng/ml (0-0.045)
--- NOTE | 2018-09-26 10:46 | XRay Report ---
XR chest 1V portable CLINICAL HISTORY: Chest pain. COMPARISON STUDY: Chest radiograph September 03, 2018. FINDINGS: There is no pneumothorax or pleural effusion. A 3.7 cm right middle lobe mass is better dep icted on the chest CT of August 27, 2018. Cardiomediastinal silhouette is unchanged. There is no eviden ce for pulmonary edema. Mild left basilar opacity favors atelectasis. IMPRESSION: 1. No acute cardiopulmonary findings. 2. No significant change in the 3.6 cm right middle lobe mass, better depicted on prior chest CT to Electronically signed by: Checo Duran M.D. 09/26/2018 10:45 AM
[2018-09-26 10:47] LABS: Basophils # (auto) 0.01 K/uL (0-0.2); Eosinophils # (auto) 0.07 K/uL (0-0.5); Eosinophils % (auto) 0.3 %; Immature Granulocytes # (auto) 0.21 K/uL (0.00-0.02); Immature Granulocytes % (auto) 0.8 %; Lymphocytes # (auto) 2.18 K/uL (1.2-3.4); Lymphocytes % (auto) 8.3 %; Monocytes # (auto) 1.06 K/uL (0.11-0.59); Monocytes % (auto) 4.1 %; Neutrophils # (auto) 22.62 K/uL (1.4-6.5); Neutrophils % (auto) 86.5 %
[2018-09-26] MEDS ORDERED: SODIUM CHLORIDE 0.9% 1000ML 500 ML IV ONE (11:05)
[2018-09-26] MEDS ORDERED: OPTIRAY 320 125ml IV PRN (11:33)
--- NOTE | 2018-09-26 12:56 | CT Scan Report ---
CHEST CTA for PULMONARY ARTERIES CT DOSE: 556.96 mGycm HISTORY: Short of breath. Pulmonary embolus. TECHNIQUE: Multiaxial CT images of the chest were performed following the intravenous administration of contrast to evaluate the pulmonary arteries. Maximal intensity projection images were also obtaine d. A dose lowering technique was utilized adhering to the principles of ALARA. COMPARISON STUDY: Chest CT 08/27/2018. FINDINGS: The visualized liver and spleen are unremarkable. Partially visualized left adrenal gland m etastatic lesion. A 1 cm right thyroid nodule. No mediastinal or hilar lymphadenopathy. The heart is normal in size. Normal esophagus. No suspicious lytic or blastic osseous lesions. Normal caliber thor acic aorta with no evidence for dissection. Small linear nonocclusive filling defects seen within the right lower lobe are pulmonary artery and in a segmental pulmonary artery of the right lower lobe on image 147. This favors a small nonocclusive chronic embolus. No additional pulmonary emboli identifi ed to suggest acute pulmonary embolus. Increase in size in the 5 mm nodule within the upper lobe on i mage 218. Stable 4 mm nodule within the left lower lobe. Increase in size in a 6 mm right upper lobe nodule on image 196. Increase in size in a 4 mm right upper lobe nodule on image 160. Redemonstration of the solid and cystic right middle lobe mass measuring 5.5 cm. This is slightly increased in thick ness compared to the prior study. This currently measures 3.2 cm in thickness, previous measuring 2.8 cm. IMPRESSION: 1. Nonocclusive linear filling defect seen within the right lower lobe as described above consistent with chronic embolus. No acute bone of identified. 2. Slight progression of the pulmonary metastatic disease and slight increase in size in the right mi ddle lobe mass. 3. Partially visualized left adrenal gland metastasis is again noted. Electronically signed by: Akhil Amaro M.D. 09/26/2018 12:54 PM
--- NOTE | 2018-09-26 14:59 | History & Physical Report ---
Date of Service September 26, 2018 Assessment & Plan (1) Back pain: pt has oncologically related back pain from metastatic disease, will need dilaudid iv and continue oxycontin with adjustment. will have palliative care consult for symptom management will continue dexamentasone for bone related pain (2) Diabetes: continue basal bolus insulin (3) Depression: pt on duloxitine (4) Coagulopathy: pt has inr of 10 will give iv vitamin K and follow inr (5) CKD (chronic kidney disease) stage 3, GFR 30-59 ml/min: appropriate renal dosing of meds (6) Adenocarcinoma: Conversation with Dr. Chaves patient's primary oncologist regarding this patient's treatment course and prognosis. Dr. Chaves was waiting on a few additional molecular basis studies to determine if patient may be qualifying for an oral chemotherapeutic agent. There is not a target to have multiple additional chemotherapy but were looking to see if a targeted agent could be helpful for this patient. Send out test should be back in the next few days. This patient's adenocarcinoma is widely metastatic mostly now involving his sacral area which may be affecting his bowel continence History of Present Illness Primary Care Provider: Joanne Baptiste PA-C 82 year old male who presents to the Emergency Department with complaints of weakness over the last several weeks. He reports feeling short of breath but denies having chest pain. The patient states that laying flat does not exacerbate his shortness of breath. He reports a history of a PE 10-15 years ago. The patient states that he is supposed to be getting radiation for cancer. He states that he is still on Coumadin and states that he wears Oxygen at night. In the ER he found a white count of 26,000 and INR greater than 10. His last INR check was September 19 at 3.9 this is the third admission in august, He is known he had a focal right middle lobe adenocarcinoma. As part of the workup for his adenocarcinoma he had an outpatient PET scan to shows multiple areas of metastasis but does also have confirming 5 cm sacral bony destructive lesion as well as intra-abdominal adrenal and muscular metastasis in the arm as well as a contralateral lung suspicious mass. During his most recent stay he was deemed no surgical intervention would be undertaken Pt continues to have significant oncological pain, mostly hip. fairly controlled with oxycontin but still with breakthru pain leukocytosis maybe from dexamethasone Allergies Allergy/AdvReac Type Severity Reaction Status Date / Time doxycycline Allergy Intermediate hives Verified 09/26/18 11:12 Sulfa (Sulfonamide Allergy Intermediate lip Verified 09/26/18 11:12 Antibiotics) swelling Penicillins Allergy Unknown HIVES Verified 09/26/18 11:12 metformin AdvReac Intermediate diarrhea Verified 09/26/18 11:12 simvastatin AdvReac Intermediate myalgia Verified 09/26/18 11:12 Home Medications Home Medications Medication Instructions Recorded Confirmed Type atorvastatin 40 mg tablet 40 mg PO QAM 01/24/18 09/26/18 History duloxetine 60 mg capsule,delayed 60 mg PO QAM cap 01/24/18 09/26/18 History release lisinopril 40 mg tablet 40 mg PO QAM 01/24/18 09/26/18 History oxybutynin chloride 5 mg tablet 5 mg PO TID 01/24/18 09/26/18 History duloxetine 30 mg PO QAM 08/27/18 09/26/18 History Novolog U-100 Insulin aspart See Rx Instructions .ROUTE .COMPLEX 09/12/18 09/26/18 History colchicine 0.6 mg PO BID PRN 09/12/18 09/26/18 History fentanyl 12 mcg TOPICAL [id number] 09/12/18 09/26/18 History Lantus U-100 Insulin 32 unit SUBCUT QPM #0 ml 09/19/18 09/26/18 Rx Lantus U-100 Insulin 36 unit SUBCUT QAM #0 ml 09/19/18 09/26/18 Rx dexamethasone 4 mg PO Q12 10 Days #20 tab 09/19/18 09/26/18 Rx oxycodone 5 mg PO Q6 PRN 09/26/18 09/26/18 History oxycodone [OxyContin] 15 mg PO BID 09/26/18 09/26/18 History warfarin 4 mg PO QAM 09/26/18 09/26/18 History Past Med/Surg History Family History Other Family history non-contributory Social History Preferred Language: Yakut Communication Ability: Effective Beliefs That Will Affect Care: None Current Living Situation: Spouse Feels Safe at Home: Yes Smoking Status: Former smoker Tobacco Type: cigarettes Cigarettes Per Day: 40 Second Hand Exposure: No Hx Alcohol Use: No Hx Substance Use: No Review of Systems Review of Systems: ROS: chronically ill No double vision blurry vision No problems with speech or swallowing No palpitations, chest pain or pressure persistent shortness of breath with exertion No abdominal pain nausea vomiting loss of bowel continence No burning urine urine frequency or changes in color persistent back and hip pain persistent open area of hip focused back pain but numbness or loss of strength No changes in memory or confusion Physical Exam Physical Exam: The patient appeared chronically ill Vital signs as documented. Head exam is unremarkable. normocephalic, atraumatic Neck is without jugular venous distension, thyromegaly, or lymphademopathy Lungs are diminished breath sounds to the right Cardiac exam reveals Rhythm is regular.kandace is heard Abdominal exam reveals normal bowel sounds, no masses, no organomegaly Extremities are trace edematous and healing open area to knee Neurologic exam is A&Ox3, no focal deficits, Psychologically seems both anxious and depressed Skin is warm Dry wth bruises as described Results & Data Vital Signs (Past 12 Hours) Vital Signs Temp Pulse Resp BP Pulse Ox 09/26/18 14:01 80 18 130/70 97 09/26/18 14:00 83 17 96 09/26/18 13:50 77 18 96 09/26/18 13:40 82 24 97 09/26/18 13:31 84 24 137/88 94 09/26/18 13:30 80 21 96 09/26/18 13:20 79 18 97 09/26/18 13:10 87 19 97 09/26/18 13:02 89 19 96 09/26/18 13:01 84 19 134/76 97 09/26/18 13:00 85 21 98 09/26/18 12:50 91 H 17 98 09/26/18 12:40 85 22 97 09/26/18 12:31 95 H 22 121/78 97 09/26/18 12:30 92 H 16 97 09/26/18 12:20 90 19 98 09/26/18 12:10 94 H 17 97 09/26/18 12:01 88 23 133/73 98 09/26/18 12:00 90 19 98 09/26/18 11:50 98 H 19 97 09/26/18 11:40 83 18 98 09/26/18 11:35 91 H 14 120/66 98 09/26/18 11:34 88 15 09/26/18 11:10 101 H 20 93 09/26/18 11:01 127 H 15 82/62 L 94 09/26/18 11:00 94 H 25 H 92 09/26/18 10:54 101 H 24 113/64 95 09/26/18 10:50 121 H 19 96 09/26/18 10:40 111 H 20 95 09/26/18 10:30 107 H 26 H 97 09/26/18 10:20 107 H 22 95 09/26/18 10:12 96 09/26/18 10:10 103 H 16 98 09/26/18 10:08 37 C 128 H 20 140/90 96 09/26/18 10:05 121 H 17 96 09/26/18 10:01 112 H 16 140/[address] angio Nonocclusive linear filling defect seen within the right lower lobe as described above consistent with chronic embolus. No acute bone of identified. Slight progression of the pulmonary metastatic disease and slight increase in size in the right middle lobe mass. Partially visualized left adrenal gland metastasis is again noted. CXR No acute cardiopulmonary findings. No significant change in the 3.6 cm right middle lobe mass, better depicted on prior chest CT to ECG Additional Comments: nsr, RBBB
[2018-09-26] MEDS ORDERED: CHECK FENTANYL PATCH PLACEMENT SCH (18:01)
[2018-09-26] MEDS ORDERED: CARBOHYDRATES FOR HYPOGLYCEMIA PO PRN (18:01)
[2018-09-26] MEDS ORDERED: GLUCOSE 40% GEL 15 GM TUBE PO PRN (18:01)
[2018-09-26] MEDS ORDERED: DEXTROSE 50% 50 ML SYRINGE IV PRN (18:01)
[2018-09-26] MEDS ORDERED: COLCHICINE 0.6 MG TAB PO PRN (18:01)
[2018-09-26] MEDS ORDERED: HYDROmorphone INJ 0.5 MG/0.5 ML SYR IV PRN (18:01)
[2018-09-26] MEDS ORDERED: PHYTONADIONE PED 1 MG/0.5ML AMP/SYRG IV ONE (18:01)
[2018-09-26] MEDS ORDERED: GLUCOSE 10 TABS/TUBE PO PRN (18:01)
[2018-09-26] MEDS ORDERED: GLUCAGON FOR INJ 1 MG VIAL SQ PRN (18:01)
[2018-09-26] MEDS ORDERED: HYDROmorphone INJ 1 MG/ML SYRINGE IV PRN (18:01)
[2018-09-26] MEDS ORDERED: ONDANSETRON INJ 2 MG/ML 2 ML VIAL IV PRN (18:01)
[2018-09-26] MEDS ORDERED: PHYTONADIONE 5 MG in SODIUM CHLORIDE 0.9% 50 ML IV ONE (18:15)
[2018-09-26] MEDS: INSULIN ASPART 100 UNITS/ML 3 ML PEN SC SCH ×2 (19:08→21:25)
[2018-09-26] MEDS: OXYCODONE HCL 15 MG TABCR (OXYCONTIN) PO SCH (21:21)
[2018-09-26] MEDS: dexAMETHasone 4 MG TAB PO SCH (21:22)
[2018-09-26] MEDS: ACETAMINOPHEN 325 MG TAB PO PRN (21:24)
[2018-09-26] MEDS: INSULIN GLARGINE SOLOSTAR 100 UNITS/ML 3 ML PEN SC SCH (21:25)
[2018-09-27] MEDS: OXYCODONE HCL IR 5 MG TAB (IMMEDIATE RELEASE) PO PRN ×2 (06:09→13:09)
[2018-09-27 06:47] LABS: INR 1.6 (0.9-1.1); Prothrombin Time 16.3 Seconds (9.0-12.0)
[2018-09-27 07:05] LABS: BUN Creatinine Ratio 35.2 (10-20); Calcium 8.4 mg/dl (8.5-10.1); Creatinine Clr Calc Pharmacy 55.4 ml/min; Est GFR (African American) 57.2; Est GFR (Non-African American) 49.3; Potassium 4.5 mmol/L (3.5-5.1)
[2018-09-27] MEDS: OXYCODONE HCL 15 MG TABCR (OXYCONTIN) PO SCH ×2 (08:18→20:08)
[2018-09-27] MEDS: DULOXETINE HCL 30 MG CAP PO SCH (08:18)
[2018-09-27] MEDS: dexAMETHasone 4 MG TAB PO SCH ×2 (08:18→20:09)
[2018-09-27] MEDS: INSULIN GLARGINE SOLOSTAR 100 UNITS/ML 3 ML PEN SC SCH ×2 (08:21→20:11)
[2018-09-27] MEDS: INSULIN ASPART 100 UNITS/ML 3 ML PEN SC SCH ×4 (08:45→20:10)
[2018-09-27] MEDS ORDERED: INSULIN GLARGINE SOLOSTAR 100 UNITS/ML 3 ML PEN SC SCH (09:00)
[2018-09-27] MEDS ORDERED: VANCOMYCIN CONSULT ACTIVE PRN (11:29)
[2018-09-27] MEDS ORDERED: VANCOMYCIN HCL 2,750 MG in SODIUM CHLORIDE 0.9% 500 ML IV ONE (12:30)
--- NOTE | 2018-09-27 12:36 | Palliative Care Consultation ---
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 Patient is currently undergoing palliative radiation treatments, has had 4/10 doses. Waiting for some biomarkers to come back before oncologist decides on chemo option. Patient presented with worsening right buttocks/sacral pain and weakness over the last couple weeks. He was admitted for ongoing cancer related pain. his home dose of Oxycontin 15mg BI D was continued, also ordered Roxicodone 5mg PO Q4h PRN pain. Palliative care consulted for symptom management and supportive care. -met with patient this morning in room 412. Patient awake and oriented x4. States, "Just not a good day," while shake his head. Patient voices his frustration with his worsening pain and weakness over the last couple weeks. He also is having a lot of personal issues with his and family. -Patient declined me making any changes to his current pain regimen as he said, "We finally have it under control." Pain is currently a 4/10 in right buttocks area from sacral lesion. Patient is not on anything long-acting, so could consider starting extended release or fentanyl patch if patient conitnues to have issues. Offered outpatient palliative care services. Patient will think about it. He is currently happy with is pain control. -Regarding goals of care, patient states he still wants to be a full code. If he heart stops or he stops breathing, he would want everything done, but would not want to be prolonged on machines if there was no hope of meaningful recovery. Ed declined me calling his at this time. Will continue to check in on him. (2) Goals of care, counseling/discussion: (3) Adenocarcinoma: Supervising Physician Co-Signing Physician Notes Chart reviewed, patient seen and examined-no family at bedside Collaborated with RICHIE Fields PE: Patient awake and alert, no acute distress HEENT: EOMI, [place] Respirations: Unlabored, no rhonchi CV: Regular rate, no pitting edema Abdomen: Soft, nontender, obese Neuro: Alert and oriented x4 Patient feels his pain is currently well controlled, CODE STATUS reviewed-wishes to be a full code. 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 Patient is currently undergoing palliative radiation treatments, has had 4/10 doses. Waiting for some biomarkers to come back before oncologist decides on chemo option. Patient presented with worsening right buttocks/sacral pain and weakness over the last couple weeks. He was admitted for ongoing cancer related pain. his home dose of Oxycontin 15mg BID was continued, also ordered Roxicodone 5mg PO Q4h PRN pain. Palliative care consulted for symptom management and supportive care. Thank you kindly for this consult. I will follow as needed. Allergies Allergy/AdvReac Type Severity Reaction Status Date / Time doxycycline Allergy Intermediate hives Verified 09/26/18 11:12 Sulfa (Sulfonamide Allergy Intermediate lip Verified 09/26/18 11:12 Antibiotics) swelling Penicillins Allergy Unknown HIVES Verified 09/26/18 11:12 metformin AdvReac Intermediate diarrhea Verified 09/26/18 11:12 simvastatin AdvReac Intermediate myalgia Verified 09/26/18 11:12 Home Medications Home Medications Medication Instructions Recorded Confirmed Type atorvastatin 40 mg tablet 40 mg PO QAM 01/24/18 09/26/18 History duloxetine 60 mg capsule,delayed 60 mg PO QAM cap 01/24/18 09/26/18 History release lisinopril 40 mg tablet 40 mg PO QAM 01/24/18 09/26/18 History oxybutynin chloride 5 mg tablet 5 mg PO TID 01/24/18 09/26/18 History duloxetine 30 mg PO QAM 08/27/18 09/26/18 History Novolog U-100 Insulin aspart See Rx Instructions .ROUTE .COMPLEX 09/12/18 09/26/18 History colchicine 0.6 mg PO BID PRN 09/12/18 09/26/18 History fentanyl 12 mcg TOPICAL [id number] 09/12/18 09/26/18 History Lantus U-100 Insulin 32 unit SUBCUT QPM #0 ml 09/19/18 09/26/18 Rx Lantus U-100 Insulin 36 unit SUBCUT QAM #0 ml 09/19/18 09/26/18 Rx dexamethasone 4 mg PO Q12 10 Days #20 tab 09/19/18 09/26/18 Rx oxycodone 5 mg PO Q6 PRN 09/26/18 09/26/18 History oxycodone [OxyContin] 15 mg PO BID 09/26/18 09/26/18 History warfarin 4 mg PO QAM 09/26/18 09/26/18 History Patient History Family History Other Family history non-contributory Social History Preferred Language: American Communication Ability: Effective Communication Ability Comment: [place] [employer] Required: No Beliefs That Will Affect Care: None Current Living Situation: Spouse Current Living Situation Comment: with spouse Other Information That Helps Us Care for You: No Feels Safe at Home: Yes Safety Concerns: Feels Safe At This Time Smoking Status: Former smoker Tobacco Type: cigarettes Cigarettes Per Day: 40 Second Hand Exposure: No Hx Alcohol Use: No Hx Substance Use: No Review of Systems Constitutional: + weakness Ear, Nose, Mouth, Throat: no dysphagia Respiratory: + dyspnea on exertion (occasionally); no cough and no dyspnea Cardiovascular: no chest pain and no edema Gastrointestinal: no abdominal pain and no nausea Musculoskeletal: as per Subjective / HPI Neurologic: no confusion Psychiatric: + depression (difficulty coping with situation) Physical Exam Constitutional: + obese; no acute distress ENMT: external ear and nose normal, oropharynx normal Neck: normal visual inspection Respiratory: normal respiratory effort, lungs clear to auscultation Auscultation: + diminished lung sounds Cardiovascular: RRR, no murmur, no edema Vessels: dorsalis pedis pulses present Gastrointestinal (Abdomen): Inspection/Auscultation: abdomen normal to inspection and normal bowel sounds; abdomen not distended Percussion/Palpation: abdomen soft; abdomen nontender Neurologic: awake; not confused Psychiatric: Orientation: alert and oriented x 3 Results & Data Vital Signs (Past 12 Hours) Vital Signs Temp Pulse Resp BP Pulse Ox 09/27/18 11:44 36.9 C 92 H 20 128/85 97 09/27/18 07:00 36.8 C 75 18 128/75 97 Time Spent Midlevel 70 minutes with >50% of time spent at bedside with patient discussing condition and goals of care.
--- NOTE | 2018-09-27 16:17 | Hospitalist Progress Note ---
Date of Service September 27, 2018 Assessment & Plan (1) Back pain: Back pain from metastatic disease. - Continue pain management - Palliative care consulted - Continue dexamethasone (2) TIANA (acute kidney injury): Normal baseline Cr ~1.0-1.2. Cr up to 1.9 on admission, present on arrival. - Given IV fluids initially - On 09/27, Cr down to 1.3, meaning TIANA had resolved. - Monitor Cr (3) Diabetes: A1c of 12.4% in 08/2018. - Continue basal bolus insulin (4) Depression: Had prior mood issues during last admission. In good spirits at this time. - Continue duloxetine (5) Adenocarcinoma: Recently diagnosed with metastatic adenocarcinoma of lung primary. Primary oncologist is Dr. Chaves. - Undergoing radiation oncology treatments with Dr. Chowdary - Molecular testing should be back within a few days which will help determine any immunotherapy potential (6) DVT (deep venous thrombosis): Previously diagnosed with a DVT. 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 - INR was >10 on admission; given vitamin K. - On 09/27, INR was 1.6. - Start heparin gtt for anticoagulation while hospitalized. Will once again need Lovenox bridging on discharge. Subjective In less pain this morning compared to admission. Has to use the bathroom. Repo rts no fevers/chills, chest pain, shortness of breath, abdominal pain, nausea, or vomiting. Review of Systems Review of Systems: All systems reviewed & are unremarkable except as noted in HPI & below Physical Exam Constitutional: + obese; no acute distress ENMT: external ear and nose normal, oropharynx normal Neck: normal visual inspection Respiratory: normal respiratory effort, lungs clear to auscultation Auscultation: + diminished lung sounds Cardiovascular: RRR, no murmur, no edema Vessels: dorsalis pedis pulses present Gastrointestinal (Abdomen): Inspection/Auscultation: abdomen normal to inspection and normal bowel sounds; abdomen not distended Percussion/Palpation: abdomen soft; abdomen nontender Neurologic: awake; not confused Psychiatric: Orientation: alert and oriented x 3 Results & Data Vital Signs (Past 12 Hours) Vital Signs Temp Pulse Resp BP Pulse Ox 09/27/18 15:13 36.7 C 80 18 111/72 96 09/27/18 11:44 36.9 C 92 H 20 128/85 97 09/27/18 07:00 36.8 C 75 18 128/75 97
[2018-09-27] MEDS ORDERED: Heparin IV Standard *NO* Bolus IV SCH (16:32)
[2018-09-27] MEDS: Heparin Adult STANDARD Wt-Based Dextrose 5% 25,000 units/500 mL IV SCH (16:48)
[2018-09-27] MEDS: ACETAMINOPHEN 325 MG TAB PO PRN (20:13)
[2018-09-27 23:52] LABS: Partial Thromboplastin Ratio 2.5
[2018-09-28 00:05] LABS: Partial Thromboplastin Time 68.2 Seconds (21.0-31.0)
[2018-09-28] MEDS: VANCOMYCIN HCL 1,500 MG in SODIUM CHLORIDE 0.9% 500 ML IV SCH ×2 (03:48→20:47)
[2018-09-28 07:06] LABS: Hematocrit (blood only) 35.3 % (42-52); Hemoglobin 11.5 g/dL (14.0-18.0); Mean Corpuscular Hgb Conc 32.6 g/dL (32-36); Mean Corpuscular Volume 95.4 fL (80-100); Mean Platelet Volume 10.3 fL (7.4-10.4); Platelet Count 181 K/uL (130-400); RDW Standard Deviation 52.5 fL (36.4-46.3); White Blood Count 17.98 K/uL (4.8-10.8)
[2018-09-28] MEDS: OXYCODONE HCL IR 5 MG TAB (IMMEDIATE RELEASE) PO PRN (07:22)
[2018-09-28] MEDS: Heparin Adult STANDARD Wt-Based Dextrose 5% 25,000 units/500 mL IV SCH (07:22)
[2018-09-28 07:23] LABS: INR 2.1 (0.9-1.1)
[2018-09-28] MEDS: DULOXETINE HCL 30 MG CAP PO SCH (07:23)
[2018-09-28] MEDS: dexAMETHasone 4 MG TAB PO SCH ×2 (07:24→20:47)
[2018-09-28 07:35] LABS: BUN Creatinine Ratio 31.2 (10-20); Calcium 8.3 mg/dl (8.5-10.1); Creatinine Clr Calc Pharmacy 57.5 ml/min; Est GFR (African American) 59.9; Est GFR (Non-African American) 51.7; Potassium 4.8 mmol/L (3.5-5.1)
[2018-09-28] MEDS: OXYCODONE HCL 15 MG TABCR (OXYCONTIN) PO SCH ×2 (07:39→20:57)
[2018-09-28] MEDS: INSULIN ASPART 100 UNITS/ML 3 ML PEN SC SCH ×4 (08:15→20:53)
[2018-09-28] MEDS: INSULIN GLARGINE SOLOSTAR 100 UNITS/ML 3 ML PEN SC SCH ×2 (08:16→20:48)
[2018-09-28 09:17] LABS: Partial Thromboplastin Ratio 3.6
[2018-09-28 09:23] LABS: Partial Thromboplastin Time 97.8 Seconds (21.0-31.0)
--- NOTE | 2018-09-28 10:05 | Pharmacy Report ---
Pharmacy Abx Initial Consult - Date of Service September 28, 2018 - Pharmacy Dosing Scope Date of Consult: 09/27/18 Consultation requested by: Christian Moss [facility]acy is consulted to initiate Vancomycin IV dosing therapy, order appropriate labs and adjust drug dose/frequency. - Subjective The patient is a 82 year old M admitted on 09/26/18 15:08. - Objective Height: 6 ft Weight: 110 kg Vital Signs (Past 12hrs): Vital Signs Temp Pulse Resp BP Pulse Ox 09/28/18 07:11 37.1 C 79 19 118/73 99 09/28/18 04:00 36.8 C 86 22 141/90 H 98 09/28/18 00:00 36.9 C 84 18 131/86 97 Lab Results (24hrs): Laboratory Tests (24 Hours) 09/28/18 09/28/18 06:38 06:38 WBC 17.98 H Creatinine 1.29 Est Cr Clr Drug Dosing 57.5 Micro Results: 09/28/18 06:56 Blood Culture - Pending Blood 09/28/18 06:38 Blood Culture - Pending Blood 09/26/18 18:34 Blood Blood Culture - Preliminary Streptococcus species 09/26/18 18:31 Blood Blood Culture - Preliminary Streptococcus species - Risk Factors for Resistance * Hospitalization for 48 hours or more within the past 90 days * Antimicrobial use within the last 90 days [Vancomycin + Cefepime while hospitalized in August 2018] - Assessment & Plan Assessment Mr. Yap is a 82 y/o M who was admitted here last month for knee infection + L foot ingrown toe nail infection that was not improving with Keflex. He was treated with Vancomycin and Cefepime at that time. Patient is currently admitted for bacteremia- blood cultures growing Strep species, awaiting sensitivities. He is allergic to several antibiotics- Sulfa = lip swelling, Doxy = hives, Penicillins which limits options for antibiotics Plan Vancomycin for Bacteremia. Day 2 of therapy. Vancomycin IV * Dosing based on recent admission in August which resulted in therapeutic trough level; so PK parameters were not calculated. * Loading dose: 2750 mg (25 mg/kg) x 1 dose yesterday at 1230. * Maintenance dose: Vanco 1500 mg IV (13 mg/kg) every 16 hours started at 0400 today. * Goal trough level for Bacteremia: 15 to 20 mcg/mL * Trough level ordered for 09/30/18 before dose at 0400 (after 3 maintenance doses). Level should be at steady state. Pharmacy will continue to follow and will adjust dose/frequency as necessary. Thank you.
[2018-09-28] MEDS: ALUMINUM/MAGNESIUM SUSP 30 ML UDC PO PRN (11:09)
--- NOTE | 2018-09-28 11:38 | Palliative Care Progress Note ---
Date of Service September 28, 2018 Assessment & Plan (1) Cancer related pain: -Pain is 1-2/10 in right buttocks/sacral region. He states that he is happy with hsi pain control and feels like maybe the radiation is finally making a difference in his pain. -I discussed with patient that he may also be getting better pain control at this time due to the fact that he has been sedentary since admission to the hospital. He really isn't on a different pain regimen than he was on at home. -If increased pain with movement, would start something long-acting whether it be oxycodone sustained release or on fentanyl patch and stop the oxycontin. Patient again did not want any changes to be made to his medications at this time. (2) Goals of care, counseling/discussion: -Patient's goal is to get home with his . -We discussed CODE STATUS yesterday, patient wants to remain full code at this time. -No living will or POLST, but would be helpful. Patient declined. (3) Adenocarcinoma: -Stage IV lung adenocarcinoma with widespread metastatic disease. Currently undergoing palliative radiation to destructive sacral lesion. -Plan is to continue his radiation treatments (has had 09/05). Waiting for some biomarkers to come back and oncology will make decision on whether or not he receives chemo. -Other acute issues such as supratherapeutic INR, chronic DVT, etc. being managed by hospitalist team. Apparently will need Lovenox bridge back to Coumadin upon discharge. -Will follow. Subjective Patient was upset when I entered room because he had to wait a long time for his milk of magnesia. But he quickly relaxed and was pleasantly talkative today. Patient states his pain in right buttocks area and down leg is about 1-2/10 at this time. He is happy with pain regimen. Review of Systems Constitutional: + weakness Respiratory: + dyspnea on exertion (occasionally); no cough and no dyspnea Cardiovascular: no chest pain and no edema Gastrointestinal: no abdominal pain and no nausea indigestion Musculoskeletal: as per Subjective / HPI Psychiatric: + depression (difficulty coping with situation) Physical Exam Constitutional: + obese; no acute distress ENMT: external ear and nose normal, oropharynx normal Neck: normal visual inspection Respiratory: normal respiratory effort, lungs clear to auscultation Auscultation: + diminished lung sounds Cardiovascular: RRR, no murmur, no edema Vessels: dorsalis pedis pulses present Gastrointestinal (Abdomen): Inspection/Auscultation: abdomen normal to inspection and normal bowel sounds; abdomen not distended Percussion/Palpation: abdomen soft; abdomen nontender Neurologic: awake; not confused Psychiatric: Orientation: alert and oriented x 3 Results & Data Vital Signs (Past 12 Hours) Vital Signs Temp Pulse Resp BP Pulse Ox 09/28/18 07:11 37.1 C 79 19 118/73 99 09/28/18 04:00 36.8 C 86 22 141/90 H 98 09/28/18 00:00 36.9 C 84 18 131/86 97 Time Spent Midlevel 35 minutes with >50% of time spent at bedside with patient discussing pain management, also at bedside collaborating with hospitalist physician.
--- NOTE | 2018-09-28 14:33 | Infectious Disease Consult ---
Date of Consultation September 28, 2018 Assessment & Plan (1) Other streptococcal sepsis: will continue vanco for now, suspect leg wound as source, has had recurrent GBS infection despite multiple courses of both po and IV abx. repeat cultures pending, will need echo. follow final results. additional abx recs based on final culture results and repeat blood culture results. History of Present Illness Attending Physician: Christian Gutierrez MD pt admitted with weakness over several weeks. well known to ID service for treatment of lle cellulitis/osteo - multiple culture grew GBS in past. has not followed with ID in some time. Was previously treated with both IV rocephin and po keflex and remains with persistent open wound on left calf at old scar site. no bleeding or drainage. denies f/c at home. since last ID visit has been diagnosed with metastatic lung ca and has chronic rll pe. having increased sacral pain at home, mets noted there, undergoing palliative xrt. Deemed a non surgical candidate. on steroids at home, wbc was elevated in ER at 19, blood cultures done, growing strep species, final pending, repeat culture pending. placed on vanco, tolerating well. afebrile since admission and denies fever at home. states he was on keflex a few weeks ago but does not remember why, states it was not for his wound. no abd pain, no n/v/d. no cp, conner, cough, having increased sob at home. pain under good control currently. no gu symptoms. creat 1.2 CTA had no new findings. Allergies Allergy/AdvReac Type Severity Reaction Status Date / Time doxycycline Allergy Intermediate hives Verified 09/26/18 11:12 Sulfa (Sulfonamide Allergy Intermediate lip Verified 09/26/18 11:12 Antibiotics) swelling Penicillins Allergy Unknown HIVES Verified 09/26/18 11:12 metformin AdvReac Intermediate diarrhea Verified 09/26/18 11:12 simvastatin AdvReac Intermediate myalgia Verified 09/26/18 11:12 Home Medications Home Medications Medication Instructions Recorded Confirmed Type atorvastatin 40 mg tablet 40 mg PO QAM 01/24/18 09/26/18 History duloxetine 60 mg capsule,delayed 60 mg PO QAM cap 01/24/18 09/26/18 History release lisinopril 40 mg tablet 40 mg PO QAM 01/24/18 09/26/18 History oxybutynin chloride 5 mg tablet 5 mg PO TID 01/24/18 09/26/18 History duloxetine 30 mg PO QAM 08/27/18 09/26/18 History Novolog U-100 Insulin aspart See Rx Instructions .ROUTE .COMPLEX 09/12/18 09/26/18 History colchicine 0.6 mg PO BID PRN 09/12/18 09/26/18 History fentanyl 12 mcg TOPICAL [id number] 09/12/18 09/26/18 History Lantus U-100 Insulin 32 unit SUBCUT QPM #0 ml 09/19/18 09/26/18 Rx Lantus U-100 Insulin 36 unit SUBCUT QAM #0 ml 09/19/18 09/26/18 Rx dexamethasone 4 mg PO Q12 10 Days #20 tab 09/19/18 09/26/18 Rx oxycodone 5 mg PO Q6 PRN 09/26/18 09/26/18 History oxycodone [OxyContin] 15 mg PO BID 09/26/18 09/26/18 History warfarin 4 mg PO QAM 09/26/18 09/26/18 History Patient History Medical History Prostate cancer (Chronic) Urinary frequency (Chronic) Hyperlipidemia (Chronic) Diabetes (Chronic) DVT (deep venous thrombosis) (Resolved) Back pain (Chronic) Chest pain (Chronic) Confusion (Chronic) Depression (Chronic) Diabetes (Chronic) Dysuria (Chronic) HTN (hypertension) (Chronic) Hyperlipidemia (Chronic) Insomnia (Chronic) Left leg cellulitis (Chronic) Osteomyelitis of left knee region (Chronic) Prostate cancer (Chronic) Urinary frequency (Chronic) Surgical History No pertinent past surgical history Family History Other Family history non-contributory Social History Preferred Language: Korean Communication Ability: Effective Communication Ability Comment: [facility] [employer] Required: No Beliefs That Will Affect Care: None Current Living Situation: Spouse Current Living Situation Comment: with spouse Other Information That Helps Us Care for You: No Feels Safe at Home: Yes Safety Concerns: Feels Safe At This Time Smoking Status: Former smoker Tobacco Type: cigarettes Cigarettes Per Day: 40 Second Hand Exposure: No Hx Alcohol Use: No Hx Substance Use: No Review of Systems Review of Systems: All systems reviewed & are unremarkable except as noted in HPI & below Physical Exam Constitutional: WD/WN, vitals as above Eyes: PERRL, conjunctivae normal, anicteric sclerae ENMT: external ear and nose normal, oropharynx normal Neck: normal visual inspection Respiratory: normal respiratory effort, lungs clear to auscultation Auscultation: + diminished lung sounds Cardiovascular: RRR, no murmur, no edema Gastrointestinal (Abdomen): normal bowel sounds, soft, nontender, no hepatosplenomegaly Musculoskeletal: no cyanosis or clubbing, extremities motor strength 5/5 Skin: no rashes, warm and dry lle wound now closed, superficial, no surrounding warmth, erythema, tenderness Psychiatric: A+Ox3, euthymic affect Results & Data Vital Signs (Past 12 Hours) Vital Signs Temp Pulse Resp BP Pulse Ox 09/28/18 12:03 36.8 C 83 20 129/80 97 09/28/18 07:11 37.1 C 79 19 118/73 99 09/28/18 04:00 36.8 C 86 22 141/90 H 98 Laboratory Results Microbiology 09/26/18 18:34 Blood Blood Culture - Preliminary Streptococcus species 09/26/18 18:31 Blood Blood Culture - Preliminary Streptococcus species
[2018-09-28 17:09] LABS: Partial Thromboplastin Ratio 2.4
--- NOTE | 2018-09-28 17:11 | Hospitalist Progress Note ---
Date of Service September 28, 2018 Assessment & Plan (1) Bacteremia: Both blood cultures on 09/26 were positive for Strep spc. Likely source is foot with continued infection. - Continue vancomycin per ID - Repeat blood cxs from 09/28 negative at this time - TTE to look for endocarditis (2) Back pain: Back pain from metastatic disease. - Continue pain management - Palliative care consulted - Continue dexamethasone (3) TIANA (acute kidney injury): Normal baseline Cr ~1.0-1.2. Cr up to 1.9 on admission, present on arrival. - Given IV fluids initially - On 09/27, Cr down to 1.3, meaning TIANA had resolved. - Monitor Cr (4) Diabetes: A1c of 12.4% in 08/2018. - Continue basal bolus insulin (5) Depression: Had prior mood issues during last admission. In good spirits at this time. - Continue duloxetine (6) Adenocarcinoma: Recently diagnosed with metastatic adenocarcinoma of lung primary. Primary oncologist is Dr. Chaves. - Undergoing radiation oncology treatments with Dr. Chowdary - Molecular testing should be back within a few days which will help determine any immunotherapy potential (7) DVT (deep venous thrombosis): Previously diagnosed with a DVT. 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 - INR was >10 on admission; given vitamin K. - On 09/28, INR was 2.1. - Was on a short heparin gtt Subjective Good spirits. Low level of pain at present. Reports no fevers/chills, chest pain, shortness of breath, abdominal pain, nausea, or vomiting. Review of Systems Review of Systems: All systems reviewed & are unremarkable except as noted in HPI & below Physical Exam Constitutional: + obese; no acute distress ENMT: external ear and nose normal, oropharynx normal Neck: normal visual inspection Respiratory: normal respiratory effort, lungs clear to auscultation Auscultation: + diminished lung sounds Cardiovascular: RRR, no murmur, no edema Vessels: dorsalis pedis pulses present Gastrointestinal (Abdomen): Inspection/Auscultation: abdomen normal to inspection and normal bowel sounds; abdomen not distended Percussion/Palpation: abdomen soft; abdomen nontender Neurologic: awake; not confused Psychiatric: Orientation: alert and oriented x 3 Results & Data Vital Signs (Past 12 Hours) Vital Signs Temp Pulse Resp BP Pulse Ox 09/28/18 15:35 36.7 C 95 H 20 148/75 H 94 09/28/18 12:03 36.8 C 83 20 129/80 97 09/28/18 07:11 37.1 C 79 19 118/73 99
[2018-09-28 17:16] LABS: Partial Thromboplastin Time 63.7 Seconds (21.0-31.0)
[2018-09-28] MEDS: WARFARIN SOD 3 MG TAB PO SCH (17:47)
[2018-09-28] MEDS: PSYLLIUM 58.6% POWDER PACKET PO SCH (20:47)
[2018-09-28] MEDS: ACETAMINOPHEN 325 MG TAB PO PRN (20:57)
[2018-09-29] MEDS ORDERED: VANCOMYCIN TROUGH ONE (03:30)
[2018-09-29 06:06] LABS: Hematocrit (blood only) 33.9 % (42-52); Hemoglobin 11.1 g/dL (14.0-18.0); Mean Corpuscular Hgb Conc 32.7 g/dL (32-36); Mean Corpuscular Volume 95.5 fL (80-100); Mean Platelet Volume 9.6 fL (7.4-10.4); Platelet Count 159 K/uL (130-400); RDW Coefficient of Variation 14.8 % (11.5-14.5); RDW Standard Deviation 51.9 fL (36.4-46.3); Red Blood Count 3.55 M/uL (4.7-6.1); White Blood Count 17.42 K/uL (4.8-10.8)
[2018-09-29 06:20] LABS: INR 2.3 (0.9-1.1)
[2018-09-29 06:35] LABS: BUN Creatinine Ratio 30.3 (10-20); Calcium 8.4 mg/dl (8.5-10.1); Creatinine Clr Calc Pharmacy 63.4 ml/min; Est GFR (African American) 67.4; Est GFR (Non-African American) 58.1; Magnesium 2.2 mg/dl (1.8-2.4); Potassium 4.6 mmol/L (3.5-5.1)
[2018-09-29] MEDS: INSULIN ASPART 100 UNITS/ML 3 ML PEN SC SCH ×4 (08:18→20:53)
[2018-09-29] MEDS: OXYCODONE HCL 15 MG TABCR (OXYCONTIN) PO SCH ×2 (08:19→21:07)
[2018-09-29] MEDS: DULOXETINE HCL 30 MG CAP PO SCH (08:19)
[2018-09-29] MEDS: INSULIN GLARGINE SOLOSTAR 100 UNITS/ML 3 ML PEN SC SCH ×2 (08:19→21:00)
[2018-09-29] MEDS: dexAMETHasone 4 MG TAB PO SCH ×2 (08:20→21:01)
[2018-09-29] MEDS: ALUMINUM/MAGNESIUM SUSP 30 ML UDC PO PRN (09:57)
[2018-09-29] MEDS: VANCOMYCIN HCL 1,500 MG in SODIUM CHLORIDE 0.9% 500 ML IV SCH (11:31)
--- NOTE | 2018-09-29 14:15 | Hospitalist Progress Note ---
Date of Service September 29, 2018 Assessment & Plan (1) Bacteremia: Both blood cultures on 09/26 were positive: One for Strep spc. & another with Enterococcus. Seen by ID who feel likely source is left leg ulcer which has had prior infections. - Continue vancomycin per ID - Repeat blood cx from 09/28 now has Gram(+) cocci; one negative. - TTE to look for endocarditis - Repeat blood cxs drawn on 09/29 - On 09/29, WBC remains elevated at 17. (2) Back pain: Back pain from metastatic disease. - Continue pain management - Palliative care consulted - Continue dexamethasone (3) TIANA (acute kidney injury): Normal baseline Cr ~1.0-1.2. Cr up to 1.9 on admission, present on arrival. - Given IV fluids initially - On 09/27, Cr down to 1.3, meaning TIANA had resolved. - Monitor Cr (4) Diabetes: A1c of 12.4% in 08/2018. - Continue basal bolus insulin (5) Depression: Had prior mood issues during last admission. In good spirits at this time. - Continue duloxetine (6) Adenocarcinoma: Recently diagnosed with metastatic adenocarcinoma of lung primary. Primary oncologist is Dr. Chaves. - Undergoing radiation oncology treatments with Dr. Chowdary - Molecular testing should be back within a few days which will help determine any immunotherapy potential (7) DVT (deep venous thrombosis): Previously diagnosed with a DVT. 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 - INR was >10 on admission; given vitamin K. - Was on a short heparin gtt - On 09/29, INR was 2.3. Subjective Feels well this morning. Tolerable lower back pain. Reports no fevers/chills, chest pain, shortness of breath, abdominal pain, nausea, or vomiting. Physical Exam Constitutional: + obese; no acute distress ENMT: external ear and nose normal, oropharynx normal Neck: normal visual inspection Respiratory: normal respiratory effort, lungs clear to auscultation Auscultation: + diminished lung sounds Cardiovascular: RRR, no murmur, no edema Vessels: dorsalis pedis pulses present Gastrointestinal (Abdomen): Inspection/Auscultation: abdomen normal to inspection and normal bowel sounds; abdomen not distended Percussion/Palpation: abdomen soft; abdomen nontender Neurologic: awake; not confused Psychiatric: Orientation: alert and oriented x 3 Results & Data Vital Signs (Past 12 Hours) Vital Signs Temp Pulse Pulse Resp BP BP Pulse Ox 09/29/18 12:06 36.7 C 74 16 136/78 96 09/29/18 08:11 36.4 C L 75 16 177/95 H 97 09/29/18 03:36 36.4 C L 78 20 155/97 H 99
[2018-09-29] MEDS: OXYCODONE HCL IR 5 MG TAB (IMMEDIATE RELEASE) PO PRN (15:30)
[2018-09-29] MEDS: WARFARIN SOD 3 MG TAB PO SCH (15:31)
[2018-09-29] MEDS: PSYLLIUM 58.6% POWDER PACKET PO SCH (21:01)
[2018-09-29] MEDS: ACETAMINOPHEN 325 MG TAB PO PRN (21:09)
[2018-09-30] MEDS ORDERED: VANCOMYCIN TROUGH ONE (03:30)
[2018-09-30 04:39] LABS: Hematocrit (blood only) 33.7 % (42-52); Hemoglobin 10.9 g/dL (14.0-18.0); Mean Corpuscular Hgb Conc 32.3 g/dL (32-36); Mean Corpuscular Volume 95.5 fL (80-100); Mean Platelet Volume 9.6 fL (7.4-10.4); Platelet Count 149 K/uL (130-400); RDW Coefficient of Variation 15.3 % (11.5-14.5); RDW Standard Deviation 52.8 fL (36.4-46.3); Red Blood Count 3.53 M/uL (4.7-6.1); White Blood Count 15.44 K/uL (4.8-10.8)
[2018-09-30 04:57] LABS: BUN Creatinine Ratio 28.6 (10-20); Calcium 8.2 mg/dl (8.5-10.1); Est GFR (African American) 66.7; Est GFR (Non-African American) 57.5; Potassium 4.7 mmol/L (3.5-5.1)
[2018-09-30] MEDS: VANCOMYCIN HCL 1,500 MG in SODIUM CHLORIDE 0.9% 500 ML IV SCH ×2 (05:14→20:44)
[2018-09-30] MEDS: DULOXETINE HCL 30 MG CAP PO SCH (08:43)
[2018-09-30] MEDS: dexAMETHasone 4 MG TAB PO SCH ×2 (08:43→20:43)
[2018-09-30] MEDS: INSULIN GLARGINE SOLOSTAR 100 UNITS/ML 3 ML PEN SC SCH ×2 (08:45→20:57)
[2018-09-30] MEDS: OXYCODONE HCL 15 MG TABCR (OXYCONTIN) PO SCH ×2 (08:45→20:43)
[2018-09-30] MEDS: INSULIN ASPART 100 UNITS/ML 3 ML PEN SC SCH ×4 (08:46→20:58)
[2018-09-30] MEDS: ALUMINUM/MAGNESIUM SUSP 30 ML UDC PO PRN (08:50)
--- NOTE | 2018-09-30 13:41 | Pharmacy Report ---
Pharmacy Abx Dose Short Note - Date of Service September 30, 2018 - Assessment & Plan Assessment 82 year old M receiving Vancomycin 1500mg IV Q16H for treatment of GPC bacteremia. Day # 4 of antimicrobial therapy. 2/2 blood cultures from 09/26 growing sifuentes sensitive enterococcus faecalis. 1/2 blood culture from 09/28 also grow e faecalis. sensitivities pending. blood cultures from 09/29 pending. Laboratory Tests 09/30/18 04:23 Vancomycin Trough 18.0 Plan Vancomycin * Trough level of 18 mcg/mL is therapeutic. * Continue dose of 1500 mg IV every 16 hours * Goal trough level : 15 to 20 mcg/mL * Trough or random level ordered for: 10/02/18 before 2000 dose. Pharmacy will continue to follow and will adjust dose/frequency as necessary. Thank you.
[2018-09-30] MEDS: WARFARIN SOD 3 MG TAB PO SCH (17:03)
--- NOTE | 2018-09-30 17:53 | Hospitalist Progress Note ---
Date of Service September 30, 2018 Assessment & Plan (1) Bacteremia: Both blood cultures on 09/26 were positive with Enterococcus. Seen by ID who feel likely source is left leg ulcer which has had prior infections. - Continue vancomycin per ID - Repeat blood cx from 09/28 also had Enterococcus - TTE on 09/29 was negative for endocarditis, but not fully sensitive. - Repeat blood cxs drawn on 09/29 - No growth to date - Will need to speak with ID re: EFREN vs. accepting TTE as rule out of endocarditis. Will also need to discuss abx type and duration. - Initially patient requested possible SNF/rehab, but today decided against it. Appears to have declined both PT/OT assessments. - Once ID gives final recs, can discharge home possibly with home health. (2) Back pain: Back pain from metastatic disease. - Continue pain management - Palliative care consulted - Continue home dexamethasone (3) TIANA (acute kidney injury): Normal baseline Cr ~1.0-1.2. Cr up to 1.9 on admission, present on arriva l. - Given IV fluids initially - On 09/27, Cr down to 1.3, meaning TIANA had resolved. - Monitor Cr (4) Diabetes: A1c of 12.4% in 08/2018. - Continue basal bolus insulin (5) Depression: Had prior mood issues during last admission. In good spirits at this time. - Continue duloxetine (6) Adenocarcinoma: Recently diagnosed with metastatic adenocarcinoma of lung primary. Primary oncologist is Dr. Chaves. - Undergoing radiation oncology treatments with Dr. Chowdary - Molecular testing should be back within a few days which will help determine any immunotherapy potential (7) DVT (deep venous thrombosis): Previously diagnosed with a DVT. 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 - INR was >10 on admission; given vitamin K. - Was on a short heparin gtt - On 09/29, INR was 2.3. - Continue warfarin Subjective Patient reports left shoulder pain which has bothered him in the past. Otherwise reports no fevers/chills, chest pain, shortness of breath, abdominal pain, nausea, or vomiting. Review of Systems Review of Systems: All systems reviewed & are unremarkable except as noted in HPI & below Physical Exam Constitutional: + obese; no acute distress ENMT: external ear and nose normal, oropharynx normal Neck: normal visual inspection Respiratory: normal respiratory effort, lungs clear to auscultation Auscultation: + diminished lung sounds Cardiovascular: RRR, no murmur, no edema Vessels: dorsalis pedis pulses present Gastrointestinal (Abdomen): Inspection/Auscultation: abdomen normal to inspection and normal bowel sounds; abdomen not distended Percussion/Palpation: abdomen soft; abdomen nontender Neurologic: awake; not confused Psychiatric: Orientation: alert and oriented x 3 Results & Data Vital Signs (Past 12 Hours) Vital Signs Temp Pulse Resp BP Pulse Ox 09/30/18 16:03 36.9 C 84 18 119/69 96 09/30/18 11:21 36.7 C 77 20 131/75 96 09/30/18 08:20 36.7 C 68 18 122/82 97
[2018-09-30] MEDS: PSYLLIUM 58.6% POWDER PACKET PO SCH (20:45)
[2018-10-01 06:41] LABS: Hematocrit (blood only) 34.1 % (42-52); Hemoglobin 11.2 g/dL (14.0-18.0); Mean Corpuscular Hgb Conc 32.8 g/dL (32-36); Mean Platelet Volume 9.8 fL (7.4-10.4); Platelet Count 149 K/uL (130-400); RDW Coefficient of Variation 15.3 % (11.5-14.5); RDW Standard Deviation 52.4 fL (36.4-46.3); Red Blood Count 3.59 M/uL (4.7-6.1); White Blood Count 16.52 K/uL (4.8-10.8)
[2018-10-01 07:23] LABS: BUN Creatinine Ratio 26.3 (10-20); Calcium 8.1 mg/dl (8.5-10.1); Creatinine Clr Calc Pharmacy 68.2 ml/min; Est GFR (Non-African American) 61.3; Magnesium 2.2 mg/dl (1.8-2.4); Potassium 4.5 mmol/L (3.5-5.1)
[2018-10-01] MEDS: DULOXETINE HCL 30 MG CAP PO SCH (09:14)
[2018-10-01] MEDS: dexAMETHasone 4 MG TAB PO SCH ×2 (09:14→20:49)
[2018-10-01] MEDS: OXYCODONE HCL 15 MG TABCR (OXYCONTIN) PO SCH ×2 (09:15→20:48)
[2018-10-01] MEDS: INSULIN GLARGINE SOLOSTAR 100 UNITS/ML 3 ML PEN SC SCH ×2 (09:16→20:50)
[2018-10-01] MEDS: INSULIN ASPART 100 UNITS/ML 3 ML PEN SC SCH ×4 (09:18→20:52)
[2018-10-01] MEDS ORDERED: VANCOMYCIN TROUGH ONE (09:45)
--- NOTE | 2018-10-01 10:55 | Infectious Disease Progress Nt ---
Date of Service October 01, 2018 Assessment & Plan (1) Other streptococcal sepsis: continue vanco at current dose, trough 18. PCN allergy. will need 4 weeks IV vanco, echo negative for veg but with recurrent + blood cultures 09/26 and 09/28 would prefer longer course of IV abx. will need weekly cbc, cmp, esr, vanco trough while on abx - maintain 15-20. Can follow with ID post d/c from hospital. plan to d/c home with home health. Subjective pt not in room during rounds. Initial blood cultures 09/26 and 1 sets from repeat cultures on 09/28 all growing sifuentes sensitive E. faecalis, repeat 09/29 negative to date. Remains on vanco, tolerating well. has pcn allergy. Previous leg cultures have growing GBS, not E. faecalis. Vanco trough 18. wbc 16, creat 1.1. Echo done - no veg seen on TTE. Results & Data Vital Signs (Past 12 Hours) Vital Signs Temp Pulse Pulse Resp BP Pulse Ox 10/01/18 10:16 36.7 C 98 H 20 134/78 95 10/01/18 07:30 36.3 C L 64 18 146/70 H 93 10/01/18 04:20 36.8 C 75 20 120/86 98 10/01/18 00:22 36.7 C 79 20 141/78 H 96 Laboratory Results Microbiology 09/29/18 06:54 Blood Blood Culture - Preliminary No growth to date. 09/29/18 06:47 Blood Blood Culture - Preliminary No growth to date. 09/28/18 06:38 Blood Blood Culture - Preliminary Enterococcus faecalis 09/28/18 06:56 Blood Blood Culture - Preliminary No growth to date. 09/26/18 18:34 Blood Blood Culture - Preliminary Enterococcus faecalis 09/26/18 18:31 Blood Blood Culture - Preliminary Enterococcus faecalis
[2018-10-01] MEDS: VANCOMYCIN HCL 1,500 MG in SODIUM CHLORIDE 0.9% 500 ML IV SCH (13:02)
[2018-10-01] MEDS: WARFARIN SOD 3 MG TAB PO SCH (17:33)
[2018-10-01] MEDS: PSYLLIUM 58.6% POWDER PACKET PO SCH (17:34)
[2018-10-01] MEDS: OXYCODONE HCL IR 5 MG TAB (IMMEDIATE RELEASE) PO PRN (17:37)
--- NOTE | 2018-10-01 23:39 | Hospitalist Progress Note ---
Date of Service October 01, 2018 Assessment & Plan (1) Bacteremia: Both blood cultures on 09/26 were positive with Enterococcus. Seen by ID who feel likely source is left leg ulcer which has had prior infections. - Continue vancomycin per ID - Repeat blood cx from 09/28 also had Enterococcus - TTE on 09/29 was negative for endocarditis, but not fully sensitive. - Repeat blood cxs drawn on 09/29 - No growth to date - ID wants patient to be on antibiotics for at least 4 weeks. -No further investigations at this time. - Initially patient requested possible SNF/rehab, but today decided against it. Appears to have declined both PT/OT assessments. -As noted above, will need to convince patient to go to SNF as family does not feel they can handle giving him SNF. (2) Back pain: Back pain from metastatic disease. - Continue pain management - Palliative care consulted - Continue home dexamethasone (3) TIANA (acute kidney injury): Normal baseline Cr ~1.0-1.2. Cr up to 1.9 on admission, present on arrival. - Given IV fluids initially - On 09/27, Cr down to 1.3, meaning TIANA had resolved. - Monitor Cr (4) Diabetes: A1c of 12.4% in 08/2018. - Continue basal bolus insulin (5) Depression: Had prior mood issues during last admission. In good spirits at this time. - Continue duloxetine (6) Adenocarcinoma: Recently diagnosed with metastatic adenocarcinoma of lung primary. Primary oncologist is Dr. Chaves. - Undergoing radiation oncology treatments with Dr. Chowdary - Molecular testing should be back within a few days which will help determine any immunotherapy potential (7) DVT (deep venous thrombosis): Previously diagnosed with a DVT. 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 - INR was >10 on admission; given vitamin K. - Was on a short heparin gtt - On 09/29, INR was 2.3. INR will be checked tomorrow. - Continue warfarin Spent 35 minutes in management of patient. Subjective Patient reports that his pain is better controlled. Patient states that he does not want to be discharged until he speaks with oncology regarding his cancer. Again, patient is not agreeable to placement. But is agreeable to discharge with home health. D/W caser in, patient 's does not feel she can handle giving the patient IV antibiotic at home. May require nursing facility placement. Review of Systems Review of Systems: All systems reviewed & are unremarkable except as noted in HPI & below Physical Exam Physical Exam: Constitutional: + obese; no acute distress ENMT: external ear and nose normal, oropharynx normal Neck: normal visual inspection Respiratory: normal respiratory effort, lungs clear to auscultation A uscultation: + diminished lung sounds Cardiovascular: RRR, no murmur, no edema Vessels: dorsalis pedis pulses present Gastrointestinal (Abdomen): Inspection/Auscultation: abdomen normal to inspecti on and normal bowel sounds; abdomen not distended Percussion/Palpation: abdomen soft; abdomen nontender Neurologic: awake; not confused Psychiatric: Orientation: alert and oriented x 3 Results & Data Vital Signs (Past 12 Hours) Vital Signs Temp Pulse Resp BP BP Pulse Ox 10/01/18 23:38 36.8 C 89 20 112/63 96 10/01/18 19:12 36.7 C 83 20 123/73 98 10/01/18 15:26 36.7 C 81 20 142/69 H 93 10/01/18 11:41 36.8 C 96 H 20 138/74 94
[2018-10-02] MEDS ORDERED: VANCOMYCIN TROUGH ONE ×2 (03:30→19:30)
[2018-10-02] MEDS: VANCOMYCIN HCL 1,500 MG in SODIUM CHLORIDE 0.9% 500 ML IV SCH (03:54)
[2018-10-02 04:00] LABS: Hematocrit (blood only) 33.8 % (42-52); Hemoglobin 11.1 g/dL (14.0-18.0); Mean Corpuscular Hgb Conc 32.8 g/dL (32-36); Mean Corpuscular Volume 93.4 fL (80-100); Mean Platelet Volume 9.6 fL (7.4-10.4); Platelet Count 150 K/uL (130-400); RDW Coefficient of Variation 15.2 % (11.5-14.5); RDW Standard Deviation 51.8 fL (36.4-46.3); Red Blood Count 3.62 M/uL (4.7-6.1); White Blood Count 14.93 K/uL (4.8-10.8)
[2018-10-02 04:17] LABS: Creatinine Clr Calc Pharmacy 61.2 ml/min; Est GFR (African American) 62.2; Est GFR (Non-African American) 53.7
[2018-10-02 04:18] LABS: INR 3.5 (0.9-1.1); Prothrombin Time 32.9 Seconds (9.0-12.0)
[2018-10-02] MEDS ORDERED: VANCOMYCIN HCL 1,250 MG in SODIUM CHLORIDE 0.9% 250 ML IV SCH (08:00)
[2018-10-02] MEDS: OXYCODONE HCL 15 MG TABCR (OXYCONTIN) PO SCH ×2 (08:56→20:31)
[2018-10-02] MEDS: DULOXETINE HCL 30 MG CAP PO SCH (08:56)
[2018-10-02] MEDS: dexAMETHasone 4 MG TAB PO SCH ×2 (08:57→20:28)
[2018-10-02] MEDS: INSULIN GLARGINE SOLOSTAR 100 UNITS/ML 3 ML PEN SC SCH ×2 (08:58→20:32)
[2018-10-02] MEDS: INSULIN ASPART 100 UNITS/ML 3 ML PEN SC SCH ×4 (08:59→20:33)
--- NOTE | 2018-10-02 10:05 | Pharmacy Report ---
Pharmacy Abx Dose Short Note - Date of Service October 02, 2018 - Assessment & Plan Assessment * Mr Yap is an 82 year old M receiving Vancomycin for treatment of bacteremia, likely secondary to L leg ulcer * Blood cultures positive for Enterococcus faecalis. TTE on 09/29 was negative for endocarditis. * ID has been consulted and recommends 4 weeks of IV vancomycin therapy. This is to be continued post-discharge with home health. * Vancomycin trough drawn this morning reveals some accumulation, which is not unexpected. * Vanc regimen reduced and modified this morning to allow for q24h dosing, for ease of transition to outpatient therapy. * Microbiology * 09/26/18 18:34 Blood Blood Culture - Final Enterococcus faecalis -- sifuentes sensitive * 09/26/18 18:31 Blood Blood Culture - Final Enterococcus faecalis * 09/28/18 06:56 Blood Blood Culture - Preliminary No growth to date. * 09/28/18 06:38 Blood Blood Culture - Preliminary Enterococcus faecalis Plan Vancomycin * Trough level of 22 mcg/mL is slightly supratherapeutic, indicating accumulation * Change to Vancomycin 1750 mg IV every 24 hours * This is a ~22% dose reduction. Anticipate that dose may require further reduction in ~1 week or so. * Goal trough level for bacteremia, vanc ANNA 2: ~18 to 20 mcg/mL * Will check another trough level in a couple of days if patient remains hospitalized. Otherwise, would recommend checking another level as an outpatient and then at least weekly until therapy has been completed. * It is likely that patient will continue to accumulate vancomycin, given BMI >35kg/m2, 82yo, SCr 1.25 Pharmacy will continue to follow and will adjust dose/frequency as necessary. Thank you.
[2018-10-02] MEDS: VANCOMYCIN HCL 1,750 MG in SODIUM CHLORIDE 0.9% 500 ML IV SCH (10:31)
--- NOTE | 2018-10-02 12:49 | Consultation Report ---
DATE OF CONSULTATION: 10/02/2018 MEDICAL ONCOLOGY CONSULTATION REASON FOR CONSULTATION: Metastatic non-small cell lung cancer. HISTORY OF PRESENT ILLNESS: Mr. Yap is an 82-year-old gentleman who was admitted to [facility] with generalized weakness and intractable low back pain on 09/26/2018, currently under the hospitalist service. Dr. Chaves had first met Mr. Yap back on 09/14 from a previous admission. At that time, he was found to have a relatively large right middle lobe lung lesion that Dr. Toro had been observing. The lesion had grown considerably by scans earlier this year or so. Dr. Toro was planning a diagnostic procedure. The patient had presented to the Emergency Room in early August with suicidal ideation, worsening right hip and buttock pain. In general, he had been complaining of general decline for about 1-2 months previously losing up to 20 pounds. He underwent bronchoscopy with EBUS on 09/03/2018, in which numerous biopsies were negative. However, one transbronchial aspirate was positive for adenocarcinoma and had returned for admission for worsening of hip pain. Scans revealed a large destructive lesion in the right sacrum. He also has evidence for peritoneal nodule as well as adrenal metastasis. Adenocarcinoma of the lung has been confirmed. The patient is a very high PD-L1 expresser, 100% to be precise. Upon readmission, he is now receiving palliative radiation therapy to the sacrum. States his pain has improved dramatically. He requested to reconvene with medical oncology and hence today's consultation. PAST MEDICAL HISTORY: Includes diabetes mellitus, deep vein thromboses, major depressive disorder and prostate cancer. MEDICATIONS: Prior to admission include atorvastatin 40 mg p.o. daily, duloxetine 60 mg p.o. daily, lisinopril 40 mg p.o. daily, oxybutynin 5 mg p.o. t.i.d., NovoLog insulin as per instruction, colchicine 0.6 mg p.o. b.i.d. p.r.n., fentanyl 12 mcg topical q.72 hours, Lantus U-100 insulin 32 units subQ q.p.m. and 36 units subQ q.a.m., dexamethasone 4 mg p.o. q.12 hours for 10 days, oxycodone 5 mg p.o. q.6 hours p.r.n., OxyContin 15 mg p.o. b.i.d., warfarin 4 mg p.o. daily. ALLERGIES: DOXYCYCLINE, SULFA, PENICILLINS, METFORMIN, AND SIMVASTATIN. SOCIAL HISTORY: The patient is , is a reformed smoker. Negative for alcohol or illicit drugs. FAMILY HISTORY: Noncontributory. REVIEW OF SYSTEMS: CONSTITUTIONAL: As per HPI, most notably for generalized weakness, decline, anorexia and weight loss. Intractable low back and sacral pain attributable to disease progression. SKIN: No rashes or lesions. No history of dermatoses. HEENT: Denies headaches, lightheadedness or dizziness. No acute visual or hearing deficits. No sinus symptoms, sore throat or dysphagia. LYMPHATICS: No history of lymphoproliferative disease. CARDIAC: No history of coronary artery disease, no angina or palpitations. PULMONARY: Positive for COPD. He is not acutely short of breath or dyspneic on exertion. He reports no cough or hemoptysis. GASTROINTESTINAL: Negative for abdominal pain, nausea, vomiting, diarrhea or constipation, hematochezia or melena stools. GENITOURINARY: No hematuria, dysuria, or urinary incontinence. Prior history of prostate cancer established in 2006, Alicia score 8, treated with IMRT and brachytherapy. MUSCULOSKELETAL: As per HPI. ENDOCRINE: Positive for diabetes mellitus. NEUROLOGICAL: Negative for seizure, stroke, or migraine headache. HEMATOLOGIC: Negative for anemia, thrombophilia or bleeding diathesis by history. PHYSICAL EXAMINATION: GENERAL: Mr. Yap is a morbidly obese 82-year-old gentleman, awake, alert and appropriate, in no acute distress. VITAL SIGNS: Temperature 36.8, pulse 85, respiratory rate 20, blood pressure 132/70. SKIN: Warm, dry, noncyanotic without petechia, rash or ecchymosis. HEENT: Head is atraumatic, normocephalic. Eyes: PERRLA, EOMI. Sclerae nonicteric. No conjunctival injection. Nares are patent without rhinorrhea or discharge. Throat is clear. Tongue is midline. Mucous membranes are moist. Dentition in poor repair. NECK: Supple without JVD or thyromegaly. Trachea is midline. LYMPHATICS: No cervical or supraclavicular palpable nodes. HEART: Regular rate and rhythm. No clicks, rubs, murmurs or gallops. LUNGS: Clear to auscultation bilaterally. ABDOMEN: Soft, nontender, nondistended, without palpable hepatosplenomegaly. EXTREMITIES: No calf tenderness or swelling. No clubbing, cyanosis or edema. NEUROLOGICAL: He is awake, alert and oriented x3. Cranial nerves grossly intact. LABORATORY DATA: WBC count 14,930, hemoglobin 11.1, platelet count 150,000. PT 32.9 seconds, INR 3.5. Creatinine 1.25. RADIOGRAPHIC DATA: CTA of the chest done on admission: Nonocclusive filling defects seen in the right lower lobe as described above consistent with chronic embolus. Slight progression of pulmonary metastatic disease and slight increase in size of right middle lobe mass. Partially visualized left adrenal gland metastasis is again noted. IMPRESSION: 1. Intractable back pain attributable to disease progression. 2. Metastatic non-small cell lung cancer (adenocarcinoma) with high PD-L1 expression 100%. 3. Bacteremia (enterococcus). 4. Acute renal injury. 5. Diabetes mellitus. 6. Major depressive disorder. PLAN: I had the pleasure of visiting with Mr. Yap today. He was quite anxious, wanting further information regarding diagnosis and treatment options moving forward. I went to the pathology department obtaining information on biomarkers, specifically PD-L1 and found that Mr. Yap is indeed a very high expresser and therefore will most likely proceed with pembrolizumab. Dr. Chaves had seen Mr. Yap originally and is requesting EGFR status as well from pathology. Mr. Yap seems to be progressing reasonably well with pain management, currently receiving palliative XRT. We will make arrangements to have him seen in the office expediently and obtain insurance approval for pembrolizumab moving forward. We will make arrangements with chemotherapy nurses to sit down and further discuss side effects and treatment schedule with Mr. Yap. I provided a brief overview of side effects to be anticipated with these agents. Will discuss personally with Dr. Chaves whether he or I will continue to manage Mr. Yap moving forward. His frequent hospitalizations have made it difficult to coordinate outpatient followup, and hopefully, once his pain is controlled, we will effectively treat him in the outpatient arena. I have nothing further to add, agree with current medical management otherwise. We will coordinate initiation of immunotherapy with his ongoing outpatient antibiotics for bacteremia. Thank you very much for allowing us to participate in his care. SAY
--- NOTE | 2018-10-02 14:00 | Palliative Care Progress Note ---
Date of Service October 02, 2018 Assessment & Plan (1) Cancer related pain: -Pain is 0/10 at this time. -Continue current pain regimen of Oxycontin 15mg PO BID and Oxy IR 5mg PO Q6h PRN breakthrough pain. -Will officially sign off. Please contact us with any further palliative care needs. (2) Adenocarcinoma: -Stage IV lung adenocarcinoma with widespread metastatic disease. Currently undergoing palliative radiation to destructive sacral lesion. -Had adnother radiation treatment today. -Received the news that he has 100% PDL-1 expression and is a candidate for Keytruda therapy. Patient is quite happy about this. (3) Bacteremia: -Enterococcal bacteremia. -ID following. -Will need 4 weeks of IV abx. Case management working to set up. -Patient wants to go home, will depend on 's comfort level with assisting with IV abx. Subjective Patient is feeling well and encouraged today. He got the news from Dr. Larson that he is a candidate for Keytruda therapy. patient is very excited and anxious to get home. Review of Systems Review of Systems: Patient denies fever, chills, weakness, pain, CP, SOB, N/V. Physical Exam Constitutional: + obese; no acute distress ENMT: external ear and nose normal, oropharynx normal Neck: normal visual inspection Respiratory: normal respiratory effort, lungs clear to auscultation Auscultation: + diminished lung sounds Cardiovascular: RRR, no murmur, no edema Vessels: dorsalis pedis pulses present Neurologic: awake; not confused Psychiatric: Orientation: alert and oriented x 3 Results & Data Vital Signs (Past 12 Hours) Vital Signs Temp Pulse Resp BP Pulse Ox 10/02/18 11:28 36.8 C 85 20 132/70 98 10/02/18 08:00 36.4 C L 73 20 123/73 97 Time Spent Midlevel 25 minutes with >50% of time spent at bedside with patient discussing condition and pain management.
--- NOTE | 2018-10-02 14:40 | Infectious Disease Progress Nt ---
Date of Service October 02, 2018 Assessment & Plan (1) Other streptococcal sepsis: continue vanco at current dose, trough 18. PCN allergy. will need 4 weeks IV vanco, echo negative for veg but with recurrent + blood cultures 09/26 and 09/28 would prefer longer course of IV abx. will need weekly cbc, cmp, esr, vanco trough while on abx - maintain 15-20. Can follow with ID post d/c from hospital. plan to d/c home with home health. Subjective pt tolerating vanco. remains afebrile. awaiting plans d/c home vs snf. heme onc following. Results & Data Vital Signs (Past 12 Hours) Vital Signs Temp Pulse Resp BP Pulse Ox 10/02/18 11:28 36.8 C 85 20 132/70 98 10/02/18 08:00 36.4 C L 73 20 123/73 97 Laboratory Results Microbiology 09/26/18 18:34 Blood Blood Culture - Final Enterococcus faecalis 09/26/18 18:31 Blood Blood Culture - Final Enterococcus faecalis 09/29/18 06:54 Blood Blood Culture - Preliminary No growth to date. 09/29/18 06:47 Blood Blood Culture - Preliminary No growth to date. 09/28/18 06:38 Blood Blood Culture - Preliminary Enterococcus faecalis 09/28/18 06:56 Blood Blood Culture - Preliminary No growth to date.
[2018-10-02] MEDS: PSYLLIUM 58.6% POWDER PACKET PO SCH (17:46)
[2018-10-02] MEDS: WARFARIN SOD 3 MG TAB PO SCH (17:48)
--- NOTE | 2018-10-02 22:44 | Hospitalist Progress Note ---
Date of Service October 02, 2018 Assessment & Plan (1) Bacteremia: Both blood cultures on 09/26 were positive with Enterococcus. Seen by ID who feel likely source is left leg ulcer which has had prior infections. - Continue vancomycin per ID - Repeat blood cx from 09/28 also had Enterococcus - TTE on 09/29 was negative for endocarditis, but not fully sensitive. - Repeat blood cxs drawn on 09/29 - No growth to date - ID wants patient to be on antibiotics for at least 4 weeks. -No further investigations at this time. - Initially patient requested possible SNF/rehab, but has now decided against it. Appears to have declined both PT/OT assessments. - Patient willing to administer medicine at home with home health. -will order ultrasound guided peripheral line. (2) Back pain: Back pain from metastatic disease. - Continue pain management - Palliative care consulted - Continue home dexamethasone (3) TIANA (acute kidney injury): Normal baseline Cr ~1.0-1.2. Cr up to 1.9 on admission, present on arrival. - Given IV fluids initially - On 09/27, Cr down to 1.3, meaning TIANA had resolved. - Monitor Cr (4) Diabetes: A1c of 12.4% in 08/2018. - Continue basal bolus insulin (5) Depression: Had prior mood issues during last admission. In good spirits at this time. - Continue duloxetine (6) Adenocarcinoma: Recently diagnosed with metastatic adenocarcinoma of lung primary. Primary oncologist is Dr. Chaves. - Undergoing radiation oncology treatments with Dr. Chowdary - Molecular testing should be back within a few days which will help determine any immunotherapy potential (7) DVT (deep venous thrombosis): Previously diagnosed with a DVT. 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 - INR was >10 on admission; given vitamin K. - Was on a short heparin gtt - INR is 3.5 today. will hold warfarin. INR will be checked tomorrow. - Continue warfarin Spent 25 minutes in management of patient. Subjective Patient reports no new symptoms today. He reports that he is ok with getting home health and states that he can handle managing his own IV vancomycin. He reports feeling better given that he spoke with Dr. Corral and was given positive information regarding his cancer Review of Systems Review of Systems: All systems reviewed & are unremarkable except as noted in HPI & below Physical Exam Physical Exam: Constitutional: + obese; no acute distress ENMT: external ear and nose normal, oropharynx normal Neck: normal visual inspection Respiratory: normal respiratory effort, lungs clear to auscultation Auscultation: + diminished lung sounds Cardiovascular: RRR, no murmur, no edema Vessels: dorsalis pedis pulses pre sent Gastrointestinal (Abdomen): Inspection/Auscultation: abdomen normal to inspection and normal bowel sounds; abdomen not distended Percussion/Palpation: abdomen soft; abdomen nontender Neurologic: awake; not confused Psychiatric: Orientation: alert and oriented x 3 Results & Data Vital Signs (Past 12 Hours) Vital Signs Temp Pulse Resp BP Pulse Ox 10/02/18 15:00 36.6 C 78 20 136/79 95 10/02/18 11:28 36.8 C 85 20 132/70 98
[2018-10-03] MEDS: dexAMETHasone 4 MG TAB PO SCH ×2 (08:08→20:55)
[2018-10-03] MEDS: DULOXETINE HCL 30 MG CAP PO SCH (08:08)
[2018-10-03] MEDS: OXYCODONE HCL 15 MG TABCR (OXYCONTIN) PO SCH ×2 (08:08→20:55)
[2018-10-03] MEDS: INSULIN ASPART 100 UNITS/ML 3 ML PEN SC SCH ×4 (08:13→20:56)
[2018-10-03] MEDS: INSULIN GLARGINE SOLOSTAR 100 UNITS/ML 3 ML PEN SC SCH ×2 (08:14→22:32)
[2018-10-03 08:24] LABS: Creatinine Clr Calc Pharmacy 71.8 ml/min; Est GFR (African American) 76.8; Est GFR (Non-African American) 66.3
[2018-10-03] MEDS: VANCOMYCIN HCL 1,750 MG in SODIUM CHLORIDE 0.9% 500 ML IV SCH ×2 (10:18→16:30)
[2018-10-03] MEDS: WARFARIN SOD 3 MG TAB PO SCH (16:29)
[2018-10-03] MEDS ORDERED: Nursing to Pharmacy Communication ONE (17:41)
[2018-10-03] MEDS: PSYLLIUM 58.6% POWDER PACKET PO SCH (18:25)
[2018-10-03] MEDS ORDERED: PSYLLIUM 58.6% POWDER PACKET PO SCH (21:00)
--- NOTE | 2018-10-03 23:48 | Hospitalist Progress Note ---
Date of Service October 03, 2018 Assessment & Plan (1) Bacteremia: Both blood cultures on 09/26 were positive with Enterococcus. Seen by ID who feel likely source is left leg ulcer which has had prior infections. - Continue vancomycin per ID - Repeat blood cx from 09/28 also had Enterococcus - TTE on 09/29 was negative for endocarditis, but not fully sensitive. - Repeat blood cxs drawn on 09/29 - No growth to date - ID wants patient to be on antibiotics for at least 4 weeks. -No further investigations at this time. - Initially patient requested possible SNF/rehab, but has now decided against it. Appears to have declined both PT/OT assessments. - Patient willing to administer medicine at home with home health. -Cancelled peripheral U/S guided line, due to vanco may cause tissue damage. Will order PICC line, consent obtained (2) Back pain: Back pain from metastatic disease. - Continue pain management - Palliative care consulted - Continue home dexamethasone (3) TIANA (acute kidney injury): Normal baseline Cr ~1.0-1.2. Cr up to 1.9 on admission, present on arrival. - Given IV fluids initially - On 09/27, Cr down to 1.3, meaning TIANA had resolved. - Monitor Cr (4) Diabetes: A1c of 12.4% in 08/2018. - Continue basal bolus insulin (5) Depression: Had prior mood issues during last admission. In good spirits at this time. - Continue duloxetine (6) Adenocarcinoma: Recently diagnosed with metastatic adenocarcinoma of lung primary. Primary oncologist is Dr. Chaves. - Undergoing radiation oncology treatments with Dr. Chowdary - Molecular testing should be back within a few days which will help determine any immunotherapy potential (7) DVT (deep venous thrombosis): Previously diagnosed with a DVT. 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 - INR was >10 on admission; given vitamin K. - Was on a short heparin gtt - INR is 3.5 today. will hold warfarin. INR will be checked tomorrow. - Continue warfarin Spent 25 minutes in management of patient. Subjective 82 yo male reports no new complaints today. He states feeling well. Review of Systems Review of Systems: All systems reviewed & are unremarkable except as noted in HPI & below Physical Exam Physical Exam: Constitutional: + obese; no acute distress ENMT: external ear and nose normal, oropharynx normal Neck: normal visual inspection Respiratory: normal respiratory effort, lungs clear to auscultation Auscultation: + diminished lung sounds Cardiovascular: RRR, no murmur, no edema Vessels: dorsalis pedis pulses present Gastrointestinal (Abdomen): Inspection/Auscultation: abdomen normal to inspection and normal bowel sounds; abdomen not distended Percussion/Palpation: abdomen soft; abdomen nontender Neurologic: awake; not confused Psychiatric: Orientation: alert and oriented x 3 Results & Data Vital Signs (Past 12 Hours) Vital Signs Temp Pulse Resp BP BP Pulse Ox 10/03/18 23:00 36.6 C 73 20 110/58 L 99 10/03/18 19:19 36.8 C 76 18 139/95 97 10/03/18 14:57 37.0 C 71 18 112/71 97
[2018-10-04] MEDS: DULOXETINE HCL 30 MG CAP PO SCH (08:11)
[2018-10-04] MEDS: dexAMETHasone 4 MG TAB PO SCH (08:11)
[2018-10-04] MEDS: OXYCODONE HCL 15 MG TABCR (OXYCONTIN) PO SCH (08:19)
[2018-10-04] MEDS: INSULIN ASPART 100 UNITS/ML 3 ML PEN SC SCH ×2 (08:20→12:32)
[2018-10-04] MEDS: INSULIN GLARGINE SOLOSTAR 100 UNITS/ML 3 ML PEN SC SCH (08:21)
[2018-10-04] MEDS: OXYCODONE HCL IR 5 MG TAB (IMMEDIATE RELEASE) PO PRN (09:05)
[2018-10-04] MEDS ORDERED: VANCOMYCIN TROUGH ONE (09:30)
[2018-10-04] MEDS: VANCOMYCIN HCL 1,750 MG in SODIUM CHLORIDE 0.9% 500 ML IV SCH (11:23)
[2018-10-04] MEDS: WARFARIN SOD 3 MG TAB PO SCH (16:33)
--- NOTE | 2018-10-11 07:30 | Discharge Summary ---
Date of Service October 04, 2018 Admission HPI Per Admitting Provider 82 year old male who presents to the Emergency Department with complaints of weakness over the last several weeks. He reports feeling short of breath but denies having chest pain. The patient states that laying flat does not exacerbate his shortness of breath. He reports a history of a PE 10-15 years ago. The patient states that he is supposed to be getting radiation for cancer. He states that he is still on Coumadin and states that he wears Oxygen at night. In the ER he found a white count of 26,000 and INR greater than 10. His last INR check was September 19 at 3.9 this is the third admission in august, He is known he had a focal right middle lobe adenocarcinoma. As part of the workup for his adenocarcinoma he had an outpatient PET scan to shows multiple areas of metastasis but does also have confirming 5 cm sacral bony destructive lesion as well as intra-abdominal adrenal and muscular metastasis in the arm as well as a contralateral lung suspicious mass. During his most recent stay he was deemed no surgical intervention would be undertaken Pt continues to have significant oncological pain, mostly hip. fairly controlled with oxycontin but still with breakthru pain leukocytosis maybe from dexamethasone Principal Diagnosis BACTEREMIA Discharge Exam Constitutional: + obese; no acute distress ENMT: external ear and nose normal, oropharynx normal Neck: normal visual inspection Respiratory: normal respiratory effort, lungs clear to auscultation Auscultation: + diminished lung sounds Cardiovascular: RRR, no murmur, no edema Vessels: dorsalis pedis pulses present Gastrointestinal (Abdomen): Inspection/Auscultation: abdomen normal to inspection and normal bowel sounds; abdomen not distended Percussion/Palpation: abdomen soft; abdomen nontender Neurologic: awake; not confused Psychiatric: Orientation: alert and oriented x 3 Discharge Data Allergies Allergy/AdvReac Type Severity Reaction Status Date / Time doxycycline Allergy Intermediate hives Verified 09/26/18 11:12 Sulfa (Sulfonamide Allergy Intermediate lip Verified 09/26/18 11:12 Antibiotics) swelling Penicillins Allergy Unknown HIVES Verified 09/26/18 11:12 metformin AdvReac Intermediate diarrhea Verified 09/26/18 11:12 simvastatin AdvReac Intermediate myalgia Verified 09/26/18 11:12 Consultations 09/26/18 14:01 ED Decision to Admit Stat 09/26/18 18:01 Consult Case Management - Discharge Planning Routine Consult Palliative Care Stat 09/28/18 13:10 Consult Infectious Diseases Routine 10/01/18 13:58 Consult Oncology Routine Ordered Studies 09/26/18 11:05 CT angio chest PE protocol Stat Hospital Course (1) Bacteremia: Both blood cultures on 09/26 were positive with Enterococcus. Seen by ID who feel likely source is left leg ulcer which has had prior infections. - Continue vancomycin per ID - Repeat blood cx from 09/28 also had Enterococcus - TTE on 09/29 was negative for endocarditis, but not fully sensitive. - Repeat blood cxs drawn on 09/29 - No growth to date - ID wants patient to be on antibiotics for at least 4 weeks. -No further investigations at this time. - Initially patient requested possible SNF/rehab, but has now decided against it. Appears to have declined both PT/OT assessments. - Patient willing to administer medicine at home with home health. -Cancelled peripheral U/S guided line, due to vanco may cause tissue damage. ORDERED PICC line, consent obtained. PICC LINE PLACED. OK TO DISCHARGE (2) Back pain: Back pain from metastatic disease. - Continue pain management - Palliative care consulted - Continue home dexamethasone (3) TIANA (acute kidney injury): Normal baseline Cr ~1.0-1.2. Cr up to 1.9 on admission, present on arrival. - Given IV fluids initially - On 09/27, Cr down to 1.3, meaning TIANA had resolved. - Monitor Cr (4) Diabetes: A1c of 12.4% in 08/2018. - Continue basal bolus insulin (5) Depression: Had prior mood issues during last admission. In good spirits at this time. - Continue duloxetine (6) Adenocarcinoma: Recently diagnosed with metastatic adenocarcinoma of lung primary. Primary oncologist is Dr. Chaves. - Undergoing radiation oncology treatments with Dr. Chowdary - Molecular testing should be back within a few days which will help determine any immunotherapy potential (7) DVT (deep venous thrombosis): Previously diagnosed with a DVT. 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 - INR was >10 on admission; given vitamin K. - Was on a short heparin gtt - INR is 3.5 today. will hold warfarin. INR will be checked tomorrow. - Continue warfarin Total Time Total Time Spent Total Time Spent (In Minutes): 33 Total Time Includes: Examination of the Patient, Discharge Planning and Medication Reconciliation Discharge Plan Discharge Items Patient Disposition: Home - Home Health Services Reason For Visit: COAGULAPATHY,ONCOLOGIC PAIN Discharge Diagnosis: Bacteria in blood stream Discharge Goals: Decrease discomfort Activity: Resume your previous activity Non-emergency contact: Primary Care Provider Call non-emergency contact if: you have any medication questions Follow-up/Referrals: Joanne Baptiste PA-C [Primary Care Provider] - 10/09/18 11:00 am (Please, follow up with Joanne Baptiste PA-C on mondayOctober 09 at 11:00 am. *If you need to change this appointment, call the office at [phone].) Emmy Valdez DO [Physician] - 10/26/18 1:15 pm (Please, follow up with Dr. Emmy Valdez (infectious disease specialist) on MondayOctober 26 at 1:15 pm. *The office is located in [address] of [facility]. This is the big building next to this hospital. If you need to change this appointment, call the office at [phone]. ) Diet: Carb Consistent or DM2 Addtl Provider Instructions: Patient is going to be discharged on IV vancomycin. will need weekly cbc, cmp, esr, vanco trough while on abx - maintain 15-20. Can follow with ID post d/c from hospital Prescriptions: New warfarin [Coumadin] 3 mg Tablet 3 mg PO DAILY@1600 Qty: 30 RF: 0 acetaminophen [Mapap (acetaminophen)] 325 mg Tablet 650 mg PO Q4H PRN (Reason: pain) Qty: 30 RF: 0 dexamethasone 4 mg Tablet 4 mg PO Q12 Qty: 60 RF: 0 vancomycin 1.5 gram recon soln 1.75 gm IV Q24H Qty: 28 RF: 0 Continued duloxetine 30 mg capsule,delayed release(DR/EC) 30 mg PO QAM RF: 0 Novolog U-100 Insulin aspart 100 unit/mL solution See Rx Instructions .ROUTE .COMPLEX RF: 0 colchicine 0.6 mg tablet 0.6 mg PO BID PRN (Reason: Gout Flare) RF: 0 Lantus U-100 Insulin 100 unit/mL solution 36 unit subcut QAM Qty: 0 RF: 0 Lantus U-100 Insulin 100 unit/mL solution 32 unit subcut QPM Qty: 0 RF: 0 oxycodone 5 mg tablet 5 mg PO Q6 PRN (Reason: Pain) RF: 0 oxycodone [OxyContin] 15 mg tablet,oral only,ext.rel.12 hr 15 mg PO BID RF: 0 Discontinued fentanyl 12 mcg/hr patch 72 hour 12 mcg topical [id number] RF: 0 warfarin 4 mg tablet 4 mg PO QAM RF: 0 Stand-Alone Forms: [facility] Discharge Orders: Discharge Order (Routine); Ordered 10/04/18 Ordered By: Masoud Kenny Admission Data Admit Date/Time: 09/26/18 15:08 Attending Provider: Masoud Kenny Admit Provider: Wyatt Corral Primary Care Provider: Joanne Baptiste Other Providers: Wyatt Corral ; Lele Cosme ; Colby Larson V ; Home,Nursing Agency Service: Oncology Other Interventions: Discharge Summary Assessment (RN) Last Done: 10/04/18 15:38 DC Date/Time DO NOT enter until pt leaves facility: 10/04/18 16:40
--- NOTE | 2018-10-15 05:44 | Coding Query ---
SEPSIS To promote full compliance with coding requirements relating to patient care, physician participation is requested in all cases of freight team associate uncertainty. Please assist us with the question(s) below: In responding to this query, please exercise your independent professional judgement. The fact that a question is asked does not imply that any particular answer is desired or expected. We appreciate your clarification on this issue. Throughout the medical record, you have clearly documented a localized infection and your patient has clinical evidence of a generalized sepsis or severe sepsis. The term urosepsis is a nonspecific entity and is coded as an UTI. If the patient has sepsis, severe sepsis, from an urinary source or some other source, please clarify in your response below. The medical record reflects the following clinical findings: Patient admitted with leg ulcer , positive culture for enterococcus. Infection control and other progress note mentions Sepsis . Please document, if known or suspected, the diagnosis that was treated during this Inpatient stay pertaining to the positive blood culture. Thanks for your help! Oscar Mobley [facility] ____ ( x )Bacteremia (Nonspecific laboratory finding of bacteria in the blood) Specify Organism Enterococcus Faecalis ( ) Present on Admission ( ) Not present on admission ( ) Unable to clinically determine ( ) Septicemia (Systemic disease associated with the presence of pathogenic microorganisms in the blood): Specify Organism ( ) Present on Admission ( ) Not present on admission ( ) Unable to clinically determine ( ) Sepsis Specify Organism Specify Associated Condition/Diagnosis ( ) Present on Admission ( ) Not present on admission ( ) Unable to clinically determine ( ) Severe Sepsis (Sepsis associated with acute organ dysfunction) Specify Organism Specify Associated Condition/Diagnosis ( ) Present on Admission ( ) Not present on admission ( ) Unable to clinically determine ( ) Septic Shock (Severe sepsis with acute circulatory failure, unexplained by other causes) ( ) Present on Admission ( ) Not present on admission ( ) Unable to clinically determine ( ) Other, patient has: MTDD
== END 2018-10-04 16:40 | disposition home health service (06) | DRG 871 ==
LOC: ED 09:51 → 4E 15:08 → SUATTDRO 15:08 → 4E 15:52

== ENCOUNTER 2018-10-14 17:12 | Observation (INO) ==
[2018-10-14] MEDS ORDERED: SODIUM CHLORIDE 0.9% 1000ML 1,000 ML IV SCH (18:15)
[2018-10-14] MEDS ORDERED: OXYCODONE HCL IR 5 MG TAB (IMMEDIATE RELEASE) PO STA (18:31)
[2018-10-14 18:47] LABS: Eosinophils # (auto) 0.03 K/uL (0-0.5); Eosinophils % (auto) 0.3 %; Hematocrit (blood only) 35.3 % (42-52); Hemoglobin 11.5 g/dL (14.0-18.0); Immature Granulocytes # (auto) 0.04 K/uL (0.00-0.02); Immature Granulocytes % (auto) 0.4 %; Lymphocytes # (auto) 0.68 K/uL (1.2-3.4); Mean Corpuscular Hgb Conc 32.6 g/dL (32-36); Mean Corpuscular Volume 96.4 fL (80-100); Mean Platelet Volume 9.2 fL (7.4-10.4); Monocytes # (auto) 0.22 K/uL (0.11-0.59); Monocytes % (auto) 1.9 %; Neutrophils # (auto) 10.43 K/uL (1.4-6.5); Neutrophils % (auto) 91.4 %; Platelet Count 114 K/uL (130-400); RDW Coefficient of Variation 16.2 % (11.5-14.5); RDW Standard Deviation 55.5 fL (36.4-46.3); Red Blood Count 3.66 M/uL (4.7-6.1)
[2018-10-14 19:05] LABS: Albumin Level 2.4 gm/dl (3.4-5.0); BUN Creatinine Ratio 23.3 (10-20); Calcium 8.2 mg/dl (8.5-10.1); Creatinine Clr Calc Pharmacy 44.9 ml/min; Est GFR (African American) 42.9; Magnesium 2.2 mg/dl (1.8-2.4); Partial Thromboplastin Time 26.8 Seconds (21.0-31.0); Potassium 4.2 mmol/L (3.5-5.1); Prothrombin Time 19.8 Seconds (9.0-12.0)
[2018-10-14 19:10] LABS: Albumin Globulin Ratio 0.6 (0.9-2); Bilirubin,Total 0.6 mg/dl (0.2-1); Globulin 3.8 gm/dl (2.5-4.0); Total Protein 6.2 gm/dl (6.4-8.2); Troponin I 0.021 ng/ml (0-0.045)
[2018-10-14] MEDS ORDERED: CALCIUM CARBONATE 500 MG CHEWABLE TAB PO STA (19:31)
--- NOTE | 2018-10-14 19:35 | XRay Report ---
XR chest 1V portable HISTORY: Dyspnea COMPARISON: Chest 09/26/2018. FINDINGS: The lobular right middle lobe mass is again noted. This is not significantly changed. No pn eumothorax. No pleural effusions. No new focal lung consolidations to suggest pneumonia. No evidence for pulmonary edema. The heart is top normal in size. Left PICC terminates at the SVC. Calcified gran uloma within the right lower lobe area IMPRESSION: Redemonstration of the right middle lobe mass. No new focal lung consolidations. Electronically signed by: Akhil Amaro M.D. 10/14/2018 7:33 PM
[2018-10-14] MEDS ORDERED: SODIUM CHLORIDE 0.9% 1000ML 1,000 ML IV ONE (20:06)
--- NOTE | 2018-10-14 22:45 | History & Physical Report ---
Date of Service October 14, 2018 Assessment & Plan (1) Shortness of breath: Related to underlying lung cancer. Duonebs every 4 hours while awake and every 2 hours when necessary. Present on Admission?: Yes (2) Bacteremia: Bacteremia/strep sepsis- Continue vancomycin IV. Present on Admission?: Yes (3) Other streptococcal sepsis: As above. Present on Admission?: Yes (4) History of lung cancer: Lung cancer/persistent mass of middle lobe of right lung/cancer metastatic to bone/persistent cancer related pain- Responsible for most of the patient's symptoms regarding shortness of breath and generalized pain. Continue dexamethasone, duloxetine, OxyContin 15 mg p.o. twice daily. Continue oxycodone 5 mg p.o. every 6 hours as needed breakthrough pain. Add morphine sulfate 4 mg IV every 3 hours as needed severe pain. Patient has asked that he be discharged to a [facility], as he is unable to take care of himself extent the need to at home. We will consult social service liaison. If he has not been seen by palliative care, consult should be made as well. Present on Admission?: Yes (5) Cancer, metastatic to bone: See above Present on Admission?: Yes (6) Mass of middle lobe of right lung: See above Present on Admission?: Yes (7) Cancer related pain: See above Present on Admission?: Yes (8) Hyperlipidemia: Continue atorvastatin 40 mg daily. Present on Admission?: Yes (9) Depression: Continue duloxetine 90 mg p.o. every morning Present on Admission?: Yes (10) Type II diabetes mellitus: Continue Lantus insulin 36 units subcu every morning and 32 units subcu every afternoon. Placed on Accu-Cheks before meals and at bedtime with NovoLog coverage per scale. Present on Admission?: Yes History of Present Illness Chief Complaint: The patient presents to the emergency department with worsening shortness of breath since discharge on 10/04 Primary Care Provider: Joanne Baptiste PA-C The patient is an 82-year-old male with past medical history including metastatic lung cancer, bacteremia on IV vancomycin, prostate cancer, DVT, osteomyelitis, diabetes mellitus, right middle lobe lung mass, with most recent admission to [facility] from 09/12-10/04/2018, and since that time is been on vancomycin IV. He continues to report dyspnea on exertion since leaving the hospital, had been recommended to go for at least a short interval to [facility], who is now in agreement that he needs to go to a ch[facility], as he is unable to take care of himself to the extent that he needs to at home. Allergies Allergy/AdvReac Type Severity Reaction Status Date / Time doxycycline Allergy Intermediate hives Verified 10/14/18 18:20 Sulfa (Sulfonamide Allergy Intermediate lip Verified 10/14/18 18:20 Antibiotics) swelling Penicillins Allergy Unknown HIVES Verified 10/14/18 18:20 metformin AdvReac Intermediate diarrhea Verified 10/14/18 18:20 simvastatin AdvReac Intermediate myalgia Verified 10/14/18 18:20 Home Medications Home Medications Medication Instructions Recorded Confirmed Type atorvastatin 40 mg tablet 40 mg PO QAM 01/24/18 10/14/18 History duloxetine 60 mg capsule,delayed 60 mg PO QAM cap 01/24/18 10/14/18 History release lisinopril 40 mg tablet 40 mg PO QAM 01/24/18 10/14/18 History oxybutynin chloride 5 mg tablet 5 mg PO TID 01/24/18 10/14/18 History duloxetine 30 mg PO QAM 08/27/18 10/14/18 History Novolog U-100 Insulin aspart See Rx Instructions .ROUTE .COMPLEX 09/12/18 10/14/18 History colchicine 0.6 mg PO BID PRN 09/12/18 10/14/18 History Lantus U-100 Insulin 32 unit SUBCUT QPM #0 ml 09/19/18 10/14/18 Rx Lantus U-100 Insulin 36 unit SUBCUT QAM #0 ml 09/19/18 10/14/18 Rx oxycodone 5 mg PO Q6 PRN 09/26/18 10/14/18 History oxycodone [OxyContin] 15 mg PO BID 09/26/18 10/14/18 History acetaminophen [Mapap 650 mg PO Q4H PRN #30 tab 10/04/18 10/14/18 Rx (acetaminophen)] dexamethasone 4 mg PO Q12 #60 tab 10/04/18 10/14/18 Rx vancomycin 1.75 gm IV Q24H #28 ea 10/04/18 10/14/18 Rx warfarin [Coumadin] 3 mg PO DAILY@1600 #30 tab 10/04/18 10/14/18 Rx Past Med/Surg History Medical History Urinary tract infection (Acute) Depression (Acute) Prostate cancer (Chronic) Urinary frequency (Chronic) Hyperlipidemia (Chronic) Diabetes (Chronic) DVT (deep venous thrombosis) (Resolved) Back pain (Chronic) Chest pain (Chronic) Confusion (Chronic) Depression (Chronic) Diabetes (Chronic) Dysuria (Chronic) HTN (hypertension) (Chronic) Hyperlipidemia (Chronic) Insomnia (Chronic) Left leg cellulitis (Chronic) Osteomyelitis of left knee region (Chronic) Prostate cancer (Chronic) Urinary frequency (Chronic) Surgical History No pertinent past surgical history Family History Other Family history non-contributory Social History Preferred Language: Italian Communication Ability: Effective 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 Beliefs That Will Affect Care: None Current Living Situation: Spouse Current Living Situation Comment: does not want to go home at d/c, see CM notes Other Information That Helps Us Care for You: No Feels Safe at Home: Yes Safety Concerns: Feels Safe At This Time Smoking Status: Former smoker Tobacco Type: cigarettes Cigarettes Per Day: 40 Do You Dip or Chew Tobacco: No Smoking End Date: in his early 40's Second Hand Exposure: No Hx Alcohol Use: No Hx Substance Use: No Review of Systems Review of Systems: The patient denies palpitations, lower extremity swelling, sore throat, fevers, chills, sweats, nausea, vomiting, diarrhea , constipation, abdominal pain, pelvic pain, blood in urine or stool, dysuria, urinary frequency or urgency, lightheadedness, dizziness, headache, loss of consciousness, rash, abnormal bruising or bleeding, imbalance, focal weakness, neck pain, or night sweats. The review of systems is otherwise negative other than for that already noted above, and at least 10 systems have been reviewed. Physical Exam Physical Exam: The patient is awake, alert and oriented �3, normocephalic and atraumatic, lying in bed and in no acute distress. HEENT--PERRL, EOMI, mucous membranes and oropharynx normal. Neck--supple. No JVD. No bruits. Thyroid normal, trachea midline, no adenopathy. Heart--normal S1 and S2. No murmurs, rubs or gallops. Lungs--coarse breath sounds with scattered wheezes bilaterally. No respiratory distress, no accessory muscle use. Abdomen--normal bowel sounds and soft. Nontender. Nondistended. Extremities--no cyanosis or clubbing. No edema. There are good distal pulses b/l. Dermatologic--normal skin turgor. Scattered ecchymoses. Neurologic--cranial nerves II through XII grossly intact. Rheumatologic--normal range of motion. Psychiatric--normal affect. Results & Data Vital Signs (Past 12 Hours) Vital Signs Temp Pulse Pulse Pulse Resp Resp BP 10/14/18 22:00 67 20 10/14/18 20:10 140 H 28 H 10/14/18 20:00 86 20 10/14/18 18:20 83 10/14/18 18:17 82 10/14/18 17:23 98.4 F 82 18 116/78 BP Pulse Ox Pulse Ox 10/14/18 22:00 133/85 98 10/14/18 20:10 94 10/14/18 20:00 136/98 98 10/14/18 18:20 131/94 94 10/14/18 18:17 95 10/14/18 17:23 96 Laboratory Results Laboratory Results WBC 11.40 K/uL (4.8-10.8) H 10/14/18 18:31 RBC 3.66 M/uL (4.7-6.1) L 10/14/18 18:31 Hgb 11.5 g/dL (14.0-18.0) L 10/14/18 18:31 Hct 35.3 % (42-52) L 10/14/18 18:31 MCV 96.4 fL (80-100) 10/14/18 18:31 MCH 31.4 pg (25-34) 10/14/18 18:31 MCHC 32.6 g/dL (32-36) 10/14/18 18:31 RDW Std Deviation 55.5 fL (36.4-46.3) H 10/14/18 18:31 RDW Coeff of Dante 16.2 % (11.5-14.5) H 10/14/18 18:31 Plt Count 114 K/uL (130-400) L 10/14/18 18:31 MPV 9.2 fL (7.4-10.4) 10/14/18 18:31 Immature Gran % (Auto) 0.4 % 10/14/18 18:31 Neut % (Auto) 91.4 % 10/14/18 18:31 Lymph % (Auto) 6.0 % 10/14/18 18:31 [place] % (Auto) 1.9 % 10/14/18 18:31 Eos % (Auto) 0.3 % 10/14/18 18:31 Baso % (Auto) 0.0 % 10/14/18 18:31 Immature Gran # (Auto) 0.04 K/uL (0.00-0.02) H 10/14/18 18:31 Neut # (Auto) 10.43 K/uL (1.4-6.5) H 10/14/18 18:31 Lymph # (Auto) 0.68 K/uL (1.2-3.4) L 10/14/18 18:31 [place] # (Auto) 0.22 K/uL (0.11-0.59) 10/14/18 18:31 Eos # (Auto) 0.03 K/uL (0-0.5) 10/14/18 18: Baso # (Auto) 0.00 K/uL (0-0.2) 10/14/18 18:31 PT 19.8 Seconds (9.0-12.0) H 10/14/18 18:31 INR 2.0 (0.9-1.1) H 10/14/18 18:31 APTT 26.8 Seconds (21.0-31.0) 10/14/18 18: PTT Ratio 1.0 10/14/18 18:31 Sodium 144 mmol/L (136-145) 10/14/18 18:31 Potassium 4.2 mmol/L (3.5-5.1) 10/14/18 18:31 Chloride 110 mmol/L (98-107) H 10/14/18 18:31 Carbon Dioxide 28 mmol/L (21-32) 10/14/18 18:31 6.0 (3-11) 10/14/18 18:31 BUN 40 mg/dl (7-18) H 10/14/18 18:31 1.70 mg/dl (0.6-1.4) H 10/14/18 18:31 Est Cr Clr Drug Dosing 44.9 ml/min 10/14/18 18:31 Est GFR ( Amer) 42.9 10/14/18 18:31 Est GFR (Non-Af Amer) 37.0 10/14/18 18:31 23.3 (10-20) H 10/14/18 18:31 Glucose 188 mg/dl (70-99) H 10/14/18 18:31 POC Glucose 204 (70-99) H 10/14/18 22:23 Calcium 8.2 mg/dl (8.5-10.1) L 10/14/18 18:31 Magnesium 2.2 mg/dl (1.8-2.4) 10/14/18 18:31 0.6 mg/dl (0.2-1) 10/14/18 18:31 AST 17 U/L (15-37) 10/14/18 18:31 ALT 34 U/L (12-78) 10/14/18 18:31 103 U/L (45-117) 10/14/18 18:31 0.021 ng/ml (0-0.045) 10/14/18 18:31 NT-Pro-B Natriuret Pep 879 pg/ml (0-1800) 10/14/18 18:31 6.2 gm/dl (6.4-8.2) L 10/14/18 18:31 2.4 gm/dl (3.4-5.0) L 10/14/18 18:31 3.8 gm/dl (2.5-4.0) 10/14/18 18:31 0.6 (0.9-2) L 10/14/18 18:31 Random Vancomycin 15.5 mcg/ml 10/15/18 00:37 Diagnostic Findings [facility], [place] [phone] XRay Report Patient: AUSTIN MCDOWELL Date: 10/14/18 MR#: [id number] [facility] Acct ID:[id number]: Date: 1935[facility] Zip: [place] [address] Age: 82Location: ED Sex: M Room/Bed: Att Phy: Diagnosis: SOB Rylee Phy: Joanne Baptiste PA-CService Date: 10/14/18 Fam Phy: Interpreting Phy: Akhil Amaro MD Admit Phy: Ordering Phy: Casey Ramírez M.D. cc: ~ XR chest 1V portable HISTORY: Dyspnea COMPARISON: Chest 09/26/2018. FINDINGS: The lobular right middle lobe mass is again noted. This is not significantly changed. No pneumothorax. No pleural effusions. No new focal lung consolidations to suggest pneumonia. No evidence for pulmonary edema. The heart is top normal in size. Left PICC terminates at the SVC. Calcified granuloma within the right lower lobe area IMPRESSION: Redemonstration of the right middle lobe mass. No new focal lung consolidations. Electronically signed by: Akhil Amaro M.D. 10/14/2018 7:33 PM Dictated: 10/14/181931 Transcribed: 10/14/181931 Code Status & VTE Plan Code Status Full code VTE Prophylaxis Plan VTE Prophylaxis will be ordered: Yes
[2018-10-14] MEDS ORDERED: ACETAMINOPHEN 1000 MG/100 ML IV IV PRN (23:55)
[2018-10-14] MEDS ORDERED: POLYETHYLENE (MIRALAX) 17 GM PACK PO PRN (23:55)
[2018-10-14] MEDS ORDERED: DEXTROSE 50% 50 ML SYRINGE IV PRN (23:55)
[2018-10-14] MEDS ORDERED: GLUCOSE 40% GEL 15 GM TUBE PO PRN (23:55)
[2018-10-14] MEDS ORDERED: ALBUT/IPRATROP 3MG/0.5MG NEB 3 ML VIAL NEB PRN (23:55)
[2018-10-14] MEDS ORDERED: COLCHICINE 0.6 MG TAB PO PRN (23:55)
[2018-10-14] MEDS ORDERED: MAGNESIUM HYDROXIDE SUSP 30 ML UDC PO PRN (23:55)
[2018-10-14] MEDS ORDERED: ONDANSETRON INJ 2 MG/ML 2 ML VIAL IV PRN (23:55)
[2018-10-14] MEDS ORDERED: GLUCOSE 10 TABS/TUBE PO PRN (23:55)
[2018-10-14] MEDS ORDERED: MoRPHine SULFATE 4 MG/ML 1 ML CARP\\VIAL IV PRN (23:55)
[2018-10-14] MEDS ORDERED: GLUCAGON FOR INJ 1 MG VIAL SQ PRN (23:55)
[2018-10-14] MEDS ORDERED: ACETAMINOPHEN 325 MG TAB PO PRN ×2 (23:55)
[2018-10-14] MEDS ORDERED: ALUMINUM/MAGNESIUM SUSP 30 ML UDC PO PRN (23:55)
[2018-10-14] MEDS ORDERED: VANCOMYCIN IV SCH (23:55)
[2018-10-14] MEDS ORDERED: INSULIN GLARGINE SOLOSTAR 100 UNITS/ML 3 ML PEN SQ SCH (23:55)
[2018-10-15] MEDS ORDERED: VANCOMYCIN CONSULT ACTIVE PRN (00:31)
--- NOTE | 2018-10-15 00:38 | Emergency Department Note ---
Entered by Toshia Saez acting as a scribe for Casey Ramírez MD History of Present Illness General Chief complaint: Shortness of Breath/Dyspnea Stated complaint: SOB Time Seen by Provider: 10/14/18 17:58 Source: patient Mode of arrival: EMS Limitations: no limitations History of Present Illness Provider complaint: Shortness of breath Onset (ago): day(s) 2 Location: chest Radiation: non-radiation Pain Consistency: + other (worsening) Quality: + other (shortness of breath) Exacerbated By: + other (exertion) Associated symptoms: + weakness and + other (Denies: leg swelling, hematochezia); no chest pain, no cough and no fever/chills The patient is an 82 year old white male w/ PMHx of cancer, diabetes, a DVT, osteomyelitis, hypertension, hyperlipidemia, depression, urinary frequency, a UTI, and insomnia who presents to the ED w/ CC of worsening shortness of breath starting 2 days ago. The patient reports that he saw his oncologist, Dr. Chaves, 2 days ago and felt normal until that point. However, he states that he felt as if something changed when he got home. He notes that he is only short of breath with exertion and that his shortness of breath does not change depending on his what position he is sitting or lying in. He adds that he has needed help getting out of his chair this past week, which is unusual for him. The patient denies any cough, fever, chest pain, leg swelling, and hematochezia. He further denies a history of heart disease and smoking. He reports that he is still taking Coumadin and that the PICC line in his right upper extremity is for antibiotics. He states that he has received 10 radiation treatments for his cancer but has not received any chemotherapy. Home Medications Home Medications Medication Instructions Recorded Confirmed Type atorvastatin 40 mg tablet 40 mg PO QAM 01/24/18 10/14/18 History duloxetine 60 mg capsule,delayed 60 mg PO QAM cap 01/24/18 10/14/18 History release lisinopril 40 mg tablet 40 mg PO QAM 01/24/18 10/14/18 History oxybutynin chloride 5 mg tablet 5 mg PO TID 01/24/18 10/14/18 History duloxetine 30 mg PO QAM 08/27/18 10/14/18 History Novolog U-100 Insulin aspart See Rx Instructions .ROUTE .COMPLEX 09/12/18 10/14/18 History colchicine 0.6 mg PO BID PRN 09/12/18 10/14/18 History Lantus U-100 Insulin 32 unit SUBCUT QPM #0 ml 09/19/18 10/14/18 Rx Lantus U-100 Insulin 36 unit SUBCUT QAM #0 ml 09/19/18 10/14/18 Rx oxycodone 5 mg PO Q6 PRN 09/26/18 10/14/18 History oxycodone [OxyContin] 15 mg PO BID 09/26/18 10/14/18 History acetaminophen [Mapap 650 mg PO Q4H PRN #30 tab 10/04/18 10/14/18 Rx (acetaminophen)] dexamethasone 4 mg PO Q12 #60 tab 10/04/18 10/14/18 Rx vancomycin 1.75 gm IV Q24H #28 ea 10/04/18 10/14/18 Rx warfarin [Coumadin] 3 mg PO DAILY@1600 #30 tab 10/04/18 10/14/18 Rx Allergies Allergy/AdvReac Type Severity Reaction Status Date / Time doxycycline Allergy Intermediate hives Verified 10/14/18 18:20 Sulfa (Sulfonamide Allergy Intermediate lip Verified 10/14/18 18:20 Antibiotics) swelling Penicillins Allergy Unknown HIVES Verified 10/14/18 18:20 metformin AdvReac Intermediate diarrhea Verified 10/14/18 18:20 simvastatin AdvReac Intermediate myalgia Verified 10/14/18 18:20 Past Med/Surg History Medical History Urinary tract infection (Acute) Depression (Acute) Prostate cancer (Chronic) Urinary frequency (Chronic) Hyperlipidemia (Chronic) Diabetes (Chronic) DVT (deep venous thrombosis) (Resolved) Back pain (Chronic) Chest pain (Chronic) Confusion (Chronic) Depression (Chronic) Diabetes (Chronic) Dysuria (Chronic) HTN (hypertension) (Chronic) Hyperlipidemia (Chronic) Insomnia (Chronic) Left leg cellulitis (Chronic) Osteomyelitis of left knee region (Chronic) Prostate cancer (Chronic) Urinary frequency (Chronic) Surgical History No pertinent past surgical history Family History Other Family history non-contributory Social History Preferred Language: Tajik Communication Ability: Effective Crystal Evaluator Required: No Beliefs That Will Affect Care: None Current Living Situation: Spouse Current Living Situation Comment: does not want to go home at d/c, see CM notes Other Information That Helps Us Care for You: No Feels Safe at Home: Yes Safety Concerns: Feels Safe At This Time Smoking Status: Former smoker Tobacco Type: cigarettes Cigarettes Per Day: 40 Do You Dip or Chew Tobacco: No Smoking End Date: in his early 40's Second Hand Exposure: No Hx Alcohol Use: No Hx Substance Use: No Review of Systems See HPI for pertinent positives & negatives. and A total of 10 systems reviewed and were otherwise negative Physical Exam Vital Signs Vital Signs - 24 hr 10/14/18 17:22 10/14/18 17:23 10/14/18 18:17 Temperature 36.9 C Temperature Source Oral Sepsis Recent Fever Within 48 Hours No Sepsis New/Unexplained Change in Mental Status No Sepsis Action Taken by Nursing No Action Required Pulse Rate 82 82 Pulse Rate [Apical] Pulse Rate [Exercises] Respiratory Rate 18 Respiratory Rate [Exercises] Respiratory Effort / Characteristics Non-Labored Respiratory Depth Normal Respiratory Pattern Regular Blood Pressure 116/78 Blood Pressure [Right Arm] Blood Pressure Mean 90 Blood Pressure Mean [Right Arm] Pulse Oximetry 96 95 Pulse Oximetry [Exercises] Oxygen Delivery Method Room Air Room Air Room Air 10/14/18 18:20 10/14/18 20:00 10/14/18 20:10 Temperature Temperature Source Sepsis Recent Fever Within 48 Hours Sepsis New/Unexplained Change in Mental Status Sepsis Action Taken by Nursing Pulse Rate Pulse Rate [Apical] 83 86 Pulse Rate [Exercises] 140 H Respiratory Rate 20 Respiratory Rate [Exercises] 28 H Respiratory Effort / Characteristics Respiratory Depth Respiratory Pattern Blood Pressure Blood Pressure [Right Arm] 131/94 136/98 Blood Pressure Mean Blood Pressure Mean [Right Arm] 106 110 Pulse Oximetry 94 98 Pulse Oximetry [Exercises] 94 Oxygen Delivery Method Room Air Room Air Room Air 10/14/18 22:00 Temperature Temperature Source Sepsis Recent Fever Within 48 Hours Sepsis New/Unexplained Change in Mental Status Sepsis Action Taken by Nursing Pulse Rate Pulse Rate [Apical] 67 Pulse Rate [Exercises] Respiratory Rate 20 Respiratory Rate [Exercises] Respiratory Effort / Characteristics Respiratory Depth Respiratory Pattern Blood Pressure Blood Pressure [Right Arm] 133/85 Blood Pressure Mean Blood Pressure Mean [Right Arm] 101 Pulse Oximetry 98 Pulse Oximetry [Exercises] Oxygen Delivery Method Room Air GENERAL: Well appearing, well nourished, NAD, non-toxic, wearing glasses. EYE EXAM: Normal conjunctiva. PERRL, no anisocoria and EOM's grossly intact w/o pain. OROPHARYNX: No exudate, posterior pharynx is clear, no tonsillar/uvular deviation or swelling. NECK: Supple, no nuchal rigidity, no adenopathy, non-tender. no signs of meningismus. LUNGS: Clear to auscultation. Normal chest wall mechanics. HEART: no MRG, tachycardic rate and normal rhythm. ABDOMEN: Abdomen soft, non-tender, normo-active bowel sounds, no masses, no rebound or guarding. BACK: No CVA TTP. SKIN: No rashes and no bruising. UPPER EXTREMITIES: Upper extremities are grossly normal. Right upper extremity PICC line. LOWER EXTREMITIES: No pitting edema. No calf pain. NEURO EXAM: Cranial nerves II-XII grossly intact, normal speech, 5/5 strength throughout, moves all 4 extremities on command w/o issue. Course 1802: The patient was evaluated in room A2, and a complete history and physical examination were performed. 2003: Per nurse, the patient is tachypneic but not hypoxic. 2116: I reviewed the patient's case with Dr. Wan - [facility], [facility]. Dr. Wan will evaluate the patient for further management. Reevaluation(s) Reevaluation #1: I reviewed the patient's case with Dr. Wan - [place], [facility]. Dr. Wan will evaluate the patient for fur ther management. Time: 21:17 Administered Medications Discontinued Medications Calcium Carbonate (Tums) 1,500 mg PO NOW STA Stop: 10/14/18 19:32 Last Admin: 10/14/18 19:41 Dose: 1,500 mg Documented by: [id number] Heparin Sodium (Beef Lung) (Heparin Sod 10 Unit/Ml Flush) Confirm Administered Dose 5 ml FLUSH .STK-MED ONE Stop: 10/14/18 21:55 Last Admin: 10/14/18 21:56 Dose: 5 ml Documented by: [id number] Sodium Chloride (Nss 1000ml) 1,000 mls @ 999 mls/hr IV .Q1H1M ELBA Stop: 10/14/18 19:15 Last Infusion: 10/14/18 19:45 Dose: 0 mls/hr Documented by: [id number] Admin: 10/14/18 18:49 Dose: 999 mls/hr Documented by: [id number] Sodium Chloride (Nss 1000ml) 1,000 mls @ 999 mls/hr IV .Q1H1M ONE Stop: 10/14/18 21:06 Last Infusion: 10/14/18 21:50 Dose: 0 mls/hr Documented by: [id number] Admin: 10/14/18 20:28 Dose: 999 mls/hr Documented by: [id number] Oxycodone HCl (Roxicodone Immediate Rel) 5 mg PO NOW STA Stop: 10/14/18 18:32 Last Admin: 10/14/18 18:49 Dose: 5 mg Documented by: [id number] Medical Decision Making Differential Diagnosis Differential diagnosis: Etiologies such as infections, reactive airway disease, pneumonia, pneumothorax, COPD, CHF, cardiac ischemia, pulmonary embolism, musculoskeletal, gastrointestinal, as well as others were entertained. Medical Records Attestation: I reviewed the patient's medical records. Home Medications Current Medication List: was personally reviewed by me Laboratory Data Attestation: I reviewed the patient's lab results. Result diagrams: 10/14/18 18:31 10/14/18 18:31 Lab Results 10/14/18 10/14/18 10/14/18 Range/Units 18:31 18:31 18:31 WBC 11.40 H (4.8-10.8) K/uL RBC 3.66 L (4.7-6.1) M/uL Hgb 11.5 L (14.0-18.0) g/dL Hct 35.3 L (42-52) % MCV 96.4 (80-100) fL MCH 31.4 (25-34) pg MCHC 32.6 (32-36) g/dL RDW Std Deviation 55.5 H (36.4-46.3) fL RDW Coeff of Dante 16.2 H (11.5-14.5) % Plt Count 114 L (130-400) K/uL MPV 9.2 (7.4-10.4) fL Immature Gran % (Auto) 0.4 % Neut % (Auto) 91.4 % Lymph % (Auto) 6.0 % [place] % (Auto) 1.9 % Eos % (Auto) 0.3 % Baso % (Auto) 0.0 % Immature Gran # (Auto) 0.04 H (0.00-0.02) K/uL Neut # (Auto) 10.43 H (1.4-6.5) K/uL Lymph # (Auto) 0.68 L (1.2-3.4) K/uL [place] # (Auto) 0.22 (0.11-0.59) K/uL Eos # (Auto) 0.03 (0-0.5) K/uL Baso # (Auto) 0.00 (0-0.2) K/uL PT 19.8 H (9.0-12.0) Seconds INR 2.0 H (0.9-1.1) APTT 26.8 (21.0-31.0) Seconds PTT Ratio 1.0 Sodium 144 (136-145) mmol/L Potassium 4.2 (3.5-5.1) mmol/L Chloride 110 H (98-107) mmol/L Carbon Dioxide 28 (21-32) mmol/L Anion Gap 6.0 (3-11) BUN 40 H (7-18) mg/dl Creatinine 1.70 H (0.6-1.4) mg/dl Est Cr Clr Drug Dosing 44.9 ml/min Est GFR ( Amer) 42.9 Est GFR (Non-Af Amer) 37.0 BUN/Creatinine Ratio 23.3 H (10-20) Glucose 188 H (70-99) mg/dl POC Glucose (70-99) Calcium 8.2 L (8.5-10.1) mg/dl Magnesium 2.2 (1.8-2.4) mg/dl Total Bilirubin 0.6 (0.2-1) mg/dl AST 17 (15-37) U/L ALT 34 (12-78) U/L Alkaline Phosphatase 103 (45-117) U/L Troponin I 0.021 (0-0.045) ng/ml NT-Pro-B Natriuret Pep (0-1800) pg/ml Total Protein 6.2 L (6.4-8.2) gm/dl Albumin 2.4 L (3.4-5.0) gm/dl Globulin 3.8 (2.5-4.0) gm/dl Albumin/Globulin Ratio 0.6 L (0.9-2) 10/14/18 10/14/18 Range/Units 18:31 22:23 WBC (4.8-10.8) K/uL RBC (4.7-6.1) M/uL Hgb (14.0-18.0) g/dL Hct (42-52) % MCV (80-100) fL MCH (25-34) pg MCHC (32-36) g/dL RDW Std Deviation (36.4-46.3) fL RDW Coeff of Dante (11.5-14.5) % Plt Count (130-400) K/uL MPV (7.4-10.4) fL Immature Gran % (Auto) % Neut % (Auto) % Lymph % (Auto) % [place] % (Auto) % Eos % (Auto) % Baso % (Auto) % Immature Gran # (Auto) (0.00-0.02) K/uL Neut # (Auto) (1.4-6.5) K/uL Lymph # (Auto) (1.2-3.4) K/uL [place] # (Auto) (0.11-0.59) K/uL Eos # (Auto) (0-0.5) K/uL Baso # (Auto) (0-0.2) K/uL PT (9.0-12.0) Seconds INR (0.9-1.1) APTT (21.0-31.0) Seconds PTT Ratio Sodium (136-145) mmol/L Potassium (3.5-5.1) mmol/L Chloride (98-107) mmol/L Carbon Dioxide (21-32) mmol/L Anion Gap (3-11) BUN (7-18) mg/dl Creatinine (0.6-1.4) mg/dl Est Cr Clr Drug Dosing ml/min Est GFR ( Amer) Est GFR (Non-Af Amer) BUN/Creatinine Ratio (10-20) Glucose (70-99) mg/dl POC Glucose 204 H (70-99) Calcium (8.5-10.1) mg/dl Magnesium (1.8-2.4) mg/dl Total Bilirubin (0.2-1) mg/dl AST (15-37) U/L ALT (12-78) U/L Alkaline Phosphatase (45-117) U/L Troponin I (0-0.045) ng/ml NT-Pro-B Natriuret Pep 879 (0-1800) pg/ml Total Protein (6.4-8.2) gm/dl Albumin (3.4-5.0) gm/dl Globulin (2.5-4.0) gm/dl Albumin/Globulin Ratio (0.9-2) Imaging Data Radiologist's Impression: Radiology results as stated below per my review and the radiologist's interpretation: XR chest 1V portable HISTORY: Dyspnea COMPARISON: Chest 09/26/2018. FINDINGS: The lobular right middle lobe mass is again noted. This is not significantly changed. No pneumothorax. No pleural effusions. No new focal lung consolidations to suggest pneumonia. No evidence for pulmonary edema. The heart is top normal in size. Left PICC terminates at the SVC. Calcified granuloma wit hin the right lower lobe area IMPRESSION: Redemonstration of the right middle lobe mass. No new focal lung consolidations. Electronically signed by: Akhil Amaro M.D. 10/14/2018 7:33 PM ECG Data Attestation: I personally reviewed and interpreted this ECG as follows: Indication: SOB/dyspnea Rate (beats per minute): 108 Rhythm: sinus tachycardia Findings: + other (wide QRS), + RBBB and + left axis deviation Blood Pressure Blood Pressure Findings: Normal blood pressure MDM Narrative Patient was seen and evaluated the bedside. The patient related that he was having some associated was seen by Dr. Chaves on Monday and states he had a good visit and later on Monday he started to develop symptoms. The patient does not complain of any orthopnea and states it is not related to position. Of note the patient does have an elevated INR was given vitamin K and discharged with an INR 3.5. Patient did have blood work completed along with a chest x-ray and EKG. EKG does not show acute ischemic change. Chest x-ray is unchanged compared to prior. Patient has normal white count. Patient is chronic but stable anemia. Patient was ambulated where he did become tachycardic and mildly winded but was never hypoxic. Was concerned about the patient's social situation and after speaking with the case packer and sealer he would require admission to be placed. Patient was subsequently admitted to the medicine service for further placement. Impression & Plan Shortness of breath, Dehydration, History of lung cancer Discharge Plan Visit Data *Final* Discharge Date/Time: 10/14/18 23:21 Chief Complaint: Shortness of Breath/Dyspnea Stated Complaint: SOB ED Provider: Casey Ramírez Discharge Problem: Shortness of breath, Dehydration, History of lung cancer Patient Disposition: Admitted As Inpatient Discharge Instructions Interventions: ED Discharge Assessment Last Done: 10/14/18 23:21 The scribe's documentation has been prepared under my direction and personally reviewed by me in its entirety. I confirm that the note above accurately reflects all work, treatment, procedures, and medical decision making performed by me.
[2018-10-15] MEDS: OXYCODONE HCL 15 MG TABCR (OXYCONTIN) PO SCH ×3 (00:43→21:11)
[2018-10-15] MEDS ORDERED: VANCOMYCIN HCL 1,750 MG in SODIUM CHLORIDE 0.9% 500 ML IV SCH (02:00)
[2018-10-15 05:03] LABS: Appearance Urine Turbid (Clear); Bacteria Urine Automated 4+ (Negative); Bilirubin Urine Negative (Negative); Blood Urine Negative (Negative); Color Urine Yellow; Epithelial Cell Urine Auto 0-5 /lpf (0-5); Glucose Urine UA 2+ (Negative); Ketones Urine Negative (Negative); Leukocyte Esterase Urine 2+ (Negative); Nitrite Urine Negative (Negative); RBC Urine Automated 0-4 /hpf (0-4); Specific Gravity Urine 1.023 (1.000-1.030); Urobilinogen Urine Negative (Negative); WBC Urine Automated >30 /hpf (0-5); pH Urine >= 9.0 (4.5-7.5)
[2018-10-15 05:15] LABS: Protein Urine Negative (Negative)
[2018-10-15 06:35] LABS: Hematocrit (blood only) 32.7 % (42-52); Hemoglobin 11.2 g/dL (14.0-18.0); Mean Corpuscular Hgb Conc 34.3 g/dL (32-36); Mean Corpuscular Volume 94.8 fL (80-100); RDW Coefficient of Variation 16.1 % (11.5-14.5); Red Blood Count 3.45 M/uL (4.7-6.1); White Blood Count 9.59 K/uL (4.8-10.8)
[2018-10-15 06:48] LABS: INR 1.8 (0.9-1.1); Partial Thromboplastin Ratio 0.9; Partial Thromboplastin Time 24.3 Seconds (21.0-31.0); Prothrombin Time 17.9 Seconds (9.0-12.0)
[2018-10-15 06:59] LABS: Eosinophils # (auto) 0.34 K/uL (0-0.5); Eosinophils % (auto) 3.5 %; Immature Granulocytes # (auto) 0.05 K/uL (0.00-0.02); Immature Granulocytes % (auto) 0.5 %; Lymphocytes # (auto) 0.91 K/uL (1.2-3.4); Lymphocytes % (auto) 9.5 %; Monocytes # (auto) 0.16 K/uL (0.11-0.59); Monocytes % (auto) 1.7 %; Neutrophils # (auto) 8.13 K/uL (1.4-6.5); Neutrophils % (auto) 84.8 %; Platelet Count 93 K/uL (130-400)
[2018-10-15 07:02] LABS: BUN Creatinine Ratio 25.2 (10-20); Creatinine Clr Calc Pharmacy 52.7 ml/min; Est GFR (Non-African American) 44.8; Potassium 3.9 mmol/L (3.5-5.1)
[2018-10-15] MEDS: CARBOHYDRATES FOR HYPOGLYCEMIA PO PRN ×2 (07:59→08:30)
[2018-10-15] MEDS: DULOXETINE HCL 60 MG CAP PO SCH (08:00)
[2018-10-15] MEDS: DULOXETINE HCL 30 MG CAP PO SCH (08:00)
[2018-10-15] MEDS: dexAMETHasone 4 MG TAB PO SCH ×2 (08:01→21:00)
--- NOTE | 2018-10-15 08:18 | Pharmacy Report ---
Pharmacy Abx Initial Consult - Date of Service October 15, 2018 - Pharmacy Dosing Scope Date of Consult: 10-15 Consultation requested by: Dr. Wan Pharmacy is consulted to initiate vancomycin dosing therapy, order appropriate labs and adjust drug dose/frequency. - Subjective The patient is a 82 year old M admitted on 10/14/18 22:39. 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 Patient on vancomycin 1750 mg iv q 24 hrs outpatient prior to admission due to enterococcus bacteremia noted on previous hospital admission (09/28). Had been followed by ID during that admission, they had recommended at least 4 weeks of IV vancomycin. First set of negative blood cultures were on 09/29 Patient presenting on admission with shortness of breath. PMHx significant for lung cancer, prostate cancer, osteomyelitis, DM. Urine culture pending. Vancomycin IV * Unclear to timing of vancomycin dose on 10/14 prior to admission, therefore random level was ordered * Returned therapeutic at ~15.5 mcg/ml (goal 15-20 mcg/ml) - therefore maintenance dosing of 1750 mg iv Q24 hrs resumed * Previous pharmacokinetic data suggests dosing appropriate. Scr is elevated from prior admission, but is trending down at this time. * Will continue with current vancomycin regimen for now - will monitor closely as previous data suggests accumulation with vancomycin dosing. * Will plan to obtain a trough prior to the 0200 dose of vancomycin on 10/17 to ensure therapeutic. Pharmacy will continue to follow and will adjust dose/frequency as necessary. Thank you.
[2018-10-15] MEDS: INSULIN GLARGINE SOLOSTAR 100 UNITS/ML 3 ML PEN SQ SCH ×2 (09:30→21:02)
[2018-10-15] MEDS: INSULIN ASPART 100 UNITS/ML 3 ML PEN SC SCH ×4 (09:30→21:04)
[2018-10-15] MEDS ORDERED: DEXAMETHASONE CONC 3.75 MG, NYSTATIN 30 ML, DiphenhydrAMINE Syrup 300 MG, ORA-SWEET SYR... PO PRN (11:37)
--- NOTE | 2018-10-15 13:14 | XRay Report ---
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 TECHNIQUE: Frontal and lateral views of the right humerus were obtained. COMPARISON: None. FINDINGS: Glenohumeral and elbow joints congruent. Osteophytosis at the glenohumeral joint. Effacement of the a cromiohumeral interval due to superior subluxation humeral head. Degenerative changes at the lateral compartment of the elbow. No focal destructive osseous lesion is radiographically apparent. No osteol ysis or periosteal reaction. Underlying osteopenia. No acute fracture or malalignment. No radiographi c soft tissue abnormality. IMPRESSION: 1. No radiographic evidence of osseous lesion. If there is continuing concern, nuclear medicine bone scan is more sensitive for this diagnosis. 2. Degenerative changes of the glenohumeral joint and elbow. 3. Suspected underlying osteopenia. Electronically signed by: Elijah Alonzo M.D. 10/15/2018 1:13 PM
[2018-10-15] MEDS: LIDOCAINE 5% 1 PATCH TD SCH (13:24)
[2018-10-15] MEDS ORDERED: WARFARIN SOD 2 MG TAB PO ONE (16:00)
[2018-10-15] MEDS: OXYCODONE HCL IR 5 MG TAB (IMMEDIATE RELEASE) PO PRN (16:29)
[2018-10-15] MEDS: WARFARIN SOD 3 MG TAB PO SCH (16:30)
--- NOTE | 2018-10-15 18:15 | Family Medicine Progress Note ---
Date of Service October 15, 2018 Assessment & Plan (1) Shortness of breath: 82yo M presents to the ER 10/14/18 with acute episode of dyspnea in setting of progressive metastatic lung cancer. Recently admitted 09/12-10/04/18 got bacteremia; remains on treatment. Shortness of breath -Related to underlying lung cancer. -Duonebs every 4 hours while awake and every 2 hours when necessary. Bacteremia/strep sepsis -Continue vanc IV, 4 week course, set to finish on 10/25 History of lung cancer, metastatic to bone Lung cancer/persistent mass of middle lobe of right lung/cancer metastatic to bone/persistent cancer related pain- Responsible for most of the patient's symptoms regarding shortness of breath and generalized pain. Continue dexamethasone, duloxetine, OxyContin 15 mg p.o. twice daily. Continue oxycodone 5 mg p.o. every 6 hours as needed breakthrough pain. Add morphine sulfate 4 mg IV every 3 hours as needed severe pain. Patient has asked that he be discharged to a [facility], as he is unable to take care of himself extent the need to at home. Patient has seen palliative care in the past, declines consult at this time; is hopeful for future and "doesn't want to many people involved in care." Hyperlipidemia Continue atorvastatin 40 mg daily. Depression Continue duloxetine 90 mg p.o. every morning Per CM, called to notify that prior to admission, he was mean to her, threatening to shoot people and/or himself On chart review, has had similar "outbursts" in past, has had psych consult Will need to address prior to DC home. On last visit, did feel comfortable having him at home, but was concerned for his safety. Patient wishes to go to assisted living/nursing facility on discharge T2DM Continue Lantus insulin 36 units subcu every morning and 32 units subcu every afternoon. Placed on Accu-Cheks before meals and at bedtime with NovoLog coverage per scale. Last A1c in 08/2018 >12 Right Arm pain -Xrays negative for acute or metastatic pathology -Lidoderm patch applied Tongue lesion -Unclear cause -Prescribed magic swizzle for symptoms. (2) Bacteremia: (3) Other streptococcal sepsis: (4) History of lung cancer: (5) Cancer, metastatic to bone: (6) Mass of middle lobe of right lung: (7) Cancer related pain: (8) Hyperlipidemia: (9) Depression: (10) Type II diabetes mellitus: Supervising Physician Co-Signing Physician Notes I saw the patient with the resident and confirmed galo portions of the history and exam. I agree with the impression and plan as noted above. Patient with increased weakness and dyspnea, actually starting Monday afternoon of last week and progressing over the weekend. He noted increased dyspnea on Monday which ultimately prompted him to come to the hospital He notes increased right shoulder pain; actually has to use left arm to move right arm. His breathing today, upon our exam, is improved - at least at rest. Metastatic Lung CA Oncology notes reviewed. He would benefit from a palliative consultation, so will re-visit this tomorrow. X-ray right shoulder to exclude pathologic fracture Magic Swizzle for oral discomfort Subjective Patient reports he feels much better today compared to when he arrived. Denies SOB. on RA. Reports he has been struggling with being told he had very little life expectancy to being told he had great chance of success after recent testing by heme/onc. Recognizs that he should be in nursing facility for increased level of care. Reports there are some issues at home that "need to sort themselves out", alluding to conflict between him and , however does not expand on topic. Acute complaints include a tongue lesion/pain that has been bothering him for about a month, and R arm pain since admission. He denies trauma to the R arm. Review of Systems Review of Systems: All systems reviewed & are unremarkable except as noted in HPI & below Physical Exam Constitutional: WD/WN, vitals as above + ill appearing and + morbidly obese Pallor Eyes: PERRL, conjunctivae normal, anicteric sclerae ENMT: external ear and nose normal, oropharynx normal Mouth: + oral mucosal abnormality (Small lesions on dorsal aspect of posterior right tongue) Respiratory: normal respiratory effort, lungs clear to auscultation Cardiovascular: RRR, no murmur, no edema Gastrointestinal (Abdomen): normal bowel sounds, soft, nontender, no hepatosplenomegaly Musculoskeletal: no cyanosis or clubbing, extremities motor strength 5/5 Skin: + wound (LLE healing wound from previous electrocution) Neurologic: PERRL, EOMI, accommodation nl, no face palsy, no dysarthria Psychiatric: A+Ox3, euthymic affect Results & Data Vital Signs (Past 12 Hours) Vital Signs Temp Pulse Resp BP Pulse Ox 10/15/18 15:08 36.8 C 107 H 20 138/66 94 10/15/18 15:06 36.8 C 107 H 20 138/66 94 10/15/18 11:35 36.8 C 94 H 18 135/83 94 10/15/18 07:29 36.6 C 66 16 105/67 96 Laboratory Results 10/15/18 10/15/18 10/15/18 Range/Units 16:42 11:52 08:50 WBC (4.8-10.8) K/uL RBC (4.7-6.1) M/uL Hgb (14.0-18.0) g/dL Hct (42-52) % MCV (80-100) fL MCH (25-34) pg MCHC (32-36) g/dL RDW Std Deviation (36.4-46.3) fL RDW Coeff of Dante (11.5-14.5) % Plt Count (130-400) K/uL MPV (7.4-10.4) fL Immature Gran % (Auto) % Neut % (Auto) % Lymph % (Auto) % Pershing % (Auto) % Eos % (Auto) % Baso % (Auto) % Immature Gran # (Auto) (0.00-0.02) K/uL Neut # (Auto) (1.4-6.5) K/uL Lymph # (Auto) (1.2-3.4) K/uL [place]hing # (Auto) (0.11-0.59) K/uL Eos # (Auto) (0-0.5) K/uL Baso # (Auto) (0-0.2) K/uL PT (9.0-12.0) Seconds INR (0.9-1.1) APTT (21.0-31.0) Seconds PTT Ratio Sodium (136-145) mmol/L Potassium (3.5-5.1) mmol/L Chloride (98-107) mmol/L Carbon Dioxide (21-32) mmol/L Anion Gap (3-11) BUN (7-18) mg/dl Creatinine (0.6-1.4) mg/dl Est Cr Clr Drug Dosing ml/min Est GFR ( Amer) Est GFR (Non-Af Amer) BUN/Creatinine Ratio (10-20) Glucose (70-99) mg/dl POC Glucose 214 H 143 H 111 H (70-99) Calcium (8.5-10.1) mg/dl Magnesium (1.8-2.4) mg/dl Total Bilirubin (0.2-1) mg/dl AST (15-37) U/L ALT (12-78) U/L Alkaline Phosphatase (45-117) U/L Troponin I (0-0.045) ng/ml NT-Pro-B Natriuret Pep (0-1800) pg/ml Total Protein (6.4-8.2) gm/dl Albumin (3.4-5.0) gm/dl Globulin (2.5-4.0) gm/dl Albumin/Globulin Ratio (0.9-2) Urine Color Urine Appearance (Clear) Urine pH (4.5-7.5) Ur Specific [place] (1.000-1.030) Urine Protein (Negative) Urine Glucose (UA) (Negative) Urine Ketones (Negative) Urine Blood (Negative) Urine Nitrite (Negative) Urine Bilirubin (Negative) Urine Urobilinogen (Negative) Ur Leukocyte Esterase (Negative) Urine WBC (Auto) (0-5) /hpf Urine RBC (Auto) (0-4) /hpf U Hyaline Cast (Auto) (0-5) /lpf U Epithel Cells (Auto) (0-5) /lpf Urine Bacteria (Auto) (Negative) Random Vancomycin mcg/ml 10/15/18 10/15/18 10/15/18 Range/Units 08:17 07:50 07:49 WBC (4.8-10.8) K/uL RBC (4.7-6.1) M/uL Hgb (14.0-18.0) g/dL Hct (42-52) % MCV (80-100) fL MCH (25-34) pg MCHC (32-36) g/dL RDW Std Deviation (36.4-46.3) fL RDW Coeff of Dante (11.5-14.5) % Plt Count (130-400) K/uL MPV (7.4-10.4) fL Immature Gran % (Auto) % Neut % (Auto) % Lymph % (Auto) % Pershing % (Auto) % Eos % (Auto) % Baso % (Auto) % Immature Gran # (Auto) (0.00-0.02) K/uL Neut # (Auto) (1.4-6.5) K/uL Lymph # (Auto) (1.2-3.4) K/uL [place]hing # (Auto) (0.11-0.59) K/uL Eos # (Auto) (0-0.5) K/uL Baso # (Auto) (0-0.2) K/uL PT (9.0-12.0) Seconds INR (0.9-1.1) APTT (21.0-31.0) Seconds PTT Ratio Sodium (136-145) mmol/L Potassium (3.5-5.1) mmol/L Chloride (98-107) mmol/L Carbon Dioxide (21-32) mmol/L Anion Gap (3-11) BUN (7-18) mg/dl Creatinine (0.6-1.4) mg/dl Est Cr Clr Drug Dosing ml/min Est GFR ( Amer) Est GFR (Non-Af Amer) BUN/Creatinine Ratio (10-20) Glucose (70-99) mg/dl POC Glucose 64 L* 49 L* 49 L* (70-99) Calcium (8.5-10.1) mg/dl Magnesium (1.8-2.4) mg/dl Total Bilirubin (0.2-1) mg/dl AST (15-37) U/L ALT (12-78) U/L Alkaline Phosphatase (45-117) U/L Troponin I (0-0.045) ng/ml NT-Pro-B Natriuret Pep (0-1800) pg/ml Total Protein (6.4-8.2) gm/dl Albumin (3.4-5.0) gm/dl Globulin (2.5-4.0) gm/dl Albumin/Globulin Ratio (0.9-2) Urine Color Urine Appearance (Clear) Urine pH (4.5-7.5) Ur Specific [place] (1.000-1.030) Urine Protein (Negative) Urine Glucose (UA) (Negative) Urine Ketones (Negative) Urine Blood (Negative) Urine Nitrite (Negative) Urine Bilirubin (Negative) Urine Urobilinogen (Negative) Ur Leukocyte Esterase (Negative) Urine WBC (Auto) (0-5) /hpf Urine RBC (Auto) (0-4) /hpf U Hyaline Cast (Auto) (0-5) /lpf U Epithel Cells (Auto) (0-5) /lpf Urine Bacteria (Auto) (Negative) Random Vancomycin mcg/ml 10/15/18 10/15/18 10/15/18 Range/Units 06:21 06:21 06:21 WBC 9.59 (4.8-10.8) K/uL RBC 3.45 L (4.7-6.1) M/uL Hgb 11.2 L (14.0-18.0) g/dL Hct 32.7 L (42-52) % MCV 94.8 (80-100) fL MCH 32.5 (25-34) pg MCHC 34.3 (32-36) g/dL RDW Std Deviation 55.0 H (36.4-46.3) fL RDW Coeff of Dante 16.1 H (11.5-14.5) % Plt Count 93 L (130-400) K/uL MPV 9.0 (7.4-10.4) fL Immature Gran % (Auto) 0.5 % Neut % (Auto) 84.8 % Lymph % (Auto) 9.5 % Pershing % (Auto) 1.7 % Eos % (Auto) 3.5 % Baso % (Auto) 0.0 % Immature Gran # (Auto) 0.05 H (0.00-0.02) K/uL Neut # (Auto) 8.13 H (1.4-6.5) K/uL Lymph # (Auto) 0.91 L (1.2-3.4) K/uL [place]hing # (Auto) 0.16 (0.11-0.59) K/uL Eos # (Auto) 0.34 (0-0.5) K/uL Baso # (Auto) 0.00 (0-0.2) K/uL PT 17.9 H (9.0-12.0) Seconds INR 1.8 H (0.9-1.1) APTT 24.3 (21.0-31.0) Seconds PTT Ratio 0.9 Sodium 148 H (136-145) mmol/L Potassium 3.9 (3.5-5.1) mmol/L Chloride 116 H (98-107) mmol/L Carbon Dioxide 27 (21-32) mmol/L Anion Gap 5.0 (3-11) BUN 37 H (7-18) mg/dl Creatinine 1.45 H (0.6-1.4) mg/dl Est Cr Clr Drug Dosing 52.7 ml/min Est GFR ( Amer) 52.0 Est GFR (Non-Af Amer) 44.8 BUN/Creatinine Ratio 25.2 H (10-20) Glucose 89 (70-99) mg/dl POC Glucose (70-99) Calcium 8.0 L (8.5-10.1) mg/dl Magnesium (1.8-2.4) mg/dl Total Bilirubin (0.2-1) mg/dl AST (15-37) U/L ALT (12-78) U/L Alkaline Phosphatase (45-117) U/L Troponin I (0-0.045) ng/ml NT-Pro-B Natriuret Pep (0-1800) pg/ml Total Protein (6.4-8.2) gm/dl Albumin (3.4-5.0) gm/dl Globulin (2.5-4.0) gm/dl Albumin/Globulin Ratio (0.9-2) Urine Color Urine Appearance (Clear) Urine pH (4.5-7.5) Ur Specific [place] (1.000-1.030) Urine Protein (Negative) Urine Glucose (UA) (Negative) Urine Ketones (Negative) Urine Blood (Negative) Urine Nitrite (Negative) Urine Bilirubin (Negative) Urine Urobilinogen (Negative) Ur Leukocyte Esterase (Negative) Urine WBC (Auto) (0-5) /hpf Urine RBC (Auto) (0-4) /hpf U Hyaline Cast (Auto) (0-5) /lpf U Epithel Cells (Auto) (0-5) /lpf Urine Bacteria (Auto) (Negative) Random Vancomycin mcg/ml 10/15/18 10/15/18 10/14/18 Range/Units 04:43 00:37 22:23 WBC (4.8-10.8) K/uL RBC (4.7-6.1) M/uL Hgb (14.0-18.0) g/dL Hct (42-52) % MCV (80-100) fL MCH (25-34) pg MCHC (32-36) g/dL RDW Std Deviation (36.4-46.3) fL RDW Coeff of Dante (11.5-14.5) % Plt Count (130-400) K/uL MPV (7.4-10.4) fL Immature Gran % (Auto) % Neut % (Auto) % Lymph % (Auto) % [place] % (Auto) % Eos % (Auto) % Baso % (Auto) % Immature Gran # (Auto) (0.00-0.02) K/uL Neut # (Auto) (1.4-6.5) K/uL Lymph # (Auto) (1.2-3.4) K/uL [place] # (Auto) (0.11-0.59) K/uL Eos # (Auto) (0-0.5) K/uL Baso # (Auto) (0-0.2) K/uL PT (9.0-12.0) Seconds INR (0.9-1.1) APTT (21.0-31.0) Seconds PTT Ratio Sodium (136-145) mmol/L Potassium (3.5-5.1) mmol/L Chloride (98-107) mmol/L Carbon Dioxide (21-32) mmol/L Anion Gap (3-11) BUN (7-18) mg/dl Creatinine (0.6-1.4) mg/dl Est Cr Clr Drug Dosing ml/min Est GFR ( Amer) Est GFR (Non-Af Amer) BUN/Creatinine Ratio (10-20) Glucose (70-99) mg/dl POC Glucose 204 H (70-99) Calcium (8.5-10.1) mg/dl Magnesium (1.8-2.4) mg/dl Total Bilirubin (0.2-1) mg/dl AST (15-37) U/L ALT (12-78) U/L Alkaline Phosphatase (45-117) U/L Troponin I (0-0.045) ng/ml NT-Pro-B Natriuret Pep (0-1800) pg/ml Total Protein (6.4-8.2) gm/dl Albumin (3.4-5.0) gm/dl Globulin (2.5-4.0) gm/dl Albumin/Globulin Ratio (0.9-2) Urine Color Yellow Urine Appearance Turbid A (Clear) Urine pH >= 9.0 H (4.5-7.5) Ur Specific [place] 1.023 (1.000-1.030) Urine Protein Negative (Negative) Urine Glucose (UA) 2+ H (Negative) Urine Ketones Negative (Negative) Urine Blood Negative (Negative) Urine Nitrite Negative (Negative) Urine Bilirubin Negative (Negative) Urine Urobilinogen Negative (Negative) Ur Leukocyte Esterase 2+ H (Negative) Urine WBC (Auto) >30 H (0-5) /hpf Urine RBC (Auto) 0-4 (0-4) /hpf U Hyaline Cast (Auto) 1-5 (0-5) /lpf U Epithel Cells (Auto) 0-5 (0-5) /lpf Urine Bacteria (Auto) 4+ H (Negative) Random Vancomycin 15.5 mcg/ml 10/14/18 10/14/18 10/14/18 Range/Units 18:31 18:31 18:31 WBC (4.8-10.8) K/uL RBC (4.7-6.1) M/uL Hgb (14.0-18.0) g/dL Hct (42-52) % MCV (80-100) fL MCH (25-34) pg MCHC (32-36) g/dL RDW Std Deviation (36.4-46.3) fL RDW Coeff of Dante (11.5-14.5) % Plt Count (130-400) K/uL MPV (7.4-10.4) fL Immature Gran % (Auto) % Neut % (Auto) % Lymph % (Auto) % [place] % (Auto) % Eos % (Auto) % Baso % (Auto) % Immature Gran # (Auto) (0.00-0.02) K/uL Neut # (Auto) (1.4-6.5) K/uL Lymph # (Auto) (1.2-3.4) K/uL [place] # (Auto) (0.11-0.59) K/uL Eos # (Auto) (0-0.5) K/uL Baso # (Auto) (0-0.2) K/uL PT 19.8 H (9.0-12.0) Seconds INR 2.0 H (0.9-1.1) APTT 26.8 (21.0-31.0) Seconds PTT Ratio 1.0 Sodium 144 (136-145) mmol/L Potassium 4.2 (3.5-5.1) mmol/L Chloride 110 H (98-107) mmol/L Carbon Dioxide 28 (21-32) mmol/L Anion Gap 6.0 (3-11) BUN 40 H (7-18) mg/dl Creatinine 1.70 H (0.6-1.4) mg/dl Est Cr Clr Drug Dosing 44.9 ml/min Est GFR ( Amer) 42.9 Est GFR (Non-Af Amer) 37.0 BUN/Creatinine Ratio 23.3 H (10-20) Glucose 188 H (70-99) mg/dl POC Glucose (70-99) Calcium 8.2 L (8.5-10.1) mg/dl Magnesium 2.2 (1.8-2.4) mg/dl Total Bilirubin 0.6 (0.2-1) mg/dl AST 17 (15-37) U/L ALT 34 (12-78) U/L Alkaline Phosphatase 103 (45-117) U/L Troponin I 0.021 (0-0.045) ng/ml NT-Pro-B Natriuret Pep 879 (0-1800) pg/ml Total Protein 6.2 L (6.4-8.2) gm/dl Albumin 2.4 L (3.4-5.0) gm/dl Globulin 3.8 (2.5-4.0) gm/dl Albumin/Globulin Ratio 0.6 L (0.9-2) Urine Color Urine Appearance (Clear) Urine pH (4.5-7.5) Ur Specific [place] (1.000-1.030) Urine Protein (Negative) Urine Glucose (UA) (Negative) Urine Ketones (Negative) Urine Blood (Negative) Urine Nitrite (Negative) Urine Bilirubin (Negative) Urine Urobilinogen (Negative) Ur Leukocyte Esterase (Negative) Urine WBC (Auto) (0-5) /hpf Urine RBC (Auto) (0-4) /hpf U Hyaline Cast (Auto) (0-5) /lpf U Epithel Cells (Auto) (0-5) /lpf Urine Bacteria (Auto) (Negative) Random Vancomycin mcg/ml 10/14/18 Range/Units 18:31 WBC 11.40 H (4.8-10.8) K/uL RBC 3.66 L (4.7-6.1) M/uL Hgb 11.5 L (14.0-18.0) g/dL Hct 35.3 L (42-52) % MCV 96.4 (80-100) fL MCH 31.4 (25-34) pg MCHC 32.6 (32-36) g/dL RDW Std Deviation 55.5 H (36.4-46.3) fL RDW Coeff of Dante 16.2 H (11.5-14.5) % Plt Count 114 L (130-400) K/uL MPV 9.2 (7.4-10.4) fL Immature Gran % (Auto) 0.4 % Neut % (Auto) 91.4 % Lymph % (Auto) 6.0 % [place] % (Auto) 1.9 % Eos % (Auto) 0.3 % Baso % (Auto) 0.0 % Immature Gran # (Auto) 0.04 H (0.00-0.02) K/uL Neut # (Auto) 10.43 H (1.4-6.5) K/uL Lymph # (Auto) 0.68 L (1.2-3.4) K/uL [place] # (Auto) 0.22 (0.11-0.59) K/uL Eos # (Auto) 0.03 (0-0.5) K/uL Baso # (Auto) 0.00 (0-0.2) K/uL PT (9.0-12.0) Seconds INR (0.9-1.1) APTT (21.0-31.0) Seconds PTT Ratio Sodium (136-145) mmol/L Potassium (3.5-5.1) mmol/L Chloride (98-107) mmol/L Carbon Dioxide (21-32) mmol/L Anion Gap (3-11) BUN (7-18) mg/dl Creatinine (0.6-1.4) mg/dl Est Cr Clr Drug Dosing ml/min Est GFR ( Amer) Est GFR (Non-Af Amer) BUN/Creatinine Ratio (10-20) Glucose (70-99) mg/dl POC Glucose (70-99) Calcium (8.5-10.1) mg/dl Magnesium (1.8-2.4) mg/dl Total Bilirubin (0.2-1) mg/dl AST (15-37) U/L ALT (12-78) U/L Alkaline Phosphatase (45-117) U/L Troponin I (0-0.045) ng/ml NT-Pro-B Natriuret Pep (0-1800) pg/ml Total Protein (6.4-8.2) gm/dl Albumin (3.4-5.0) gm/dl Globulin (2.5-4.0) gm/dl Albumin/Globulin Ratio (0.9-2) Urine Color Urine Appearance (Clear) Urine pH (4.5-7.5) Ur Specific [place] (1.000-1.030) Urine Protein (Negative) Urine Glucose (UA) (Negative) Urine Ketones (Negative) Urine Blood (Negative) Urine Nitrite (Negative) Urine Bilirubin (Negative) Urine Urobilinogen (Negative) Ur Leukocyte Esterase (Negative) Urine WBC (Auto) (0-5) /hpf Urine RBC (Auto) (0-4) /hpf U Hyaline Cast (Auto) (0-5) /lpf U Epithel Cells (Auto) (0-5) /lpf Urine Bacteria (Auto) (Negative) Random Vancomycin mcg/ml Medications Administered 10/15/18 10/15/18 10/15/18 Range/Units 16:42 11:52 08:50 WBC (4.8-10.8) K/uL RBC (4.7-6.1) M/uL Hgb (14.0-18.0) g/dL Hct (42-52) % MCV (80-100) fL MCH (25-34) pg MCHC (32-36) g/dL RDW Std Deviation (36.4-46.3) fL RDW Coeff of Dante (11.5-14.5) % Plt Count (130-400) K/uL MPV (7.4-10.4) fL Immature Gran % (Auto) % Neut % (Auto) % Lymph % (Auto) % [place] % (Auto) % Eos % (Auto) % Baso % (Auto) % Immature Gran # (Auto) (0.00-0.02) K/uL Neut # (Auto) (1.4-6.5) K/uL Lymph # (Auto) (1.2-3.4) K/uL [place] # (Auto) (0.11-0.59) K/uL Eos # (Auto) (0-0.5) K/uL Baso # (Auto) (0-0.2) K/uL PT (9.0-12.0) Seconds INR (0.9-1.1) APTT (21.0-31.0) Seconds PTT Ratio Sodium (136-145) mmol/L Potassium (3.5-5.1) mmol/L Chloride (98-107) mmol/L Carbon Dioxide (21-32) mmol/L Anion Gap (3-11) BUN (7-18) mg/dl Creatinine (0.6-1.4) mg/dl Est Cr Clr Drug Dosing ml/min Est GFR ( Amer) Est GFR (Non-Af Amer) BUN/Creatinine Ratio (10-20) Glucose (70-99) mg/dl POC Glucose 214 H 143 H 111 H (70-99) Calcium (8.5-10.1) mg/dl Magnesium (1.8-2.4) mg/dl Total Bilirubin (0.2-1) mg/dl AST (15-37) U/L ALT (12-78) U/L Alkaline Phosphatase (45-117) U/L Troponin I (0-0.045) ng/ml NT-Pro-B Natriuret Pep (0-1800) pg/ml Total Protein (6.4-8.2) gm/dl Albumin (3.4-5.0) gm/dl Globulin (2.5-4.0) gm/dl Albumin/Globulin Ratio (0.9-2) Urine Color Urine Appearance (Clear) Urine pH (4.5-7.5) Ur Specific [place] (1.000-1.030) Urine Protein (Negative) Urine Glucose (UA) (Negative) Urine Ketones (Negative) Urine Blood (Negative) Urine Nitrite (Negative) Urine Bilirubin (Negative) Urine Urobilinogen (Negative) Ur Leukocyte Esterase (Negative) Urine WBC (Auto) (0-5) /hpf Urine RBC (Auto) (0-4) /hpf U Hyaline Cast (Auto) (0-5) /lpf U Epithel Cells (Auto) (0-5) /lpf Urine Bacteria (Auto) (Negative) Random Vancomycin mcg/ml 10/15/18 10/15/18 10/15/18 Range/Units 08:17 07:50 07:49 WBC (4.8-10.8) K/uL RBC (4.7-6.1) M/uL Hgb (14.0-18.0) g/dL Hct (42-52) % MCV (80-100) fL MCH (25-34) pg MCHC (32-36) g/dL RDW Std Deviation (36.4-46.3) fL RDW Coeff of Dante (11.5-14.5) % Plt Count (130-400) K/uL MPV (7.4-10.4) fL Immature Gran % (Auto) % Neut % (Auto) % Lymph % (Auto) % [place] % (Auto) % Eos % (Auto) % Baso % (Auto) % Immature Gran # (Auto) (0.00-0.02) K/uL Neut # (Auto) (1.4-6.5) K/uL Lymph # (Auto) (1.2-3.4) K/uL [place] # (Auto) (0.11-0.59) K/uL Eos # (Auto) (0-0.5) K/uL Baso # (Auto) (0-0.2) K/uL PT (9.0-12.0) Seconds INR (0.9-1.1) APTT (21.0-31.0) Seconds PTT Ratio Sodium (136-145) mmol/L Potassium (3.5-5.1) mmol/L Chloride (98-107) mmol/L Carbon Dioxide (21-32) mmol/L Anion Gap (3-11) BUN (7-18) mg/dl Creatinine (0.6-1.4) mg/dl Est Cr Clr Drug Dosing ml/min Est GFR ( Amer) Est GFR (Non-Af Amer) BUN/Creatinine Ratio (10-20) Glucose (70-99) mg/dl POC Glucose 64 L* 49 L* 49 L* (70-99) Calcium (8.5-10.1) mg/dl Magnesium (1.8-2.4) mg/dl Total Bilirubin (0.2-1) mg/dl AST (15-37) U/L ALT (12-78) U/L Alkaline Phosphatase (45-117) U/L Troponin I (0-0.045) ng/ml NT-Pro-B Natriuret Pep (0-1800) pg/ml Total Protein (6.4-8.2) gm/dl Albumin (3.4-5.0) gm/dl Globulin (2.5-4.0) gm/dl Albumin/Globulin Ratio (0.9-2) Urine Color Urine Appearance (Clear) Urine pH (4.5-7.5) Ur Specific [place] (1.000-1.030) Urine Protein (Negative) Urine Glucose (UA) (Negative) Urine Ketones (Negative) Urine Blood (Negative) Urine Nitrite (Negative) Urine Bilirubin (Negative) Urine Urobilinogen (Negative) Ur Leukocyte Esterase (Negative) Urine WBC (Auto) (0-5) /hpf Urine RBC (Auto) (0-4) /hpf U Hyaline Cast (Auto) (0-5) /lpf U Epithel Cells (Auto) (0-5) /lpf Urine Bacteria (Auto) (Negative) Random Vancomycin mcg/ml 10/15/18 10/15/18 10/15/18 Range/Units 06:21 06:21 06:21 WBC 9.59 (4.8-10.8) K/uL RBC 3.45 L (4.7-6.1) M/uL Hgb 11.2 L (14.0-18.0) g/dL Hct 32.7 L (42-52) % MCV 94.8 (80-100) fL MCH 32.5 (25-34) pg MCHC 34.3 (32-36) g/dL RDW Std Deviation 55.0 H (36.4-46.3) fL RDW Coeff of Dante 16.1 H (11.5-14.5) % Plt Count 93 L (130-400) K/uL MPV 9.0 (7.4-10.4) fL Immature Gran % (Auto) 0.5 % Neut % (Auto) 84.8 % Lymph % (Auto) 9.5 % [place] % (Auto) 1.7 % Eos % (Auto) 3.5 % Baso % (Auto) 0.0 % Immature Gran # (Auto) 0.05 H (0.00-0.02) K/uL Neut # (Auto) 8.13 H (1.4-6.5) K/uL Lymph # (Auto) 0.91 L (1.2-3.4) K/uL Pershing # (Auto) 0.16 (0.11-0.59) K/uL Eos # (Auto) 0.34 (0-0.5) K/uL Baso # (Auto) 0.00 (0-0.2) K/uL PT 17.9 H (9.0-12.0) Seconds INR 1.8 H (0.9-1.1) APTT 24.3 (21.0-31.0) Seconds PTT Ratio 0.9 Sodium 148 H (136-145) mmol/L Potassium 3.9 (3.5-5.1) mmol/L Chloride 116 H (98-107) mmol/L Carbon Dioxide 27 (21-32) mmol/L Anion Gap 5.0 (3-11) BUN 37 H (7-18) mg/dl Creatinine 1.45 H (0.6-1.4) mg/dl Est Cr Clr Drug Dosing 52.7 ml/min Est GFR ( Amer) 52.0 Est GFR (Non-Af Amer) 44.8 BUN/Creatinine Ratio 25.2 H (10-20) Glucose 89 (70-99) mg/dl POC Glucose (70-99) Calcium 8.0 L (8.5-10.1) mg/dl Magnesium (1.8-2.4) mg/dl Total Bilirubin (0.2-1) mg/dl AST (15-37) U/L ALT (12-78) U/L Alkaline Phosphatase (45-117) U/L Troponin I (0-0.045) ng/ml NT-Pro-B Natriuret Pep (0-1800) pg/ml Total Protein (6.4-8.2) gm/dl Albumin (3.4-5.0) gm/dl Globulin (2.5-4.0) gm/dl Albumin/Globulin Ratio (0.9-2) Urine Color Urine Appearance (Clear) Urine pH (4.5-7.5) Ur Specific [place] (1.000-1.030) Urine Protein (Negative) Urine Glucose (UA) (Negative) Urine Ketones (Negative) Urine Blood (Negative) Urine Nitrite (Negative) Urine Bilirubin (Negative) Urine Urobilinogen (Negative) Ur Leukocyte Esterase (Negative) Urine WBC (Auto) (0-5) /hpf Urine RBC (Auto) (0-4) /hpf U Hyaline Cast (Auto) (0-5) /lpf U Epithel Cells (Auto) (0-5) /lpf Urine Bacteria (Auto) (Negative) Random Vancomycin mcg/ml 10/15/18 10/15/18 10/14/18 Range/Units 04:43 00:37 22:23 WBC (4.8-10.8) K/uL RBC (4.7-6.1) M/uL Hgb (14.0-18.0) g/dL Hct (42-52) % MCV (80-100) fL MCH (25-34) pg MCHC (32-36) g/dL RDW Std Deviation (36.4-46.3) fL RDW Coeff of Dante (11.5-14.5) % Plt Count (130-400) K/uL MPV (7.4-10.4) fL Immature Gran % (Auto) % Neut % (Auto) % Lymph % (Auto) % [place] % (Auto) % Eos % (Auto) % Baso % (Auto) % Immature Gran # (Auto) (0.00-0.02) K/uL Neut # (Auto) (1.4-6.5) K/uL Lymph # (Auto) (1.2-3.4) K/uL [place] # (Auto) (0.11-0.59) K/uL Eos # (Auto) (0-0.5) K/uL Baso # (Auto) (0-0.2) K/uL PT (9.0-12.0) Seconds INR (0.9-1.1) APTT (21.0-31.0) Seconds PTT Ratio Sodium (136-145) mmol/L Potassium (3.5-5.1) mmol/L Chloride (98-107) mmol/L Carbon Dioxide (21-32) mmol/L Anion Gap (3-11) BUN (7-18) mg/dl Creatinine (0.6-1.4) mg/dl Est Cr Clr Drug Dosing ml/min Est GFR ( Amer) Est GFR (Non-Af Amer) BUN/Creatinine Ratio (10-20) Glucose (70-99) mg/dl POC Glucose 204 H (70-99) Calcium (8.5-10.1) mg/dl Magnesium (1.8-2.4) mg/dl Total Bilirubin (0.2-1) mg/dl AST (15-37) U/L ALT (12-78) U/L Alkaline Phosphatase (45-117) U/L Troponin I (0-0.045) ng/ml NT-Pro-B Natriuret Pep (0-1800) pg/ml Total Protein (6.4-8.2) gm/dl Albumin (3.4-5.0) gm/dl Globulin (2.5-4.0) gm/dl Albumin/Globulin Ratio (0.9-2) Urine Color Yellow Urine Appearance Turbid A (Clear) Urine pH >= 9.0 H (4.5-7.5) Ur Specific [place] 1.023 (1.000-1.030) Urine Protein Negative (Negative) Urine Glucose (UA) 2+ H (Negative) Urine Ketones Negative (Negative) Urine Blood Negative (Negative) Urine Nitrite Negative (Negative) Urine Bilirubin Negative (Negative) Urine Urobilinogen Negative (Negative) Ur Leukocyte Esterase 2+ H (Negative) Urine WBC (Auto) >30 H (0-5) /hpf Urine RBC (Auto) 0-4 (0-4) /hpf U Hyaline Cast (Auto) 1-5 (0-5) /lpf U Epithel Cells (Auto) 0-5 (0-5) /lpf Urine Bacteria (Auto) 4+ H (Negative) Random Vancomycin 15.5 mcg/ml 10/14/18 10/14/18 10/14/18 Range/Units 18:31 18:31 18:31 WBC (4.8-10.8) K/uL RBC (4.7-6.1) M/uL Hgb (14.0-18.0) g/dL Hct (42-52) % MCV (80-100) fL MCH (25-34) pg MCHC (32-36) g/dL RDW Std Deviation (36.4-46.3) fL RDW Coeff of Dante (11.5-14.5) % Plt Count (130-400) K/uL MPV (7.4-10.4) fL Immature Gran % (Auto) % Neut % (Auto) % Lymph % (Auto) % [place] % (Auto) % Eos % (Auto) % Baso % (Auto) % Immature Gran # (Auto) (0.00-0.02) K/uL Neut # (Auto) (1.4-6.5) K/uL Lymph # (Auto) (1.2-3.4) K/uL Pershing # (Auto) (0.11-0.59) K/uL Eos # (Auto) (0-0.5) K/uL Baso # (Auto) (0-0.2) K/uL PT 19.8 H (9.0-12.0) Seconds INR 2.0 H (0.9-1.1) APTT 26.8 (21.0-31.0) Seconds PTT Ratio 1.0 Sodium 144 (136-145) mmol/L Potassium 4.2 (3.5-5.1) mmol/L Chloride 110 H (98-107) mmol/L Carbon Dioxide 28 (21-32) mmol/L Anion Gap 6.0 (3-11) BUN 40 H (7-18) mg/dl Creatinine 1.70 H (0.6-1.4) mg/dl Est Cr Clr Drug Dosing 44.9 ml/min Est GFR ( Amer) 42.9 Est GFR (Non-Af Amer) 37.0 BUN/Creatinine Ratio 23.3 H (10-20) Glucose 188 H (70-99) mg/dl POC Glucose (70-99) Calcium 8.2 L (8.5-10.1) mg/dl Magnesium 2.2 (1.8-2.4) mg/dl Total Bilirubin 0.6 (0.2-1) mg/dl AST 17 (15-37) U/L ALT 34 (12-78) U/L Alkaline Phosphatase 103 (45-117) U/L Troponin I 0.021 (0-0.045) ng/ml NT-Pro-B Natriuret Pep 879 (0-1800) pg/ml Total Protein 6.2 L (6.4-8.2) gm/dl Albumin 2.4 L (3.4-5.0) gm/dl Globulin 3.8 (2.5-4.0) gm/dl Albumin/Globulin Ratio 0.6 L (0.9-2) Urine Color Urine Appearance (Clear) Urine pH (4.5-7.5) Ur Specific [place] (1.000-1.030) Urine Protein (Negative) Urine Glucose (UA) (Negative) Urine Ketones (Negative) Urine Blood (Negative) Urine Nitrite (Negative) Urine Bilirubin (Negative) Urine Urobilinogen (Negative) Ur Leukocyte Esterase (Negative) Urine WBC (Auto) (0-5) /hpf Urine RBC (Auto) (0-4) /hpf U Hyaline Cast (Auto) (0-5) /lpf U Epithel Cells (Auto) (0-5) /lpf Urine Bacteria (Auto) (Negative) Random Vancomycin mcg/ml 10/14/18 Range/Units 18:31 WBC 11.40 H (4.8-10.8) K/uL RBC 3.66 L (4.7-6.1) M/uL Hgb 11.5 L (14.0-18.0) g/dL Hct 35.3 L (42-52) % MCV 96.4 (80-100) fL MCH 31.4 (25-34) pg MCHC 32.6 (32-36) g/dL RDW Std Deviation 55.5 H (36.4-46.3) fL RDW Coeff of Dante 16.2 H (11.5-14.5) % Plt Count 114 L (130-400) K/uL MPV 9.2 (7.4-10.4) fL Immature Gran % (Auto) 0.4 % Neut % (Auto) 91.4 % Lymph % (Auto) 6.0 % Pershing % (Auto) 1.9 % Eos % (Auto) 0.3 % Baso % (Auto) 0.0 % Immature Gran # (Auto) 0.04 H (0.00-0.02) K/uL Neut # (Auto) 10.43 H (1.4-6.5) K/uL Lymph # (Auto) 0.68 L (1.2-3.4) K/uL Pershing # (Auto) 0.22 (0.11-0.59) K/uL Eos # (Auto) 0.03 (0-0.5) K/uL Baso # (Auto) 0.00 (0-0.2) K/uL PT (9.0-12.0) Seconds INR (0.9-1.1) APTT (21.0-31.0) Seconds PTT Ratio Sodium (136-145) mmol/L Potassium (3.5-5.1) mmol/L Chloride (98-107) mmol/L Carbon Dioxide (21-32) mmol/L Anion Gap (3-11) BUN (7-18) mg/dl Creatinine (0.6-1.4) mg/dl Est Cr Clr Drug Dosing ml/min Est GFR ( Amer) Est GFR (Non-Af Amer) BUN/Creatinine Ratio (10-20) Glucose (70-99) mg/dl POC Glucose (70-99) Calcium (8.5-10.1) mg/dl Magnesium (1.8-2.4) mg/dl Total Bilirubin (0.2-1) mg/dl AST (15-37) U/L ALT (12-78) U/L Alkaline Phosphatase (45-117) U/L Troponin I (0-0.045) ng/ml NT-Pro-B Natriuret Pep (0-1800) pg/ml Total Protein (6.4-8.2) gm/dl Albumin (3.4-5.0) gm/dl Globulin (2.5-4.0) gm/dl Albumin/Globulin Ratio (0.9-2) Urine Color Urine Appearance (Clear) Urine pH (4.5-7.5) Ur Specific [place] (1.000-1.030) Urine Protein (Negative) Urine Glucose (UA) (Negative) Urine Ketones (Negative) Urine Blood (Negative) Urine Nitrite (Negative) Urine Bilirubin (Negative) Urine Urobilinogen (Negative) Ur Leukocyte Esterase (Negative) Urine WBC (Auto) (0-5) /hpf Urine RBC (Auto) (0-4) /hpf U Hyaline Cast (Auto) (0-5) /lpf U Epithel Cells (Auto) (0-5) /lpf Urine Bacteria (Auto) (Negative) Random Vancomycin mcg/ml Resident Activity Tracking Resident Involvement: Resident Care Provided Care Provided: Adult Hospital Medicine
[2018-10-16] MEDS: VANCOMYCIN HCL 1,750 MG in SODIUM CHLORIDE 0.9% 500 ML IV SCH (01:34)
[2018-10-16 05:47] LABS: Hemoglobin 9.9 g/dL (14.0-18.0); Mean Corpuscular Hgb Conc 31.9 g/dL (32-36); Mean Corpuscular Volume 97.2 fL (80-100); Mean Platelet Volume 9.2 fL (7.4-10.4); Platelet Count 85 K/uL (130-400); RDW Coefficient of Variation 16.4 % (11.5-14.5); RDW Standard Deviation 56.8 fL (36.4-46.3); Red Blood Count 3.19 M/uL (4.7-6.1); White Blood Count 9.42 K/uL (4.8-10.8)
[2018-10-16 05:58] LABS: INR 1.8 (0.9-1.1); Prothrombin Time 17.4 Seconds (9.0-12.0)
[2018-10-16 06:11] LABS: Eosinophils # (auto) 0.02 K/uL (0-0.5); Eosinophils % (auto) 0.2 %; Immature Granulocytes # (auto) 0.04 K/uL (0.00-0.02); Immature Granulocytes % (auto) 0.4 %; Lymphocytes # (auto) 0.58 K/uL (1.2-3.4); Lymphocytes % (auto) 6.2 %; Monocytes # (auto) 0.15 K/uL (0.11-0.59); Monocytes % (auto) 1.6 %; Neutrophils # (auto) 8.63 K/uL (1.4-6.5); Neutrophils % (auto) 91.6 %; RBC Morphology Unremarkable
[2018-10-16 06:22] LABS: Creatinine Clr Calc Pharmacy 61.6 ml/min; Est GFR (African American) 62.8; Est GFR (Non-African American) 54.2; Magnesium 1.9 mg/dl (1.8-2.4)
[2018-10-16] MEDS: OXYCODONE HCL 15 MG TABCR (OXYCONTIN) PO SCH ×2 (08:35→20:55)
[2018-10-16] MEDS: OXYCODONE HCL IR 5 MG TAB (IMMEDIATE RELEASE) PO PRN ×2 (08:35→12:34)
[2018-10-16] MEDS: dexAMETHasone 4 MG TAB PO SCH ×2 (08:36→20:55)
[2018-10-16] MEDS: DULOXETINE HCL 60 MG CAP PO SCH (08:36)
[2018-10-16] MEDS: DULOXETINE HCL 30 MG CAP PO SCH (08:36)
[2018-10-16] MEDS: LIDOCAINE 5% 1 PATCH TD SCH (08:37)
[2018-10-16] MEDS: INSULIN GLARGINE SOLOSTAR 100 UNITS/ML 3 ML PEN SQ SCH ×2 (08:39→20:56)
[2018-10-16] MEDS: INSULIN ASPART 100 UNITS/ML 3 ML PEN SC SCH ×4 (08:41→20:56)
[2018-10-16] MEDS: LIDOCAINE HCL 2% VISCOUS 60 ML, DiphenhydrAMINE Syrup 150 MG, ALUMINUM/MAGNESIUM SUSP 6... MT PRN ×2 (12:35→19:01)
[2018-10-16] MEDS ORDERED: WARFARIN SOD 2 MG TAB PO ONE (15:49)
--- NOTE | 2018-10-16 15:49 | Family Medicine Progress Note ---
Date of Service October 16, 2018 Assessment & Plan (1) Shortness of breath: 82yo M presents to the ER 10/14/18 with acute episode of dyspnea in setting of progressive metastatic lung cancer. Recently admitted 09/12-10/04/18 got bacteremia; remains on treatment. Shortness of breath -Related to underlying lung cancer. -Duonebs every 4 hours while awake and every 2 hours when necessary. -Will cut steroids to 2mg BID dexamethasone from 4mg BID. Bacteremia/strep sepsis -Continue vanc IV, 4 week course, set to finish on 10/25 History of lung cancer, metastatic to bone Lung cancer/persistent mass of middle lobe of right lung/cancer metastatic to bone/persistent cancer related pain- Responsible for most of the patient's symptoms regarding shortness of breath and generalized pain. Continue dexamethasone at lower dose, duloxetine, OxyContin 15 mg p.o. twice daily. Continue oxycodone 5 mg p.o. every 6 hours as needed breakthrough pain. Add morphine sulfate 4 mg IV every 3 hours as needed severe pain. Patient has asked that he be discharged to a intermediate, as he is unable to take care of himself extent the need to at home. Patient changed his mind today and wishes to go home. Seems this is not about his care at home but about his home situation with his . Patient has seen palliative care in the past, declines consult at this time; is hopeful for future and "doesn't want to many people involved in care." Hyperlipidemia Continue atorvastatin 40 mg daily. Depression Continue duloxetine 90 mg p.o. every morning Per CM, called to notify that prior to admission, he was mean to her, threatening to shoot people and/or himself On chart review, has had similar "outbursts" in past, has had psych consult Will need to address prior to DC home. Will consult psych due to safety issues at home, need for potential home nursing, etc. Was told in passing he may have schizophrenia diagnosis but can find no evidence of this on chart review; not on any antipsychotic meds. Will try to cut steroids to see if related to "rage" T2DM Continue Lantus insulin 36 units subcu every morning and 32 units subcu every afternoon. Placed on Accu-Cheks before meals and at bedtime with NovoLog coverage per scale. Last A1c in 08/2018 >12 Right Arm pain -Xrays negative for acute or metastatic pathology -Lidoderm patch applied Tongue lesion -Unclear cause -Prescribed magic swizzle for symptoms. History of extensive DVT, PE -Continue coumadin. Given extra doses for subtherapeutic INR of 1.8. Monitor DVTP: coumadin code: Full Dispo: awaiting psych eval for home health. Declines rehab. on med/surg (2) Bacteremia: (3) Other streptococcal sepsis: (4) History of lung cancer: (5) Cancer, metastatic to bone: (6) Mass of middle lobe of right lung: (7) Cancer related pain: (8) Hyperlipidemia: (9) Depression: (10) Type II diabetes mellitus: Supervising Physician Co-Signing Physician Notes I saw the patient with the resident and confirmed galo portions of the history and exam. I agree with the impression and plan as noted above. Less complaints of the right arm pain today as compared to yesterday. He has not tried the Magic swizzle yet; discussed with nursing. Metastatic Lung CA Continue current care in terms of pain control Will decrease steroids slightly to see if this is contributing to his anger issues Agree psychiatric consult given collateral information obtained today Anemia Chronic, stable Subjective Patient reports that he is feeling "okay" this morning. States he is dealing with stressful home situation. Reports "I've decided i'm not going to a nursing facility, I'm going to go home and if my doesn't want to be there she can move out!" He states his arm pain is improved with lidoderm patch. Mouth sores improved with magic swizzle. Spent 20 minutes on phone with patient's today; she detailed his "fits of rage" and that she feels terrified for him to come home. She stated that she is at the point of packing up and leaving completely, however she stated that she wasn't sure she wanted to talk with [facility]. She wasn't sure how they could help her. She states she has called the police a few times. She voiced concern that he feels she isn't sympathetic to his medical conditions currently. I gave her the number for [facility] and suggested she call them, and reminded her it is okay for her to call the police when she is concerned for her safety. Review of Systems Review of Systems: All systems reviewed & are unremarkable except as noted in HPI & below Physical Exam Constitutional: WD/WN, vitals as above + ill appearing and + morbidly obese Eyes: PERRL, conjunctivae normal, anicteric sclerae ENMT: external ear and nose normal, oropharynx normal Mouth: + oral mucosal abnormality (Small lesions on dorsal aspect of posterior right tongue) Respiratory: normal respiratory effort, lungs clear to auscultation Cardiovascular: RRR, no murmur, no edema Gastrointestinal (Abdomen): normal bowel sounds, soft, nontender, no hepatosplenomegaly Musculoskeletal: no cyanosis or clubbing, extremities motor strength 5/5 Skin: + wound (LLE healing wound from previous electrocution) Neurologic: PERRL, EOMI, accommodation nl, no face palsy, no dysarthria Psychiatric: A+Ox3, euthymic affect Results & Data Vital Signs (Past 12 Hours) Vital Signs Temp Pulse Pulse Resp BP BP Pulse Ox 10/16/18 11:00 36.7 C 71 14 130/79 96 10/16/18 07:00 36.6 C 69 16 149/68 H 100 10/16/18 04:37 36.5 C 68 18 138/77 96 Laboratory Results 10/16/18 10/16/18 10/16/18 Range/Units 16:43 11:52 08:05 WBC (4.8-10.8) K/uL RBC (4.7-6.1) M/uL Hgb (14.0-18.0) g/dL Hct (42-52) % MCV (80-100) fL MCH (25-34) pg MCHC (32-36) g/dL RDW Std Deviation (36.4-46.3) fL RDW Coeff of Dante (11.5-14.5) % Plt Count (130-400) K/uL MPV (7.4-10.4) fL Immature Gran % (Auto) % Neut % (Auto) % Lymph % (Auto) % [place] % (Auto) % Eos % (Auto) % Baso % (Auto) % Immature Gran # (Auto) (0.00-0.02) K/uL Neut # (Auto) (1.4-6.5) K/uL Lymph # (Auto) (1.2-3.4) K/uL [place] # (Auto) (0.11-0.59) K/uL Eos # (Auto) (0-0.5) K/uL Baso # (Auto) (0-0.2) K/uL RBC Morphology PT (9.0-12.0) Seconds INR (0.9-1.1) Creatinine (0.6-1.4) mg/dl Est Cr Clr Drug Dosing ml/min Est GFR ( Amer) Est GFR (Non-Af Amer) POC Glucose 136 H 206 H 208 H (70-99) Magnesium (1.8-2.4) mg/dl 10/16/18 10/16/18 10/16/18 Range/Units 05:30 05:30 05:30 WBC 9.42 (4.8-10.8) K/uL RBC 3.19 L (4.7-6.1) M/uL Hgb 9.9 L (14.0-18.0) g/dL Hct 31.0 L (42-52) % MCV 97.2 (80-100) fL MCH 31.0 (25-34) pg MCHC 31.9 L (32-36) g/dL RDW Std Deviation 56.8 H (36.4-46.3) fL RDW Coeff of Dante 16.4 H (11.5-14.5) % Plt Count 85 L (130-400) K/uL MPV 9.2 (7.4-10.4) fL Immature Gran % (Auto) 0.4 % Neut % (Auto) 91.6 % Lymph % (Auto) 6.2 % [place] % (Auto) 1.6 % Eos % (Auto) 0.2 % Baso % (Auto) 0.0 % Immature Gran # (Auto) 0.04 H (0.00-0.02) K/uL Neut # (Auto) 8.63 H (1.4-6.5) K/uL Lymph # (Auto) 0.58 L (1.2-3.4) K/uL [place] # (Auto) 0.15 (0.11-0.59) K/uL Eos # (Auto) 0.02 (0-0.5) K/uL Baso # (Auto) 0.00 (0-0.2) K/uL RBC Morphology Unremarkable PT 17.4 H (9.0-12.0) Seconds INR 1.8 H (0.9-1.1) Creatinine 1.24 (0.6-1.4) mg/dl Est Cr Clr Drug Dosing 61.6 ml/min Est GFR ( Amer) 62.8 Est GFR (Non-Af Amer) 54.2 POC Glucose (70-99) Magnesium 1.9 (1.8-2.4) mg/dl 10/15/18 Range/Units 20:41 WBC (4.8-10.8) K/uL RBC (4.7-6.1) M/uL Hgb (14.0-18.0) g/dL Hct (42-52) % MCV (80-100) fL MCH (25-34) pg MCHC (32-36) g/dL RDW Std Deviation (36.4-46.3) fL RDW Coeff of Dante (11.5-14.5) % Plt Count (130-400) K/uL MPV (7.4-10.4) fL Immature Gran % (Auto) % Neut % (Auto) % Lymph % (Auto) % [place] % (Auto) % Eos % (Auto) % Baso % (Auto) % Immature Gran # (Auto) (0.00-0.02) K/uL Neut # (Auto) (1.4-6.5) K/uL Lymph # (Auto) (1.2-3.4) K/uL [place] # (Auto) (0.11-0.59) K/uL Eos # (Auto) (0-0.5) K/uL Baso # (Auto) (0-0.2) K/uL RBC Morphology PT (9.0-12.0) Seconds INR (0.9-1.1) Creatinine (0.6-1.4) mg/dl Est Cr Clr Drug Dosing ml/min Est GFR ( Amer) Est GFR (Non-Af Amer) POC Glucose 220 H (70-99) Magnesium (1.8-2.4) mg/dl Medications Administered Current Inpatient Medications Acetaminophen (Ofirmev) 1,000 mg IV Q8H PRN PRN Reason: Pain or Fever Stop: 11/13/18 23:54 Acetaminophen (Tylenol) 650 mg PO Q4H PRN PRN Reason: pain/fever Stop: 11/13/18 23:54 Al Hydrox/Mg Hydrox/Simethicone (Maalox) 30 ml PO Q6H PRN PRN Reason: Dyspepsia Stop: 11/13/18 23:54 Last Admin: 10/15/18 10:37 Dose: 30 ml Documented by: Albuterol (Duoneb) 3 ml NEB Q2H PRN PRN Reason: dyspnea Stop: 11/13/18 23:54 Colchicine (Colcrys) 0.6 mg PO BID PRN PRN Reason: Gout Flare Stop: 11/13/18 23:54 Lidocaine HCl 60 ml/Diphenhydramine HCl 150 mg/ Al Hydrox/Mg Hydrox/Simethicone 60 ml/ Glycerin 60 ml/ [employer] 1 ea 0 ml MT Q4H PRN PRN Reason: Pain Stop: 11/14/18 11:42 Last Admin: 10/16/18 12:35 Dose: 5 ml Documented by: Dexamethasone (Decadron) 4 mg PO Q12 [facility] Stop: 11/14/18 08:59 Last Admin: 10/16/18 08:36 Dose: 4 mg Documented by: Dextrose (Dextrose 50%) 25 - 50 ml IV UD PRN; Protocol PRN Reason: Hypoglycemia Protocol Stop: 11/13/18 23:54 Duloxetine HCl (Cymbalta) [facility] [place] Stop: 11/14/18 08:59 Last Admin: 10/16/18 08:36 Dose: 30 mg Documented by: Duloxetine HCl (Cymbalta) 60 mg PO QAM [facility] Stop: 11/14/18 08:59 Last Admin: 10/16/18 08:36 Dose: 60 mg Documented by: Glucagon (Glucagen) 1 mg SQ UD PRN; Protocol PRN Reason: Hypoglycemia Protocol Stop: 11/13/18 23:54 Glucose (Glucose 40%) 15 - 30 gm PO UD PRN; Protocol PRN Reason: Hypoglycemia Protocol Stop: 11/13/18 23:54 Glucose (Dex4 Glucose) 4 - 8 tabs PO UD PRN; Protocol PRN Reason: Hypoglycemia Protocol Stop: 11/13/18 23:54 Heparin Sodium (Beef Lung) (Heparin Sod 10 Unit/Ml Flush) 5 ml FLUSH PRN PRN PRN Reason: Flush Stop: 11/15/18 00:47 Last Admin: 10/16/18 11:21 Dose: 5 ml Documented by: Vancomycin HCl 1,750 mg/ (Sodium Chloride) 535 mls @ 200 mls/hr IV Q24H [facility]; Protocol Stop: 10/30/18 01:59 Last Infusion: 10/16/18 04:46 Dose: Infused Documented by: Insulin Aspart (Novolog Flexpen) 0 units SC ACHS [facility] Stop: 11/14/18 07:29 Last Admin: 10/16/18 12:35 Dose: 10 units Documented by: Insulin Glargine (Lantus Solostar Pen) 36 units SQ QAM [facility] Stop: 11/14/18 08:59 Last Admin: 10/16/18 08:39 Dose: 36 units Documented by: Insulin Glargine (Lantus Solostar Pen) 32 units SQ QPM [facility] Stop: 11/13/18 23:54 Last Admin: 10/15/18 21:02 Dose: 32 units Documented by: Lidocaine (Lidoderm 5%) 1 patch TD QAM [facility] Stop: 11/14/18 11:29 Last Admin: 10/16/18 08:37 Dose: 1 patch Documented by: Magnesium Hydroxide (Milk Of Magnesia) 30 ml PO Q6H PRN PRN Reason: Constipation Stop: 11/13/18 23:54 Miscellaneous (Carbohydrates For Hypoglycemia) 15 - 30 gm PO UD PRN PRN Reason: Hypoglycemia Treatment Stop: 11/13/18 23:54 Last Admin: 10/15/18 08:30 Dose: 15 gm Documented by: Miscellaneous (Remove Lidoderm Patch) 1 ea N/A DAILY@2100 [facility] Stop: 11/14/18 20:59 Last Admin: 10/15/18 21:00 Dose: 1 ea Documented by: Miscellaneous Information (Consult) 1 ea N/A UD PRN PRN Reason: Consult Stop: 11/14/18 00:30 Morphine Sulfate (Morphine Sulfate) 4 mg IV Q3H PRN PRN Reason: Severe Pain Stop: 10/28/18 23:54 Ondansetron HCl (Zofran) 4 mg IV Q6H PRN PRN Reason: NAUSEA/VOMITING Stop: 11/13/18 23:54 Oxycodone HCl (Oxycontin) 15 mg PO BID [facility] Stop: 10/28/18 23:54 Last Admin: 10/16/18 08:35 Dose: 15 mg Documented by: Oxycodone HCl (Roxicodone Immediate Rel) 5 mg PO Q6 PRN PRN Reason: Breakthrough Pain Stop: 10/28/18 23:54 Last Admin: 10/16/18 12:34 Dose: 5 mg Documented by: Polyethylene Glycol (Miralax Powder Packet) 17 gm PO DAILY PRN PRN Reason: Constipation Stop: 11/13/18 23:54 Warfarin Sodium (Coumadin) 3 mg PO DAILY@1600 [facility] Stop: 11/14/18 15:59 Last Admin: 10/16/18 16:53 Dose: 3 mg Documented by: Resident Activity Tracking Resident Involvement: Resident Care Provided Care Provided: Adult Hospital Medicine
[2018-10-16] MEDS: WARFARIN SOD 3 MG TAB PO SCH (16:53)
[2018-10-17] MEDS ORDERED: VANCOMYCIN TROUGH ONE (01:30)
[2018-10-17] MEDS: VANCOMYCIN HCL 1,750 MG in SODIUM CHLORIDE 0.9% 500 ML IV SCH (01:46)
[2018-10-17] MEDS: LIDOCAINE HCL 2% VISCOUS 60 ML, DiphenhydrAMINE Syrup 150 MG, ALUMINUM/MAGNESIUM SUSP 6... MT PRN ×3 (01:50→21:35)
[2018-10-17 06:38] LABS: Hematocrit (blood only) 29.7 % (42-52); Hemoglobin 9.5 g/dL (14.0-18.0); Mean Corpuscular Volume 97.1 fL (80-100); RDW Coefficient of Variation 16.3 % (11.5-14.5); RDW Standard Deviation 56.6 fL (36.4-46.3); Red Blood Count 3.06 M/uL (4.7-6.1)
[2018-10-17 06:40] LABS: Mean Platelet Volume 9.9 fL (7.4-10.4); Platelet Count 90 K/uL (130-400)
[2018-10-17 06:47] LABS: INR 2.5 (0.9-1.1); Prothrombin Time 23.7 Seconds (9.0-12.0)
[2018-10-17 07:07] LABS: Eosinophils # (auto) 0.03 K/uL (0-0.5); Eosinophils % (auto) 0.3 %; Immature Granulocytes # (auto) 0.05 K/uL (0.00-0.02); Immature Granulocytes % (auto) 0.5 %; Lymphocytes # (auto) 0.65 K/uL (1.2-3.4); Lymphocytes % (auto) 7.1 %; Monocytes # (auto) 0.13 K/uL (0.11-0.59); Monocytes % (auto) 1.4 %; Neutrophils # (auto) 8.24 K/uL (1.4-6.5); Neutrophils % (auto) 90.7 %; Toxic Granulation 1+
[2018-10-17 07:16] LABS: BUN Creatinine Ratio 25.2 (10-20); Calcium 8.2 mg/dl (8.5-10.1); Creatinine Clr Calc Pharmacy 50.8 ml/min; Est GFR (African American) 48.7; Potassium 4.5 mmol/L (3.5-5.1)
[2018-10-17] MEDS: DULOXETINE HCL 60 MG CAP PO SCH (08:56)
[2018-10-17] MEDS: DULOXETINE HCL 30 MG CAP PO SCH (08:56)
[2018-10-17] MEDS: OXYCODONE HCL 15 MG TABCR (OXYCONTIN) PO SCH ×2 (08:56→21:02)
[2018-10-17] MEDS: INSULIN ASPART 100 UNITS/ML 3 ML PEN SC SCH ×4 (08:57→21:02)
[2018-10-17] MEDS: INSULIN GLARGINE SOLOSTAR 100 UNITS/ML 3 ML PEN SQ SCH ×2 (08:58→21:03)
[2018-10-17] MEDS: LIDOCAINE 5% 1 PATCH TD SCH ×2 (09:01→12:44)
[2018-10-17] MEDS: dexAMETHasone 1 MG TAB PO SCH ×2 (09:01→21:05)
[2018-10-17] MEDS: OXYCODONE HCL IR 5 MG TAB (IMMEDIATE RELEASE) PO PRN (10:57)
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
--- NOTE | 2018-10-17 15:52 | Pharmacy Report ---
Pharmacy Abx Dose Short Note - Date of Service October 17, 2018 - Assessment & Plan Assessment 82 year old M receiving Vancomycin for treatment of bacteremia. Patient was started on this on 09/27/18 and ongoing until therapy is completed on 10/25/18. Plan Vancomycin * Trough level of 17.1 mcg/mL is therapeutic. * Continue dose of Vancomycin mg IV every 24 hours. * Goal trough level for bacteremia: 15 to 20 mcg/mL * Will order another trough in couple of days if renal function changes significantly. Pharmacy will continue to follow and will adjust dose/frequency as necessary. Thank you.
[2018-10-17] MEDS: WARFARIN SOD 3 MG TAB PO SCH (17:52)
--- NOTE | 2018-10-17 18:06 | Family Medicine Progress Note ---
Date of Service October 17, 2018 Assessment & Plan (1) Shortness of breath: 82yo M presents to the ER 10/14/18 with acute episode of dyspnea in setting of progressive metastatic lung cancer. Recently admitted 09/12-10/04/18 got bacteremia; remains on treatment. Shortness of breath -Related to underlying lung cancer. -Duonebs every 4 hours while awake and every 2 hours when necessary. -Will cut steroids to 2mg BID dexamethasone from 4mg BID. Bacteremia/strep sepsis -Continue vanc IV, 4 week course, set to finish on 10/25 History of lung cancer, metastatic to bone Lung cancer/persistent mass of middle lobe of right lung/cancer metastatic to bone/persistent cancer related pain- Responsible for most of the patient's symptoms regarding shortness of breath and generalized pain. Continue dexamethasone at lower dose, duloxetine, OxyContin 15 mg p.o. twice daily. Continue oxycodone 5 mg p.o. every 6 hours as needed breakthrough pain. Add morphine sulfate 4 mg IV every 3 hours as needed severe pain. Patient has asked that he be discharged to a care home, as he is unable to take care of himself extent the need to at home. Patient changed his mind today and wishes to go home. Seems this is not about his care at home but about his home situation with his . Patient has seen palliative care in the past, declines consult at this time; is hopeful for future and "doesn't want to many people involved in care." Hyperlipidemia Continue atorvastatin 40 mg daily. Depression Continue duloxetine 90 mg p.o. every morning Per CM, called to notify that prior to admission, he was mean to her, threatening to shoot people and/or himself On chart review, has had similar "outbursts" in past, has had psych consult Will need to address prior to DC home. Does not require inpatient psychiatric stay at this time. Was told in passing he may have schizophrenia diagnosis but can find no evidence of this on chart review; not on any antipsychotic meds. Will try to cut steroids to see if related to "rage" T2DM Continue Lantus insulin 36 units subcu every morning and 32 units subcu every afternoon. Placed on Accu-Cheks before meals and at bedtime with NovoLog coverage per scale. Last A1c in 08/2018 >12 Right Arm pain -Xrays negative for acute or metastatic pathology -Lidoderm patch applied Tongue lesion -Unclear cause -Prescribed magic swizzle for symptoms. History of extensive DVT, PE -Continue coumadin. Given extra doses for subtherapeutic INR of 1.8. Monitor DVTP: coumadin code: Full Dispo: awaiting home health setup. Declines rehab. on med/surg. Script written for rollater/lift chair (2) Bacteremia: (3) Other streptococcal sepsis: (4) History of lung cancer: (5) Cancer, metastatic to bone: (6) Mass of middle lobe of right lung: (7) Cancer related pain: (8) Hyperlipidemia: (9) Depression: (10) Type II diabetes mellitus: Supervising Physician Co-Signing Physician Notes I saw the patient with the resident and confirmed galo portions of the history and exam. I agree with the impression and plan as noted above. Metastatic Lung CA Continue current care in terms of pain control Agree psychiatric consult given collateral information obtained from and case management Insulin-dependent diabetes Had some hypoglycemic episodes initially Steroids and acute illness probably exacerbating Lose control probably better for him all things considered Depression Psychiatric consult pending Anemia Chronic, stable Bacteremia (from prior admission) Continue vancomycin, 4-week course, set to finish October 25 Subjective Patient feels well this morning. R arm feeling better. Eager for discharge home. Has appt with heme onc nurse that he does not want to miss Review of Systems Review of Systems: All systems reviewed & are unremarkable except as noted in HPI & below Constitutional: + body aches and + weakness; no fever Respiratory: + dyspnea on exertion Cardiovascular: + dyspnea on exertion Musculoskeletal: + joint pain Physical Exam Constitutional: WD/WN, vitals as above + ill appearing and + morbidly obese Eyes: PERRL, conjunctivae normal, anicteric sclerae ENMT: external ear and nose normal, oropharynx normal Mouth: + oral mucosal abnormality (Small lesions on dorsal aspect of posterior right tongue) Respiratory: normal respiratory effort, lungs clear to auscultation Cardiovascular: Rate/Rhythm: regular rate and regular rhythm Heart Sounds: + murmur (holosystolic) Gastrointestinal (Abdomen): normal bowel sounds, soft, nontender, no hepatosplenomegaly Musculoskeletal: no cyanosis or clubbing, extremities motor strength 5/5 Skin: + wound (LLE healing wound from previous electrocution) Neurologic: PERRL, EOMI, accommodation nl, no face palsy, no dysarthria Psychiatric: A+Ox3, euthymic affect Results & Data Vital Signs (Past 12 Hours) Vital Signs Temp Pulse Resp BP Pulse Ox 10/17/18 16:32 36.4 C L 60 18 143/74 H 96 10/17/18 07:23 71 18 111/76 98 Laboratory Results 10/17/18 10/17/18 10/17/18 Range/Units 16:43 11:45 07:42 WBC (4.8-10.8) K/uL RBC (4.7-6.1) M/uL Hgb (14.0-18.0) g/dL Hct (42-52) % MCV (80-100) fL MCH (25-34) pg MCHC (32-36) g/dL RDW Std Deviation (36.4-46.3) fL RDW Coeff of Dante (11.5-14.5) % Plt Count (130-400) K/uL MPV (7.4-10.4) fL Immature Gran % (Auto) % Neut % (Auto) % Lymph % (Auto) % Monona % (Auto) % Eos % (Auto) % Baso % (Auto) % Immature Gran # (Auto) (0.00-0.02) K/uL Neut # (Auto) (1.4-6.5) K/uL Lymph # (Auto) (1.2-3.4) K/uL Monona # (Auto) (0.11-0.59) K/uL Eos # (Auto) (0-0.5) K/uL Baso # (Auto) (0-0.2) K/uL Toxic Granulation PT (9.0-12.0) Seconds INR (0.9-1.1) Sodium (136-145) mmol/L Potassium (3.5-5.1) mmol/L Chloride (98-107) mmol/L Carbon Dioxide (21-32) mmol/L Anion Gap (3-11) BUN (7-18) mg/dl Creatinine (0.6-1.4) mg/dl Est Cr Clr Drug Dosing ml/min Est GFR ( Amer) Est GFR (Non-Af Amer) BUN/Creatinine Ratio (10-20) Glucose (70-99) mg/dl POC Glucose 101 H 199 H 213 H (70-99) Calcium (8.5-10.1) mg/dl Magnesium (1.8-2.4) mg/dl Vancomycin Trough (See Comment) mcg/ml 10/17/18 10/17/18 10/17/18 Range/Units 05:30 05:30 05:30 WBC 9.10 (4.8-10.8) K/uL RBC 3.06 L (4.7-6.1) M/uL Hgb 9.5 L (14.0-18.0) g/dL Hct 29.7 L (42-52) % MCV 97.1 (80-100) fL MCH 31.0 (25-34) pg MCHC 32.0 (32-36) g/dL RDW Std Deviation 56.6 H (36.4-46.3) fL RDW Coeff of Dante 16.3 H (11.5-14.5) % Plt Count 90 L (130-400) K/uL MPV 9.9 (7.4-10.4) fL Immature Gran % (Auto) 0.5 % Neut % (Auto) 90.7 % Lymph % (Auto) 7.1 % Monona % (Auto) 1.4 % Eos % (Auto) 0.3 % Baso % (Auto) 0.0 % Immature Gran # (Auto) 0.05 H (0.00-0.02) K/uL Neut # (Auto) 8.24 H (1.4-6.5) K/uL Lymph # (Auto) 0.65 L (1.2-3.4) K/uL Monona # (Auto) 0.13 (0.11-0.59) K/uL Eos # (Auto) 0.03 (0-0.5) K/uL Baso # (Auto) 0.00 (0-0.2) K/uL Toxic Granulation 1+ PT 23.7 H (9.0-12.0) Seconds INR 2.5 H (0.9-1.1) Sodium 142 (136-145) mmol/L Potassium 4.5 D (3.5-5.1) mmol/L Chloride 110 H (98-107) mmol/L Carbon Dioxide 26 (21-32) mmol/L Anion Gap 6.0 (3-11) BUN 39 H (7-18) mg/dl Creatinine 1.53 H (0.6-1.4) mg/dl Est Cr Clr Drug Dosing 50.8 ml/min Est GFR ( Amer) 48.7 Est GFR (Non-Af Amer) 42.0 BUN/Creatinine Ratio 25.2 H (10-20) Glucose 197 H (70-99) mg/dl POC Glucose (70-99) Calcium 8.2 L (8.5-10.1) mg/dl Magnesium 2.0 (1.8-2.4) mg/dl Vancomycin Trough (See Comment) mcg/ml 10/17/18 10/16/18 Range/Units 01:38 20:54 WBC (4.8-10.8) K/uL RBC (4.7-6.1) M/uL Hgb (14.0-18.0) g/dL Hct (42-52) % MCV (80-100) fL MCH (25-34) pg MCHC (32-36) g/dL RDW Std Deviation (36.4-46.3) fL RDW Coeff of Dante (11.5-14.5) % Plt Count (130-400) K/uL MPV (7.4-10.4) fL Immature Gran % (Auto) % Neut % (Auto) % Lymph % (Auto) % Monona % (Auto) % Eos % (Auto) % Baso % (Auto) % Immature Gran # (Auto) (0.00-0.02) K/uL Neut # (Auto) (1.4-6.5) K/uL Lymph # (Auto) (1.2-3.4) K/uL Monona # (Auto) (0.11-0.59) K/uL Eos # (Auto) (0-0.5) K/uL Baso # (Auto) (0-0.2) K/uL Toxic Granulation PT (9.0-12.0) Seconds INR (0.9-1.1) Sodium (136-145) mmol/L Potassium (3.5-5.1) mmol/L Chloride (98-107) mmol/L Carbon Dioxide (21-32) mmol/L Anion Gap (3-11) BUN (7-18) mg/dl Creatinine (0.6-1.4) mg/dl Est Cr Clr Drug Dosing ml/min Est GFR ( Amer) Est GFR (Non-Af Amer) BUN/Creatinine Ratio (10-20) Glucose (70-99) mg/dl POC Glucose 196 H (70-99) Calcium (8.5-10.1) mg/dl Magnesium (1.8-2.4) mg/dl Vancomycin Trough 17.1 (See Comment) mcg/ml Medications Administered Current Inpatient Medications Acetaminophen (Ofirmev) 1,000 mg IV Q8H PRN PRN Reason: Pain or Fever Stop: 11/13/18 23:54 Acetaminophen (Tylenol) 650 mg PO Q4H PRN PRN Reason: pain/fever Stop: 11/13/18 23:54 Al Hydrox/Mg Hydrox/Simethicone (Maalox) 30 ml PO Q6H PRN PRN Reason: Dyspepsia Stop: 11/13/18 23:54 Last Admin: 10/15/18 10:37 Dose: 30 ml Documented by: Albuterol (Duoneb) 3 ml NEB Q2H PRN PRN Reason: dyspnea Stop: 11/13/18 23:54 Colchicine (Colcrys) 0.6 mg PO BID PRN PRN Reason: Gout Flare Stop: 11/13/18 23:54 Lidocaine HCl 60 ml/Diphenhydramine HCl 150 mg/ Al Hydrox/Mg Hydrox/Simethicone 60 ml/ Glycerin 60 ml/ BARCODE IDENTIFIER 1 ea 0 ml MT Q4H PRN PRN Reason: Pain Stop: 11/14/18 11:42 Last Admin: 10/17/18 10:58 Dose: 5 ml Documented by: Dexamethasone (Decadron) 2 mg PO Q12 ELBA Stop: 11/16/18 08:59 Last Admin: 10/17/18 09:01 Dose: 2 mg Documented by: Dextrose (Dextrose 50%) 25 - 50 ml IV UD PRN; Protocol PRN Reason: Hypoglycemia Protocol Stop: 11/13/18 23:54 Duloxetine HCl (Cymbalta) 30 mg PO QAM ELBA Stop: 11/14/18 08:59 Last Admin: 10/17/18 08:56 Dose: 30 mg Documented by: Duloxetine HCl (Cymbalta) 60 mg PO QAM LEBA Stop: 11/14/18 08:59 Last Admin: 10/17/18 08:56 Dose: 60 mg Documented by: Glucagon (Glucagen) 1 mg SQ UD PRN; Protocol PRN Reason: Hypoglycemia Protocol Stop: 11/13/18 23:54 Glucose (Glucose 40%) 15 - 30 gm PO UD PRN; Protocol PRN Reason: Hypoglycemia Protocol Stop: 11/13/18 23:54 Glucose (Dex4 Glucose) 4 - 8 tabs PO UD PRN; Protocol PRN Reason: Hypoglycemia Protocol Stop: 11/13/18 23:54 Heparin Sodium (Beef Lung) (Heparin Sod 10 Unit/Ml Flush) 5 ml FLUSH PRN PRN PRN Reason: Flush Stop: 11/15/18 00:47 Last Admin: 10/17/18 05:30 Dose: 5 ml Documented by: Vancomycin HCl 1,750 mg/ (Sodium Chloride) 535 mls @ 200 mls/hr IV Q24H ELBA; Protocol Stop: 10/30/18 01:59 Last Infusion: 10/17/18 04:48 Dose: Infused Documented by: Insulin Aspart (Novolog Flexpen) 0 units SC ACHS ELBA Stop: 11/14/18 07:29 Last Admin: 10/17/18 17:53 Dose: 11 units Documented by: Insulin Glargine (Lantus Solostar Pen) 36 units SQ QAM ELBA Stop: 11/14/18 08:59 Last Admin: 10/17/18 08:58 Dose: 36 units Documented by: Insulin Glargine (Lantus Solostar Pen) 32 units SQ QPM ELBA Stop: 11/13/18 23:54 Last Admin: 10/16/18 20:56 Dose: 32 units Documented by: Lidocaine (Lidoderm 5%) 1 patch TD QAM [facility] Stop: 11/14/18 11:29 Last Admin: 10/17/18 12:44 Dose: 1 patch Documented by: Magnesium Hydroxide (Milk Of Magnesia) 30 ml PO Q6H PRN PRN Reason: Constipation Stop: 11/13/18 23:54 Miscellaneous (Carbohydrates For Hypoglycemia) 15 - 30 gm PO UD PRN PRN Reason: Hypoglycemia Treatment Stop: 11/13/18 23:54 Last Admin: 10/15/18 08:30 Dose: 15 gm Documented by: Miscellaneous (Remove Lidoderm Patch) 1 ea N/A DAILY@2100 [facility] Stop: 11/14/18 20:59 Last Admin: 10/16/18 20:58 Dose: 1 ea Documented by: Miscellaneous Information (Consult) 1 ea N/A UD PRN PRN Reason: Consult Stop: 11/14/18 00:30 Morphine Sulfate (Morphine Sulfate) 4 mg IV Q3H PRN PRN Reason: Severe Pain Stop: 10/28/18 23:54 Ondansetron HCl (Zofran) 4 mg IV Q6H PRN PRN Reason: NAUSEA/VOMITING Stop: 11/13/18 23:54 Oxycodone HCl (Oxycontin) 15 mg PO BID [facility] Stop: 10/28/18 23:54 Last Admin: 10/17/18 08:56 Dose: 15 mg Documented by: Oxycodone HCl (Roxicodone Immediate Rel) 5 mg PO Q6 PRN PRN Reason: Breakthrough Pain Stop: 10/28/18 23:54 Last Admin: 10/17/18 10:57 Dose: 5 mg Documented by: Polyethylene Glycol (Miralax Powder Packet) 17 gm PO DAILY PRN PRN Reason: Constipation Stop: 11/13/18 23:54 Warfarin Sodium (Coumadin) 3 mg PO DAILY@1600 [facility] Stop: 11/14/18 15:59 Last Admin: 10/17/18 17:52 Dose: 3 mg Documented by: Resident Activity Tracking Resident Involvement: Resident Care Provided Care Provided: Adult Hospital Medicine
[2018-10-18] MEDS: VANCOMYCIN HCL 1,750 MG in SODIUM CHLORIDE 0.9% 500 ML IV SCH (02:16)
[2018-10-18 06:49] LABS: BUN Creatinine Ratio 29.9 (10-20); Calcium 8.3 mg/dl (8.5-10.1); Creatinine Clr Calc Pharmacy 68.8 ml/min; Est GFR (African American) 70.3; Est GFR (Non-African American) 60.6; Potassium 4.2 mmol/L (3.5-5.1)
[2018-10-18] MEDS: DULOXETINE HCL 60 MG CAP PO SCH (08:29)
[2018-10-18] MEDS: dexAMETHasone 1 MG TAB PO SCH (08:29)
[2018-10-18] MEDS: DULOXETINE HCL 30 MG CAP PO SCH (08:29)
[2018-10-18] MEDS: OXYCODONE HCL 15 MG TABCR (OXYCONTIN) PO SCH (08:29)
[2018-10-18] MEDS: LIDOCAINE 5% 1 PATCH TD SCH (08:34)
[2018-10-18] MEDS: INSULIN ASPART 100 UNITS/ML 3 ML PEN SC SCH ×2 (08:51→12:47)
[2018-10-18] MEDS: INSULIN GLARGINE SOLOSTAR 100 UNITS/ML 3 ML PEN SQ SCH (08:51)
--- NOTE | 2018-10-18 09:30 | Communication Note ---
Date of Service: October 18, 2018 Pt's case and interval progress reviewed with psychiatric nurse liaison. Pt seen for initial psychiatric consultation by Dr. Mallory Reyes, Family Medicine [facility] beatrice and Dr. Hernandez, Psychiatrist. Records reviewed. Pt denied SI/HI and other psychotic symptoms at time of assessment. Pt does not meet criteria for inpatient psychiatric admission. Pt's was contacted by liaison nurse in attempts to gather collateral regarding concerns at home, as well as to clarify safety planning. Pt's states she has never been directly threatened physically or verbally by the patient, but is uncomfortable with the patient's angry outbursts. confirmed there had been 2 guns in the home, and was recommended to remove the weapons to make them inaccessible to the patient. was called again prior to patient's discharge to reinforce our recommendation to remove the guns from the home and stress the importance of safety planning in the home. She confirmed that one gun was removed, the other is not able to be removed but states gun and ammunition is secured in a place patient can not access. Again suggested the weapons be removed from the home entirely to reduce risk of harm. We are recommending follow-up with outpatient therapist, Edenilson Garvey, at [facility] and continuation of duloxetine 90mg daily. Multiple offers were made by liaison to schedule appointment for patient; patient has declined repeatedly, stating he will set up the appointment once his oncology treatments are scheduled. Pt's reported to liaison that she felt safer with patient returning home now that she felt weapons were secured. Attempted to mitigate all known safety risks, patient continues to be inappropriate for inpatient psychiatric treatment based on denial of SI/HI, and other psychotic symptoms. Will defer to primary medical team for discharge planning when medically cleared. Appreciate the opportunity to participate in the care of this patient.
[2018-10-18] MEDS: LIDOCAINE HCL 2% VISCOUS 60 ML, DiphenhydrAMINE Syrup 150 MG, ALUMINUM/MAGNESIUM SUSP 6... MT PRN (09:57)
--- NOTE | 2018-10-18 14:17 | Discharge Summary ---
Date of Service October 18, 2018 Admission HPI Per Admitting Provider The patient presents to the emergency department with worsening shortness of breath since discharge on 10/04 Primary Care Provider: Joanne Baptiste PA-C The patient is an 82-year-old male with past medical history including metastatic lung cancer, bacteremia on IV vancomycin, prostate cancer, DVT, osteomyelitis, diabetes mellitus, right middle lobe lung mass, with most recent admission to [facility] from 09/12-10/04/2018, and since that time is been on vancomycin IV. He continues to report dyspnea on exertion since leaving the hospital, had been recommended to go for at least a short interval to senior living, who is now in agreement that he needs to go to a senior living, as he is unable to take care of himself to the extent that he needs to at home. Principal Diagnosis Dyspnea, metastatic lung cancer Discharge Exam Constitutional WD/WN, vitals as above + morbidly obese Eyes PERRL, conjunctivae normal, anicteric sclerae ENMT external ear and nose normal, oropharynx normal Mouth: + oral mucosal abnormality (Small lesions on dorsal aspect of posterior right tongue) Respiratory normal respiratory effort, lungs clear to auscultation Cardiovascular RRR, no murmur, no edema Rate/Rhythm: regular rate and regular rhythm Heart Sounds: + murmur (holosystolic) Gastrointestinal (Abdomen) normal bowel sounds, soft, nontender, no hepatosplenomegaly Musculoskeletal no cyanosis or clubbing, extremities motor strength 5/5 Skin + wound (LLE healing wound from previous electrocution) Neurologic PERRL, EOMI, accommodation nl, no face palsy, no dysarthria Psychiatric A+Ox3, euthymic affect Discharge Data Allergies Allergy/AdvReac Type Severity Reaction Status Date / Time doxycycline Allergy Intermediate hives Verified 10/14/18 18:20 Sulfa (Sulfonamide Allergy Intermediate lip Verified 10/14/18 18:20 Antibiotics) swelling Penicillins Allergy Unknown HIVES Verified 10/14/18 18:20 metformin AdvReac Intermediate diarrhea Verified 10/14/18 18:20 simvastatin AdvReac Intermediate myalgia Verified 10/14/18 18:20 Consultations 10/14/18 21:35 ED Decision to Admit Stat 10/14/18 23:55 Consult Case Management - Discharge Planning Routine 10/16/18 14:00 Consult Psychiatry Routine Hospital Course (1) Shortness of breath: 82yo M presented to the ER 10/14/18 with acute episode of dyspnea in setting of progressive metastatic lung cancer. Recently admitted 09/12-10/04/18 with bacteremia; remains on treatment. Shortness of breath -Related to underlying lung cancer. -Duonebs every 4 hours while awake and every 2 hours when necessary. -Will cut steroids to 2mg BID dexamethasone from 4mg BID. -Script written for rollater/lift chair for dyspnea on exertion Bacteremia/strep sepsis -Continue vanc IV, 4 week course, set to finish on 10/25 History of lung cancer, metastatic to bone -Lung cancer/persistent mass of middle lobe of right lung/cancer metastatic to bone/persistent cancer related pain- ----Responsible for most of the patient's symptoms regarding shortness of breath and generalized pain. -Continue dexamethasone at lower dose, duloxetine, OxyContin 15 mg p.o. twice daily. -Continue oxycodone 5 mg p.o. every 6 hours as needed breakthrough pain. -Patient had originally asked that he be discharged to a senior living, as he is unable to take care of himself extent the need to at home. ----Patient changed his mind and wishes to go home. Seems this is not about his care at home but about his home situation with his . Patient has seen palliative care in the past, declines consult at this time; is hopeful for future and "doesn't want to many people involved in care." Hyperlipidemia -Continue atorvastatin 40 mg daily. Depression -Continue duloxetine 90 mg p.o. every morning -Per CM, called to notify that prior to admission, he was mean to her, threatening to shoot people and/or himself On chart review, has had similar "outbursts" in past, has had psych consult Does not require inpatient psychiatric stay at this time per psych consult, but recommend he continue with outpatient psychologist, and should remove all guns from home or lock them up and not have access to galo. Per psych liaison, feels comfortable with him returning to home. She was provided with resources for safety. Patient's son to arrive on 10/20 and will bring safe and will be in charge of gaol to the lock. Was told in passing he may have schizophrenia diagnosis but can find no evidence of this on chart review; not on any antipsychotic meds. Will try to cut steroids to see if related to "rage" T2DM Continue Lantus insulin 36 units subcu every morning and 32 units subcu every afternoon. Resume home meds; would recommend titrating. BSGs on ISS have been well controlled in hospital Last A1c in 08/2018 >12 Right Arm pain -Xrays negative for acute or metastatic pathology -Lidoderm patch applied, appears to have helped Tongue lesion -Unclear cause -Prescribed magic swizzle for symptoms. History of extensive DVT, PE -Continue coumadin. code: Full Dispo: awaiting home health setup. Declines rehab. on med/surg. (2) Bacteremia: (3) Other streptococcal sepsis: (4) History of lung cancer: (5) Cancer, metastatic to bone: (6) Mass of middle lobe of right lung: (7) Cancer related pain: (8) Hyperlipidemia: (9) Depression: (10) Type II diabetes mellitus: Total Time Total Time Spent Total Time Spent (In Minutes): >30 Discharge Plan Discharge Items Patient Disposition: Home - Home Health Services Reason For Visit: SOB,BACTEREMIA Discharge Diagnosis: Shortness of breath Discharge Goals: Decrease discomfort, Improve function and Increase independence Activity: Per 'Additional Instructions' section Non-emergency contact: Primary Care Provider and Oncologist Call non-emergency contact if: you have any medication questions, your symptoms worsen and you have a fever Follow-up/Referrals: Joanne Baptiste PA-C [Primary Care Provider] - Diet: Carb Consistent or DM2 Addtl Provider Instructions: During this admission you were evaluated for shortness of breath in the setting of metastatic lung cancer. Fortunately this seems to have stabilized. Continue to follow with your oncology team. Your appointment on 10/17/18 was to discuss side effects of Keytruda therapy prior to starting on 10/26/18. Please call their office to reschedule this appointment with the nurse. It had previously been discussed that you may benefit from a nursing facility to help care for you as you undergo treatment. You have decided to go home with home health. This will be set up for you, but may not start until Monday. Continue your IV medication for another week. You will also be given a new oral antibiotic for a urinary tract infection. Take this as prescribed. If your symptoms return or worsen, do not hesitate to return to the ER. Follow up with your PCP in the next 7-10 days. We recommend Prescriptions: New dexamethasone 1 mg Tablet 2 mg PO Q12 30 Days Qty: 120 RF: 0 lidocaine 5 % Adhesive Patch,Medicated 1 patch transdermal QAM 30 Days Qty: 30 RF: 0 vancomycin 1.5 gram recon soln 1.75 gm IV Q24H Qty: 28 RF: 0 cephalexin 500 mg tablet 500 mg PO BID 7 Days Qty: 14 RF: 0 Continued duloxetine 30 mg capsule,delayed release(DR/EC) 30 mg PO QAM RF: 0 Novolog U-100 Insulin aspart 100 unit/mL solution See Rx Instructions .ROUTE .COMPLEX RF: 0 colchicine 0.6 mg tablet 0.6 mg PO BID PRN (Reason: Gout Flare) RF: 0 Lantus U-100 Insulin 100 unit/mL solution 36 unit subcut QAM Qty: 0 RF: 0 Lantus U-100 Insulin 100 unit/mL solution 32 unit subcut QPM Qty: 0 RF: 0 oxycodone 5 mg tablet 5 mg PO Q6 PRN (Reason: Pain) RF: 0 oxycodone [OxyContin] 15 mg tablet,oral only,ext.rel.12 hr 15 mg PO BID RF: 0 warfarin [Coumadin] 3 mg Tablet 3 mg PO DAILY@1600 Qty: 30 RF: 0 acetaminophen [Mapap (acetaminophen)] 325 mg Tablet 650 mg PO Q4H PRN (Reason: pain) Qty: 30 RF: 0 atorvastatin [Lipitor] 40 mg tablet 40 mg PO QAM 30 Days Qty: 30 RF: 0 lisinopril [Zestril] 40 mg tablet 40 mg PO QAM 30 Days Qty: 0 RF: 0 Discontinued dexamethasone 4 mg Tablet 4 mg PO Q12 Qty: 60 RF: 0 Stand-Alone Forms: [facility] Discharge Orders: Discharge Order (Routine); Ordered 10/18/18 Ordered By: Radha Ayon Admission Data Admit Date/Time: 10/14/18 22:39 Attending Provider: Cesar Jean Baptiste Admit Provider: Kev Wan Primary Care Provider: Joanne Baptiste. Other Providers: Kev Wan ; Home,Nursing Agency ; Sanna Hernandez Service: Medical Other Interventions: Discharge Summary Assessment (RN) Last Done: 10/18/18 13:42 DC Date/Time DO NOT enter until pt leaves facility: 10/18/18 14:14 Supervising Physician Co-Signing Physician Notes I saw the patient with the resident and confirmed galo portions of the history and exam. I agree with the impression and plan as noted above. Patient was seen in consultation by psychiatry late yesterday afternoon. The consult was reviewed and appreciated. Upon examination this morning, the patient is feeling well. He has no complaints. He tells me the symptoms which made him come to the emergency department have resolved. This morning we were able to confirm a plan to restrict firearm access for this patient; this was discussed with case management who confirmed the plan with the and also identified a son that will be returning home tomorrow. Additionally, the results of the psychiatric consultation were forwarded to the home nursing agency who had requested this information to appropriately confirm safety of their employees. Although this was not able to be completed until this morning and I did not feel it was safe to discharge the patient -or himself or others -until the aforementioned issues were addressed. Resident Activity Tracking Resident Involvement: Resident Care Provided Care Provided: Adult Hospital Medicine
== END 2018-10-18 14:14 | disposition home health service (06) ==
LOC: ED 17:12 → 4E 17:12 → SUATTDRO 22:39 → 4E 23:21

== ENCOUNTER 2018-10-31 11:57 | Inpatient (IN) ==
[2018-10-31] MEDS ORDERED: DEXTROSE 50% 50 ML SYRINGE IV ONE (12:23)
[2018-10-31] MEDS ORDERED: SODIUM CHLORIDE 0.9% 1000ML 1,000 ML IV SCH (12:30)
--- NOTE | 2018-10-31 12:36 | XRay Report ---
XR chest 1V portable HISTORY: weakness COMPARISON: Chest 10/30/2018. FINDINGS: No pneumothorax. No pleural effusions. The heart remains mildly enlarged. A left PICC termi nates at the [facility]. The right middle lobe mass is again noted. Calcified granuloma within the right low er lobe. A few bibasilar linear densities favor subsegmental atelectasis. Patchy density within the p eriphery the right midlung zone is new from the prior study. IMPRESSION: 1. Small patchy density within the periphery of the right midlung zone which is new prior study. This could represent a developing pneumonia. 2. Redemonstration of the right middle lobe mass. Electronically signed by: Akhil Amaro M.D. 10/31/2018 12:34 PM
[2018-10-31 13:04] LABS: iSTAT Creatinine 1.6 mg/dl (0.6-1.3); iSTAT Hemoglobin 11.2 g/dl (14.0-18.0); iSTAT Ionized Calcium 1.12 mmol/l (1.12-1.32); iSTAT Potassium 4.7 mEq/L (3.3-5.0)
[2018-10-31 13:20] LABS: Basophils # (auto) 0.02 K/uL (0-0.2); Basophils % (auto) 0.1 %; Eosinophils % (auto) 0.6 %; Hematocrit (blood only) 34.8 % (42-52); Hemoglobin 11.2 g/dL (14.0-18.0); Immature Granulocytes # (auto) 0.19 K/uL (0.00-0.02); Immature Granulocytes % (auto) 1.2 %; Lymphocytes % (auto) 5.8 %; Mean Corpuscular Hgb Conc 32.2 g/dL (32-36); Mean Platelet Volume 9.4 fL (7.4-10.4); Monocytes # (auto) 0.15 K/uL (0.11-0.59); Neutrophils # (auto) 14.11 K/uL (1.4-6.5); Neutrophils % (auto) 91.3 %; Nucleated RBC # (auto) 0.16 K/uL (0-0); Platelet Count 158 K/uL (130-400); RDW Coefficient of Variation 18.4 % (11.5-14.5); RDW Standard Deviation 64.2 fL (36.4-46.3); Red Blood Count 3.55 M/uL (4.7-6.1); White Blood Count 15.47 K/uL (4.8-10.8)
[2018-10-31 13:36] LABS: Albumin Level 2.3 gm/dl (3.4-5.0); BUN Creatinine Ratio 23.4 (10-20); Calcium 8.9 mg/dl (8.5-10.1); Creatinine Clr Calc Pharmacy 45.5 ml/min; Est GFR (African American) 45.1; Est GFR (Non-African American) 38.9; Magnesium 2.8 mg/dl (1.8-2.4); Potassium 4.7 mmol/L (3.5-5.1)
[2018-10-31 13:47] LABS: Albumin Globulin Ratio 0.6 (0.9-2); Bilirubin,Total 0.6 mg/dl (0.2-1); Total Protein 6.3 gm/dl (6.4-8.2); Troponin I 0.024 ng/ml (0-0.045)
[2018-10-31] MEDS ORDERED: MoRPHine SULFATE 4 MG/ML 1 ML CARP\\VIAL IV STA (13:54)
[2018-10-31] MEDS ORDERED: ONDANSETRON INJ 2 MG/ML 2 ML VIAL IV STA (13:54)
--- NOTE | 2018-10-31 14:40 | CT Scan Report ---
CT head/brain wo con CLINICAL HISTORY: 82 years-old Male presenting with AMS, fall, hypoglycemia. TECHNIQUE: Multidetector CT imaging of the head was performed without the use of intravenous contrast . IV contrast: None. One or more dose lowering techniques were used consistent with the principles of ALARA (as low as reasonably achievable), including automatic exposure control, mA or kV adjustment t o individual patient size, and/or use of iterative reconstruction. COMPARISON: 08/27/2018. CT DOSE (mGy.cm): The estimated cumulative dose is 729.78 mGycm. FINDINGS: Faculty Dean topogram: Unremarkable. Ventricles and sulci normal in size. No hemorrhage. Brain parenchyma normal in appearance with preser nellie quintanilla-white differentiation. No acute territorial infarct. No mass effect or midline shift. No ext ra-axial fluid collection. Paranasal sinuses and mastoid air cells clear. Calvarium intact. Absent na tive lenses. IMPRESSION: 1. No acute intracranial abnormality. Electronically signed by: Elijah Alonzo M.D. 10/31/2018 2:39 PM
[2018-10-31] MEDS ORDERED: CEFEPIME 2,000 MG/20 ML VIAL IV STA (14:47)
[2018-10-31] MEDS ORDERED: dilTIAZem HCl 125 MG in DEXTROSE 5% 100 ML IV ONE ×2 (14:47→15:00)
[2018-10-31] MEDS ORDERED: VANCOMYCIN CONSULT ACTIVE PRN ×2 (14:47→18:42)
[2018-10-31] MEDS ORDERED: VANCOMYCIN HCL 2,250 MG in SODIUM CHLORIDE 0.9% 500 ML IV ONE (14:47)
[2018-10-31] MEDS ORDERED: dilTIAZem HCl 5 MG/ML 5 ML VIAL IV STA (15:06)
[2018-10-31 15:57] LABS: Appearance Urine Clear (Clear); Bilirubin Urine Negative (Negative); Blood Urine Negative (Negative); Color Urine Yellow; Glucose Urine UA Negative (Negative); Ketones Urine Negative (Negative); Leukocyte Esterase Urine Negative (Negative); Nitrite Urine Negative (Negative); Protein Urine Negative (Negative); Specific Gravity Urine 1.031 (1.000-1.030); Urobilinogen Urine Negative (Negative); pH Urine 5.5 (4.5-7.5)
--- NOTE | 2018-10-31 16:55 | History & Physical Report ---
Date of Service October 31, 2018 Assessment & Plan (1) Metastatic cancer: 82M with a PMHx of metastatic lung cancer, bacteremia on IV vancomycin, prostate cancer, DVT, chronic urinary obstruction (self caths), gout, PE in 2000, HLD, osteomyelitis, DM2, depression was admitted for Pneumonia, Afib w RVR and possible hospice conversation. Pneumonia with possible sepsis, in setting of Met Lung CA. New infiltrate on X-ray that was not seen yesterday, with elevated Lactate and weakness are concerning for sepsis. Will treat for HCAP - Vanc, Zosyn and Levoquin,. Follow up Blood Cultures. Will obtain repeat Lactate at 11pm. Admit on IVF of 125mls/hr. Pt has O2 at home which he sues at night, now requires O2 at rest. Albuterol PRN for wheezing. Will aslo get speech eval for aspiration. Afib w RVR /? MAT Admit on Cardizem drip, already on AC, with correction of above pneumonia I expect rates to go down. No echocardiogram in chart, will obtain echo. Cath [place] [address] Lynch showed no evidence of CAD. Pt is already on chronic AC (coumadin) Met Lung Ca Diagnosis in August 2018. Appreciate oncology input. c/w home Dexamethasone 2mg BID. Pt has declined hospice consult in the past, OK to get hospice consult now. c/w home Oxycodone regimen. h/o Bacteremia (Enteroccocus) +'ve blood cultures in September 2018, pt was Rx'ed a 4 week course of Vancomycin, pt reports that he is still on Vanco which is set to end soon. Follow up repeat blood cultures. Source thought to be chronic osteo. TIANA Creatinine 1.63 on admission, baseline around 1.3 IVF as above. Constipation Will give Miralaax daily, consider enema if pt doesn't have a BM, likely opiate induced. Chronic urinary obstruction from prostate CA c/w self catheterizations. c/w Oxybutynin. DM2 Per son pt is non complaint with insulin. Glycemic control consult. No HBA1c in chart, will obtain tomorrow. Chronic Anticoagulation Pt is on Coumadin daily due to h/o PE & blood clots in legs, will continue. Depression c/w home Duloxetine, per chart review he did have HI prior to last admission (per ) DANIEL CPAP at night, cath in 2012 showed elevated left ventricle diastolic pressures. Gout Hold Colchicine. HLD c/w Atorvastatin 40mg HTN Hold Lisinopril due to TIANA and low blood pressures. Dispo: Tele, Admit, Dm2 diet, DC planning eval made for home services. Wanted prison in past, then changed his mind. DVT Proph: On Coumadin as above. Social: Son, Araceli, and , previous h/o HI but that was due to life stressors. Code: Full - This was reviewed with patient, he denies having a POLST form. (2) Constipation: (3) Pneumonia: (4) Obstructive sleep apnea: (5) Chronic anticoagulation: (6) Depression: (7) Diabetes: (8) TIANA (acute kidney injury): (9) DVT prophylaxis: History of Present Illness Primary Care Provider: Emmy Mg MD 82M with a PMHx of metastatic lung cancer, bacteremia on IV vancomycin, prostate cancer, DVT, osteomyelitis, diabetes mellitus, depression presents to the ER after a fall today. Per pt and son (araceli) at bedside, pt has had drastically reduced energy level. Pt started chemotherapy for his lung CA yesterday and was also in the ER yesterday for back pain. Pt states he is chronically SOB although his weakness and fatigue is much worse today. On ROS pt notes constipation and difficulty having a BM. Pt denies any chest pain. Pt does have back pain and takes 2 tablets of Oxycodone for the pain. ED Course: Pt was found to have MAT/ Afib w RVR and was started on a dilt drip, given 1 dose of IV Vancomycin and Cefepime. SHx: 70pk year smoking history. ROS: No chest pain, no palpitations, no fevers, no chills, no nausea, no vomiting, no diarrhea, no dysuria, no rash. PMHx: 1) Met Lung CA - active 2) HTN 3) HLD 4) Chronic osteomyelitis of knee and prior osteo of toe 5) DM2 - non compliant. 6) Prostate CA treated with brachytherapy 7) History of DVT/PE - on Coumadin 8) Gout 9) DANIEL - CPAP - 8 with 2l 10) Chronic urinary retention requiring self catheterization Allergies Allergy/AdvReac Type Severity Reaction Status Date / Time doxycycline Allergy Intermediate hives Verified 10/31/18 12:44 Sulfa (Sulfonamide Allergy Intermediate lip Verified 10/31/18 12:44 Antibiotics) swelling Penicillins Allergy Unknown HIVES Verified 10/31/18 12:44 metformin AdvReac Intermediate diarrhea Verified 10/31/18 12:44 simvastatin AdvReac Intermediate myalgia Verified 10/31/18 12:44 Home Medications Home Medications Medication Instructions Recorded Confirmed Type duloxetine 60 mg capsule,delayed 60 mg PO QAM cap 01/24/18 10/31/18 History release oxybutynin chloride 5 mg tablet 5 mg PO TID 01/24/18 10/31/18 History duloxetine 30 mg PO QAM 08/27/18 10/31/18 History Novolog U-100 Insulin aspart See Rx Instructions .ROUTE .COMPLEX 09/12/18 10/31/18 History colchicine 0.6 mg PO BID PRN 09/12/18 10/31/18 History Lantus U-100 Insulin 32 unit SUBCUT QPM #0 ml 09/19/18 10/31/18 Rx Lantus U-100 Insulin 36 unit SUBCUT QAM #0 ml 09/19/18 10/31/18 Rx oxycodone 5 mg PO Q6 PRN 09/26/18 10/31/18 History acetaminophen [Mapap 650 mg PO Q4H PRN #30 tab 10/04/18 10/31/18 Rx (acetaminophen)] dexamethasone 2 mg PO Q12 30 Days #120 tab 10/17/18 10/31/18 Rx vancomycin 1.75 gm IV Q24H #28 ea 10/17/18 10/31/18 Rx atorvastatin 40 mg PO HS 10/25/18 10/31/18 History lisinopril 40 mg PO DAILY 10/25/18 10/31/18 History lidocaine 1 patch TRANSDERMAL QAM PRN 10/30/18 10/31/18 History sennosides-docusate sodium 2 tab PO BID #30 tab 10/30/18 10/31/18 Rx [Senna-S] warfarin [Coumadin] 3 mg PO DAILY 10/30/18 10/31/18 History albuterol sulfate 2 puff INHALATION DAILY PRN 10/31/18 10/31/18 History Past Med/Surg History Medical History Vitamin D deficiency (Acute) Vitamin B12 deficiency (Acute) Urinary retention (Acute) Urge incontinence of urine (Acute) Tubular adenoma of colon (Acute) Spinal stenosis (Acute) Osteopenia (Acute) Obstructive sleep apnea (Acute) Obesity, Class II, BMI 35-39.9 (Acute) Metastatic adenocarcinoma (Acute) Malignant melanoma (Acute) Gout (Acute) Depression with anxiety (Acute) Coronary artery calcification (Acute) Chronic pain (Acute) Chronic osteoarthritis (Acute) Chronic anticoagulation (Acute) Carotid bruit (Acute) COPD, mild (Acute) Aortic stenosis, mild (Acute) Anemia (Acute) Adenocarcinoma, lung (Acute) Urinary tract infection (Acute) Depression (Acute) Prostate cancer (Chronic) Hyperlipidemia (Chronic) Diabetes (Chronic) Back pain (Chronic) Chest pain (Chronic) Confusion (Chronic) Depression (Chronic) Diabetes (Chronic) Dysuria (Chronic) HTN (hypertension) (Chronic) Hyperlipidemia (Chronic) Insomnia (Chronic) Left leg cellulitis (Chronic) Osteomyelitis of left knee region (Chronic) Prostate cancer (Chronic) Urinary frequency (Chronic) DVT (deep venous thrombosis) Urinary frequency Surgical History No pertinent past surgical history Family History Other Family history non-contributory Social History Preferred Language: Tuvaluan Communication Ability: Effective Beliefs That Will Affect Care: None marital status: Current Living Situation: Spouse Current Living Situation Comment: does not want to go home at d/c, see CM notes current occupational status: retired Feels Safe at Home: Yes Safety Concerns: Feels Safe At This Time Smoking Status: Former smoker Tobacco Type: cigarettes Cigarettes Per Day: 40 Second Hand Exposure: No Hx Alcohol Use: No Hx Substance Use: No Physical Exam Constitutional: well nourished, + ill appearing and + obese Eyes: PERRL, conjunctivae normal, anicteric sclerae ENMT: external ear and nose normal, oropharynx normal Ears: + hearing impairment (slightly hard of hearing) Mouth: no tongue abnormality Throat: uvula midline Neck: trachea midline, no thyromegaly Respiratory: normal respiratory effort; no respiratory distress, no labored breathing, no retractions and does not use accessory muscles Auscultation: + wheezes (posterior lung deluna bilaterally); no diminished lung sounds Cardiovascular: Rate/Rhythm: + tachycardic; + abnormal rate and + abnormal rhythm Heart Sounds: normal S1 and normal S2 Extremities: + vascular access device (left arm picc line) Gastrointestinal (Abdomen): Inspection/Auscultation: + abdomen distended Percussion/Palpation: abdomen soft; abdomen nontender, no guarding and abdomen not rigid Musculoskeletal: no cyanosis or clubbing, extremities motor strength 5/5 Extremities: + extremities abnormal to inspection (missing several toes on the R foot and L foot. ) Skin: + wound (well healed wound on L smith) Neurologic: patellar DTR's 2+ bilat, sensation intact and PERRL, EOMI, accommodation nl, no face palsy, no dysarthria normal touch/pain/proprioception and CN's II-XI intact bilaterally Speech / Cognition: normal speech Psychiatric: A+Ox3, euthymic affect Affect: no depressed affect Judgement: good judgement Results & Data Vital Signs (Past 12 Hours) Vital Signs Temp Pulse Pulse Resp BP BP Pulse Ox 10/31/18 16:01 103 H 25 H 119/66 10/31/18 16:00 101 H 26 H 97 10/31/18 15:53 99 H 22 118/80 97 10/31/18 15:50 105 H 24 118/80 69 L 10/31/18 15:22 94 10/31/18 15:17 88 L 10/31/18 15:00 96 H 20 131/94 95 10/31/18 14:59 90 10/31/18 14:06 108 H 23 134/76 95 10/31/18 12:13 36.5 C 103 H 20 142/94 H 93 Supervising Physician Co-Signing Physician Notes Resident Physician Supervision Note: I independently interviewed and examined the patient and verified the galo history and physical, reviewed labs and image studies, discussed the case with the resident Dr. Min and agree with the findings and care plan. Resident Activity Tracking Resident Involvement: Resident Care Provided Care Provided: Adult Hospital Medicine (1) Depression Active/Remission status: currently active Depression Type: major depressive disorder Major depression episode severity: severe Major depression recurrence: recurrent Psychotic features: without psychotic features Qualified Code(s): F33.2 - Major depressive disorder, recurrent severe without psychotic features (2) Pneumonia Laterality: unspecified laterality Lung location: unspecified part of lung Pneumonia type: due to unspecified organism Qualified Code(s): J18.9 - Pneumonia, unspecified organism (3) Constipation Constipation type: slow transit constipation Qualified Code(s): K59.01 - Slow transit constipation
--- NOTE | 2018-10-31 17:16 | Emergency Department Note ---
Entered by Vicenta Velazquez acting as a scribe for ED Provider Note CHIEF COMPLAINT: Hypoglycemia HISTORY OF PRESENT ILLNESS: The patient is an 82 year old male who presents to the Emergency Room with complaints of an episode of hypoglycemia starting this morning. Per nursing staff, the patient fell while getting out of bed and called 911. She states that once EMS arrived, they found his BSG to be 47. She reports that they gave him 1 .5 doses of oral glucose and his BSG came up to 57. She notes that currently it is 60. The patient states that he doesnt remember how he fell this morning. The patient complains of chills and constipation. He notes that he was here yesterday for constipation and was cleaned out. He notes that he hasnt taken his insulin yet today. He notes that he does have a PICC line and is getting antibiotics at home for Osteomyelitis of his left smith. Pt denies LOC, headache, fevers, diaphoresis, visual changes, neck pain, chest pain, breathing difficulties, nausea, vomiting, abdominal pain, back pain, melena, hematochezia, urinary symptoms, numbness, weakness, lymphadenopathy, rash, bruising, or other complaints. REVIEW OF SYSTEMS: See HPI for pertinent positives and negatives. A total of ten systems were reviewed and were otherwise negative. PMHx/PSHx: DM, HLD, Depression, COPD, DVT, HTN, Osteomyelitis, Prostate Cancer, Tubular Adenoma of the Colon, Aortic Stenosis. SOCIAL HISTORY: Patient lives at home with his . He is retired. PHYSICAL EXAM: GENERAL: Awake, alert, tired and mildly ill-appearing, in no distress HENT: Normocephalic, atraumatic. Oropharynx unremarkable. EYES: PERRL. Normal conjunctiva. Sclera non-icteric. NECK: Inspection normal. Non-tender. Supple. No nuchal rigidity. FROM. No masses. RESPIRATORY: Clear to auscultation. No wheezes. No rales. Normal respiratory effort. CARDIAC: Tachycardic rate. Somewhat irregular rhythm. No murmurs. No rubs. Ex tremities warm and well perfused. Pulses equal. No JVD. GI: Soft, non-distended. No tenderness to palpation. No rebound or guarding. No masses. RECTAL: Deferred. MUSCULOSKELETAL: Atraumatic. Chest examination reveals no tenderness. No joint edema. No visible abnormality to his back and pelvis. It is nontender. LOWER EXTREMITIES: Calves are equal size bilaterally and non-tender. No edema. 1st and 2nd toe on right foot are surgically absent. 2nd, 3rd, and part of the 4th toe are surgically absent on the left. Dusky appearance to the left foot. No drainage noted. Surgical changes to the left proximal lower leg. No signs of cellulitis. No drainage. NEURO: Normal sensorium. No sensory or motor deficits noted. SKIN: No rash or jaundice noted. Multiple bruises on the right upper bicep. PICC line in left upper arm. EMERGENCY DEPARTMENT COURSE: 1222: Past medical records reviewed. The patient was evaluated in room A12B, and a complete history and physical examination were performed. 1355: Nursing staff called me and informed me that the patient was complaining of low back and pelvic pain that he has chronically. He requested pain medications that he takes at home for it. I reevaluated him and reexamined him at this time. 1445: I reevaluated the patient and the son is at bedside. He said that the patient is having periods where he is reasonable and then at times is very difficult. He states that he gets angry very easily at times and isn't monitoring his medications or sugars very well. He notes that his sugars are fluctuating significantly. He is concerned about him going home in his current state and they are looking for additional help with his care. The telephonic case manager will go speak with them at this time. 1449: I discussed the patient's case with Dr. Chago MARTINEZ Hospitalist. He will e valuate the patient for further management. 1504: I reevaluated the patient and updated him and his family on his test results. I discussed the treatment plan with them. They verbally agree and unde rstand. MEDICAL DECISION MAKING: Prior records/ancillary studies reviewed. Nursing notes reviewed and agree them. The patient's history was concerning for a fall, hypoglycemia and weakness. Differential diagnosis: Etiologies such as infection, hypoglycemia, electrolyte abnormalities, cardiac sources, intracerebral event, toxicologic, neurologic, as well as others were entertained. Physical examination: As above. The patient was mildly ill-appearing. ER treatment provided: IV Lock Normal saline hydration at 125 mL an hour. IV dextrose On reassessment the patient felt better. IV morphine IV Zofran IV cefepime IV vancomycin IV Cardizem bolus and drip. Diagnostics interpretation by me: ECG: A. fib with RVR. The labs revealed a moderate leukocytosis of 16,000. Chemistry panel and LFTs unremarkable. Urinalysis negative. Imaging studies: CT scan of the head performed. Chest imaging performed as well. Head CT negative. Chest imaging concerning for a new right-sided infiltrate. Patient has multiple medical issues at this time. He will need to be admitted. I discussed this with the patient as well as his son. Patient and family are in agreement. Consultation: A consultation was placed with the hospitalist. The case was discussed and diagnostics were reviewed. The patient was evaluated in the ER for further treatment. IMPRESSION: AMS, Hypoglycemia, Fall, Pneumonia, A-Fib with RVR CRITICAL CARE: I have personally spent 30 minutes of critical care time in the direct management of this patient. This includes bedside care, interpretation of diagnostic studies, and testing, discussion with consultants, patient, and family members, and other required patient management activities. This 30 minutes is in excess of all separately billable procedures. PLAN: Being Evaluated by the Hospitalist The scribe's documentation has been prepared under my direction and personally reviewed by me in its entirety. I confirm that the note above accurately reflects all work, treatment, procedures, and medical decision making performed by me. Impression & Plan Altered mental status, Hypoglycemia, Fall, Pneumonia, Atrial fibrillation with rapid ventricular response Past Med/Surg History Medical History Vitamin D deficiency (Acute) Vitamin B12 deficiency (Acute) Urinary retention (Acute) Urge incontinence of urine (Acute) Tubular adenoma of colon (Acute) Spinal stenosis (Acute) Osteopenia (Acute) Obstructive sleep apnea (Acute) Obesity, Class II, BMI 35-39.9 (Acute) Metastatic adenocarcinoma (Acute) Malignant melanoma (Acute) Gout (Acute) Depression with anxiety (Acute) Coronary artery calcification (Acute) Chronic pain (Acute) Chronic osteoarthritis (Acute) Chronic anticoagulation (Acute) Carotid bruit (Acute) COPD, mild (Acute) Aortic stenosis, mild (Acute) Anemia (Acute) Adenocarcinoma, lung (Acute) Urinary tract infection (Acute) Depression (Acute) Prostate cancer (Chronic) Hyperlipidemia (Chronic) Diabetes (Chronic) Back pain (Chronic) Chest pain (Chronic) Confusion (Chronic) Depression (Chronic) Diabetes (Chronic) Dysuria (Chronic) HTN (hypertension) (Chronic) Hyperlipidemia (Chronic) Insomnia (Chronic) Left leg cellulitis (Chronic) Osteomyelitis of left knee region (Chronic) Prostate cancer (Chronic) Urinary frequency (Chronic) DVT (deep venous thrombosis) Urinary frequency Surgical History No pertinent past surgical history Family History Other Family history non-contributory Social History Preferred Language: Amharic Communication Ability: Effective Beliefs That Will Affect Care: None marital status: Current Living Situation: Spouse Current Living Situation Comment: does not want to go home at d/c, see CM notes current occupational status: retired Feels Safe at Home: Yes Smoking Status: Former smoker Tobacco Type: cigarettes Cigarettes Per Day: 40 Second Hand Exposure: No Hx Alcohol Use: No Hx Substance Use: No Results & Data Vital Signs Vital Signs - 24 hr 10/31/18 12:13 10/31/18 14:06 10/31/18 14:59 Temperature 36.5 C Temperature Source Oral Sepsis Recent Fever Within 48 Hours No Sepsis New/Unexplained Change in Mental Status No Sepsis Action Taken by Nursing No Action Required Pulse Rate 103 H Pulse Rate [Apical] 108 H Pulse Rate from SpO2 Sensor Pulse Rhythm Regular Pulse Rhythm [Apical] Regular Respiratory Rate 20 23 Respiratory Effort / Characteristics Non-Labored Spontaneous Non-Labored Spontaneous Respiratory Depth Normal Normal Respiratory Pattern Regular Regular Blood Pressure 142/94 H Blood Pressure [Right Arm] 134/76 Blood Pressure Mean 110 Blood Pressure Mean [Right Arm] 95 Blood Pressure Position [Right Arm] Pulse Oximetry 93 95 90 Oxygen Delivery Method Room Air Room Air Room Air Oxygen Flow Rate 10/31/18 15:00 10/31/18 15:17 10/31/18 15:22 Temperature Temperature Source Sepsis Recent Fever Within 48 Hours Sepsis New/Unexplained Change in Mental Status Sepsis Action Taken by Nursing Pulse Rate Pulse Rate [Apical] 96 H Pulse Rate from SpO2 Sensor Pulse Rhythm Pulse Rhythm [Apical] Respiratory Rate 20 Respiratory Effort / Characteristics Spontaneous Respiratory Depth Respiratory Pattern Blood Pressure Blood Pressure [Right Arm] 131/94 Blood Pressure Mean Blood Pressure Mean [Right Arm] 106 Blood Pressure Position [Right Arm] Lying Pulse Oximetry 95 88 L 94 Oxygen Delivery Method Nasal Cannula Room Air Nasal Cannula Oxygen Flow Rate 2 2 10/31/18 15:50 10/31/18 15:53 10/31/18 16:00 Temperature Temperature Source Sepsis Recent Fever Within 48 Hours Sepsis New/Unexplained Change in Mental Status Sepsis Action Taken by Nursing Pulse Rate 105 H 101 H Pulse Rate [Apical] 99 H Pulse Rate from SpO2 Sensor 115 H 103 H Pulse Rhythm Pulse Rhythm [Apical] Respiratory Rate 24 22 26 H Respiratory Effort / Characteristics Respiratory Depth Respiratory Pattern Blood Pressure 118/80 Blood Pressure [Right Arm] 118/80 Blood Pressure Mean 92 Blood Pressure Mean [Right Arm] 92 Blood Pressure Position [Right Arm] Lying Pulse Oximetry 69 L 97 97 Oxygen Delivery Method Room Air Oxygen Flow Rate 10/31/18 16:01 10/31/18 16:02 10/31/18 16:30 Temperature Temperature Source Sepsis Recent Fever Within 48 Hours Sepsis New/Unexplained Change in Mental Status Sepsis Action Taken by Nursing Pulse Rate 103 H 93 H 106 H Pulse Rate [Apical] Pulse Rate from SpO2 Sensor 103 H 95 H 100 H Pulse Rhythm Pulse Rhythm [Apical] Respiratory Rate 25 H 22 20 Respiratory Effort / Characteristics Respiratory Depth Respiratory Pattern Blood Pressure 119/66 Blood Pressure [Right Arm] Blood Pressure Mean 83 Blood Pressure Mean [Right Arm] Blood Pressure Position [Right Arm] Pulse Oximetry 96 98 Oxygen Delivery Method Nasal Cannula Oxygen Flow Rate 2 2 10/31/18 16:31 Temperature Temperature Source Sepsis Recent Fever Within 48 Hours Sepsis New/Unexplained Change in Mental Status Sepsis Action Taken by Nursing Pulse Rate 91 H Pulse Rate [Apical] Pulse Rate from SpO2 Sensor 100 H Pulse Rhythm Pulse Rhythm [Apical] Respiratory Rate 19 Respiratory Effort / Characteristics Respiratory Depth Respiratory Pattern Blood Pressure 117/89 Blood Pressure [Right Arm] Blood Pressure Mean 98 Blood Pressure Mean [Right Arm] Blood Pressure Position [Right Arm] Pulse Oximetry 97 Oxygen Delivery Method Nasal Cannula Oxygen Flow Rate 2 Home Medications Current Medication List: was personally reviewed by me Laboratory Data Attestation: I reviewed the patient's lab results. Result diagrams: 10/31/18 12:57 10/31/18 12:57 Lab Results 10/31/18 10/31/18 10/31/18 Range/Units 12:07 12:50 12:56 WBC (4.8-10.8) K/uL RBC (4.7-6.1) M/uL Hgb (14.0-18.0) g/dL POC Hgb 11.2 L (14.0-18.0) g/dl Hct (42-52) % POC Hct 33 L (42-52) % MCV (80-100) fL MCH (25-34) pg MCHC (32-36) g/dL RDW Std Deviation (36.4-46.3) fL RDW Coeff of Dante (11.5-14.5) % Plt Count (130-400) K/uL MPV (7.4-10.4) fL Immature Gran % (Auto) % Neut % (Auto) % Lymph % (Auto) % [place] % (Auto) % Eos % (Auto) % Baso % (Auto) % Immature Gran # (Auto) (0.00-0.02) K/uL Neut # (Auto) (1.4-6.5) K/uL Lymph # (Auto) (1.2-3.4) K/uL [place] # (Auto) (0.11-0.59) K/uL Eos # (Auto) (0-0.5) K/uL Baso # (Auto) (0-0.2) K/uL Absolute Nucleated RBC (0-0) K/uL Nucleated RBC % (auto) % POC Sodium 141 (135-144) mEq/L Sodium (136-145) mmol/L POC Potassium 4.7 (3.3-5.0) mEq/L Potassium (3.5-5.1) mmol/L POC Chloride 104 (101-112) mEq/L Chloride (98-107) mmol/L Carbon Dioxide (21-32) mmol/L POC Total CO2 25 (24-31) mEq/l Anion Gap (3-11) POC Anion Gap 18.0 (16-25) mmol/L POC BUN 36 H (7-18) mg/dl BUN (7-18) mg/dl Creatinine (0.6-1.4) mg/dl POC Creatinine 1.6 H (0.6-1.3) mg/dl Est Cr Clr Drug Dosing ml/min Est GFR ( Amer) Est GFR (Non-Af Amer) BUN/Creatinine Ratio (10-20) Glucose (70-99) mg/dl POC Glucose 60 L* (70-99) POC Glucose (other) 68 L* (70-99) mg/dl POC Lactic Acid Yuriy 1.86 H (0.90-1.70) mmol/L Calcium (8.5-10.1) mg/dl POC Ioniz Calcium Ayaz 1.12 (1.12-1.32) mmol/l Magnesium (1.8-2.4) mg/dl Total Bilirubin (0.2-1) mg/dl AST (15-37) U/L ALT (12-78) U/L Alkaline Phosphatase (45-117) U/L Troponin I (0-0.045) ng/ml Total Protein (6.4-8.2) gm/dl Albumin (3.4-5.0) gm/dl Globulin (2.5-4.0) gm/dl Albumin/Globulin Ratio (0.9-2) TSH (0.300-4.500) uIu/ml Urine Color Urine Appearance (Clear) Urine pH (4.5-7.5) Ur Specific [place] (1.000-1.030) Urine Protein (Negative) Urine Glucose (UA) (Negative) Urine Ketones (Negative) Urine Blood (Negative) Urine Nitrite (Negative) Urine Bilirubin (Negative) Urine Urobilinogen (Negative) Ur Leukocyte Esterase (Negative) 10/31/18 10/31/18 10/31/18 Range/Units 12:57 12:57 13:31 WBC 15.47 H (4.8-10.8) K/uL RBC 3.55 L (4.7-6.1) M/uL Hgb 11.2 L (14.0-18.0) g/dL POC Hgb (14.0-18.0) g/dl Hct 34.8 L (42-52) % POC Hct (42-52) % MCV 98.0 (80-100) fL MCH 31.5 (25-34) pg MCHC 32.2 (32-36) g/dL RDW Std Deviation 64.2 H (36.4-46.3) fL RDW Coeff of Dante 18.4 H (11.5-14.5) % Plt Count 158 (130-400) K/uL MPV 9.4 (7.4-10.4) fL Immature Gran % (Auto) 1.2 % Neut % (Auto) 91.3 % Lymph % (Auto) 5.8 % [place] % (Auto) 1.0 % Eos % (Auto) 0.6 % Baso % (Auto) 0.1 % Immature Gran # (Auto) 0.19 H (0.00-0.02) K/uL Neut # (Auto) 14.11 H (1.4-6.5) K/uL Lymph # (Auto) 0.90 L (1.2-3.4) K/uL [place] # (Auto) 0.15 (0.11-0.59) K/uL Eos # (Auto) 0.10 (0-0.5) K/uL Baso # (Auto) 0.02 (0-0.2) K/uL Absolute Nucleated RBC 0.16 H (0-0) K/uL Nucleated RBC % (auto) 1.0 % POC Sodium (135-144) mEq/L Sodium 143 (136-145) mmol/L POC Potassium (3.3-5.0) mEq/L Potassium 4.7 (3.5-5.1) mmol/L POC Chloride (101-112) mEq/L Chloride 108 H (98-107) mmol/L Carbon Dioxide 28 (21-32) mmol/L POC Total CO2 (24-31) mEq/l Anion Gap 6.0 (3-11) POC Anion Gap (16-25) mmol/L POC BUN (7-18) mg/dl BUN 38 H (7-18) mg/dl Creatinine 1.63 H D (0.6-1.4) mg/dl POC Creatinine (0.6-1.3) mg/dl Est Cr Clr Drug Dosing 45.5 ml/min Est GFR ( Amer) 45.1 Est GFR (Non-Af Amer) 38.9 BUN/Creatinine Ratio 23.4 H (10-20) Glucose 63 L (70-99) mg/dl POC Glucose 102 H (70-99) POC Glucose (other) (70-99) mg/dl POC Lactic Acid Yuriy (0.90-1.70) mmol/L Calcium 8.9 (8.5-10.1) mg/dl POC Ioniz Calcium Ayaz (1.12-1.32) mmol/l Magnesium 2.8 H (1.8-2.4) mg/dl Total Bilirubin 0.6 (0.2-1) mg/dl AST 21 (15-37) U/L ALT 34 (12-78) U/L Alkaline Phosphatase 115 (45-117) U/L Troponin I 0.024 (0-0.045) ng/ml Total Protein 6.3 L (6.4-8.2) gm/dl Albumin 2.3 L (3.4-5.0) gm/dl Globulin 4.0 (2.5-4.0) gm/dl Albumin/Globulin Ratio 0.6 L (0.9-2) TSH 0.815 (0.300-4.500) uIu/ml Urine Color Urine Appearance (Clear) Urine pH (4.5-7.5) Ur Specific [place] (1.000-1.030) Urine Protein (Negative) Urine Glucose (UA) (Negative) Urine Ketones (Negative) Urine Blood (Negative) Urine Nitrite (Negative) Urine Bilirubin (Negative) Urine Urobilinogen (Negative) Ur Leukocyte Esterase (Negative) 10/31/18 Range/Units 15:49 WBC (4.8-10.8) K/uL RBC (4.7-6.1) M/uL Hgb (14.0-18.0) g/dL POC Hgb (14.0-18.0) g/dl Hct (42-52) % POC Hct (42-52) % MCV (80-100) fL MCH (25-34) pg MCHC (32-36) g/dL RDW Std Deviation (36.4-46.3) fL RDW Coeff of Dante (11.5-14.5) % Plt Count (130-400) K/uL MPV (7.4-10.4) fL Immature Gran % (Auto) % Neut % (Auto) % Lymph % (Auto) % [place] % (Auto) % Eos % (Auto) % Baso % (Auto) % Immature Gran # (Auto) (0.00-0.02) K/uL Neut # (Auto) (1.4-6.5) K/uL Lymph # (Auto) (1.2-3.4) K/uL [place] # (Auto) (0.11-0.59) K/uL Eos # (Auto) (0-0.5) K/uL Baso # (Auto) (0-0.2) K/uL Absolute Nucleated RBC (0-0) K/uL Nucleated RBC % (auto) % POC Sodium (135-144) mEq/L Sodium (136-145) mmol/L POC Potassium (3.3-5.0) mEq/L Potassium (3.5-5.1) mmol/L POC Chloride (101-112) mEq/L Chloride (98-107) mmol/L Carbon Dioxide (21-32) mmol/L POC Total CO2 (24-31) mEq/l Anion Gap (3-11) POC Anion Gap (16-25) mmol/L POC BUN (7-18) mg/dl BUN (7-18) mg/dl Creatinine (0.6-1.4) mg/dl POC Creatinine (0.6-1.3) mg/dl Est Cr Clr Drug Dosing ml/min Est GFR ( Amer) Est GFR (Non-Af Amer) BUN/Creatinine Ratio (10-20) Glucose (70-99) mg/dl POC Glucose (70-99) POC Glucose (other) (70-99) mg/dl POC Lactic Acid Yuriy (0.90-1.70) mmol/L Calcium (8.5-10.1) mg/dl POC Ioniz Calcium Ayaz (1.12-1.32) mmol/l Magnesium (1.8-2.4) mg/dl Total Bilirubin (0.2-1) mg/dl AST (15-37) U/L ALT (12-78) U/L Alkaline Phosphatase (45-117) U/L Troponin I (0-0.045) ng/ml Total Protein (6.4-8.2) gm/dl Albumin (3.4-5.0) gm/dl Globulin (2.5-4.0) gm/dl Albumin/Globulin Ratio (0.9-2) TSH (0.300-4.500) uIu/ml Urine Color Yellow Urine Appearance Clear (Clear) Urine pH 5.5 (4.5-7.5) Ur Specific [place] 1.031 H (1.000-1.030) Urine Protein Negative (Negative) Urine Glucose (UA) Negative (Negative) Urine Ketones Negative (Negative) Urine Blood Negative (Negative) Urine Nitrite Negative (Negative) Urine Bilirubin Negative (Negative) Urine Urobilinogen Negative (Negative) Ur Leukocyte Esterase Negative (Negative) Administered Medications Sodium Chloride (Nss 1000ml) 1,000 mls @ 125 mls/hr IV .Q8H ELBA Stop: 10/31/18 20:29 Last Admin: 10/31/18 13:04 Dose: 125 mls/hr Documented by: [id number] Diltiazem HCl 125 mg/ Dextrose 125 mls @ 5 mls/hr IV .Q24H ONE; Protocol Stop: 11/01/18 14:46 Last Admin: 10/31/18 15:19 Dose: 5 mg/hr, 5 mls/hr Documented by: [id number] Cosigned by: [id number] Vancomycin HCl 2,250 mg/ (Sodium Chloride) 545 mls @ 200 mls/hr IV NOW ONE; Protocol Stop: 10/31/18 17:30 Last Admin: 10/31/18 15:13 Dose: 200 mls/hr Documented by: [id number] Discontinued Medications Dextrose (Dextrose 50%) 25 ml IV NOW ONE Stop: 10/31/18 12:24 Last Admin: 10/31/18 13:02 Dose: 25 ml Documented by: [id number] Diltiazem HCl (Cardizem) 10 mg IV NOW STA Stop: 10/31/18 15:07 Last Admin: 10/31/18 15:18 Dose: 10 mg Documented by: [id number] Cosigned by: [id number] Cefepime HCl (Maxipime) 2,000 mg in 20 mls @ 5 mls/min IV NOW STA Stop: 10/31/18 14:50 Last Admin: 10/31/18 15:13 Dose: 5 mls/min Documented by: [id number] Morphine Sulfate (Morphine Sulfate) 4 mg IV NOW STA Stop: 10/31/18 13:55 Last Admin: 10/31/18 14:05 Dose: 4 mg Documented by: [id number] Ondansetron HCl (Zofran) 4 mg IV NOW STA Stop: 10/31/18 13:55 Last Admin: 10/31/18 14:05 Dose: 4 mg Documented by: [id number] Imaging Data Radiologist's Impression: Radiology results as stated below per my review and the radiologist's interpretation: XR chest 1V portable HISTORY: weakness COMPARISON: Chest 10/30/2018. FINDINGS: No pneumothorax. No pleural effusions. The heart remains mildly enlarged. A left PICC terminates at the SVC. The right middle lobe mass is again noted. Calcified granuloma within the right lower lobe. A few bibasilar linear densities favor subsegmental atelectasis. Patchy density within the periphery the right midlung zone is new from the prior study. IMPRESSION: 1. Small patchy density within the periphery of the right midlung zone which is new prior study. This could represent a developing pneumonia. 2. Redemonstration of the right middle lobe mass. Electronically signed by: Akhil Amaro M.D. 10/31/2018 12:[address] head/brain wo con CLINICAL HISTORY: 82 years-old Male presenting with AMS, fall, hypoglycemia. TECHNIQUE: Multidetector CT imaging of the head was performed without the use of intravenous contrast. IV contrast: None. One or more dose lowering techniques we re used consistent with the principles of ALARA (as low as reasonably achievable), including automatic exposure control, mA or kV adjustment to individual patient size, and/or use of iterative reconstruction. COMPARISON: 08/27/2018. CT DOSE (mGy.cm): The estimated cumulative dose is 729.78 mGycm. FINDINGS: [employer] topogram: Unremarkable. Ventricles and sulci normal in size. No hemorrhage. Brain parenchyma normal in appearance with preserved quintanilla-white differentiation. No acute territorial infa rct. No mass effect or midline shift. No extra-axial fluid collection. Paranasal sinuses and mastoid air cells clear. Calvarium intact. Absent [place] lenses. IMPRESSION: 1. No acute intracranial abnormality. Electronically signed by: Elijah Alonzo M.D. 10/31/2018 2:39 PM ECG Data Attestation: I personally reviewed and interpreted this ECG as follows: Indication: altered mental status Rate (beats per minute): 123 Rhythm: atrial fibrillation (with RVR) Findings: + other (low voltage QRS) and + RBBB Blood Pressure Blood Pressure Findings: Normal blood pressure Blood Pressure Disposition: did not require urgent referral Discharge Plan Visit Data Chief Complaint: Hypoglycemia ED Provider: Brody Lion Discharge Problem: Altered mental status, Hypoglycemia, Fall, Pneumonia, Atrial fibrillation with rapid ventricular response Patient Disposition: Being Evaluated by Hospitalist Forms Stand Alone Forms: My [facility] Prescriptions Prescriptions: No Action duloxetine 30 mg capsule,delayed release(DR/EC) 30 mg PO QAM RF: 0 Novolog U-100 Insulin aspart 100 unit/mL solution See Rx Instructions .ROUTE .COMPLEX RF: 0 colchicine 0.6 mg tablet 0.6 mg PO BID PRN (Reason: Gout Flare) RF: 0 Lantus U-100 Insulin 100 unit/mL solution 36 unit subcut QAM Qty: 0 RF: 0 Lantus U-100 Insulin 100 unit/mL solution 32 unit subcut QPM Qty: 0 RF: 0 oxycodone 5 mg tablet 5 mg PO Q6 PRN (Reason: Pain) RF: 0 acetaminophen [Mapap (acetaminophen)] 325 mg Tablet 650 mg PO Q4H PRN (Reason: pain) Qty: 30 RF: 0 dexamethasone 1 mg Tablet 2 mg PO Q12 30 Days Qty: 120 RF: 0 vancomycin 1.5 gram recon soln 1.75 gm IV Q24H Qty: 28 RF: 0 atorvastatin 40 mg tablet 40 mg PO HS RF: 0 lisinopril 40 mg tablet 40 mg PO DAILY RF: 0 cefdinir 300 mg capsule 300 mg PO BID 7 Days Qty: 14 RF: 0 warfarin [Coumadin] 3 mg tablet 3 mg PO DAILY RF: 0 lidocaine 5 % adhesive patch,medicated 1 patch transdermal QAM PRN (Reason: Pain) RF: 0 sennosides-docusate sodium [Senna-S] 8.6-50 mg tablet 2 tab PO BID Qty: 30 RF: 0 albuterol sulfate 90 mcg/actuation HFA aerosol inhaler 2 puff inhalation DAILY PRN (Reason: Wheezing) RF: 0 Referrals Referrals: Emmy Mg MD [Primary Care Provider] - Discharge Problem: Altered mental status Qualifiers: Altered mental status type: unspecified Qualified Code(s): R41.82 - Altered mental status, unspecified Fall Qualifiers: Encounter type: initial encounter Qualified Code(s): W19.XXXA - Unspecified fall, initial encounter Pneumonia Qualifiers: Pneumonia type: due to unspecified organism Laterality: unspecified laterality Lung location: unspecified part of lung Qualified Code(s): J18.9 - Pneumonia, unspecified organism The scribe's documentation has been prepared under my direction and personally reviewed by me in its entirety. I confirm that the note above accurately reflects all work, treatment, procedures, and medical decision making performed by me.
[2018-10-31] MEDS ORDERED: PIPERACILL/TAZOBAC CONSULT ACTIVE PRN (18:42)
[2018-10-31] MEDS ORDERED: ALUMINUM/MAGNESIUM SUSP 30 ML UDC PO PRN (18:42)
[2018-10-31] MEDS ORDERED: PIPERACILLIN/TAZOBACTAM 3.375 GM in DEXTROSE 5% 100 ML IV SCH (18:42)
[2018-10-31] MEDS ORDERED: ALBUTEROL HFA 8 GM INHALER INH PRN (18:42)
[2018-10-31] MEDS ORDERED: dilTIAZem HCl 125 MG in DEXTROSE 5% 100 ML IV SCH (18:42)
[2018-10-31] MEDS ORDERED: LIDOCAINE 5% 1 PATCH TD PRN (18:42)
[2018-10-31] MEDS ORDERED: ZOLPIDEM TARTRATE 5 MG TAB PO PRN (18:42)
[2018-10-31] MEDS ORDERED: LEVOFLOXACIN/D5W 500 MG/100 ML BAG IV SCH (18:42)
[2018-10-31] MEDS ORDERED: PHARMACY GLYCEMIC MGMT CONSULT PRN (19:11)
[2018-10-31] MEDS ORDERED: CARBOHYDRATES FOR HYPOGLYCEMIA PO PRN (19:45)
[2018-10-31] MEDS ORDERED: GLUCOSE 10 TABS/TUBE PO PRN (19:45)
[2018-10-31] MEDS ORDERED: GLUCOSE 40% GEL 15 GM TUBE PO PRN (19:45)
[2018-10-31] MEDS ORDERED: GLUCAGON FOR INJ 1 MG VIAL IM PRN (19:45)
[2018-10-31] MEDS: DEXTROSE 50% 50 ML SYRINGE IV PRN (20:04)
[2018-10-31 20:15] LABS: INR 1.5 (0.9-1.1); Prothrombin Time 15.3 Seconds (9.0-12.0)
[2018-10-31] MEDS ORDERED: CEFEPIME CONSULT ACTIVE PRN (20:24)
[2018-10-31] MEDS: dexAMETHasone 1 MG TAB PO SCH (20:24)
[2018-10-31] MEDS: DOCUSATE SODIUM/SENNA 50/8.6MG TAB PO SCH (20:25)
[2018-10-31] MEDS: ATORVASTATIN 40 MG TAB PO SCH (20:25)
[2018-10-31] MEDS: POLYETHYLENE (MIRALAX) 17 GM PACK PO SCH (20:25)
[2018-10-31] MEDS: LEVOFLOXACIN/D5W 750 MG/150 ML BAG IV SCH (20:26)
[2018-10-31] MEDS: OXYCODONE HCL IR 5 MG TAB (IMMEDIATE RELEASE) PO PRN (20:54)
[2018-10-31] MEDS ORDERED: LANTUS PER UNIT CHARGE SQ SCH (21:00)
--- NOTE | 2018-10-31 21:02 | Pharmacy Report ---
Glycemic Control Consultation - Date of Service October 31, 2018 - Scope Scope: Glycemic Pharmacist consulted by Dr Min on 10-31-18 for glycemic control and to write orders per [facility] inpatient glycemic control protocol - Objective Weight: 110 kg Accuchecks BSG (last 24hrs): 10/31/18 10/31/18 10/31/18 12:07 12:50 12:57 Glucose 63 L POC Glucose 60 L* POC Glucose (other) 68 L* 10/31/18 10/31/18 10/31/18 13:31 17:33 19:58 Glucose POC Glucose 102 H 90 45 L* POC Glucose (other) 10/31/18 10/31/18 20:00 20:17 Glucose POC Glucose 53 L* 101 H POC Glucose (other) Laboratory Data (last 24hrs): 10/31/18 12:57 Potassium 4.7 Carbon Dioxide 28 Anion Gap 6.0 Creatinine 1.63 H D Est Cr Clr Drug Dosing 45.5 - Recent Pertinent Medications Outpatient Anti-diabetic Regimen: * Lantus 36 Qam, Lantus 32 Qpm, Novolog SSI * A1c = 12.4 % - 08-28-18 Risk Factors for Insulin Resistance: * Steroids: dxm 2 mg po bid * Infection: HCAP, bacteremia * Diet: T2DM - Assessment & Plan Assessment & Plan: ASSESSMENT: * Patient admitted with afib/pneumionia and also low BSGs. Previously on abx outpatient for h/o osteomyelitis/bacteremia infection. * BSG prior to admission per MD notes at 47 mg/dl - tx per hypoglycemia protocol in ED and BSGs trending up to low 100s * On recheck for HS - BSG again lower at 45 mg/dL - treated again per hypoglycemia protocol * Patient altered mental status per nurse and unable to let us know if he took insulin today. MD note suggests that patient did not. * Will add loose parameter on for Novolog - also add overnight checks; Will hold Lantus for now. PLAN FOR INPATIENT GLYCEMIC CONTROL: * Basal insulin * Lantus - hold * Bolus insulin * NovoLog per scale ACHS or Q6hrs while NPO * Goal Range: [id number] mg/dL - High 150 mg/dL * Correction Factor: 20 mg/dL/unit * Nutritional / Prandial insulin per carb ratio of 1 unit per 7 grams CHO consumed * Please note that the plan above was derived based on current level of insulin resistance and hospital stress. These recommendations are appropriate for inpatient admission only. Plan of care upon discharge will need to be reassessed to avoid potential outpatient hypo/hyperglycemia. Thank you.
[2018-10-31] MEDS: INSULIN ASPART 100 UNITS/ML 3 ML PEN SC SCH (21:08)
--- NOTE | 2018-10-31 21:09 | Pharmacy Report ---
Pharmacy Abx Initial Consult - Date of Service October 31, 2018 - Pharmacy Dosing Scope Date of Consult: 6-5 Consultation requested by: Dr. Min Pharmacy is consulted to initiate vancomycin dosing therapy, order appropriate labs and adjust drug dose/frequency. - Subjective The patient is a 82 year old M admitted on 10/31/18 16:43. - Objective Height: 6 ft 1 in Weight: 110 kg Vital Signs (Past 12hrs): Vital Signs Temp Pulse Pulse Pulse Resp BP BP 10/31/18 19:49 37.2 C 94 H 18 116/68 10/31/18 18:38 37.3 C 96 H 18 123/80 10/31/18 18:01 94 H 22 127/85 10/31/18 18:00 100 H 22 10/31/18 17:31 105 H 21 139/91 10/31/18 17:30 99 H 22 10/31/18 17:02 99 H 19 10/31/18 17:01 94 H 20 136/90 10/31/18 17:00 104 H 20 10/31/18 16:32 93 H 21 10/31/18 16:31 91 H 19 117/89 10/31/18 16:30 106 H 20 10/31/18 16:02 93 H 22 10/31/18 16:01 103 H 25 H 119/66 10/31/18 16:00 101 H 26 H 10/31/18 15:53 99 H 22 118/80 10/31/18 15:50 105 H 24 118/80 10/31/18 15:22 10/31/18 15:17 10/31/18 15:00 96 H 20 131/94 10/31/18 14:59 10/31/18 14:06 108 H 23 134/76 10/31/18 12:13 36.5 C 103 H 20 142/94 H Pulse Ox 10/31/18 19:49 95 10/31/18 18:38 96 10/31/18 18:01 97 10/31/18 18:00 96 10/31/18 17:31 95 10/31/18 17:30 95 10/31/18 17:02 94 10/31/18 17:01 95 10/31/18 17:00 95 10/31/18 16:32 96 10/31/18 16:31 97 10/31/18 16:30 98 10/31/18 16:02 96 10/31/18 16:01 10/31/18 16:00 97 10/31/18 15:53 97 10/31/18 15:50 69 L 10/31/18 15:22 94 10/31/18 15:17 88 L 10/31/18 15:00 95 10/31/18 14:59 90 10/31/18 14:06 95 10/31/18 12:13 93 Lab Results (24hrs): Laboratory Tests (24 Hours) 10/31/18 10/31/18 12:57 12:57 WBC 15.47 H Neut # (Auto) 14.11 H Creatinine 1.63 H D Est Cr Clr Drug Dosing 45.5 Micro Results: 10/31/18 12:50 Aerobic Blood Culture - Pending Blood Anaerobic Blood Culture - Pending 10/31/18 12:57 Aerobic Blood Culture - Pending Blood Anaerobic Blood Culture - Pending - Risk Factors for Resistance * Hospitalization for 48 hours or more within the past 90 days * Immunocompromised (chronic steroid therapy, chemotherapy, immunomodulators) * History of infection with a multidrug-resistant organism: bacteremia - on vanco [employer]ING * Antimicrobial use within the last 90 days [vanco/cefdinir] - Assessment & Plan Assessment Patient started on vancomycin, cefepime and levaquin for possible HCAP infection. 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 Was receiving 1750 mg iv q 24 hrs at home of vancomycin. Vancomycin: * Received vancomycin 2250 mg x 1 (20 mg/kg) - unclear if patient took vancomycin dose prior to admission or not * Patient Scr also elevated from baseline - previous admissions suggest the 1750 mg q 24 hr dose is appropriate * Will order a random level in the am to assist with further dosing Pharmacy will continue to follow and will adjust dose/frequency as necessary. Thank you.
[2018-10-31] MEDS: WARFARIN SOD 3 MG TAB PO SCH (22:06)
[2018-10-31] MEDS: ACETAMINOPHEN 325 MG TAB PO PRN (23:35)
[2018-11-01] MEDS: INSULIN ASPART 100 UNITS/ML 3 ML PEN SC SCH ×6 (00:16→20:12)
[2018-11-01] MEDS: CEFEPIME 2,000 MG in SYRINGE 7.5 ML IV SCH ×2 (03:08→15:47)
[2018-11-01] MEDS: OXYCODONE HCL IR 5 MG TAB (IMMEDIATE RELEASE) PO PRN ×4 (03:41→18:37)
[2018-11-01] MEDS ORDERED: VANCOMYCIN HCL 1,000 MG/270 ML BAG IV SCH (06:00)
[2018-11-01] MEDS: DULOXETINE HCL 60 MG CAP PO SCH (07:59)
[2018-11-01] MEDS: DOCUSATE SODIUM/SENNA 50/8.6MG TAB PO SCH ×2 (07:59→20:12)
[2018-11-01] MEDS: DULOXETINE HCL 30 MG CAP PO SCH (07:59)
[2018-11-01] MEDS: dexAMETHasone 1 MG TAB PO SCH ×2 (08:00→20:11)
[2018-11-01] MEDS: ACETAMINOPHEN 325 MG TAB PO PRN ×3 (08:00→21:24)
[2018-11-01] MEDS: POLYETHYLENE (MIRALAX) 17 GM PACK PO SCH (08:01)
[2018-11-01 08:07] LABS: Basophils # (auto) 0.01 K/uL (0-0.2); Basophils % (auto) 0.1 %; Eosinophils # (auto) 0.12 K/uL (0-0.5); Hematocrit (blood only) 29.2 % (42-52); Hemoglobin 9.2 g/dL (14.0-18.0); Immature Granulocytes % (auto) 0.8 %; Lymphocytes # (auto) 0.69 K/uL (1.2-3.4); Lymphocytes % (auto) 5.5 %; Mean Corpuscular Hgb Conc 31.5 g/dL (32-36); Mean Platelet Volume 9.2 fL (7.4-10.4); Monocytes # (auto) 0.12 K/uL (0.11-0.59); Neutrophils # (auto) 11.41 K/uL (1.4-6.5); Neutrophils % (auto) 91.6 %; Nucleated RBC # (auto) 0.06 K/uL (0-0); Nucleated RBC % (auto) 0.5 %; Platelet Count 113 K/uL (130-400); RDW Coefficient of Variation 19.1 % (11.5-14.5); RDW Standard Deviation 68.4 fL (36.4-46.3); Red Blood Count 2.95 M/uL (4.7-6.1); White Blood Count 12.45 K/uL (4.8-10.8)
[2018-11-01 08:17] LABS: INR 1.5 (0.9-1.1)
[2018-11-01 08:40] LABS: Albumin Level 1.7 gm/dl (3.4-5.0); BUN Creatinine Ratio 24.5 (10-20); Calcium 8.2 mg/dl (8.5-10.1); Creatinine Clr Calc Pharmacy 43.4 ml/min; Est GFR (African American) 44.1; Est GFR (Non-African American) 38.1; Potassium 4.8 mmol/L (3.5-5.1)
[2018-11-01 08:48] LABS: Albumin Globulin Ratio 0.5 (0.9-2); Bilirubin,Total 0.5 mg/dl (0.2-1); Globulin 3.5 gm/dl (2.5-4.0); Total Protein 5.2 gm/dl (6.4-8.2)
[2018-11-01] MEDS ORDERED: INSULIN GLARGINE SOLOSTAR 100 UNITS/ML 3 ML PEN SC ONE ×2 (09:00→12:15)
[2018-11-01] MEDS ORDERED: LANTUS PER UNIT CHARGE SQ SCH (09:00)
--- NOTE | 2018-11-01 09:19 | Pharmacy Report ---
Pharmacy Abx Dose Short Note - Date of Service November 01, 2018 - Assessment & Plan Assessment * 82 year old M admitted 2nd Afib/RVR and hospice evaluation, also being treated for HAP. 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 This is also the dose that was used during the previous admission. However, patient also may have had increased clearance at that time 2nd better renal function. * Dose of 2250 mg was given yesterday * Goal vancomycin trough 15-20 mcg/mL * AM random level obtained ~ 16.5 hours after dose yesterday is 25.3 mcg/mL. Please note that this is *not* a trough level and therefore it is not surprising that it is above goal trough. Based on population PK and estimated ke of 0.04 hr-1, this level will fall to 19 mcg/mL at 24 hours after the dose yesterday * Will give lower one-time dose today. This will help to get patient back to AM dosing schedule. This will also help to prevent significantly supratherapeutic levels in the event that the increase is SCr noted this admit will have a significant impact on vancomycin clearance Plan * Vancomycin 1000 mg IV @ 1500 * Random level with AM labs 11/02 Pharmacy will continue to follow and will adjust dose/frequency as necessary. Thank you.
[2018-11-01 09:27] LABS: Estimated Average Glucose 194 mg/dl; Hemoglobin A1C 8.4 % (4.5-5.6)
--- NOTE | 2018-11-01 09:31 | Pharmacy Report ---
Pharmacy Glycemic Short Note 2 - Date of Service November 01, 2018 - Glycemic Short BSG Results (Last 24 hours): 10/31/18 10/31/18 10/31/18 12:07 12:50 12:57 Glucose 63 L POC Glucose 60 L* POC Glucose (other) 68 L* 10/31/18 10/31/18 10/31/18 13:31 17:33 19:58 Glucose POC Glucose 102 H 90 45 L* POC Glucose (other) 10/31/18 10/31/18 10/31/18 20:00 20:17 23:50 Glucose POC Glucose 53 L* 101 H 91 POC Glucose (other) 11/01/18 11/01/18 11/01/18 03:54 07:18 07:49 Glucose 130 H POC Glucose 124 H 129 H POC Glucose (other) Outpatient Anti-diabetic Regimen: * Lantus 36 Qam, Lantus 32 Qpm, Novolog SSI * A1c = 12.4 % on 08/28/18, pending for 11/01/18 Risk Factors for Insulin Resistance: * Steroids: Dexamethasone 2 mg po bid (home dose) * Infection: HAP, recent bacteremia/osteomyelitis still receiving treatment * IVF: diltiazem mixed in D5W * Diet: T2DM ASSESSMENT: 11/01/18 * No insulin has been administered as inpatient thus far (patient's usual PM dose of Lantus 32 units was held) * Patient's BSG increased overnight and no further hypoglycemic events noted. However, per RN, patient was also consuming a significant amount of sugary beverages overnight to keep BSG's up. * Anticipate hypoglycemia noted yesterday was from outpatient Lantus dosing - patient likely received 68 units (36+32 units) in the preceding 24 hours prior to admit * During admission ~ one month ago, patient had hypoglycemia early in the admission, but then was resumed on home dose of Lantus (36 units in AM and 32 units in PM) and AM fasting BSG's were adequate * AM BSG prior to breakfast was 129 mg/dL. Patient consumed one cup of orange juice (per RN). This was not covered with Novolog and will instead base ongoing insulin on trend in BSG's from breakfast to lunch * Lunch BSG significantly elevated - OK to resume Lantus. Will do so initially at ~home dose this AM (as patient missed dose yesterday PM) but have a reduced dose/scale this PM 2nd hypoglycemia yesterday 10/31/18 * Patient admitted with afib/pneumionia and also low BSGs. Previously on abx outpatient for h/o osteomyelitis/bacteremia infection. * BSG prior to admission per MD notes at 47 mg/dl - tx per hypoglycemia protocol in ED and BSGs trending up to low 100s * On recheck for HS - BSG again lower at 45 mg/dL - treated again per hypoglycemia protocol * Patient altered mental status per nurse and unable to let us know if he took insulin today. MD note suggests that patient did not. * Will add loose parameter on for Novolog - also add overnight checks; Will hold Lantus for now. PLAN FOR INPATIENT GLYCEMIC CONTROL: * Basal insulin: Lantus 35 units x1 now, then HS based on BSG * 0 units for BSG less than 120 mg/dL * 10 units for BSG 120-180 mg/dL * 20 units for BSG greater than 180 mg/dL * Bolus insulin * NovoLog per scale ACHS or Q6hrs while NPO * Goal Range: Low 110 mg/dL - High 150 mg/dL * Correction Factor: 20 mg/dL/unit * Nutritional / Prandial insulin per carb ratio of 1 unit per 7 grams CHO consumed
--- NOTE | 2018-11-01 11:09 | Consultation Report ---
DATE OF CONSULTATION: 11/01/2018 MEDICAL ONCOLOGY CONSULTATION REASON FOR CONSULTATION: An 82-year-old gentleman with recently diagnosed metastatic nonsmall cell lung cancer. HISTORY OF PRESENT ILLNESS: Mr. Yap is a pleasant 82-year-old gentleman well known to [facility], currently under Dr. Chaves's care for recently diagnosed PD-L1 avid metastatic nonsmall cell lung cancer, primarily of the bony skeleton. Mr. Yap was officially diagnosed during a recent hospitalization in mid September 2018 when he had presented with diffuse skeletal metastatic disease. Biopsy was carried out confirming nonsmall cell lung cancer which was 100% PD-L1 avid. The remainder of biomarkers were negative. Dr. Chaves appropriately started Mr. Yap on pembrolizumab which he received on 10/30. He has also required opioid therapy to control pain and has had difficulty with constipation. On the day he began pembrolizumab, he was seen in the ER.. His children had also noted a significant decline in him since diagnosis. On admission, a chest x-ray revealed a new infiltrate suspicious of emerging pneumonia and he was found to be actively in AFib. Thus, he was admitted on the hospitalist service. Most of my discussions with him at bedside centered around constipation, frustration with fluctuations of constipation and diarrhea. He denies any pain at this time. PAST MEDICAL HISTORY: Positive for metastatic nonsmall cell lung cancer, hypertension, hyperlipidemia, chronic osteomyelitis, type 2 diabetes mellitus, prostate cancer, history of DVT/PE, gout, obstructive sleep apnea. HOME MEDICATIONS: Include Duloxetine 60 mg p.o. daily, oxybutynin 5 mg p.o. t.i.d., duloxetine 30 mg p.o. in a.m., NovoLog U-100 insulin aspart as directed, colchicine 0.6 mg p.o. b.i.d. p.r.n., Lantus U-100 insulin 32 units subQ q.p.m. and 36 units subQ q.a.m., oxycodone 5 mg p.o. q. 6 hours p.r.n., dexamethasone 2 mg p.o. q. 12 hours, vancomycin 1.75 gram IV q. 24 hours, atorvastatin 40 mg p.o. at bedtime, cefdinir 300 mg p.o. b.i.d. for 7 days, lisinopril 40 mg p.o. daily, lidocaine transdermal patch, Senokot-S 2 tablets p.o. b.i.d. p.r.n., warfarin 3 mg p.o. daily, albuterol inhaler 2 puffs inhaled daily b.i.d. ALLERGIES: TO DOXYCYCLINE, SULFA, PENICILLINS, METFORMIN, AND SIMVASTATIN. SOCIAL HISTORY: He is retired. He is a reformed smoker. Negative for alcohol or illicit drugs. FAMILY HISTORY: Noncontributory. REVIEW OF SYSTEMS: GENERAL: Basically general decline, uncontrolled skeletal pain. He complains of alternating diarrhea and constipation. He maintains a decent appetite. Negative for weight loss. SKIN: No rashes or lesions. No history of dermatoses. HEENT: He denies current headaches, lightheadedness or dizziness. No acute visual or hearing deficits. No sinus symptoms, sore throat or dysphagia. LYMPH: No history of lymphoproliferative disease. CARDIAC: Negative for coronary artery disease. PULMONARY: Negative for COPD by history. He is not short of breath or dyspneic at this juncture. GASTROINTESTINAL: Positive again for diarrhea and constipation. No robbie rectal bleeding, hematochezia or melena reported. GENITOURINARY: Prior history of prostate cancer. No current hematuria or dysuria. ENDOCRINE: Positive for diabetes mellitus. NEUROLOGIC: Negative for seizure, stroke, or migraine headache. MUSCULOSKELETAL: Positive history of osteomyelitis, positive for osteoarthritis. HEMATOLOGIC: Positive for normocytic normochromic anemia and mild thrombocytopenia. PHYSICAL EXAMINATION: GENERAL: A very pleasant 82-year-old gentleman expressed a fair amount of frustration at bedside today in no acute distress. VITAL SIGNS: Temperature 37.1, pulse 76, respiratory rate 19, blood pressure 96/61. SKIN: Warm, dry, noncyanotic without petechia, rash or ecchymosis. HEENT: Head is atraumatic, normocephalic. Eyes: PERRLA, EOMI. Sclerae nonicteric. No conjunctival injection. Nares patent without rhinorrhea or discharge. Throat clear. Tongue midline. Mucous membranes are moist. NECK: Supple without JVD or thyromegaly. HEART: Regular rate and rhythm. No clicks, rubs, murmurs or gallops. LUNGS: Clear to auscultation bilaterally. ABDOMEN: Soft, nontender, nondistended. EXTREMITIES: No clubbing, cyanosis. Bilateral trace edema in the lower extremities. NEUROLOGICALLY: He is awake, alert and oriented x3. His cranial nerves are grossly intact. LABORATORY DATA: WBC count 12,450, hemoglobin 9.2, platelet count 113,000. PT 15 seconds, INR 1.5. Sodium 140, potassium 4.8, chloride 108, CO2 of 26, BUN 41, creatinine 1.66. IMPRESSION: 1. Emerging pneumonia. 2. Atrial fibrillation with rapid ventricular rate. 3. Metastatic nonsmall cell lung cancer. 4. History of enterococcal bacteremia. 5. Constipation. 6. Chronic urinary obstruction. 7. Diabetes mellitus. PLAN: I have been asked to visit with Mr. Yap, currently under Dr. Chaves's care for recently diagnosed nonsmall cell lung cancer, 100% PD-L1 avid. Mr. Yap received his first dose of pembrolizumab on the 30 of October. Apparently, he was in the Emergency Room shortly after the infusion because of back pain and constipated symptoms. Most of my discussion at bedside centered around strategies to manage constipation including using regular laxatives which I suspect he has not been doing. He does have some new medical issues, particularly an emerging pulmonary infiltrate and atrial fibrillation which needs to be managed. I suspect the constipation is attributable to opioids and truly there does not seem to be any ill effects from his first course of pembrolizumab. Once he is squared away medically, he could resume treatment. I noted in the history and physical he had declined hospice in the past and now considering outpatient hospice option. I did nott discuss this with Mr. Yap and will leave that discussion between him and Dr. Chaves moving forward. I agree with current medical management. I have nothing further to add at this time, perhaps have the nurses work with him on strategies to maintain regular bowel movements as he utilizes opioid analgesia. Thank you very much for allowing me to participate. If you have any questions or concerns, feel free to contact me at any time. SAY
[2018-11-01] MEDS: SODIUM CHLORIDE 0.9% 1000ML 1,000 ML IV SCH ×2 (11:10→21:20)
--- NOTE | 2018-11-01 14:37 | Infectious Disease Consult ---
Date of Consultation November 01, 2018 Assessment & Plan (1) Gram positive sepsis: pt will continue on abx. concern for picc related infection, would suggest removal and picc tip cultures. IV abx for treatment of E. faecalis completed. doubt new pna but would continue current abx pending additional culture data. will follow. History of Present Illness Attending Physician: Joann Beard MD pt admitted after fall yesterday at home, also c/o increased sob in ER. on my exam has no complaints. Has missed 2 ID appointments in the last week. was recently seen in hospital in early September for E. faecalis sepsis, was d/c on IV vanco, was to stop today, missed appointment this morning due to current admission. blood cultures obtained in ER, 1/2 gpc clusters. vanco level elevated at 25. states he was tolerating abx well at home, denies f/c no cp, sob, cough, no abd pain, no n/v/d. ct abd/pelvis done in ER shows bony metastasis and rml lung mass, now also with new liver mets. recently started chemo, now per heme once considering home hospice. has known metastatic lung ca. cxr today ? new RML infiltrate. no cough on my exam. no pain at picc site, working well. cefepime and levaquin added. tolerating well. Allergies Allergy/AdvReac Type Severity Reaction Status Date / Time doxycycline Allergy Intermediate hives Verified 10/31/18 12:44 Sulfa (Sulfonamide Allergy Intermediate lip Verified 10/31/18 12:44 Antibiotics) swelling Penicillins Allergy Unknown HIVES Verified 10/31/18 12:44 metformin AdvReac Intermediate diarrhea Verified 10/31/18 12:44 simvastatin AdvReac Intermediate myalgia Verified 10/31/18 12:44 Home Medications Home Medications Medication Instructions Recorded Confirmed Type duloxetine 60 mg capsule,delayed 60 mg PO QAM cap 01/24/18 10/31/18 History release oxybutynin chloride 5 mg tablet 5 mg PO TID 01/24/18 10/31/18 History duloxetine 30 mg PO QAM 08/27/18 10/31/18 History Novolog U-100 Insulin aspart See Rx Instructions .ROUTE .COMPLEX 09/12/18 10/31/18 History colchicine 0.6 mg PO BID PRN 09/12/18 10/31/18 History Lantus U-100 Insulin 32 unit SUBCUT QPM #0 ml 09/19/18 10/31/18 Rx Lantus U-100 Insulin 36 unit SUBCUT QAM #0 ml 09/19/18 10/31/18 Rx oxycodone 5 mg PO Q6 PRN 09/26/18 10/31/18 History acetaminophen [Mapap 650 mg PO Q4H PRN #30 tab 10/04/18 10/31/18 Rx (acetaminophen)] dexamethasone 2 mg PO Q12 30 Days #120 tab 10/17/18 10/31/18 Rx vancomycin 1.75 gm IV Q24H #28 ea 10/17/18 10/31/18 Rx atorvastatin 40 mg PO HS 10/25/18 10/31/18 History lisinopril 40 mg PO DAILY 10/25/18 10/31/18 History lidocaine 1 patch TRANSDERMAL QAM PRN 10/30/18 10/31/18 History sennosides-docusate sodium 2 tab PO BID #30 tab 10/30/18 10/31/18 Rx [Senna-S] warfarin [Coumadin] 3 mg PO DAILY 10/30/18 10/31/18 History albuterol sulfate 2 puff INHALATION DAILY PRN 10/31/18 10/31/18 History Patient History Medical History Vitamin D deficiency (Acute) Vitamin B12 deficiency (Acute) Urinary retention (Acute) Urge incontinence of urine (Acute) Tubular adenoma of colon (Acute) Spinal stenosis (Acute) Osteopenia (Acute) Obstructive sleep apnea (Acute) Obesity, Class II, BMI 35-39.9 (Acute) Metastatic adenocarcinoma (Acute) Malignant melanoma (Acute) Gout (Acute) Depression with anxiety (Acute) Coronary artery calcification (Acute) Chronic pain (Acute) Chronic osteoarthritis (Acute) Chronic anticoagulation (Acute) Carotid bruit (Acute) COPD, mild (Acute) Aortic stenosis, mild (Acute) Anemia (Acute) Adenocarcinoma, lung (Acute) Urinary tract infection (Acute) Depression (Acute) Prostate cancer (Chronic) Hyperlipidemia (Chronic) Diabetes (Chronic) Back pain (Chronic) Chest pain (Chronic) Confusion (Chronic) Depression (Chronic) Diabetes (Chronic) Dysuria (Chronic) HTN (hypertension) (Chronic) Hyperlipidemia (Chronic) Insomnia (Chronic) Left leg cellulitis (Chronic) Osteomyelitis of left knee region (Chronic) Prostate cancer (Chronic) Urinary frequency (Chronic) DVT (deep venous thrombosis) Urinary frequency Surgical History No pertinent past surgical history Family History Other Family history non-contributory Social History Preferred Language: [place] Communication Ability: Effective Beliefs That Will Affect Care: None marital status: Current Living Situation: Spouse Current Living Situation Comment: does not want to go home at d/c, see CM notes current occupational status: retired Feels Safe at Home: Yes Safety Concerns: Feels Safe At This Time Smoking Status: Former smoker Tobacco Type: cigarettes Cigarettes Per Day: 40 Second Hand Exposure: No Hx Alcohol Use: No Hx Substance Use: No Review of Systems Review of Systems: All systems reviewed & are unremarkable except as noted in HPI & below Physical Exam Constitutional: WD/WN, vitals as above Eyes: PERRL, conjunctivae normal, anicteric sclerae ENMT: external ear and nose normal, oropharynx normal Neck: normal visual inspection Respiratory: normal respiratory effort, lungs clear to auscultation Cardiovascular: RRR, no murmur, no edema Gastrointestinal (Abdomen): normal bowel sounds, soft, nontender, no hepatosplenomegaly Musculoskeletal: no cyanosis or clubbing, extremities motor strength 5/5 Skin: no rashes, warm and dry Psychiatric: A+Ox3, euthymic affect Results & Data Vital Signs (Past 12 Hours) Vital Signs Temp Pulse Pulse Resp BP Pulse Ox 11/01/18 11:04 37.0 C 76 18 119/68 95 11/01/18 07:49 37.1 C 76 19 96/61 L 93 11/01/18 07:22 72 11/01/18 03:58 37.3 C 76 20 102/68 94 Laboratory Results Microbiology 10/31/18 12:57 Blood Aerobic Blood Culture - Preliminary No growth in Aerobic bottle after 24 hours. 10/31/18 12:57 Blood Anaerobic Blood Culture - Preliminary No growth in Anaerobic bottle after 24 hours. 10/31/18 12:50 Blood Aerobic Blood Culture - Preliminary Gram positive cocci clusters 10/31/18 12:50 Blood Anaerobic Blood Culture - Preliminary No growth in Anaerobic bottle after 24 hours.
[2018-11-01] MEDS ORDERED: VANCOMYCIN HCL 1,000 MG in SODIUM CHLORIDE 0.9% 250 ML IV ONE (15:00)
--- NOTE | 2018-11-01 15:22 | Palliative Care Consultation ---
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 Workup revealed pneumonia and afib with RVR. Patient has had frequent readmissions these past couple months for weakness, decline, bacteremia. He was sent home on IV vanco most-recently. Since then, he has had a decline in energy and strength. He continues to have problems with cancer related pain and has been taking oxycodone 5mg PO Q6h PRN at home. Patient has completed his palliative radiation treatments and is currently undergoing treatment for the NSCLC with Keytruda, as he was found to be 100% PDL-[address] Chaves is his oncologist. Previously when patient has met with palliative care providers, he is resistant to changes to his pain medications, and was not willing to discuss change in code status or hospice care. Palliative care is reconsulted to discuss goals. -Met with patient in room 239-1. He is awake, but kept eyes closed for most of visit. He is lying flat in bed and said his pain is "not good," but would not give me a number. He said, "just give this oxycodone time to work." -Patient admitted that he is declining at home. He still maintains that he wants to remain home at all costs. Patient said his cancer treatment is "going great," and he plans to continue Keytruda. -Patient gave me the impression that he is not in any way ready to transition to comfort or hospice care. Given his overall decline and medical comorbidities, uncertain if he can continue to live at home. I know that there have been problems in the past with patient and his /family getting along. was concerned about patient coming home and whether or not he could be managed there. Likely need to consider placement into SNF at this time. patient was not willing to discuss this with me at this time, asked me to come back at a later time. -Resistant to any medication changes at this time and said that when he is able to give the oxycodone time to work, it works just fine. -Likely need a family meeting at some point to discuss goals of care. Will follow and see how patient does in the next couple days medically and physically. His regular oncologist will be on inpatient service next week and could possibly weigh in on patient's status/prognosis/etc. Until then, we will follow peripherally. 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 Workup revealed pneumonia and afib with RVR. Patient has had frequent readmissions these past couple months for weakness, decline, bacteremia. He was sent home on IV vanco most-recently. Since then, he has had a decline in energy and strength. He continues to have problems with cancer related pain and has been taking oxycodone 5mg PO Q6h PRN at home. Patient has completed his palliative radiation treatments and is currently undergoing treatment for the NSCLC with Keytruda, as he was found to be 100% PDL-[address] Chaves is his oncologist. Previously when patient has met with palliative care providers, he is resistant to changes to his pain medications, and was not willing to discuss change in code status or hospice care. Palliative care is reconsulted to discuss goals. Thank you kindly for this consult. I will follow as needed. Allergies Allergy/AdvReac Type Severity Reaction Status Date / Time doxycycline Allergy Intermediate hives Verified 10/31/18 12:44 Sulfa (Sulfonamide Allergy Intermediate lip Verified 10/31/18 12:44 Antibiotics) swelling Penicillins Allergy Unknown HIVES Verified 10/31/18 12:44 metformin AdvReac Intermediate diarrhea Verified 10/31/18 12:44 simvastatin AdvReac Intermediate myalgia Verified 10/31/18 12:44 Home Medications Home Medications Medication Instructions Recorded Confirmed Type duloxetine 60 mg capsule,delayed 60 mg PO QAM cap 01/24/18 10/31/18 History release oxybutynin chloride 5 mg tablet 5 mg PO TID 01/24/18 10/31/18 History duloxetine 30 mg PO QAM 08/27/18 10/31/18 History Novolog U-100 Insulin aspart See Rx Instructions .ROUTE .COMPLEX 09/12/18 10/31/18 History colchicine 0.6 mg PO BID PRN 09/12/18 10/31/18 History Lantus U-100 Insulin 32 unit SUBCUT QPM #0 ml 09/19/18 10/31/18 Rx Lantus U-100 Insulin 36 unit SUBCUT QAM #0 ml 09/19/18 10/31/18 Rx oxycodone 5 mg PO Q6 PRN 09/26/18 10/31/18 History acetaminophen [Mapap 650 mg PO Q4H PRN #30 tab 10/04/18 10/31/18 Rx (acetaminophen)] dexamethasone 2 mg PO Q12 30 Days #120 tab 10/17/18 10/31/18 Rx vancomycin 1.75 gm IV Q24H #28 ea 10/17/18 10/31/18 Rx atorvastatin 40 mg PO HS 10/25/18 10/31/18 History lisinopril 40 mg PO DAILY 10/25/18 10/31/18 History lidocaine 1 patch TRANSDERMAL QAM PRN 10/30/18 10/31/18 History sennosides-docusate sodium 2 tab PO BID #30 tab 10/30/18 10/31/18 Rx [Senna-S] warfarin [Coumadin] 3 mg PO DAILY 10/30/18 10/31/18 History albuterol sulfate 2 puff INHALATION DAILY PRN 10/31/18 10/31/18 History Patient History Medical History Vitamin D deficiency (Acute) Vitamin B12 deficiency (Acute) Urinary retention (Acute) Urge incontinence of urine (Acute) Tubular adenoma of colon (Acute) Spinal stenosis (Acute) Osteopenia (Acute) Obstructive sleep apnea (Acute) Obesity, Class II, BMI 35-39.9 (Acute) Metastatic adenocarcinoma (Acute) Malignant melanoma (Acute) Gout (Acute) Depression with anxiety (Acute) Coronary artery calcification (Acute) Chronic pain (Acute) Chronic osteoarthritis (Acute) Chronic anticoagulation (Acute) Carotid bruit (Acute) COPD, mild (Acute) Aortic stenosis, mild (Acute) Anemia (Acute) Adenocarcinoma, lung (Acute) Urinary tract infection (Acute) Depression (Acute) Prostate cancer (Chronic) Hyperlipidemia (Chronic) Diabetes (Chronic) Back pain (Chronic) Chest pain (Chronic) Confusion (Chronic) Depression (Chronic) Diabetes (Chronic) Dysuria (Chronic) HTN (hypertension) (Chronic) Hyperlipidemia (Chronic) Insomnia (Chronic) Left leg cellulitis (Chronic) Osteomyelitis of left knee region (Chronic) Prostate cancer (Chronic) Urinary frequency (Chronic) DVT (deep venous thrombosis) Urinary frequency Surgical History No pertinent past surgical history Family History Other Family history non-contributory Social History Preferred Language: Moldovan Communication Ability: Effective Beliefs That Will Affect Care: None marital status: Current Living Situation: Spouse Current Living Situation Comment: does not want to go home at d/c, see CM notes current occupational status: retired Feels Safe at Home: Yes Safety Concerns: Feels Safe At This Time Smoking Status: Former smoker Tobacco Type: cigarettes Cigarettes Per Day: 40 Second Hand Exposure: No Hx Alcohol Use: No Hx Substance Use: No Review of Systems Constitutional: + fatigue and + weakness Ear, Nose, Mouth, Throat: no dysphagia Respiratory: + cough; no dyspnea Cardiovascular: no chest pain Gastrointestinal: + constipation; no abdominal pain and no nausea Neurologic: no confusion Physical Exam Constitutional: + ill appearing; no acute distress ENMT: external ear and nose normal, oropharynx normal Neck: normal visual inspection Respiratory: normal respiratory effort, lungs clear to auscultation Cardiovascular: Rate/Rhythm: + irregularly irregular Extremities: + edema (BLE) Gastrointestinal (Abdomen): Inspection/Auscultation: + abdomen distended (obesely, patient's normal body habitus) and normal bowel sounds Percussion/Palpation: abdomen nontender Neurologic: awake; not confused Psychiatric: Orientation: alert and oriented x 3 Mood: + depressed mood Results & Data Vital Signs (Past 12 Hours) Vital Signs Temp Pulse Pulse Resp BP Pulse Ox 11/01/18 11:04 37.0 C 76 18 119/68 95 11/01/18 07:49 37.1 C 76 19 96/61 L 93 11/01/18 07:22 72 11/01/18 03:58 37.3 C 76 20 102/68 94 Time Spent Midlevel 50 minutes with >50% of the time spent at bedside with patient discussing condition and GOC.
[2018-11-01] MEDS: WARFARIN SOD 3 MG TAB PO SCH (15:43)
[2018-11-01] MEDS: MAGNESIUM HYDROXIDE SUSP 30 ML UDC PO PRN (15:47)
--- NOTE | 2018-11-01 16:33 | Family Medicine Progress Note ---
Date of Service November 01, 2018 Assessment & Plan (1) Metastatic cancer: Mr. Yap is an 82 year old male with a PMHx of metastatic lung cancer, bacteremia on IV vancomycin, prostate cancer, DVT, chronic urinary obstruction (self caths), gout, PE in 2000, HLD, osteomyelitis, DM2, depression was admitted for pneumonia, Afib w RVR and overall decline. Pneumonia with possible sepsis, in setting of Met Lung CA. - New infiltrate seen on CXR, with elevated lactate and weakness are concerning for sepsis. - continue treatment for HCAP with Cefepime, Vancomycin and Levaquin - bcx drawn on 10/31 drawn from PICC line and peripheral site. Blood cx x2 drawn again on 11/01 - Continue NS at 100 mls/hr - Pt has O2 at home which he uses at night, now requires O2 at rest. Currently requiring 3L via nasal cannula - Albuterol PRN for wheezing. - Speech eval negative Afib w RVR /? MAT - new onset afib in ED -> likely caused by pneumonia - Admitted on Cardizem drip - this was discontinued this AM given hypotension - pt's HR in the 80s, appears to be in sinus rhythm with small runs of afib/PVCs - already on coumadin - ECHO ordered: mild LVH, normal LV systolic function, - Cath [place] [address] Lynch showed no evidence of CAD. Met Lung Ca - Diagnosis in August 2018. - Appreciate oncology input. - c/w home Dexamethasone 2mg BID. - thank you to palliative for consult. Pt reluctant to talk today - will likely have to have family meeting in next few days to discuss goals of care - c/w home Oxycodone regimen. h/o Bacteremia (Enteroccocus) - +ve blood cultures in September 2018, pt was Rx'ed a 4 week course of Vancomycin, meant to complete course today - bcx drawn from PICC on 10/31 growing gram positive cocci in clusters - ID consulted, thank you for recommendations -> continue abx, concern for PICC related infection. Remove PICC & culture tip TIANA - Creatinine 1.66, baseline around 1.3 - IVF as above, hold nephrotoxic mes Constipation - Will give Miralax daily, consider enema if pt doesn't have a BM, likely opiate induced. Chronic urinary obstruction - from prostate CA - c/w self catheterizations, pt refused zhong placement - c/w Oxybutynin. DM2 - Per son pt is non complaint with insulin. - Glycemic control consult. - HbA1c = 8.4% Chronic Anticoagulation - Pt is on Coumadin daily due to h/o PE & blood clots in legs, will continue. - INR subtherapeutic yesterday and today at 1.5 - will give an extra dose of coumadin today -> 2mg Depression - c/w home Duloxetine, per chart review he did have HI prior to last admission (per ) DANIEL - CPAP at night, cath in 2012 showed elevated left ventricle diastolic pressures. Gout - Hold Colchicine. HLD - c/w Atorvastatin 40mg HTN - Hold Lisinopril due to TIANA and low blood pressures. Disposition: remains on telemetry. DC planning eval made for home services. DVT Prophylaxis: On Coumadin as above. Social: Son, Rakesh, and , previous h/o HI but that was due to life stressors. Code: Full (2) Constipation: (3) Pneumonia: (4) Obstructive sleep apnea: (5) Chronic anticoagulation: (6) Depression: (7) Diabetes: (8) TIANA (acute kidney injury): (9) DVT prophylaxis: Supervising Physician Co-Signing Physician Notes Resident Physician Supervision Note: I independently interviewed and examined the patient and verified the galo history and physical, reviewed labs and image studies, discussed the case with the resident Dr. Allen and agree with the findings and care plan. Subjective Mr. Yap reports improvement in his back pain with his home pain medication regimen. He remains on oxygen this morning and offers little in terms of history. He generally straight caths himself but has not felt the urge to void since yesterday. Review of Systems Constitutional: + fatigue and + weakness; no fever Respiratory: + cough and + dyspnea Cardiovascular: no chest pain Gastrointestinal: no nausea and no vomiting Physical Exam 2 Constitutional: + ill appearing and + obese; no acute distress Respiratory: normal respiratory effort, lungs clear to auscultation no respiratory distress and no labored breathing Cardiovascular: RRR, no murmur, no edema Extremities: + vascular access device (left arm picc line) Gastrointestinal (Abdomen): Percussion/Palpation: abdomen soft; abdomen nontender and abdomen not rigid Musculoskeletal: Extremities: + extremities abnormal to inspection (missing several toes on the R foot and L foot. ) Psychiatric: Orientation: alert and oriented x 3 Results & Data Vital Signs (Past 12 Hours) Vital Signs Temp Pulse Pulse Resp BP Pulse Ox 11/01/18 15:38 81 11/01/18 15:08 36.7 C 82 19 117/70 95 11/01/18 11:04 37.0 C 76 18 119/68 95 11/01/18 07:49 37.1 C 76 19 96/61 L 93 11/01/18 07:22 72 Resident Activity Tracking Resident Involvement: Resident Care Provided Care Provided: Adult Hospital Medicine (1) Depression Active/Remission status: currently active Depression Type: major depressive disorder Major depression episode severity: severe Major depression recurrence: recurrent Psychotic features: without psychotic features Qualified Code(s): F33.2 - Major depressive disorder, recurrent severe without psychotic features (2) Pneumonia Laterality: unspecified laterality Lung location: unspecified part of lung Pneumonia type: due to unspecified organism Qualified Code(s): J18.9 - Pneumonia, unspecified organism (3) Constipation Constipation type: slow transit constipation Qualified Code(s): K59.01 - Slow transit constipation
[2018-11-01] MEDS ORDERED: WARFARIN SOD 2 MG TAB PO SCH (17:15)
[2018-11-01] MEDS: ATORVASTATIN 40 MG TAB PO SCH (20:11)
[2018-11-01] MEDS: INSULIN GLARGINE SOLOSTAR 100 UNITS/ML 3 ML PEN SC SCH (20:13)
[2018-11-02] MEDS: CEFEPIME 2,000 MG in SYRINGE 7.5 ML IV SCH ×2 (03:59→16:01)
[2018-11-02] MEDS: DEXTROSE 50% 50 ML SYRINGE IV PRN (04:29)
[2018-11-02 06:25] LABS: Basophils # (auto) 0.01 K/uL (0-0.2); Basophils % (auto) 0.1 %; Eosinophils # (auto) 0.03 K/uL (0-0.5); Eosinophils % (auto) 0.2 %; Hematocrit (blood only) 29.4 % (42-52); Hemoglobin 9.3 g/dL (14.0-18.0); Immature Granulocytes # (auto) 0.14 K/uL (0.00-0.02); Immature Granulocytes % (auto) 0.9 %; Lymphocytes # (auto) 0.92 K/uL (1.2-3.4); Lymphocytes % (auto) 6.2 %; Mean Corpuscular Hgb Conc 31.6 g/dL (32-36); Mean Corpuscular Volume 99.3 fL (80-100); Mean Platelet Volume 9.3 fL (7.4-10.4); Monocytes # (auto) 0.16 K/uL (0.11-0.59); Monocytes % (auto) 1.1 %; Neutrophils # (auto) 13.56 K/uL (1.4-6.5); Neutrophils % (auto) 91.5 %; Nucleated RBC # (auto) 0.04 K/uL (0-0); Nucleated RBC % (auto) 0.2 %; Platelet Count 107 K/uL (130-400); RDW Coefficient of Variation 18.8 % (11.5-14.5); RDW Standard Deviation 67.3 fL (36.4-46.3); Red Blood Count 2.96 M/uL (4.7-6.1); White Blood Count 14.82 K/uL (4.8-10.8)
[2018-11-02 06:35] LABS: Prothrombin Time 19.8 Seconds (9.0-12.0)
[2018-11-02 06:53] LABS: Albumin Level 1.6 gm/dl (3.4-5.0); BUN Creatinine Ratio 24.6 (10-20); Calcium 8.5 mg/dl (8.5-10.1); Creatinine Clr Calc Pharmacy 43.7 ml/min; Est GFR (African American) 45.1; Est GFR (Non-African American) 38.9; Potassium 5.3 mmol/L (3.5-5.1)
[2018-11-02 06:56] LABS: Albumin Globulin Ratio 0.4 (0.9-2); Bilirubin,Total 0.4 mg/dl (0.2-1); Globulin 3.8 gm/dl (2.5-4.0); Total Protein 5.4 gm/dl (6.4-8.2)
[2018-11-02] MEDS: SODIUM CHLORIDE 0.9% 1000ML 1,000 ML IV SCH (07:31)
[2018-11-02] MEDS: dexAMETHasone 1 MG TAB PO SCH ×2 (07:35→19:56)
[2018-11-02] MEDS: DULOXETINE HCL 30 MG CAP PO SCH (07:35)
[2018-11-02] MEDS: DOCUSATE SODIUM/SENNA 50/8.6MG TAB PO SCH (07:35)
[2018-11-02] MEDS: DULOXETINE HCL 60 MG CAP PO SCH (07:35)
[2018-11-02] MEDS: POLYETHYLENE (MIRALAX) 17 GM PACK PO SCH (07:36)
[2018-11-02] MEDS: INSULIN ASPART 100 UNITS/ML 3 ML PEN SC SCH ×4 (07:42→20:27)
[2018-11-02] MEDS ORDERED: ALBUT/IPRATROP 3MG/0.5MG NEB 3 ML VIAL NEB STA (08:27)
[2018-11-02] MEDS ORDERED: INSULIN GLARGINE SOLOSTAR 100 UNITS/ML 3 ML PEN SC ONE (09:00)
--- NOTE | 2018-11-02 09:16 | Pharmacy Report ---
Pharmacy Abx Dose Short Note - Date of Service November 02, 2018 - Assessment & Plan Assessment 82 year old M receiving vancomycin/levaquin/cefepime for treatment of possible pneumonia (hx of bacteremia/osteomyelitis RN VISITING) Day # 3 of antimicrobial therapy. (previously on vancomycin and cefdinir ou tpatient). ID also consulted to follow the patient - concern for PICC related infection. Cath tip cx's are pending. 1/2 blood cultures with staph species and repeat cultures also pending Plan Vancomycin * Random vancomycin level this morning is 21.5 mcg/ml (goal 15-20 mcg/ml for pneumonia/bacteremia infection) * Scr appears to be stable today from 1.66 to 1.63 mg/dL - however this is slightly elevated from baseline of ~1.3 mg/dL * Previous data suggests vancomycin 1750 mg iv q 24 hrs appropriate when patient at baseline Scr * Will utilize a slightly lower dosing of vancomycin for maintenance dosing for now - will start vancomycin 1500 mg (~15 mg/kg) IV q 24 hrs * Estimated kinetics; t1/2~17 hrs, ke~0.04 hr-1, CrCl ~44 ml/min * Will plan to check trough prior to the 1400 dose on 11/04 to ensure therapeutic - may need to check earlier if renal function changes Cefepime * 2 gm iv q 12 hrs - appropriate for CrCl / no changes Pharmacy will continue to follow and will adjust dose/frequency as necessary. Thank you.
[2018-11-02] MEDS: ACETAMINOPHEN 325 MG TAB PO PRN ×2 (09:25→19:56)
[2018-11-02] MEDS: OXYCODONE HCL IR 5 MG TAB (IMMEDIATE RELEASE) PO PRN ×2 (09:25→19:55)
--- NOTE | 2018-11-02 10:36 | XRay Report ---
XR chest 1V portable HISTORY: hypoxia, COMPARISON: Chest 10/31/2018. FINDINGS: No pneumothorax. No pleural effusions. The heart remains borderline enlarged. Mild diffuse interstitial thickening persists. Multifocal patchy airspace opacities within the right lung have sli ghtly progressed. Right middle lobe mass remains unchanged. Small nodular density within the left upp er lobe IMPRESSION: 1. Slight progression of the multifocal patchy airspace opacities within the right lung. This may rep resent a developing pneumonia. 2. The right middle lobe mass is again noted. 3. Small left upper lobe nodular density. Electronically signed by: Akhil Amaro M.D. 11/02/2018 10:34 AM
--- NOTE | 2018-11-02 12:33 | Pharmacy Report ---
Pharmacy Glycemic Short Note 2 - Date of Service November 02, 2018 - Glycemic Short BSG Results (Last 24 hours): 11/01/18 11/01/18 11/01/18 11:13 16:35 20:07 Glucose POC Glucose 274 H 229 H 126 H 11/02/18 11/02/18 11/02/18 04:07 04:08 04:24 Glucose POC Glucose 52 L* 54 L* 42 L* 11/02/18 11/02/18 11/02/18 04:25 04:54 06:07 Glucose 127 H POC Glucose 47 L* 143 H 11/02/18 11/02/18 07:16 10:57 Glucose POC Glucose 120 H 249 H Outpatient Anti-diabetic Regimen: * Lantus 36 Qam, Lantus 32 Qpm, Novolog SSI * A1c = 12.4 % on 08/28/18, pending for 11/01/18 Risk Factors for Insulin Resistance: * Steroids: Dexamethasone 2 mg po bid (home dose) * Infection: HAP, recent bacteremia/osteomyelitis still receiving treatment * IVF: diltiazem mixed in D5W * Diet: T2DM ASSESSMENT: 11/02/18: * Patient received total of 74 units of insulin yesterday - of which 45 units were basal insulin * Patient with hypoglycemia this morning with BSG of 52-42 mg/dL - tx per hypoglycemia protocol with CHO/dextrose/orange juice * Will reduce Lantus dosing by ~40% to account for significant hypoglycemia - max Lantus to receive 30 units; will give higher dosing of Lantus 20 units this morning and add scale for tonight based on BSG * Lunchtime BSG trending up to 249 mg/dL - Patient ate significant amt for breakfast - will tighten CF/CR for lunchtime 11/01/18 * No insulin has been administered as inpatient thus far (patient's usual PM dose of Lantus 32 units was held) * Patient's BSG increased overnight and no further hypoglycemic events noted. However, per RN, patient was also consuming a significant amount of sugary beverages overnight to keep BSG's up. * Anticipate hypoglycemia noted yesterday was from outpatient Lantus dosing - patient likely received 68 units (36+32 units) in the preceding 24 hours prior to admit * During admission ~ one month ago, patient had hypoglycemia early in the admission, but then was resumed on home dose of Lantus (36 units in AM and 32 units in PM) and AM fasting BSG's were adequate * AM BSG prior to breakfast was 129 mg/dL. Patient consumed one cup of orange juice (per RN). This was not covered with Novolog and will instead base ongoing insulin on trend in BSG's from breakfast to lunch * Lunch BSG significantly elevated - OK to resume Lantus. Will do so initially at ~home dose this AM (as patient missed dose yesterday PM) but have a reduced dose/scale this PM 2nd hypoglycemia yesterday 10/31/18 * Patient admitted with afib/pneumionia and also low BSGs. Previously on abx outpatient for h/o osteomyelitis/bacteremia infection. * BSG prior to admission per MD notes at 47 mg/dl - tx per hypoglycemia protocol in ED and BSGs trending up to low 100s * On recheck for HS - BSG again lower at 45 mg/dL - treated again per hypoglycemia protocol * Patient altered mental status per nurse and unable to let us know if he took insulin today. MD note suggests that patient did not. * Will add loose parameter on for Novolog - also add overnight checks; Will hold Lantus for now. PLAN FOR INPATIENT GLYCEMIC CONTROL: * Basal insulin: Lantus 20 x 1 * 0 units for BSG less than 120 mg/dL * 5 units for BSG 120-180 mg/dL * 10 units for BSG greater than 180 mg/dL * Bolus insulin - tighten and add overnight check * NovoLog per scale ACHS or Q6hrs while NPO * Goal Range: Low 110 mg/dL - High 150 mg/dL * Correction Factor: 15 mg/dL/unit * Nutritional / Prandial insulin per carb ratio of 1 unit per 6 grams CHO consumed
[2018-11-02] MEDS: VANCOMYCIN HCL 1,500 MG in SODIUM CHLORIDE 0.9% 500 ML IV SCH (13:08)
--- NOTE | 2018-11-02 14:21 | Infectious Disease Progress Nt ---
Date of Service November 02, 2018 Assessment & Plan (1) Gram positive sepsis: pt will continue on abx. picc out, tip culture negative to date, repeat cultures negative to date, suspect contaminated picc line. will follow. If clinically stable and repeat cultures negative would follow off of abx. Subjective Initial blood cultures (drawn from picc) now growing staph species, picc out and tip culture so far negative. perph culture and repeat perph cultures are negative. remains on vanco, cefepime and levaquin for ? pna. t max 37.6, wbc 14.8 Results & Data Vital Signs (Past 12 Hours) Vital Signs Temp Pulse Resp BP BP Pulse Ox 11/02/18 12:37 37.3 C 87 18 119/74 94 11/02/18 09:18 80 16 96 11/02/18 07:30 36.8 C 78 18 137/81 99 11/02/18 04:02 35.8 C L 63 20 123/82 94 Laboratory Results Microbiology 11/01/18 17:43 Catheter Tip, Picc Catheter Tip Culture - Preliminary No growth to date. 10/31/18 12:50 Blood Aerobic Blood Culture - Preliminary Staphylococcus species 10/31/18 12:50 Blood Anaerobic Blood Culture - Preliminary No growth in Anaerobic bottle after 24 hours. 10/31/18 12:57 Blood Aerobic Blood Culture - Preliminary No growth in Aerobic bottle after 24 hours. 10/31/18 12:57 Blood Anaerobic Blood Culture - Preliminary No growth in Anaerobic bottle after 24 hours.
[2018-11-02] MEDS: ALBUT/IPRATROP 3MG/0.5MG NEB 3 ML VIAL NEB SCH ×2 (15:15→18:47)
--- NOTE | 2018-11-02 15:43 | Family Medicine Progress Note ---
Date of Service November 02, 2018 Assessment & Plan (1) Metastatic cancer: Mr. Yap is an 82 year old male with a PMHx of metastatic lung cancer, bacteremia on IV vancomycin, prostate cancer, DVT, chronic urinary obstruction (self caths), gout, PE in 2000, HLD, osteomyelitis, DM2, depression was admitted for pneumonia, Afib w RVR and overall decline from carcinoma. Pneumonia with possible sepsis, in setting of Met Lung CA with underlying mild COPD - New infiltrate seen on CXR, with elevated lactate and weakness are concerning for sepsis. - started on Cefepime, Vancomycin and Levaquin for HCAP on 10/31/18, Vanco stopped on 11/02/18. - Pt has O2 at home which he uses at night, now requires O2 at rest. Currently requiring 3L via nasal cannula - Albuterol PRN for wheezing. - Speech eval negative - Scheduling DUONEBS - pt showed much improvement. - Holding on steorids d/t patients h/o becoming aggressive with it. Afib w RVR / MAT (resolved) - new onset afib in ED -> likely caused by pneumonia - Admitted on Cardizem drip - this was discontinued this AM given hypotension - pt's HR in the 80s, appears to be in sinus rhythm with small runs of afib/PVCs - already on coumadin - ECHO ordered: mild LVH, normal LV systolic function, - Cath [place] [address] Lynch showed no evidence of CAD. Met Lung Ca - Diagnosis in August 2018. - Sees Dr. Chaves for oncology, Dr. Larson covering, if pt still here on Monday, pt will likely benefit with a family meeting to discuss prognosis, home hospice. - c/w home Dexamethasone 2mg BID. (consider stress dosing as above, pt was actually on 4mg BID prior to last admission). - Palliative on board, he has declined palliative in the past, he easily meets palliative care criteria. - c/w home Oxycodone regimen. h/o Bacteremia (Enteroccocus) - +ve blood cultures in September 2018, source likely left smith (osteo), pt was Rx'ed a 4 week course of Vancomycin, completed course on 11/01/18. - bcx drawn from PICC on 10/31 growing gram positive cocci in clusters however this is likely a contaminate, per nursing staff, cultures should not be drawn from a picc. - ID consulted, thank you for recommendations - PICC line removed for concern about infection, cultures picc tip negative so far. Other blood cultures negative as well. - Abx as above for pneumonia. TIANA - Creatinine 1.66, baseline around 1.3 - pt tolerating PO, IVF DC'ed, continue to monitor. Constipation - Will give Miralax daily, consider enema if pt doesn't have a BM, likely opiate induced. Chronic urinary obstruction - from prostate CA - c/w self catheterizations, pt refused zhong placement - c/w Oxybutynin. DM2 - Per son pt is non complaint with insulin. - Glycemic control consult. - HbA1c = 8.4% Chronic Anticoagulation - Pt is on Coumadin daily due to h/o PE & blood clots in legs, will continue. - INR therapeutic today at 2.0. - c/w 3mg daily Coumadin. Depression - c/w home Duloxetine, per chart review he did have HI prior to last admission (per ) DANIEL - CPAP at night, cath in 2012 showed elevated left ventricle diastolic pressures. Gout - Hold Colchicine. HLD - c/w Atorvastatin 40mg HTN - Hold Lisinopril due to TIANA and low blood pressures. Disposition: remains on telemetry. DC planning eval made for home services. (hospice candidate) DVT Prophylaxis: On Coumadin as above. Social: Son, Rakesh, and , previous h/o HI due to life stressors. Code: Full (2) Constipation: (3) Pneumonia: (4) Obstructive sleep apnea: (5) Chronic anticoagulation: (6) Depression: (7) Diabetes: (8) TIANA (acute kidney injury): (9) DVT prophylaxis: Supervising Physician Co-Signing Physician Notes Resident Physician Supervision Note: I independently interviewed and examined the patient and verified the galo history and physical, reviewed labs and image studies, discussed the case with the resident Dr. Min and agree with the findings and care plan. Subjective Pt was seen and examined at bedside. No acute overnight events. telemetry showed sinus in the 70s and 80s. Pt does not feel well. Still weak and SOB. Afib resolved. Tolerating PO, decreased appetite. ROS: No chest pain, + dyspnea on exertion, no palpitations, no fevers, no chills, no nausea, no vomiting, no diarrhea, no dysuria, no rash. Physical Exam Constitutional: well nourished and + obese Eyes: PERRL, conjunctivae normal, anicteric sclerae ENMT: external ear and nose normal, oropharynx normal Ears: + hearing impairment (slightly hard of hearing) Mouth: no tongue abnormality Throat: uvula midline Neck: trachea midline, no thyromegaly Respiratory: normal respiratory effort; no respiratory distress, no labored breathing, no retractions and does not use accessory muscles Auscultation: + wheezes (posterior lung deluna bilaterally); no diminished lung sounds Cardiovascular: RRR, no murmur, no edema Gastrointestinal (Abdomen): Inspection/Auscultation: + abdomen distended Percussion/Palpation: abdomen soft; abdomen nontender, no guarding and abdomen not rigid Musculoskeletal: no cyanosis or clubbing, extremities motor strength 5/5 Extremities: + extremities abnormal to inspection (missing several toes on the R foot and L foot. ) Skin: + wound (well healed wound on L smith) Neurologic: patellar DTR's 2+ bilat, sensation intact and PERRL, EOMI, accommodation nl, no face palsy, no dysarthria normal touch/pain/proprioception and CN's II-XI intact bilaterally Speech / Cognition: normal speech Psychiatric: A+Ox3, euthymic affect Affect: no depressed affect Judgement: good judgement Results & Data Vital Signs (Past 12 Hours) Vital Signs Temp Pulse Resp BP BP Pulse Ox 11/02/18 15:16 74 20 97 11/02/18 15:06 36.9 C 80 18 126/76 91 11/02/18 12:37 37.3 C 87 18 119/74 94 11/02/18 09:18 80 16 96 11/02/18 07:30 36.8 C 78 18 137/81 99 11/02/18 04:02 35.8 C L 63 20 123/82 94 Resident Activity Tracking Resident Involvement: Resident Care Provided Care Provided: Adult Hospital Medicine (1) Depression Active/Remission status: currently active Depression Type: major depressive disorder Major depression episode severity: severe Major depression recurrence: recurrent Psychotic features: without psychotic features Qualified Code(s): F33.2 - Major depressive disorder, recurrent severe without psychotic features (2) Pneumonia Laterality: unspecified laterality Lung location: unspecified part of lung Pneumonia type: due to unspecified organism Qualified Code(s): J18.9 - Pneumonia, unspecified organism (3) Constipation Constipation type: slow transit constipation Qualified Code(s): K59.01 - Slow transit constipation
[2018-11-02] MEDS: WARFARIN SOD 3 MG TAB PO SCH (16:01)
[2018-11-02] MEDS: LEVOFLOXACIN/D5W 750 MG/150 ML BAG IV SCH (19:55)
[2018-11-02] MEDS: ATORVASTATIN 40 MG TAB PO SCH (19:56)
[2018-11-02] MEDS: INSULIN GLARGINE SOLOSTAR 100 UNITS/ML 3 ML PEN SC SCH (20:26)
[2018-11-03] MEDS: DOCUSATE SODIUM/SENNA 50/8.6MG TAB PO SCH ×3 (00:02→19:20)
[2018-11-03] MEDS: INSULIN ASPART 100 UNITS/ML 3 ML PEN SC SCH ×6 (00:04→21:12)
[2018-11-03] MEDS: CEFEPIME 2,000 MG in SYRINGE 7.5 ML IV SCH ×2 (04:16→15:50)
[2018-11-03] MEDS: ALBUT/IPRATROP 3MG/0.5MG NEB 3 ML VIAL NEB SCH ×5 (05:37→20:03)
[2018-11-03 06:52] LABS: Basophils # (auto) 0.01 K/uL (0-0.2); Basophils % (auto) 0.1 %; Eosinophils # (auto) 0.04 K/uL (0-0.5); Eosinophils % (auto) 0.2 %; Hematocrit (blood only) 28.3 % (42-52); Immature Granulocytes # (auto) 0.14 K/uL (0.00-0.02); Immature Granulocytes % (auto) 0.8 %; Lymphocytes # (auto) 1.85 K/uL (1.2-3.4); Lymphocytes % (auto) 11.2 %; Mean Corpuscular Hgb Conc 31.8 g/dL (32-36); Mean Corpuscular Volume 98.6 fL (80-100); Mean Platelet Volume 9.6 fL (7.4-10.4); Monocytes # (auto) 0.11 K/uL (0.11-0.59); Monocytes % (auto) 0.7 %; Neutrophils # (auto) 14.37 K/uL (1.4-6.5); Platelet Count 109 K/uL (130-400); RDW Coefficient of Variation 18.8 % (11.5-14.5); RDW Standard Deviation 67.2 fL (36.4-46.3); Red Blood Count 2.87 M/uL (4.7-6.1); White Blood Count 16.52 K/uL (4.8-10.8)
[2018-11-03 07:04] LABS: Prothrombin Time 36.3 Seconds (9.0-12.0)
[2018-11-03 07:10] LABS: BUN Creatinine Ratio 26.5 (10-20); Calcium 8.8 mg/dl (8.5-10.1); Creatinine Clr Calc Pharmacy 58.4 ml/min; Est GFR (African American) 59.3; Est GFR (Non-African American) 51.2; Potassium 5.2 mmol/L (3.5-5.1)
[2018-11-03 07:18] LABS: INR 3.9 (0.9-1.1)
[2018-11-03] MEDS: DULOXETINE HCL 30 MG CAP PO SCH (08:11)
[2018-11-03] MEDS: DULOXETINE HCL 60 MG CAP PO SCH (08:11)
[2018-11-03] MEDS: dexAMETHasone 1 MG TAB PO SCH ×2 (08:11→19:20)
[2018-11-03] MEDS: POLYETHYLENE (MIRALAX) 17 GM PACK PO SCH (08:17)
[2018-11-03] MEDS ORDERED: INSULIN GLARGINE SOLOSTAR 100 UNITS/ML 3 ML PEN SC SCH (09:00)
--- NOTE | 2018-11-03 10:24 | Progress Note ---
DATE: 11/03/2018 MEDICAL ONCOLOGY PROGRESS NOTE DIAGNOSES: 1. Pneumonia with possible sepsis. 2. Atrial fibrillation with rapid ventricular response. 3. Metastatic nonsmall cell lung cancer. 4. History of bacteremia. 5. Constipation. 6. Depression. HISTORY OF PRESENT ILLNESS: Mr. Yap is a somewhat frustrated 82-year-old gentleman I saw and examined at bedside this morning. He imparted to me he wants to go home to "." He feels like he is not really making any progress and continues to struggle with constipation. He voices no complaints of pain per se. He continues broad-spectrum antibiotics for pneumonia. Briefly spoke to Dr. Beard who is the managing hospitalist. Once he is converted to oral antimicrobials and family is in agreeance, may proceed to discharge here in the next 24 hours or so. As for where we go from a therapeutic standpoint with his metastatic disease, I will defer to Dr. Chaves moving forward. Nursing reports no overnight difficulties otherwise. OBJECTIVE: GENERAL: Mr. Yap is awake, alert and appropriate, in no acute distress, but clearly very frustrated. VITAL SIGNS: Temperature 36.8, pulse 71, respiratory rate 18, blood pressure 116/74. SKIN: Without new rash or lesion. HEENT: Oral mucosa is dry. No buccal lesions or ulcerations. NECK: Supple. HEART: Regular rate and rhythm. LUNGS: Clear to auscultation bilaterally. ABDOMEN: Soft, nontender, nondistended. EXTREMITIES: No clubbing, cyanosis or edema. NEUROLOGIC: Grossly intact. LABORATORY DATA: WBC count 16,520, hemoglobin 9.0, platelet count 109,000. His INR is presently 3.9, on Coumadin. Sodium 139, potassium 5.2, chloride 107, carbon dioxide 27, creatinine 1.30, BUN 35. RADIOGRAPHIC DATA: Chest x-ray done on 10/31/2018 shows slight progression of multifocal patchy airspace opacities within the right lung, thought to be vendor representatives of pneumonia. IMPRESSION: 1. Right-sided pneumonia. 2. Atrial fibrillation with rapid ventricular response (resolved) metastatic nonsmall cell lung cancer, PD-L1 100% avid. 3. History of enterococcus bacteremia. 4. Depression. 5. Coumadin anticoagulation. PLAN: Mr. Yap continues to struggle with the fact he does not seem to be getting better per se. He offers no complaint of pain or discomfort; however, his difficulties with his bowels seem to be consuming his thoughts at present. He voiced desire to go home to . I really do not want to make that decision with Mr. Yap and would defer to Dr. Chaves when he returns later Monday morning. The patient continues on antibiotics for a pneumonic process, perhaps could be converted to oral fluoroquinolones to allow him to go home. Again, I would request his family be consulted in this regard as we sent him home prematurely, he may end up readmitted. We have nursing work with him today, try to get his bowels moving if discharge is planned. Thank you very much for allowing us to participate in Mr. Yap's care. SAY
--- NOTE | 2018-11-03 10:28 | Pharmacy Report ---
Pharmacy Glycemic Short Note 2 - Date of Service November 03, 2018 - Glycemic Short BSG Results (Last 24 hours): 11/02/18 11/02/18 11/02/18 10:57 16:12 20:17 Glucose POC Glucose 249 H 146 H 163 H 11/03/18 11/03/18 11/03/18 00:02 04:01 06:18 Glucose 93 POC Glucose 109 H 77 11/03/18 07:21 Glucose POC Glucose 116 H Outpatient Anti-diabetic Regimen: * Lantus 36 Qam, Lantus 32 Qpm, Novolog SSI * A1c = 12.4 % on 08/28/18, pending for 11/01/18 Risk Factors for Insulin Resistance: * Steroids: Dexamethasone 2 mg po bid (home dose) * Infection: HAP, recent bacteremia/osteomyelitis - IV Vancomycin, Levaquin, Cefepime * IVF: diltiazem mixed in D5W * Diet: T2DM ASSESSMENT: 11/03/18: * Blood sugar 77 and 93mg/dl this morning, will change HS lantus to ensure patrice ent does not have any lantus unless BSG > 180mg/dl at bedtime to prevent hypoglycemia. * Pt likely to go to [facility] upon discharge - needs simplified regimen, having hypoglycemia d/t low appetite, noncompliance with Novolog, see discharge recs below 11/02/18: * Patient received total of 74 units of insulin yesterday - of which 45 units were basal insulin * Patient with hypoglycemia this morning with BSG of 52-42 mg/dL - tx per hypoglycemia protocol with CHO/dextrose/orange juice * Will reduce Lantus dosing by ~40% to account for significant hypoglycemia - max Lantus to receive 30 units; will give higher dosing of Lantus 20 units this morning and add scale for tonight based on BSG * Lunchtime BSG trending up to 249 mg/dL - Patient ate significant amt for breakfast - will tighten CF/CR for lunchtime 11/01/18 * No insulin has been administered as inpatient thus far (patient's usual PM dose of Lantus 32 units was held) * Patient's BSG increased overnight and no further hypoglycemic events noted. However, per RN, patient was also consuming a significant amount of sugary beverages overnight to keep BSG's up. * Anticipate hypoglycemia noted yesterday was from outpatient Lantus dosing - patient likely received 68 units (36+32 units) in the preceding 24 hours prior to admit * During admission ~ one month ago, patient had hypoglycemia early in the admission, but then was resumed on home dose of Lantus (36 units in AM and 32 units in PM) and AM fasting BSG's were adequate * AM BSG prior to breakfast was 129 mg/dL. Patient consumed one cup of orange juice (per RN). This was not covered with Novolog and will instead base ongoing insulin on trend in BSG's from breakfast to lunch * Lunch BSG significantly elevated - OK to resume Lantus. Will do so initially at ~home dose this AM (as patient missed dose yesterday PM) but have a reduced dose/scale this PM 2nd hypoglycemia yesterday 10/31/18 * Patient admitted with afib/pneumionia and also low BSGs. Previously on abx outpatient for h/o osteomyelitis/bacteremia infection. * BSG prior to admission per MD notes at 47 mg/dl - tx per hypoglycemia protocol in ED and BSGs trending up to low 100s * On recheck for HS - BSG again lower at 45 mg/dL - treated again per hypoglycemia protocol * Patient altered mental status per nurse and unable to let us know if he took insulin today. MD note suggests that patient did not. * Will add loose parameter on for Novolog - also add overnight checks; Will hold Lantus for now. PLAN FOR INPATIENT GLYCEMIC CONTROL: * Basal insulin: Lantus 20 units SQ daily and HS: * 0 units for BSG less than 180 mg/dL * 5 units for BSG 180 mg/dL or greater * Bolus insulin * NovoLog per scale ACHS or Q6hrs while NPO * Goal Range: Low 110 mg/dL - High 150 mg/dL * Correction Factor: 15 mg/dL/unit * Nutritional / Prandial insulin per carb ratio of 1 unit per 6 grams CHO consumed DISCHARGE RECOMMENDATIONS: * Recommend changing Lantus to 20 units SQ daily; Novolog 12 units with high CHO meals, 6 units with low CHO meals (hold if eating less than 50% of meal)
--- NOTE | 2018-11-03 14:45 | Family Medicine Progress Note ---
Date of Service November 03, 2018 Assessment & Plan (1) Pneumonia: 82-year-old male admitted on 31 October 2018 status post fall and worsening fatigue. Pneumonia, sepsis: On admission, tachycardia + leukocytosis + new right midlung zone CXR infiltrate. 05Jun started on vancomycin, Zosyn, and Levaquin. 05Jun single positive BCx for staph. 06Jun passed speech eval. Presently on vanc + cefepime + Levaquin. Now on 24/7 oxygen. On scheduled DuoNebs QID. - Considering stress-dose steroids for possible mild prior COPD. Bacteremia: Discharged on 23May on IV vancomycin via PICC line for E. faecalis, thought to be related to smith osteo. 05Jun single positive BCx for staph. ID consulted (see notes). 06Jun removed PICC line and tip culture no growth (final). Repeat 06Jun BCx NGTD. - If cultures negative, likely stop antibiotics from this perspective. 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 70 pk/yr smoker. First dose of Keytruda on . See oncology notes, awaiting Dr. Roblero input on Monday. Continuing dexamethaso ne 2 mg twice daily. Here on Lidoderm patch and oxycodone prn. A. fib with RVR: On admit, question of MAT. Already on Coumadin for chronic PE and PMH DVT, though subtherapeutic on admit. Given extra 2 mg dose. Started on diltiazem drip but stopped for relative hypotension. Off rate/rhythm control meds. See [id number] TTE report, EF 65-70%. Now in NSR with brief A. fib/PVCs. INR up to 3.9. - Held Coumadin today. Recheck INR tomorrow. Hyperkalemia: As high as K 5.3. Monitoring. Acute kidney injury: Baseline creatinine perhaps 1.2. Admit creatinine 1.63, improving. Monitoring. Acute on chronic anemia: Chronically around Hb 11, normal MCV. Admit Hb 11.2, down to 9.3. Monitoring. Thrombocytopenia: Platelets stable in low 100s. No evidence of acute bleeding. Monitoring. Constipation: Likely due to opioids. On MiraLAX daily and Senokot. Ongoing medical issues: - Hypertension, hyperlipidemia: On atorvastatin 40 mg. --- Held lisinopril for TIANA and relative hypotension. - DM2: Reported history of insulin noncompliance. 01 November hemoglobin A1c 8.4. On Lantus and sliding scale here. --- Monitoring episodes of hypoglycemia. - Obstructive sleep apnea: CPAP at night. - Prostate cancer, chronic urinary obstruction: History of brachytherapy. Self cath at home. On oxybutynin. --- Patient refused catheter here. - Gout: Held colchicine. - Depression: History of "outbursts", HI, and prior psych involvement. On duloxetine. - Knee and toe osteomyelitis. Code status: Full code. Diet: DM 2. DVT prophy: Coumadin. PT/OT: Ongoing. Disbo: Admitted to PCU telemetry. - Lives at home with . Case management on board. Referral out to [facility]. - Seen by palliative care (see related notes). Goal for family meeting. Has previously declined hospice. (2) Sepsis: (3) Bacteremia: (4) Metastatic adenocarcinoma: (5) Atrial fibrillation with rapid ventricular response: (6) Chronic pulmonary embolism: (7) Hyperkalemia: (8) TIANA (acute kidney injury): (9) Anemia: (10) Thrombocytopenia: (11) Constipation: (12) Hypertension: (13) Hyperlipidemia: (14) Diabetes: (15) Obstructive sleep apnea: (16) Prostate cancer: (17) Urinary obstruction: (18) Gout: (19) Depression: (20) Osteomyelitis: Supervising Physician Co-Signing Physician Notes Resident Physician Supervision Note: I independently interviewed and examined the patient and verified the galo history and physical, reviewed labs and image studies, discussed the case with the resident Dr. Lockwood and agree with the findings and care plan. Subjective Found patient lying in bed, eyes partially open. He open his eyes more to voice but did not initiate conversation. When asked how he was, he said that he was bad "all over". He did not volunteer further information. After his exam, patient shouted out "I want to go home." Review of Systems Review of Systems: Unobtainable due to cognitive status Physical Exam Physical Exam: General Appearance: Appears but somnolent, fully opens eyes to voice, does not appear in acute distress. Hard of hearing. CV: +S1S2 irregularly irregular, no murmur. Pulm: Clear to auscultation throughout. On nasal cannula oxygen. Abdomen: +BS, soft, non-tender, non-distended. Obese habitus. Extremities: Missing several toes on bilateral feet. Well-healed wound to the left smith. Neuro: Appears generally somnolent but responds to voice. Results & Data Vital Signs (Past 12 Hours) Vital Signs Temp Pulse Pulse Resp BP Pulse Ox 11/03/18 11:17 36.6 C 98 H 16 157/80 H 92 11/03/18 11:11 87 20 93 11/03/18 10:25 89 11/03/18 07:11 71 94 11/03/18 06:54 36.8 C 93 H 18 116/74 96 11/03/18 05:39 72 16 92 11/03/18 04:00 36.8 C 72 19 118/69 96 Laboratory Results 11/03/18 11/03/18 11/03/18 Range/Units 10:48 07:21 06:18 WBC (4.8-10.8) K/uL RBC (4.7-6.1) M/uL Hgb (14.0-18.0) g/dL Hct (42-52) % MCV (80-100) fL MCH (25-34) pg MCHC (32-36) g/dL RDW Std Deviation (36.4-46.3) fL RDW Coeff of Dante (11.5-14.5) % Plt Count (130-400) K/uL MPV (7.4-10.4) fL Immature Gran % (Auto) % Neut % (Auto) % Lymph % (Auto) % [place] % (Auto) % Eos % (Auto) % Baso % (Auto) % Immature Gran # (Auto) (0.00-0.02) K/uL Neut # (Auto) (1.4-6.5) K/uL Lymph # (Auto) (1.2-3.4) K/uL [place] # (Auto) (0.11-0.59) K/uL Eos # (Auto) (0-0.5) K/uL Baso # (Auto) (0-0.2) K/uL PT 36.3 H (9.0-12.0) Seconds INR 3.9 H (0.9-1.1) Sodium (136-145) mmol/L Potassium (3.5-5.1) mmol/L Chloride (98-107) mmol/L Carbon Dioxide (21-32) mmol/L Anion Gap (3-11) BUN (7-18) mg/dl Creatinine (0.6-1.4) mg/dl Est Cr Clr Drug Dosing ml/min Est GFR ( Amer) Est GFR (Non-Af Amer) BUN/Creatinine Ratio (10-20) Glucose (70-99) mg/dl POC Glucose 190 H 116 H (70-99) Calcium (8.5-10.1) mg/dl 11/03/18 11/03/18 11/03/18 Range/Units 06:18 06:18 04:01 WBC 16.52 H (4.8-10.8) K/uL RBC 2.87 L (4.7-6.1) M/uL Hgb 9.0 L (14.0-18.0) g/dL Hct 28.3 L (42-52) % MCV 98.6 (80-100) fL MCH 31.4 (25-34) pg MCHC 31.8 L (32-36) g/dL RDW Std Deviation 67.2 H (36.4-46.3) fL RDW Coeff of Dante 18.8 H (11.5-14.5) % Plt Count 109 L (130-400) K/uL MPV 9.6 (7.4-10.4) fL Immature Gran % (Auto) 0.8 % Neut % (Auto) 87.0 % Lymph % (Auto) 11.2 % [place] % (Auto) 0.7 % Eos % (Auto) 0.2 % Baso % (Auto) 0.1 % Immature Gran # (Auto) 0.14 H (0.00-0.02) K/uL Neut # (Auto) 14.37 H (1.4-6.5) K/uL Lymph # (Auto) 1.85 (1.2-3.4) K/uL [place] # (Auto) 0.11 (0.11-0.59) K/uL Eos # (Auto) 0.04 (0-0.5) K/uL Baso # (Auto) 0.01 (0-0.2) K/uL PT (9.0-12.0) Seconds INR (0.9-1.1) Sodium 139 (136-145) mmol/L Potassium 5.2 H (3.5-5.1) mmol/L Chloride 107 (98-107) mmol/L Carbon Dioxide 27 (21-32) mmol/L Anion Gap 6.0 (3-11) BUN 35 H (7-18) mg/dl Creatinine 1.30 D (0.6-1.4) mg/dl Est Cr Clr Drug Dosing 58.4 ml/min Est GFR ( Amer) 59.3 Est GFR (Non-Af Amer) 51.2 BUN/Creatinine Ratio 26.5 H (10-20) Glucose 93 (70-99) mg/dl POC Glucose 77 (70-99) Calcium 8.8 (8.5-10.1) mg/dl 11/03/18 11/02/18 11/02/18 Range/Units 00:02 20:17 16:12 WBC (4.8-10.8) K/uL RBC (4.7-6.1) M/uL Hgb (14.0-18.0) g/dL Hct (42-52) % MCV (80-100) fL MCH (25-34) pg MCHC (32-36) g/dL RDW Std Deviation (36.4-46.3) fL RDW Coeff of Dante (11.5-14.5) % Plt Count (130-400) K/uL MPV (7.4-10.4) fL Immature Gran % (Auto) % Neut % (Auto) % Lymph % (Auto) % [place] % (Auto) % Eos % (Auto) % Baso % (Auto) % Immature Gran # (Auto) (0.00-0.02) K/uL Neut # (Auto) (1.4-6.5) K/uL Lymph # (Auto) (1.2-3.4) K/uL [place] # (Auto) (0.11-0.59) K/uL Eos # (Auto) (0-0.5) K/uL Baso # (Auto) (0-0.2) K/uL PT (9.0-12.0) Seconds INR (0.9-1.1) Sodium (136-145) mmol/L Potassium (3.5-5.1) mmol/L Chloride (98-107) mmol/L Carbon Dioxide (21-32) mmol/L Anion Gap (3-11) BUN (7-18) mg/dl Creatinine (0.6-1.4) mg/dl Est Cr Clr Drug Dosing ml/min Est GFR ( Amer) Est GFR (Non-Af Amer) BUN/Creatinine Ratio (10-20) Glucose (70-99) mg/dl POC Glucose 109 H 163 H 146 H (70-99) Calcium (8.5-10.1) mg/dl Medications Administered Current Inpatient Medications Acetaminophen (Tylenol) 650 mg PO Q4H PRN PRN Reason: pain Stop: 11/30/18 18:41 Last Admin: 11/02/18 19:56 Dose: 650 mg Documented by: Al Hydrox/Mg Hydrox/Simethicone (Maalox) 15 ml PO Q4H PRN PRN Reason: Dyspepsia Stop: 11/30/18 18:41 Albuterol (Ventolin Hfa) 2 puffs INH DAILY PRN PRN Reason: Wheezing Stop: 11/30/18 18:41 Albuterol (Duoneb) 3 ml NEB QIDR [facility] Stop: 12/02/18 15:59 Last Admin: 11/03/18 11:11 Dose: 3 ml Documented by: Atorvastatin Calcium (Lipitor) 40 mg PO HS [facility] Stop: 11/30/18 20:59 Last Admin: 11/02/18 19:56 Dose: 40 mg Documented by: Dexamethasone (Decadron) 2 mg PO Q12 ELBA Stop: 11/30/18 20:59 Last Admin: 11/03/18 08:11 Dose: 2 mg Documented by: Dextrose (Dextrose 50%) 25 - 50 ml IV UD PRN; Protocol PRN Reason: Hypoglycemia Protocol Stop: 11/30/18 19:44 Last Admin: 11/02/18 04:29 Dose: 50 ml Documented by: Duloxetine HCl (Cymbalta) 30 mg PO QAM [facility] Stop: 12/01/18 08:59 Last Admin: 11/03/18 08:11 Dose: 30 mg Documented by: Duloxetine HCl (Cymbalta) 60 mg PO QAM [facility] Stop: 12/01/18 08:59 Last Admin: 11/03/18 08:11 Dose: 60 mg Documented by: Glucagon (Glucagen) 1 mg IM UD PRN; Protocol PRN Reason: Hypoglycemia Protocol Stop: 11/30/18 19:44 Glucose (Glucose 40%) 15 - 30 gm PO UD PRN; Protocol PRN Reason: Hypoglycemia Protocol Stop: 11/30/18 19:44 Glucose (Dex4 Glucose) 4 - 8 tabs PO UD PRN; Protocol PRN Reason: Hypoglycemia Protocol Stop: 11/30/18 19:44 Diltiazem HCl 125 mg/ Dextrose 125 mls @ 0 mls/hr IV .Q0M ELBA; Protocol Stop: 11/30/18 18:41 Last Titration: 11/02/18 13:00 Dose: Infused Documented by: Levofloxacin/Dextrose (Levaquin/D5w) 750 mg in 150 mls @ 100 mls/hr IV Q48H ELBA; Protocol Stop: 11/07/18 19:59 Last Infusion: 11/02/18 21:25 Dose: Infused Documented by: Cefepime HCl 2,000 mg/ Syringe 20 mls @ 5 mls/min IV Q12H ELBA; Protocol Stop: 11/08/18 03:59 Last Admin: 11/03/18 04:16 Dose: 5 mls/min Documented by: Vancomycin HCl 1,500 mg/ (Sodium Chloride) 530 mls @ 200 mls/hr IV Q24H [facility]BA Stop: 11/09/18 13:59 Last Infusion: 11/02/18 16:02 Dose: Infused Documented by: Insulin Aspart (Novolog Flexpen) 0 units SC ACHS ELBA; Protocol Stop: 11/30/18 20:59 Last Admin: 11/03/18 12:21 Dose: 7 units Documented by: Insulin Glargine (Lantus Solostar Pen) 0 units SC HS ELBA; Protocol Stop: 12/01/18 20:59 Last Admin: 11/02/18 20:26 Dose: 5 units Documented by: Insulin Glargine (Lantus Solostar Pen) 20 units SC DAILY ELBA; Protocol Stop: 12/03/18 08:59 Last Admin: 11/03/18 09:23 Dose: 20 units Documented by: Lidocaine (Lidoderm 5%) 1 patch TD QAM PRN PRN Reason: Pain Stop: 11/30/18 18:41 Magnesium Hydroxide (Milk Of Magnesia) 30 ml PO Q12H PRN PRN Reason: Constipation Stop: 11/30/18 18:41 Last Admin: 11/01/18 15:47 Dose: 30 ml Documented by: Miscellaneous (Remove Lidoderm Patch) 1 ea N/A DAILY@2100 [facility] Stop: 11/30/18 20:59 Last Admin: 11/02/18 20:27 Dose: Not Given Documented by: Miscellaneous (Carbohydrates For Hypoglycemia) 15 - 30 gm PO UD PRN PRN Reason: Hypoglycemia Treatment Stop: 11/30/18 19:44 Last Admin: 11/02/18 04:11 Dose: 30 gm Documented by: Miscellaneous Information (Consult Glycemic Management Pharmacy) 1 ea N/A UD PRN PRN Reason: Consult Stop: 11/30/18 19:10 Miscellaneous Information (Consult) 1 ea N/A UD PRN PRN Reason: Consult Stop: 11/30/18 18:41 Miscellaneous Information (Cefepime Consult Active) 1 ea N/A UD PRN PRN Reason: Consult Stop: 11/30/18 20:23 Oxycodone HCl (Roxicodone Immediate Rel) 5 mg PO Q6 PRN PRN Reason: Pain Stop: 11/14/18 18:41 Last Admin: 11/02/18 19:55 Dose: 5 mg Documented by: Polyethylene Glycol (Miralax Powder Packet) 17 gm PO DAILY [facility] Stop: 11/30/18 18:41 Last Admin: 11/03/18 08:17 Dose: 17 gm Documented by: Senna/Docusate Sodium (Senokot S) 2 tab PO BID [facility] Stop: 11/30/18 20:59 Last Admin: 11/03/18 08:17 Dose: 2 tab Documented by: Warfarin Sodium (Coumadin) 3 mg PO DAILY@1600 [facility] Stop: 11/30/18 20:29 Last Admin: 11/02/18 16:01 Dose: 3 mg Documented by: Zolpidem Tartrate (Ambien) 5 mg PO HS PRN PRN Reason: Sleep Stop: 11/30/18 18:41 Last Admin: 11/02/18 22:51 Dose: 5 mg Documented by: Resident Activity Tracking Resident Involvement: Resident Care Provided Care Provided: Adult [facility] Medicine (1) Depression Active/Remission status: currently active Depression Type: major depressive disorder Major depression episode severity: severe Major depression recurrence: recurrent Psychotic features: without psychotic features Qualified Code(s): F33.2 - Major depressive disorder, recurrent severe without psychotic features (2) Pneumonia Laterality: unspecified laterality Lung location: unspecified part of lung Pneumonia type: due to unspecified organism Qualified Code(s): J18.9 - Pneumonia, unspecified organism
[2018-11-03] MEDS: VANCOMYCIN HCL 1,500 MG in SODIUM CHLORIDE 0.9% 500 ML IV SCH (15:50)
[2018-11-03] MEDS: OXYCODONE HCL IR 5 MG TAB (IMMEDIATE RELEASE) PO PRN (19:19)
[2018-11-03] MEDS: ATORVASTATIN 40 MG TAB PO SCH (19:20)
[2018-11-03] MEDS: ACETAMINOPHEN 325 MG TAB PO PRN (19:20)
[2018-11-03] MEDS: INSULIN GLARGINE SOLOSTAR 100 UNITS/ML 3 ML PEN SC SCH (21:11)
[2018-11-04] MEDS: ACETAMINOPHEN 325 MG TAB PO PRN ×2 (03:55→08:09)
[2018-11-04] MEDS: OXYCODONE HCL IR 5 MG TAB (IMMEDIATE RELEASE) PO PRN ×4 (03:55→21:50)
[2018-11-04] MEDS: CEFEPIME 2,000 MG in SYRINGE 7.5 ML IV SCH (03:56)
[2018-11-04] MEDS: ALBUT/IPRATROP 3MG/0.5MG NEB 3 ML VIAL NEB SCH ×5 (05:23→19:35)
[2018-11-04 07:15] LABS: Hemoglobin 8.8 g/dL (14.0-18.0); Mean Corpuscular Hgb Conc 32.6 g/dL (32-36); Mean Corpuscular Volume 97.1 fL (80-100); Nucleated RBC # (auto) 0.03 K/uL (0-0); Nucleated RBC % (auto) 0.2 %; RDW Coefficient of Variation 18.9 % (11.5-14.5); RDW Standard Deviation 66.7 fL (36.4-46.3); Red Blood Count 2.78 M/uL (4.7-6.1); White Blood Count 15.55 K/uL (4.8-10.8)
[2018-11-04 07:38] LABS: Anisocytosis Present; Basophils # (auto) 0.02 K/uL (0-0.2); Basophils % (auto) 0.1 %; Echinocytes 1+; Eosinophils # (auto) 0.05 K/uL (0-0.5); Eosinophils % (auto) 0.3 %; Immature Granulocytes # (auto) 0.18 K/uL (0.00-0.02); Immature Granulocytes % (auto) 1.2 %; Lymphocytes # (auto) 1.12 K/uL (1.2-3.4); Lymphocytes % (auto) 7.2 %; Mean Platelet Volume 9.5 fL (7.4-10.4); Monocytes # (auto) 0.16 K/uL (0.11-0.59); Neutrophils # (auto) 14.02 K/uL (1.4-6.5); Neutrophils % (auto) 90.2 %; Platelet Count 98 K/uL (130-400); Platelet Estimate Decreased (Normal); Spherocytes 1+; Toxic Vacuolation 1+
[2018-11-04 07:39] LABS: INR 3.2 (0.9-1.1); Prothrombin Time 30.2 Seconds (9.0-12.0)
[2018-11-04 07:47] LABS: Calcium 8.3 mg/dl (8.5-10.1); Creatinine Clr Calc Pharmacy 56.7 ml/min; Est GFR (African American) 62.2; Est GFR (Non-African American) 53.7; Potassium 4.8 mmol/L (3.5-5.1)
[2018-11-04] MEDS: DULOXETINE HCL 60 MG CAP PO SCH (08:01)
[2018-11-04] MEDS: DULOXETINE HCL 30 MG CAP PO SCH (08:01)
[2018-11-04] MEDS: dexAMETHasone 1 MG TAB PO SCH ×2 (08:01→21:19)
[2018-11-04] MEDS: INSULIN GLARGINE SOLOSTAR 100 UNITS/ML 3 ML PEN SC SCH (08:02)
[2018-11-04] MEDS: INSULIN ASPART 100 UNITS/ML 3 ML PEN SC SCH ×4 (08:03→21:19)
[2018-11-04] MEDS: POLYETHYLENE (MIRALAX) 17 GM PACK PO SCH (08:08)
[2018-11-04] MEDS: MAGNESIUM HYDROXIDE SUSP 30 ML UDC PO PRN (08:09)
[2018-11-04] MEDS: DOCUSATE SODIUM/SENNA 50/8.6MG TAB PO SCH ×2 (08:09→21:19)
--- NOTE | 2018-11-04 08:38 | Pharmacy Report ---
Pharmacy Glycemic Short Note 2 - Date of Service November 04, 2018 - Glycemic Short BSG Results (Last 24 hours): 11/03/18 11/03/18 11/03/18 10:48 16:33 20:15 Glucose POC Glucose 190 H 266 H 244 H 11/04/18 11/04/18 11/04/18 04:11 06:54 07:15 Glucose 138 H POC Glucose 130 H 163 H Outpatient Anti-diabetic Regimen: * Lantus 36 Qam, Lantus 32 Qpm, Novolog SSI * A1c = 8.4% 11/11/18 (down from 12.4% on 08/28/18) Risk Factors for Insulin Resistance: * Steroids: Dexamethasone 2 mg po bid (home dose) * Infection: HAP, recent bacteremia/osteomyelitis - IV Vancomycin, Levaquin, Cefepime * IVF: diltiazem mixed in D5W * Diet: T2DM ASSESSMENT: 11/04/18: * Patient received 62 units of insulin yesterday, 25 units basal, 37 units prandial * Blood sugars jemma throughout the day, will tighten CR and move all lantus to AM * Change goal range slightly to 110-140mg/dl for ADA recommendations 11/03/18: * Blood sugar 77 and 93mg/dl this morning, will change HS lantus to ensure patient does not have any lantus unless BSG > 180mg/dl at bedtime to prevent hypoglycemia. * Pt [facility] to [facility] to [facility] upon discharge - needs simplified regimen, having hypoglycemia d/t low appetite, noncompliance with Novolog, see discharge recs below 11/02/18: * Patient received total of 74 units of insulin yesterday - of which 45 units were basal insulin * Patient with hypoglycemia this morning with BSG of 52-42 mg/dL - tx per hypoglycemia protocol with CHO/dextrose/orange juice * Will reduce Lantus dosing by ~40% to account for significant hypoglycemia - max Lantus to receive 30 units; will give higher dosing of Lantus 20 units this morning and add scale for tonight based on BSG * Lunchtime BSG trending up to 249 mg/dL - Patient ate significant amt for breakfast - will tighten CF/CR for lunchtime 11/01/18 * No insulin has been administered as inpatient thus far (patient's usual PM dose of Lantus 32 units was held) * Patient's BSG increased overnight and no further hypoglycemic events noted. However, per RN, patient was also consuming a significant amount of sugary beverages overnight to keep BSG's up. * Anticipate hypoglycemia noted yesterday was from outpatient Lantus dosing - patient likely received 68 units (36+32 units) in the preceding 24 hours prior to admit * During admission ~ one month ago, patient had hypoglycemia early in the admission, but then was resumed on home dose of Lantus (36 units in AM and 32 units in PM) and AM fasting BSG's were adequate * AM BSG prior to breakfast was 129 mg/dL. Patient consumed one cup of orange juice (per RN). This was not covered with Novolog and will instead base ongoing insulin on trend in BSG's from breakfast to lunch * Lunch BSG significantly elevated - OK to resume Lantus. Will do so initially at ~home dose this AM (as patient missed dose yesterday PM) but have a reduced dose/scale this PM 2nd hypoglycemia yesterday 10/31/18 * Patient admitted with afib/pneumionia and also low BSGs. Previously on abx outpatient for h/o osteomyelitis/bacteremia infection. * BSG prior to admission per MD notes at 47 mg/dl - tx per hypoglycemia protocol in ED and BSGs trending up to low 100s * On recheck for HS - BSG again lower at 45 mg/dL - treated again per hypoglycemia protocol * Patient altered mental status per nurse and unable to let us know if he took insulin today. MD note suggests that patient did not. * Will add loose parameter on for Novolog - also add overnight checks; Will hold Lantus for now. PLAN FOR INPATIENT GLYCEMIC CONTROL: * Basal insulin: Lantus 25 units SQ QAM * Bolus insulin * NovoLog per scale ACHS or Q6hrs while NPO * CHANGE: Goal Range: Low 110 mg/dL - High 140 mg/dL * Correction Factor: 15 mg/dL/unit * TIGHTEN: Nutritional / Prandial insulin per carb ratio of 1 unit per 3.5 grams CHO consumed DISCHARGE RECOMMENDATIONS: * Recommend changing Lantus to 20 units SQ daily; Novolog 12 units with high CHO meals, 6 units with low CHO meals (hold if eating less than 50% of meal)
[2018-11-04] MEDS: CEFDINIR 300 MG CAP PO SCH ×2 (12:29→21:19)
--- NOTE | 2018-11-04 13:19 | Family Medicine Progress Note ---
Date of Service November 04, 2018 Assessment & Plan (1) Pneumonia: 82-year-old male admitted on 31 October 2018 s/p fall and worsening fatigue. Pneumonia, sepsis: On admission, tachycardia + leukocytosis + new right midlung zone CXR infiltrate. 05Jun started on vancomycin, Zosyn, and Levaquin. 05Jun single positive BCx for staph. 06Jun passed speech eval. Presently on vanc + cefepime + Levaquin. Now on 24/7 oxygen. On scheduled DuoNebs QID. - Will stop IV antibiotics and transition to cefdinir PO. - Considering stress-dose steroids for possible mild prior COPD. Bacteremia: Discharged on 23May on IV vancomycin via PICC line for E. faecalis, thought to be related to smith osteo. 05Jun single positive BCx for staph. ID consulted (see notes). 06Jun removed PICC line and tip culture no growth (final). Repeat 06Jun BCx NGTD. - Stopping antibiotics from a bacteremia perspective. See pneumonia discussion above. 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 70 pk/yr smoker. First dose of Keytruda on . See oncology notes, awaiting Dr. Roblero input on Monday. Continuing dexamethasone 2 mg twice daily. Here on Lidoderm patch and oxycodone prn. A. fib with RVR: On admit, question of MAT. Already on Coumadin for chronic PE and PMH DVT, though subtherapeutic on admit. Given extra 2 mg dose. Started on diltiazem drip but stopped for relative hypotension. Off rate/rhythm control meds. See 01Nov2018 TTE report, EF 65-70%. Now in NSR with brief A. fib/PVCs. INR up to 3.9. 08Jun held Coumadin, INR down to 3.2 today. - Restarting home Coumadin dose. Hyperkalemia: As high as K 5.3. Monitoring. Acute kidney injury: Baseline creatinine perhaps 1.2. Admit creatinine 1.63, improving. Monitoring. Acute on chronic anemia: Chronically around Hb 11, normal MCV. Admit Hb 11.2, down to 8.8. Monitoring. Thrombocytopenia: Platelets stable around 100. No evidence of acute bleeding. Monitoring. Constipation: Likely due to opioids. On MiraLAX daily and Senokot. Ongoing medical issues: - Hypertension, hyperlipidemia: On atorvastatin 40 mg. --- Held lisinopril for TIANA and relative hypotension. - DM2: Reported history of insulin noncompliance. 06Jun HbA1c 8.4. On Lantus and sliding scale here. --- Monitoring episodes of hypoglycemia. - Obstructive sleep apnea: CPAP at night. - Prostate cancer, chronic urinary obstruction: History of brachytherapy. Self- cath at home. On oxybutynin. --- Patient refused catheter here. - Gout: Held colchicine. - Depression: History of "outbursts", HI, and prior psych involvement. On duloxetine. - Knee and toe osteomyelitis. Code status: Full code. Diet: DM 2. DVT prophy: Coumadin. PT/OT: Ongoing. Disbo: Admitted to PCU telemetry. Will transfer to [facility] today. - Lives at home with . Case management onboard. Referral out to [facility] f/u Monday. - Seen by palliative care (see related notes). Goal for family meeting. Has previously declined hospice. (2) Sepsis: (3) Bacteremia: (4) Metastatic adenocarcinoma: (5) Atrial fibrillation with rapid ventricular response: (6) Chronic pulmonary embolism: (7) Hyperkalemia: (8) TIANA (acute kidney injury): (9) Anemia: (10) Thrombocytopenia: (11) Constipation: (12) Hypertension: (13) Hyperlipidemia: (14) Diabetes: (15) Obstructive sleep apnea: (16) Prostate cancer: (17) Urinary obstruction: (18) Gout: (19) Depression: (20) Osteomyelitis: Supervising Physician Co-Signing Physician Notes Resident Physician Supervision Note: I independently interviewed and examined the patient and verified the galo history and physical, reviewed labs and image studies, discussed the case with the resident Dr. Lockwood and agree with the findings and care plan. Subjective Found patient lying quietly in bed. Again, he did not seem to volunteer any information but was a bit more conversational and interactive compared to yesterday. He denied requesting anything or any particular complaints, but did say he would like to have a bowel movement. Review of Systems Review of Systems: Per HPI as above. Physical Exam Physical Exam: General Appearance: More awake, alert, eyes open, does not appear in acute distress. Hard of hearing. CV: +S1S2 irregularly irregular, no murmur. Pulm: Clear to auscultation throughout. On nasal cannula oxygen. Abdomen: +BS, soft, non-tender, non-distended. Obese habitus. Extremities: Missing several toes on bilateral feet. Well-healed wound to the left smith. Neuro: Appears generally somnolent but responds to voice. Results & Data Vital Signs (Past 12 Hours) Vital Signs Temp Pulse Pulse Resp BP BP Pulse Ox 11/04/18 11:16 88 96 11/04/18 09:30 94 H 11/04/18 07:20 88 18 95 11/04/18 07:16 37.0 C 85 20 135/74 92 11/04/18 05:24 87 16 96 11/04/18 03:47 37.1 C 92 H 19 124/82 94 Laboratory Results 11/04/18 11/04/18 11/04/18 Range/Units 11:57 11:56 07:15 WBC (4.8-10.8) K/uL RBC (4.7-6.1) M/uL Hgb (14.0-18.0) g/dL Hct (42-52) % MCV (80-100) fL MCH (25-34) pg MCHC (32-36) g/dL RDW Std Deviation (36.4-46.3) fL RDW Coeff of Dante (11.5-14.5) % Plt Count (130-400) K/uL MPV (7.4-10.4) fL Immature Gran % (Auto) % Neut % (Auto) % Lymph % (Auto) % Tyrrell % (Auto) % Eos % (Auto) % Baso % (Auto) % Immature Gran # (Auto) (0.00-0.02) K/uL Neut # (Auto) (1.4-6.5) K/uL Lymph # (Auto) (1.2-3.4) K/uL Tyrrell # (Auto) (0.11-0.59) K/uL Eos # (Auto) (0-0.5) K/uL Baso # (Auto) (0-0.2) K/uL Absolute Nucleated RBC (0-0) K/uL Nucleated RBC % (auto) % Toxic Vacuolation Platelet Estimate (Normal) Anisocytosis Spherocytes Echinocytes PT (9.0-12.0) Seconds INR (0.9-1.1) Sodium (136-145) mmol/L Potassium (3.5-5.1) mmol/L Chloride (98-107) mmol/L Carbon Dioxide (21-32) mmol/L Anion Gap (3-11) BUN (7-18) mg/dl Creatinine (0.6-1.4) mg/dl Est Cr Clr Drug Dosing ml/min Est GFR ( Amer) Est GFR (Non-Af Amer) BUN/Creatinine Ratio (10-20) Glucose (70-99) mg/dl POC Glucose 339 H* 337 H* 163 H (70-99) Calcium (8.5-10.1) mg/dl 11/04/18 11/04/18 11/04/18 Range/Units 06:54 06:54 06:54 WBC 15.55 H (4.8-10.8) K/uL RBC 2.78 L (4.7-6.1) M/uL Hgb 8.8 L (14.0-18.0) g/dL Hct 27.0 L (42-52) % MCV 97.1 (80-100) fL MCH 31.7 (25-34) pg MCHC 32.6 (32-36) g/dL RDW Std Deviation 66.7 H (36.4-46.3) fL RDW Coeff of Dante 18.9 H (11.5-14.5) % Plt Count 98 L (130-400) K/uL MPV 9.5 (7.4-10.4) fL Immature Gran % (Auto) 1.2 % Neut % (Auto) 90.2 % Lymph % (Auto) 7.2 % Tyrrell % (Auto) 1.0 % Eos % (Auto) 0.3 % Baso % (Auto) 0.1 % Immature Gran # (Auto) 0.18 H (0.00-0.02) K/uL Neut # (Auto) 14.02 H (1.4-6.5) K/uL Lymph # (Auto) 1.12 L (1.2-3.4) K/uL Tyrrell # (Auto) 0.16 (0.11-0.59) K/uL Eos # (Auto) 0.05 (0-0.5) K/uL Baso # (Auto) 0.02 (0-0.2) K/uL Absolute Nucleated RBC 0.03 H (0-0) K/uL Nucleated RBC % (auto) 0.2 % Toxic Vacuolation 1+ Platelet Estimate Decreased L (Normal) Anisocytosis Present Spherocytes 1+ Echinocytes 1+ PT 30.2 H (9.0-12.0) Seconds INR 3.2 H (0.9-1.1) Sodium 135 L (136-145) mmol/L Potassium 4.8 (3.5-5.1) mmol/L Chloride 104 (98-107) mmol/L Carbon Dioxide 23 (21-32) mmol/L Anion Gap 8.0 (3-11) BUN 34 H (7-18) mg/dl Creatinine 1.25 (0.6-1.4) mg/dl Est Cr Clr Drug Dosing 56.7 ml/min Est GFR ( Amer) 62.2 Est GFR (Non-Af Amer) 53.7 BUN/Creatinine Ratio 27.0 H (10-20) Glucose 138 H (70-99) mg/dl POC Glucose (70-99) Calcium 8.3 L (8.5-10.1) mg/dl 11/04/18 11/03/18 11/03/18 Range/Units 04:11 20:15 16:33 WBC (4.8-10.8) K/uL RBC (4.7-6.1) M/uL Hgb (14.0-18.0) g/dL Hct (42-52) % MCV (80-100) fL MCH (25-34) pg MCHC (32-36) g/dL RDW Std Deviation (36.4-46.3) fL RDW Coeff of Dante (11.5-14.5) % Plt Count (130-400) K/uL MPV (7.4-10.4) fL Immature Gran % (Auto) % Neut % (Auto) % Lymph % (Auto) % Tyrrell % (Auto) % Eos % (Auto) % Baso % (Auto) % Immature Gran # (Auto) (0.00-0.02) K/uL Neut # (Auto) (1.4-6.5) K/uL Lymph # (Auto) (1.2-3.4) K/uL Tyrrell # (Auto) (0.11-0.59) K/uL Eos # (Auto) (0-0.5) K/uL Baso # (Auto) (0-0.2) K/uL Absolute Nucleated RBC (0-0) K/uL Nucleated RBC % (auto) % Toxic Vacuolation Platelet Estimate (Normal) Anisocytosis Spherocytes Echinocytes PT (9.0-12.0) Seconds INR (0.9-1.1) Sodium (136-145) mmol/L Potassium (3.5-5.1) mmol/L Chloride (98-107) mmol/L Carbon Dioxide (21-32) mmol/L Anion Gap (3-11) BUN (7-18) mg/dl Creatinine (0.6-1.4) mg/dl Est Cr Clr Drug Dosing ml/min Est GFR ( Amer) Est GFR (Non-Af Amer) BUN/Creatinine Ratio (10-20) Glucose (70-99) mg/dl POC Glucose 130 H 244 H 266 H (70-99) Calcium (8.5-10.1) mg/dl Medications Administered Current Inpatient Medications Acetaminophen (Tylenol) 650 mg PO Q4H PRN PRN Reason: pain Stop: 11/30/18 18:41 Last Admin: 11/04/18 08:09 Dose: 650 mg Documented by: Al Hydrox/Mg Hydrox/Simethicone (Maalox) 15 ml PO Q4H PRN PRN Reason: Dyspepsia Stop: 11/30/18 18:41 Albuterol (Ventolin Hfa) 2 puffs INH DAILY PRN PRN Reason: Wheezing Stop: 11/30/18 18:41 Albuterol (Duoneb) 3 ml NEB QIDR ELBA Stop: 12/02/18 15:59 Last Admin: 11/04/18 11:15 Dose: 3 ml Documented by: Atorvastatin Calcium (Lipitor) 40 mg PO HS ELBA Stop: 11/30/18 20:59 Last Admin: 11/03/18 19:20 Dose: 40 mg Documented by: Cefdinir (Omnicef) 300 mg PO Q12 ELBA; Protocol Stop: 11/11/18 10:44 Last Admin: 11/04/18 12:29 Dose: 300 mg Documented by: Dexamethasone (Decadron) 2 mg PO Q12 ELBA Stop: 11/30/18 20:59 Last Admin: 11/04/18 08:01 Dose: 2 mg Documented by: Dextrose (Dextrose 50%) 25 - 50 ml IV UD PRN; Protocol PRN Reason: Hypoglycemia Protocol Stop: 11/30/18 19:44 Last Admin: 11/02/18 04:29 Dose: 50 ml Documented by: Duloxetine HCl (Cymbalta) 30 mg PO QAM [facility] Stop: 12/01/18 08:59 Last Admin: 11/04/18 08:01 Dose: 30 mg Documented by: Duloxetine HCl (Cymbalta) 60 mg PO QAM [facility] Stop: 12/01/18 08:59 Last Admin: 11/04/18 08:01 Dose: 60 mg Documented by: Glucagon (Glucagen) 1 mg IM UD PRN; Protocol PRN Reason: Hypoglycemia Protocol Stop: 11/30/18 19:44 Glucose (Glucose 40%) 15 - 30 gm PO UD PRN; Protocol PRN Reason: Hypoglycemia Protocol Stop: 11/30/18 19:44 Glucose (Dex4 Glucose) 4 - 8 tabs PO UD PRN; Protocol PRN Reason: Hypoglycemia Protocol Stop: 11/30/18 19:44 Diltiazem HCl 125 mg/ Dextrose 125 mls @ 0 mls/hr IV .Q0M ELBA; Protocol Stop: 11/30/18 18:41 Last Titration: 11/02/18 13:00 Dose: Infused Documented by: Insulin Aspart (Novolog Flexpen) 0 units SC ACHS ELBA; Protocol Stop: 11/30/18 20:59 Last Admin: 11/04/18 12:48 Dose: 20 units Documented by: Insulin Glargine (Lantus Solostar Pen) 25 units SC DAILY ELBA; Protocol Stop: 12/04/18 08:59 Last Admin: 11/04/18 08:02 Dose: 25 units Documented by: Lidocaine (Lidoderm 5%) 1 patch TD QAM PRN PRN Reason: Pain Stop: 11/30/18 18:41 Magnesium Hydroxide (Milk Of Magnesia) 30 ml PO Q12H PRN PRN Reason: Constipation Stop: 11/30/18 18:41 Last Admin: 11/04/18 08:09 Dose: 30 ml Documented by: Miscellaneous (Remove Lidoderm Patch) 1 ea N/A DAILY@2100 [facility] Stop: 11/30/18 20:59 Last Admin: 11/03/18 19:20 Dose: Not Given Documented by: Miscellaneous (Carbohydrates For Hypoglycemia) 15 - 30 gm PO UD PRN PRN Reason: Hypoglycemia Treatment Stop: 11/30/18 19:44 Last Admin: 11/02/18 04:11 Dose: 30 gm Documented by: Miscellaneous Information (Consult Glycemic Management Pharmacy) 1 ea N/A UD PRN PRN Reason: Consult Stop: 11/30/18 19:10 Oxycodone HCl (Roxicodone Immediate Rel) 5 mg PO Q6 PRN PRN Reason: Pain Stop: 11/14/18 18:41 Last Admin: 11/04/18 10:00 Dose: 5 mg Documented by: Polyethylene Glycol (Miralax Powder Packet) 17 gm PO DAILY [facility] Stop: 11/30/18 18:41 Last Admin: 11/04/18 08:08 Dose: 17 gm Documented by: Senna/Docusate Sodium (Senokot S) 2 tab PO BID ELBA Stop: 11/30/18 20:59 Last Admin: 11/04/18 08:09 Dose: 2 tab Documented by: Warfarin Sodium (Coumadin) 3 mg PO DAILY@1600 [facility] Stop: 11/30/18 20:29 Last Admin: 11/02/18 16:01 Dose: 3 mg Documented by: Zolpidem Tartrate (Ambien) 5 mg PO HS PRN PRN Reason: Sleep Stop: 11/30/18 18:41 Last Admin: 11/02/18 22:51 Dose: 5 mg Documented by: Resident Activity Tracking Resident Involvement: Resident Care Provided Care Provided: Adult Hospital Medicine (1) Depression Active/Remission status: currently active Depression Type: major depressive disorder Major depression episode severity: severe Major depression recurrence: recurrent Psychotic features: without psychotic features Qualified Code(s): F33.2 - Major depressive disorder, recurrent severe without psychotic features (2) Pneumonia Laterality: unspecified laterality Lung location: unspecified part of lung Pneumonia type: due to unspecified organism Qualified Code(s): J18.9 - Pneumonia, unspecified organism
[2018-11-04] MEDS ORDERED: VANCOMYCIN TROUGH ONE (13:30)
[2018-11-04] MEDS ORDERED: POLYETHYLENE (MIRALAX) 17 GM PACK PO ONE (14:45)
[2018-11-04] MEDS: WARFARIN SOD 3 MG TAB PO SCH (14:52)
[2018-11-04] MEDS: ATORVASTATIN 40 MG TAB PO SCH (21:19)
[2018-11-05] MEDS: ACETAMINOPHEN 325 MG TAB PO PRN ×3 (02:27→22:00)
[2018-11-05] MEDS: OXYCODONE HCL IR 5 MG TAB (IMMEDIATE RELEASE) PO PRN ×3 (03:36→21:59)
[2018-11-05] MEDS: ALBUT/IPRATROP 3MG/0.5MG NEB 3 ML VIAL NEB SCH ×5 (03:44→19:12)
[2018-11-05 07:32] LABS: Hematocrit (blood only) 28.7 % (42-52); Hemoglobin 9.4 g/dL (14.0-18.0); Mean Corpuscular Hgb Conc 32.8 g/dL (32-36); Nucleated RBC # (auto) 0.21 K/uL (0-0); Nucleated RBC % (auto) 1.2 %; RDW Coefficient of Variation 19.2 % (11.5-14.5); RDW Standard Deviation 65.4 fL (36.4-46.3); Red Blood Count 3.02 M/uL (4.7-6.1); White Blood Count 16.99 K/uL (4.8-10.8)
[2018-11-05] MEDS: dexAMETHasone 1 MG TAB PO SCH ×3 (07:45→22:00)
[2018-11-05] MEDS: CEFDINIR 300 MG CAP PO SCH (07:45)
[2018-11-05] MEDS: DOCUSATE SODIUM/SENNA 50/8.6MG TAB PO SCH ×2 (07:45→21:33)
[2018-11-05] MEDS: DULOXETINE HCL 30 MG CAP PO SCH (07:45)
[2018-11-05] MEDS: DULOXETINE HCL 60 MG CAP PO SCH (07:45)
[2018-11-05 07:54] LABS: Basophils # (auto) 0.03 K/uL (0-0.2); Basophils % (auto) 0.2 %; Dohle Bodies 1+; Eosinophils # (auto) 0.11 K/uL (0-0.5); Eosinophils % (auto) 0.6 %; Immature Granulocytes # (auto) 0.72 K/uL (0.00-0.02); Immature Granulocytes % (auto) 4.2 %; Lymphocytes # (auto) 1.45 K/uL (1.2-3.4); Lymphocytes % (auto) 8.5 %; Mean Platelet Volume 9.4 fL (7.4-10.4); Monocytes # (auto) 0.22 K/uL (0.11-0.59); Monocytes % (auto) 1.3 %; Neutrophils # (auto) 14.46 K/uL (1.4-6.5); Neutrophils % (auto) 85.2 %; Platelet Count 70 K/uL (130-400); Toxic Granulation 1+
[2018-11-05 08:05] LABS: BUN Creatinine Ratio 27.7 (10-20); Calcium 8.2 mg/dl (8.5-10.1); Creatinine Clr Calc Pharmacy 54.7 ml/min; Est GFR (African American) 56.7; Est GFR (Non-African American) 48.9; Potassium 4.8 mmol/L (3.5-5.1)
[2018-11-05] MEDS ORDERED: MoRPHine SULFATE 2 MG/ML CARP IV STA (08:14)
[2018-11-05] MEDS ORDERED: MoRPHine SULFATE 2 MG/ML CARP ONE (08:21)
[2018-11-05] MEDS: INSULIN ASPART 100 UNITS/ML 3 ML PEN SC SCH ×4 (08:29→21:34)
[2018-11-05] MEDS: INSULIN GLARGINE SOLOSTAR 100 UNITS/ML 3 ML PEN SC SCH (08:30)
[2018-11-05] MEDS ORDERED: LACTULOSE SYRUP 10 GM/15 ML BTL 473 ML PO PRN ×3 (09:48→11:01)
--- NOTE | 2018-11-05 10:17 | Infectious Disease Progress Nt ---
Date of Service November 05, 2018 Assessment & Plan (1) Gram positive sepsis: . picc out, tip culture negative to date, repeat cultures negative to date, suspect contaminated picc line. will follow. 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 no further ID recs at this time. 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 afebrile. wbc elevated. on omnicef for ? infiltrate. Results & Data Vital Signs (Past 12 Hours) Vital Signs Temp Pulse Resp BP Pulse Ox 11/05/18 07:42 36.5 C 98 H 20 117/81 100 11/05/18 07:10 87 18 89 L 11/05/18 03:45 84 26 H 91 11/05/18 00:00 98 11/04/18 22:45 37.5 C 98 H 20 108/70 Laboratory Results Microbiology 11/01/18 14:46 Blood Aerobic Blood Culture - Preliminary No growth in Aerobic bottle after 48 hours. 11/01/18 14:46 Blood Anaerobic Blood Culture - Final 11/01/18 14:05 Blood Aerobic Blood Culture - Preliminary No growth in Aerobic bottle after 48 hours. 11/01/18 14:05 Blood Anaerobic Blood Culture - Preliminary No growth in Anaerobic bottle after 48 hours. 11/01/18 17:43 Catheter Tip, Picc Catheter Tip Culture - Final No growth 10/31/18 12:50 Blood Aerobic Blood Culture - Preliminary Coag neg staph not lugdunensis Coag neg staph not lugdunensis#2 10/31/18 12:50 Blood Anaerobic Blood Culture - Preliminary No growth in Anaerobic bottle after 48 hours. 10/31/18 12:57 Blood Aerobic Blood Culture - Preliminary No growth in Aerobic bottle after 48 hours. 10/31/18 12:57 Blood Anaerobic Blood Culture - Preliminary No growth in Anaerobic bottle after 48 hours.
[2018-11-05] MEDS: POLYETHYLENE (MIRALAX) 17 GM PACK PO SCH (12:28)
--- NOTE | 2018-11-05 14:53 | Pharmacy Report ---
Glycemic Control Progress Note - Date of Service November 05, 2018 - Scope Glycemic Pharmacist consulted for glycemic control to write orders per [facility] inpatient glycemic control protocol. - Objective Accuchecks BSG(last 24 hours):: 11/04/18 11/04/18 11/05/18 17:01 20:08 00:50 Glucose POC Glucose 241 H 267 H 101 H 11/05/18 11/05/18 11/05/18 01:55 07:25 07:52 Glucose 136 H POC Glucose 125 H 181 H 11/05/18 11:47 Glucose POC Glucose 140 H HbA1c:: Hemoglobin A1c 8.4 % (4.5-5.6) H 11/01/18 07:49 - Recent Pertinent Medications The patient is currently receiving: * Basal insulin: Lantus 25 units every 24 hours * Correctional Insulin: Novolog Correction per scale ACHS Goal Range: Low 110 mg/dL - High 140 mg/dL Correction Factor: 10 mg/dL/unit * Prandial insulin: Per carb ratio of 1 unit per 3.5 grams CHO consumed - Outpatient Anti-Diabetic Meds Lantus 36 units in the morning and 30 units in the PM Novolog - Assessment & Plan ASSESSMENT: * See progress note from 10/31/18 for more background info, in short: * Pt receiving SQ basal bolus insulin regimen for hyperglycemia secondary to baseline DM (outpatient regimen on hold),stress/infection (on cefepime). * Patient is currently receiving an average of 105 units of insulin per day * 25 units of basal insulin * 80 units of prandial/correctional insulin * BSGs ranging 101 - 337 mg/dl over the past 24hrs * Changes needed to insulin regimen: * AM Fasting BSG = 181 mg/dl on POC and 136 mg/dL in PRP. This is in goal range for patient based on inpatient targets and co-morbidities. Therefore Basal insulin will be continued. Patient did not want to eat today. This was not expected and vastly different than previous days. I believe that this basal will be okay. It is 37% of his home dose. * Post-prandial BSGs were elevated yesterday. Tightened carbohydrate ratio but this has not been evaluated today since he hasn't eaten. Since the patient is not eating - increase goal range to 140-180 mg/dL to prevent correcting to too low of a goal. * Total daily dose = ? units. Around 100 units per day when eating.... may be closer to 30 units when not eating. PLAN FOR INPATIENT GLYCEMIC CONTROL: * Continuing Lantus 25 units SQ daily * Continuing correction factor of 10 mg/dl/unit * TIGHTENING carb ratio to 1 unit per 3 grams CHO consumed * RAISING goal range to Low 140 mg/dL - High 180 mg/dL * Please note that the plan above was derived based on current level of insulin resistance and hospital stress. These recommendations are appropriate for inpatient admission only. Plan of care upon discharge will need to be reassessed to avoid potential outpatient hypo/hyperglycemia. Thank you.
[2018-11-05] MEDS ORDERED: MoRPHine SULFATE 2 MG/ML CARP IV PRN (15:19)
[2018-11-05] MEDS ORDERED: VANCOMYCIN CONSULT ACTIVE PRN (15:59)
[2018-11-05] MEDS ORDERED: VANCOMYCIN HCL 1,000 MG in SODIUM CHLORIDE 0.9% 250 ML IV SCH (16:00)
[2018-11-05] MEDS: WARFARIN SOD 3 MG TAB PO SCH (17:16)
[2018-11-05] MEDS ORDERED: MoRPHine SULFATE 2 MG/ML CARP IM PRN (17:53)
[2018-11-05] MEDS ORDERED: SOD PHOSPHATE/SOD BIPHOSPHATE ENEMA 132 ML BTL PR STA (17:54)
[2018-11-05] MEDS ORDERED: CEFEPIME 1,000 MG in SYRINGE 0 ML IV SCH (18:00)
[2018-11-05] MEDS ORDERED: VANCOMYCIN HCL 2,250 MG in SODIUM CHLORIDE 0.9% 500 ML IV ONE (18:00)
--- NOTE | 2018-11-05 18:06 | Family Medicine Progress Note ---
Date of Service November 05, 2018 Assessment & Plan (1) Pneumonia: 82-year-old male admitted on 31 October 2018 s/p fall and worsening fatigue. Pneumonia, sepsis - 05Jun started on vancomycin, Zosyn, and Levaquin. 05Jun single positive BCx for staph. 06Jun passed speech eval. - Transitioned to Cefdinir yesterday, developed fevers, tachycardia and mildly increased white count this afternoon--->restarted broad spectrum IV abx, obtained blood cultures Bacteremia - Discharged on 23May on IV vancomycin via PICC line for E. faecalis, thought to be related to smith osteo. - 05Jun single positive BCx for staph. ID consulted following. 06Jun removed PICC line and tip culture no growth (final). Repeat 06Jun BCx NGTD. 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 70 pk/yr smoker. - First dose of Keytruda on . - Continuing dexamethasone 2 mg twice daily. PRN Morphine for pain, Lidoderm patch and oxycodone prn Chronic Constipation - Fleet enema tonight, will consider more aggressive bowel regimen tomorrow if constipation continues A. fib with RVR - Already on Coumadin for chronic PE and PMH DVT, though subtherapeutic on admit. Given extra 2 mg dose, then supratherapuetic. - Started on diltiazem drip but stopped for relative hypotension. Off rate/rhythm control meds. - See 01Nov2018 TTE report, EF 65-70%. Now in NSR with brief A. fib/PVCs. - Restarting home Coumadin dose. Hyperkalemia - Resolved Acute kidney injury - Improving Acute on chronic anemia - Chronically around Hb 11, normal MCV. Admit Hb 11.2, down to 9.4. Monitoring. Thrombocytopenia - Continue to monitor Hypertension, hyperlipidemia: - On atorvastatin 40 mg. - Held lisinopril for TIANA and relative hypotension. DM2: Reported history of insulin noncompliance - 06Jun HbA1c 8.4. On Lantus and sliding scale here. - Monitoring episodes of hypoglycemia. Obstructive sleep apnea - CPAP at night. - Prostate cancer, chronic urinary obstruction: History of brachytherapy. Self- cath at home. On oxybutynin. - Patient refused catheter here. Gout - Held colchicine. Depression - History of "outbursts", HI, and prior psych involvement. On duloxetine. Code status: Full code. Diet: DM 2. DVT prophy: Coumadin. PT/OT: Ongoing. Disbo: Admitted to PCU telemetry. Will transfer to [facility] today. - Lives at home with . Case management onboard. Referral out to [facility], f/u Monday. - Seen by palliative care (see related notes). Goal for family meeting. Has previously declined hospice. (2) Sepsis: (3) Bacteremia: (4) Metastatic adenocarcinoma: (5) Atrial fibrillation with rapid ventricular response: (6) Chronic pulmonary embolism: (7) Hyperkalemia: (8) TIANA (acute kidney injury): (9) Anemia: (10) Thrombocytopenia: (11) Constipation: (12) Hypertension: (13) Hyperlipidemia: (14) Diabetes: (15) Obstructive sleep apnea: (16) Prostate cancer: (17) Urinary obstruction: (18) Gout: (19) Depression: (20) Osteomyelitis: Supervising Physician Co-Signing Physician Notes I personally examined the patient and verified all galo points of history and exam, discussed case, and agree with decision making with Dr Kimball. More lethargic. Extensive discussions with sons, no real meaning HPI or review of systems obtainable, as the only thing the patient will really say is that he wants us to get out of the room whenever he overhears a stocking of the sons. Dr. Chaves present, and he and I both collaborate in a group discussion with the sons to update on current care. Vitals noted, in general he is quite fatigued appearing and only really responds mostly grunts and groans. He does not appear to be in any pain or respiratory distress. HEENT normocephalic atraumatic mucous membranes moist. Cardio is regular without rubs or murmur, lungs clear but diminished bibasilar somewhat difficult exam no rales rhonchi or wheezes. Extremities show no cyanosis or clubbing, he has diffuse edema worse upper extremities and lower, some weeping. His left great toe is a little bit darker colored, but the skin is cold and it has great capillary refill. No other skin findings. No focal neuro deficits. Recurrent sepsishe had a little bit of worsening of his white count earlier today that was nonspecific, but now his vitals are overall worse including repeat fever. Repeat blood cultures, re-escalate antibiotics. Continue supportive care. Constipationenema for today, once he is able to tolerate p.o. better, we will utilize escalating dosing of MiraLAX Subjective Uanble to obtain history due to patients mental status. Review of Systems Review of Systems: Unobtainable due to cognitive status Physical Exam Physical Exam: General Appearance: Appears somnolent, fully opens eyes to voice, does not appear in acute distress. Hard of hearing. CV: +S1S2 irregularly irregular, no murmur. Pulm: Clear to auscultation throughout. On nasal cannula oxygen. Abdomen: +BS, soft, non-tender, non-distended. Obese habitus. Extremities: Bilateral upper extremity edema. Missing several toes on bilateral feet. Well-healed wound to the left smith. Neuro: Appears generally somnolent but responds to voice. Results & Data Vital Signs (Past 12 Hours) Vital Signs Temp Pulse Resp BP BP Pulse Ox 11/05/18 17:15 37.4 C 11/05/18 16:49 37.8 C H 11/05/18 15:22 38.6 C H 122 H 24 135/79 98 11/05/18 15:20 115 H 26 H 99 11/05/18 11:21 78 18 91 11/05/18 11:18 36.4 C L 102 H 22 128/84 96 11/05/18 07:42 36.5 C 98 H 20 117/81 100 11/05/18 07:10 87 18 89 L (1) Depression Active/Remission status: currently active Depression Type: major depressive disorder Major depression episode severity: severe Major depression recurrence: recurrent Psychotic features: without psychotic features Qualified Code(s): F33.2 - Major depressive disorder, recurrent severe without psychotic features (2) Pneumonia Laterality: unspecified laterality Lung location: unspecified part of lung Pneumonia type: due to unspecified organism Qualified Code(s): J18.9 - Pneumonia, unspecified organism
--- NOTE | 2018-11-05 20:49 | Pharmacy Report ---
Pharmacy Abx Dose Short Note - Date of Service November 05, 2018 - Assessment & Plan Assessment Pharmacy reconsulted for vancomycin dosing - previously vancomycin consult, but dc'ed on 11/03. Patient had been receiving vancomycin and cefdinir for bacteremia/pneumonia. ID consulted to follow patient. Picc out and tip culture no growth, per ID suspected contaminated Picc line. Due to continued fevers, plan to restart broad spectrum antibiotics this evening Vancomycin: * Last dose of vancomycin was 11/03 at ~1550 - estimated level <5 mcg/ml at this time ; will plan to reload with 2250 mg x 1 (21 mg/kg) * Will plan to start vancomycin 1500 mg iv q 18 hrs to achieve an estimated trough ~15-20 mcg/ml * Estimated kinetics: t1/2~14 hrs, ke~0.05 hr-1, CrCl ~55 ml/min * Ordered empirically x 48 hrs - will follow up if trough level warranted/abx's extended Pharmacy will continue to follow and will adjust dose/frequency as necessary. Thank you.
[2018-11-05] MEDS: ATORVASTATIN 40 MG TAB PO SCH ×2 (21:32→22:00)
[2018-11-06] MEDS ORDERED: LORazepam 1 MG/2 ML VIAL IV STA (01:30)
[2018-11-06] MEDS ORDERED: RAPID SEQUENCE INDUCTION BAG ONE (05:42)
[2018-11-06] MEDS ORDERED: ALBUMIN 25% 50 ML IV SCH (05:45)
[2018-11-06] MEDS ORDERED: MIDAZOLAM HCL 125 MG/250 ML BAG IV PRN (06:20)
[2018-11-06 06:22] LABS: iSTAT Allen Test Pass; iSTAT Arterial Blood Gas HCO3 13 meg/L (19-24); iSTAT Arterial Blood Gas pCO2 19 mmHg (35-46); iSTAT Arterial Blood Gas pH 7.45 (7.35-7.45); iSTAT Carbon Dioxide 14 mEq/l (24-31); iSTAT FiO2 40 %; iSTAT Site R Radial
--- NOTE | 2018-11-06 06:34 | XRay Report ---
XR chest 1V portable HISTORY: 82 years-old Male intubation acute respiratory failure COMPARISON: Chest radiograph 11/02/2018 TECHNIQUE: Portable AP view the chest FINDINGS: Endotracheal tube has been placed, distal tip terminating 4.9 cm superior to the kaur. Cardiac silh ouette is enlarged. Pulmonary vascular congestion. Bilateral mixed interstitial and alveolar opacitie s have progressively worsened from comparison. No pneumothorax, or large pleural effusion. 8 mm nodul ar density of the left upper lung redemonstrated. Right middle lobe masslike opacity redemonstrated. Degenerative changes of the shoulders and spine. The lateral left costophrenic angle was excluded fro m the [id number]. IMPRESSION: 1. Endotracheal tube terminates 4.9 cm superior to the kaur. 2. Extensive bilateral mixed interstitial and alveolar opacities, progressed from comparison suggesti ve of multifocal pneumonia. The above report was generated using voice recognition software. It may contain grammatical, syntax o r spelling errors. Electronically signed by: Fredy Andersen M.D. 11/06/2018 6:33 AM
[2018-11-06] MEDS ORDERED: NOREPINEPHRINE (Adult) 8 MG in DEXTROSE 5% 500 ML IV PRN (06:38)
[2018-11-06] MEDS ORDERED: NOREPINEPHRINE BIT INJ 8 MG in DEXTROSE 5% 500 ML IV SCH (06:45)
[2018-11-06 07:02] LABS: Hematocrit (blood only) 33.5 % (42-52); Hemoglobin 10.7 g/dL (14.0-18.0); Mean Corpuscular Volume 98.8 fL (80-100); Nucleated RBC # (auto) 0.77 K/uL (0-0); Nucleated RBC % (auto) 4.1 %; RDW Coefficient of Variation 19.4 % (11.5-14.5); RDW Standard Deviation 68.5 fL (36.4-46.3); Red Blood Count 3.39 M/uL (4.7-6.1); White Blood Count 18.97 K/uL (4.8-10.8)
[2018-11-06] MEDS: ALBUT/IPRATROP 3MG/0.5MG NEB 3 ML VIAL NEB SCH (07:15)
[2018-11-06 07:24] LABS: Mean Corpuscular Hgb Conc 31.9 g/dL (32-36); Mean Platelet Volume 11.3 fL (7.4-10.4); Platelet Count 49 K/uL (130-400)
[2018-11-06 07:27] LABS: Magnesium 3.5 mg/dl (1.8-2.4); Troponin I 0.071 ng/ml (0-0.045)
[2018-11-06 07:29] LABS: Basophils # (auto) 0.07 K/uL (0-0.2); Basophils % (auto) 0.4 %; Dohle Bodies 1+; Echinocytes 1+; Eosinophils # (auto) 0.02 K/uL (0-0.5); Eosinophils % (auto) 0.1 %; Immature Granulocytes # (auto) 0.45 K/uL (0.00-0.02); Immature Granulocytes % (auto) 2.4 %; Lymphocytes # (auto) 3.84 K/uL (1.2-3.4); Lymphocytes % (auto) 20.2 %; Monocytes # (auto) 0.28 K/uL (0.11-0.59); Monocytes % (auto) 1.5 %; Neutrophils # (auto) 14.31 K/uL (1.4-6.5); Neutrophils % (auto) 75.4 %; Spherocytes Occasional; Toxic Vacuolation 1+
[2018-11-06] MEDS ORDERED: CALCIUM CHLORIDE 10% 10 ML SYR IV ONE (07:32)
[2018-11-06] MEDS ORDERED: ATROPINE SULFATE 0.1 MG/ML 10ML SYR IV ONE ×2 (07:33→11:19)
[2018-11-06 07:35] LABS: Albumin Globulin Ratio 0.3 (0.9-2); Albumin Level 1.5 gm/dl (3.4-5.0); BUN Creatinine Ratio 20.4 (10-20); Bilirubin,Total 0.9 mg/dl (0.2-1); Calcium 8.5 mg/dl (8.5-10.1); Creatinine Clr Calc Pharmacy 26.9 ml/min; Est GFR (Non-African American) 20.7; Globulin 4.8 gm/dl (2.5-4.0); Potassium 8.1 mmol/L (3.5-5.1); Total Protein 6.3 gm/dl (6.4-8.2)
[2018-11-06] MEDS ORDERED: INSULIN HUMAN REGULAR PER UNIT 10 UNITS in SYRINGE 9.9 ML IV STA (07:36)
[2018-11-06] MEDS ORDERED: CALCIUM GLUCONATE 10% 1,000 MG in SODIUM CHLORIDE 0.9% 50 ML IV STA (07:37)
[2018-11-06] MEDS ORDERED: SODIUM BICARB 8.4% INJ 50 MEQ/50 ML SYR ONE (07:42)
[2018-11-06] MEDS ORDERED: SODIUM BICARBONATE 8.4% 150 MEQ in DEXTROSE 5% 1,000 ML IV SCH (07:45)
--- NOTE | 2018-11-06 07:46 | Procedure Note ---
Procedure Note Date of Service November 06, 2018 I was contacted by Dr. Traore regarding need for urgent intubation. Patient was being moved from the floor to the intensive care unit. Upon patient's arrival in the intensive care unit, it was noted that the IV previously used by the floor was now no longer working. Given need for emergent access, I assisted the resident and placing an IO in the patient's right tibia. Area was cleaned and prepped, area for placement identified, and this was placed with ease. Marrow was aspirated and site easily flushed. Patient with metastatic lung CA and was already on BiPAP. Patient continued to have difficulty oxygenating and his level of mentation was decreasing despite BiPAP. Patient had a sinus tachycardia on the monitor, difficulty obtaining blood pressure, and in a manual blood pressure was 70/P. Patient had minimal response to painful stimuli. Patient was given etomidate through the IO, and BiPAP facemask kept in place until patient was adequately sedated. Patient's upper dentures were removed. Using a glide scope, patient's airway was visualized, and a 7.5 ET tube was easily passed. No blood or significant secretions noted in the airway. Color capnometry was positive, bilateral breath sounds were heard, no adventitious noises heard over the upper abdomen, condensation noted in the endotracheal tube. Patient did still have some spontaneous respirations and these were assisted with bagging also. Tube was then secured, and patient was then connected to the ventilator with assistance of RT. Chest x-ray was ordered by hospitalist service to confirm placement. Additional management deferred to the hospitalist service who had been caring for the patient. Coding
[2018-11-06 08:05] LABS: iSTAT Allen Test Pass; iSTAT Arterial Blood Gas HCO3 17 meg/L (19-24); iSTAT Arterial Blood Gas pCO2 56 mmHg (35-46); iSTAT Arterial Blood Gas pH 7.09 (7.35-7.45); iSTAT Carbon Dioxide 19 mEq/l (24-31); iSTAT FiO2 100 %; iSTAT Hematocrit 21 % (42-52); iSTAT Hemoglobin 7.1 g/dl (14.0-18.0); iSTAT Potassium 7.6 mEq/L (3.3-5.0); iSTAT Site R Radial; iSTAT Sodium 134 mEq/L (135-144)
--- NOTE | 2018-11-06 10:29 | Death Summary ---
Date of Service November 06, 2018 Pronouncement Note Date and Time of Date of : 11/06/18 PCOD Preliminary cause of : Cardiac arrhythmia Contributing Factors (1) Pneumonia: (2) Sepsis: (3) Bacteremia: (4) Metastatic adenocarcinoma: (5) Atrial fibrillation with rapid ventricular response: (6) Chronic pulmonary embolism: (7) Hyperkalemia: (8) TIANA (acute kidney injury): (9) Anemia: (10) Thrombocytopenia: (11) Constipation: (12) Hypertension: (13) Hyperlipidemia: (14) Diabetes: (15) Obstructive sleep apnea: (16) Prostate cancer: (17) Urinary obstruction: (18) Gout: (19) Depression: (20) Osteomyelitis: Summary Additional details: 82-year-old male with a past medical history of metastatic lung cancer to the liver, adrenal glands and bone presented to [facility] and was treated for pneumonia. The patient was treated with broad-spectrum antibiotics including vancomycin, Zosyn and Levaquin on October 31, 2018. The patient was eventually transitioned to oral antibiotics on 11/04/2018. Over the course of the day on 11/05/2018, the patient began to develop fevers, he became tachycardic and showed signs of worsening mental status. The patient was subsequently transferred to a higher level of care in the PCU. Blood cultures were obtained and the patient was started again on broad-spectrum antibiotics. In the continuous pillowcase cutter of 11/06/2018, the patient became hypoxic and was subsequently transferred to the ICU where he was intubated. Shortly after transfer, the patient went into cardiac arrest. Resuscitation efforts lasted approximately 45 minutes before the patient from what appears to be a fatal arrhythmia. The patient's family was contacted throughout the process. Upon arrival to the hospital, the patient's family was counseled on the events leading up to the patient's . The family's questions were answered at this time. Additional Data Family: contacted Attending physician: Yg Lucas, DO Was code activated?: Yes Supervising Physician Co-Signing Physician Notes I personally examined the patient and verified all galo points of history and ex am, discussed case, and agree with decision making with Dr Kimball. Informed prior to even coming on shift the patient is doing poorly, being actively managed by Drs. Cabrales and Soco. Through the night patient had in the middle the night become more hypoxic, BiPAP was initiated, this was unsuccessful, he was moved to the ICU and intubated. Ongoing aggressive medical management was undertaken. On my arrival patient was actively coding, ACLS being managed by Dr. Wan, Dr. Chacon from ER assisting with access. On arrival assisted in care with the code, as well as in looking to root cause, and afterwards in discussions with the family. ACLS/critical care efforts undertaken for approximately 45 to 50 minutes (critical care having also been done by Dr. Cabrales and Soco prior to this and moving the patient to the ICU, intubation, and early resuscitative efforts) patient initially was bradycardic, hypotensive. Later periods of asystole and significant amounts of PEA. Unfortunately in spite of significant resuscitative efforts, the patient did not regain spontaneous circulation, and was pronounced at 7:50 AM. Given the patient's progression yesterday, as well x-ray showing progression of infiltrate, it appears that his immediate cause of was related to sepsis/hypoxia from a worsening nosocomial pneumonia, in spite of having expanded antibiotic coverage almost immediately after he became febrile, and in spite of aggressive supportive care. Grief support provided to family. Total time of critical care approximately 60 minutes, separate from the time given to care by Dr. Wan through night time babysitter. Resident Activity Tracking Resident Involvement: Resident Care Provided Care Provided: Adult Hospital Medicine
[2018-11-06] MEDS ORDERED: ETOMIDATE 2 MG/ML 20 ML VIAL IV ONE (11:19)
[2018-11-06] MEDS ORDERED: SODIUM CHLORIDE 0.9% 10ML FLUSH IV ONE (11:19)
[2018-11-06] MEDS ORDERED: MAGNESIUM SULFATE 1GM / D5W BAG IV ONE (11:19)
[2018-11-06] MEDS ORDERED: MIDAZOLAM HCL 5 MG/ML VIAL IV ONE (11:19)
[2018-11-06] MEDS ORDERED: SODIUM CHLORIDE 0.9% 1000 ML BAG IV ONE (11:19)
[2018-11-06] MEDS ORDERED: SODIUM BICARB 8.4% INJ 50 MEQ/50 ML SYR IV ONE (11:19)
[2018-11-06] MEDS ORDERED: DOBUTamine 500MG / 250ML D5W IV ONE (11:19)
[2018-11-06] MEDS ORDERED: DEXTROSE 50% 50 ML SYRINGE IV ONE (11:19)
[2018-11-06] MEDS ORDERED: VANCOMYCIN HCL 1,500 MG in SODIUM CHLORIDE 0.9% 500 ML IV SCH (12:00)
--- NOTE | 2018-11-06 19:06 | Hospitalist Progress Note ---
Date of Service November 06, 2018 Assessment & Plan (1) Pneumonia: (2) Sepsis: (3) Bacteremia: (4) Metastatic adenocarcinoma: (5) Atrial fibrillation with rapid ventricular response: (6) Chronic pulmonary embolism: (7) Hyperkalemia: (8) TIANA (acute kidney injury): (9) Anemia: (10) Thrombocytopenia: (11) Constipation: (12) Hypertension: (13) Hyperlipidemia: (14) Diabetes: (15) Obstructive sleep apnea: (16) Prostate cancer: (17) Urinary obstruction: (18) Gout: (19) Depression: (20) Osteomyelitis: (1) Pneumonia Laterality: unspecified laterality Lung location: unspecified part of lung Pneumonia type: due to unspecified organism Qualified Code(s): J18.9 - Pneumonia, unspecified organism (2) Depression Active/Remission status: currently active Depression Type: major depressive disorder Major depression episode severity: severe Major depression recurrence: recurrent Psychotic features: without psychotic features Qualified Code(s): F33.2 - Major depressive disorder, recurrent severe without psychotic features
--- NOTE | 2018-11-07 07:07 | Emergency Department Note ---
ED Visit Note Arterial line Indication: Cardiac arrest Catheter type: Arrow Location: left femoral Verbal consent was not obtained due to patient's dire status. At this time, the risks of the procedure are less than the risks of NOT performing the procedure. A time out was taken and the correct patient and site identified. The patient was placed in the supine position and the skin was prepped in the standard fashion with chlorhexidine and full sterile drapes applied. The proper landmarks were identified with ultrasound, anesthetized with 1% lidocaine without epinephrine, and the needle was inserted through the skin in the standard fashion. The needle was carefully advanced into blood vessel lumen under ultrasound guidance. The guidewire was placed uneventfully. The vessel is dilated and the catheter was placed. It was sutured into position. There was good blood return from all ports. The patient tolerated the procedure well and there were no complications. . : Altered mental status Qualifiers: Altered mental status type: unspecified Qualified Code(s): R41.82 - Altered mental status, unspecified Fall Qualifiers: Encounter type: initial encounter Qualified Code(s): W19.XXXA - Unspecified fall, initial encounter Pneumonia Qualifiers: Pneumonia type: due to unspecified organism Laterality: unspecified laterality Lung location: unspecified part of lung Qualified Code(s): J18.9 - Pneumonia, unspecified organism
--- NOTE | 2018-11-19 17:35 | Family Medicine Progress Note ---
Date of Service November 05, 2018 PG Care Time/CCT Total # of Minutes Spent Total Time Spent with Patient: Total time spent is greater than 50% in coordination of care (as documented) at patient's floor/unit and/or counseling patient:
== END 2018-11-06 11:20 | disposition expired | DRG 871 ==
LOC: ED 11:57 → 2S 16:43 → SUATTDRO 16:43 → 2S 18:37 → 4E 11-04 08:17 → 2S 11-05 18:58 → 1E 11-06 06:08